=== PATIENT | female | born 1930 | race Caucasian/White ===

== ENCOUNTER 2017-04-09 13:25 | Emergency (ER) | payer MEDICARE, OTHER ==
--- NOTE | 2017-04-09 13:56 | EDM.PDOC ---
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 No trauma. Pt had birthday 3 days ago and may have eaten some salty food. BP was 185/105 on arrival. Onset: Today Duration: Hour(s): Location: Reports: Generalized Severity: Mild headache Pain Score (Numeric/FACES): 5 - Related Data Allergies Allergy/AdvReac Type Severity Reaction Status Date / Time moxifloxacin HCl Allergy Cannot Verified 04/09/17 14:02 [From Avelox] Remember Penicillins Allergy Swelling Verified 04/09/17 14:02 sulfamethoxazole Allergy Swelling Verified 04/09/17 14:02 [From Bactrim] trimethoprim [From Bactrim] Allergy Swelling Verified 04/09/17 14:02 Home Meds: Home Meds Acetaminophen [Tylenol] 325 mg PO DAILY 02/11/14 [History] Ascorbic Acid [Vitamin C] 500 mg PO DAILY 02/11/14 [History] Aspirin 325 mg PO DAILY 02/11/14 [History] Calcium Carbonate/Vitamin D3 [Calcium 500 + Vit D 400] 1 each PO DAILY 02/11/14 [History] Cholestyramine/Aspartame [Cholestyramine Light] 4 gm PO BID 02/11/14 [History] Digoxin [Digox] 0.125 mg PO DAILY 02/11/14 [History] Lisinopril [Prinivil] 20 mg PO BID 02/11/14 [History] Methimazole 2.5 mg PO DAILY 02/11/14 [History] Metoprolol Succinate [Toprol XL 100mg] 100 mg PO DAILY 02/11/14 [History] Rudyard-3 Fatty Acids [Rudyard-3] 1,000 mg PO DAILY 02/11/14 [History] Omeprazole 20 mg PO DAILY 02/11/14 [History] Potassium Chloride [Klor-Con M20] 40 meq PO WITHBREAKFAST 02/11/14 [History] amLODIPine Besylate [Amlodipine Besylate] 5 mg PO DAILY 02/11/14 [History] predniSONE [Prednisone] 5 mg PO ASDIRECTED 02/11/14 [History] Cranberry Extract [Cranberry] 500 mg PO DAILY 04/09/17 [History] Cyanocobalamin (Vitamin B-12) [B-12] 1,000 mcg PO MOWEFR 04/09/17 [History] Furosemide [Furosemide] 20 mg PO DAILY 04/09/17 [History] Glimepiride [Amaryl] 2 mg PO DAILY 04/09/17 [History] Metoprolol Succinate [Toprol XL 100mg] 50 mg PO BEDTIME 04/09/17 [History] Potassium Chloride [K-Tab ER] 20 meq PO ACDINNER 04/09/17 [History] Ranitidine [Zantac] 150 mg PO BID 04/09/17 [History] cloNIDine [Catapres] 0.1 mg PO Q12HR #2 tablet 04/09/17 [Rx] metFORMIN [Glucophage] 500 mg PO BIDMEALS 04/09/17 [History] ED ROS GENERAL - Review of Systems Review Of Systems: See Below Constitutional: Reports: Other (dizzy) HEENT: Reports: No Symptoms Respiratory: Reports: No Symptoms Cardiovascular: Reports: No Symptoms Endocrine: Reports: No Symptoms GI/Abdominal: Reports: Abdominal Pain : Reports: No Symptoms Musculoskeletal: Reports: No Symptoms Skin: Reports: No Symptoms Neurological: Reports: No Symptoms Psychiatric: Reports: No Symptoms Hematologic/Lymphatic: Reports: No Symptoms Immunologic: Reports: No Symptoms ED EXAM, GENERAL - Physical Exam Exam: See Below Exam Limited By: No Limitations General Appearance: Alert, WD/WN, Mild Distress Eye Exam: Bilateral Eye: Normal Inspection Ears: Normal External Exam Ear Exam: Bilateral Ear: Auricle Normal EKG INTERPRETATION EKG Date: 04/09/17 Time: 14:40 Rhythm: A-Fib Rate (Beats/Min): 67 [place]: Normal P-Wave: Present QRS: Normal ST-T: Normal QT: Normal Comparison: NA - No Prior EKG EKG Interpretation Comments: pr interval 284, NSR Course - Vital Signs Text/Narrative:: 87 years old w f with a 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 HTN, come to the ed because of severe headache and dizziness. No trauma. Pt had birthday 3 days ago and december have eaten some salty food. BP was 185/105 on arrival. No C/P N/V/D or any other acute medical issues. PE: WNWD w f NAD, was ambulating well. labs: WBC was 3.6 Nl HGB and HK. PT was 1.13 BMP was nl BNP 135 Imaging: CT head: NAD Impression: Hypertensive urgency Tx: Clonidine Reexam: BP was 150./87 on D/C, was ambulating well, Dizziness subsided. Plan: D/C with instructions. 04/10/2017 1130 am: Pt came back to the ed by PC for BP check. she took a clonidine 0.1 mg in am did check her BP as requested her BP was 160/87. Her BP was 88/407 on arrival to the ed. She received water. Her BP was rechecked before D/C. It was 108/57. She was adviced to stop taking clonidine and f/u in am with her PMD Last Recorded V/S: Last Vital Signs Temp 36.6 C 04/09/17 16:15 Pulse 58 L 04/09/17 16:15 Resp 16 04/09/17 16:15 BP 150/70 H 04/09/17 16:15 Pulse Ox 97 04/09/17 16:15 - Orders/Labs/Meds Orders: Active Orders 24 hr Category Date Time Status Abdomen 2V AP Flat Upright [CR] Stat Exams 04/09/17 13:51 Taken Head wo Cont [CT] Stat Exams 04/09/17 13:53 Taken EKG 12 Lead [EK] Routine Ther 04/09/17 13:51 Ordered Labs: Laboratory Tests 04/09/17 04/09/17 04/09/17 Range/Units 13:50 14:00 14:00 WBC 3.5 L (4.5-12.0) X10-3/uL RBC 4.55 (3.23-5.20) x10(6)uL Hgb 13.2 (11.5-15.5) g/dL Hct 38.8 (30.0-51.3) % MCV 85.4 (80-96) fL MCH 29.1 (27.7-33.6) pg MCHC 34.1 (32.2-35.4) g/dL RDW 13.2 (11.5-15.5) % Plt Count 126 (125-369) X10(3)uL MPV 7.8 (7.4-10.4) fL Neut % (Auto) 50.5 (46-82) % Lymph % (Auto) 31.4 (13-37) % [place] % (Auto) 13.5 H (4-12) % Eos % (Auto) 4 (1.0-5.0) % Baso % (Auto) 1 (0-2) % Neut # (Auto) 1.8 (1.6-8.3) # Lymph # (Auto) 1.1 (0.6-5.0) # [place] # (Auto) 0.5 (0.0-1.3) # Eos # (Auto) 0.1 (0.0-0.8) # Baso # (Auto) 0.0 (0.0-0.2) # PT 11.5 H (8.7-11.1) INR 1.14 H (0.89-1.13) Sodium (135-145) mmol/L Potassium (3.5-5.3) mmol/L Chloride (100-110) mmol/L Carbon Dioxide (23-29) mmol/L BUN (8-23) mg/dL Creatinine (0.6-1.3) mg/dL Est Cr Clr Drug Dosing mL/min Estimated GFR (MDRD) (>60) BUN/Creatinine Ratio (9-20) Glucose (80-116) mg/dL Calcium (8.6-10.2) mg/dL Total Bilirubin (0.1-1.3) mg/dL Direct Bilirubin (0.1-0.2) mg/dL AST (5-27) IU/L ALT (14-26) IU/L Alkaline Phosphatase (56-112) IU/L B-Natriuretic Peptide (0-100) pg/mL Total Protein (6.0-8.0) g/dL Albumin (3.2-4.6) g/dL Urine Color Yellow (YELLOW) Urine Appearance Clear (CLEAR) Urine pH 5.0 (5.0-6.5) Ur Specific [place] 1.010 (1.010-1.025) Urine Protein Negative (NEGATIVE) mg/dL Urine Glucose (UA) Normal (NEGATIVE) mg/dL Urine Ketones Negative (NEGATIVE) mg/dL Urine Occult Blood Negative (NEGATIVE) Urine Nitrite Negative (NEGATIVE) Urine Bilirubin Negative (NEGATIVE) Urine Urobilinogen Normal (NEGATIVE) mg/dL Ur Leukocyte Esterase Negative (NEGATIVE) Urine RBC Not seen (0) Urine WBC 0-5 (0) Ur Squamous Epith Cells Rare (NS,R,O) Urine Bacteria Rare H (NS) Digoxin (0.8-2.0) ng/mL 04/09/17 04/09/17 04/09/17 Range/Units 14:00 14:00 14:00 WBC (4.5-12.0) X10-3/uL RBC (3.23-5.20) x10(6)uL Hgb (11.5-15.5) g/dL Hct (30.0-51.3) % MCV (80-96) fL MCH (27.7-33.6) pg MCHC (32.2-35.4) g/dL RDW (11.5-15.5) % Plt Count (125-369) X10(3)uL MPV (7.4-10.4) fL Neut % (Auto) (46-82) % Lymph % (Auto) (13-37) % [place] % (Auto) (4-12) % Eos % (Auto) (1.0-5.0) % Baso % (Auto) (0-2) % Neut # (Auto) (1.6-8.3) # Lymph # (Auto) (0.6-5.0) # [place] # (Auto) (0.0-1.3) # Eos # (Auto) (0.0-0.8) # Baso # (Auto) (0.0-0.2) # PT (8.7-11.1) INR (0.89-1.13) Sodium 138 (135-145) mmol/L Potassium 4.1 (3.5-5.3) mmol/L Chloride 102 (100-110) mmol/L Carbon Dioxide 26 (23-29) mmol/L BUN 15 (8-23) mg/dL Creatinine 0.9 (0.6-1.3) mg/dL Est Cr Clr Drug Dosing 37.80 mL/min Estimated GFR (MDRD) 60 (>60) BUN/Creatinine Ratio 16.7 (9-20) Glucose 78 L (80-116) mg/dL Calcium 9.5 (8.6-10.2) mg/dL Total Bilirubin (0.1-1.3) mg/dL Direct Bilirubin (0.1-0.2) mg/dL AST (5-27) IU/L ALT (14-26) IU/L Alkaline Phosphatase (56-112) IU/L B-Natriuretic Peptide 151 H (0-100) pg/mL Total Protein (6.0-8.0) g/dL Albumin (3.2-4.6) g/dL Urine Color (YELLOW) Urine Appearance (CLEAR) Urine pH (5.0-6.5) Ur Specific [place] (1.010-1.025) Urine Protein (NEGATIVE) mg/dL Urine Glucose (UA) (NEGATIVE) mg/dL Urine Ketones (NEGATIVE) mg/dL Urine Occult Blood (NEGATIVE) Urine Nitrite (NEGATIVE) Urine Bilirubin (NEGATIVE) Urine Urobilinogen (NEGATIVE) mg/dL Ur Leukocyte Esterase (NEGATIVE) Urine RBC (0) Urine WBC (0) Ur Squamous Epith Cells (NS,R,O) Urine Bacteria (NS) Digoxin 0.8 (0.8-2.0) ng/mL 04/09/17 Range/Units 14:00 WBC (4.5-12.0) X10-3/uL RBC (3.23-5.20) x10(6)uL Hgb (11.5-15.5) g/dL Hct (30.0-51.3) % MCV (80-96) fL MCH (27.7-33.6) pg MCHC (32.2-35.4) g/dL RDW (11.5-15.5) % Plt Count (125-369) X10(3)uL MPV (7.4-10.4) fL Neut % (Auto) (46-82) % Lymph % (Auto) (13-37) % [place] % (Auto) (4-12) % Eos % (Auto) (1.0-5.0) % Baso % (Auto) (0-2) % Neut # (Auto) (1.6-8.3) # Lymph # (Auto) (0.6-5.0) # [place] # (Auto) (0.0-1.3) # Eos # (Auto) (0.0-0.8) # Baso # (Auto) (0.0-0.2) # PT (8.7-11.1) INR (0.89-1.13) Sodium (135-145) mmol/L Potassium (3.5-5.3) mmol/L Chloride (100-110) mmol/L Carbon Dioxide (23-29) mmol/L BUN (8-23) mg/dL Creatinine (0.6-1.3) mg/dL Est Cr Clr Drug Dosing mL/min Estimated GFR (MDRD) (>60) BUN/Creatinine Ratio (9-20) Glucose (80-116) mg/dL Calcium (8.6-10.2) mg/dL Total Bilirubin 1.1 (0.1-1.3) mg/dL Direct Bilirubin 0.2 (0.1-0.2) mg/dL AST 17 (5-27) IU/L ALT 14 (14-26) IU/L Alkaline Phosphatase 39 L (56-112) IU/L B-Natriuretic Peptide (0-100) pg/mL Total Protein 7.5 (6.0-8.0) g/dL Albumin 4.5 (3.2-4.6) g/dL Urine Color (YELLOW) Urine Appearance (CLEAR) Urine pH (5.0-6.5) Ur Specific [place] (1.010-1.025) Urine Protein (NEGATIVE) mg/dL Urine Glucose (UA) (NEGATIVE) mg/dL Urine Ketones (NEGATIVE) mg/dL Urine Occult Blood (NEGATIVE) Urine Nitrite (NEGATIVE) Urine Bilirubin (NEGATIVE) Urine Urobilinogen (NEGATIVE) mg/dL Ur Leukocyte Esterase (NEGATIVE) Urine RBC (0) Urine WBC (0) Ur Squamous Epith Cells (NS,R,O) Urine Bacteria (NS) Digoxin (0.8-2.0) ng/mL Meds: Medications Discontinued Medications Generic Name Dose Route Start Last Admin Trade Name Freq PRN Reason Stop Dose Admin Clonidine HCl 0.1 mg 04/09/17 15:28 04/09/17 15:40 Catapres PO 04/09/17 15:29 0.1 mg ONETIME ONE Administration Departure - Departure Time of Disposition: 16:13 Disposition: Home, Self-Care 01 Condition: Good Clinical Impression: Hypertension Qualifiers: Hypertension type: unspecified Qualified Code(s): I10 - Essential (primary) hypertension - Discharge Information Prescriptions: cloNIDine [Catapres] 0.1 mg PO Q12HR #2 tablet Instructions: Hypertension Referrals: Fantasma Maxwell MD [Primary Care Provider] - Forms: ED Department Discharge Additional Instructions: Please avoid salty food, please take your BP in am. if your systolic BP is >140 , please take 1 tablet of Clonidine 0.1 mg by mouth. Please come back to the ed for BP check in am. Please come back to the ed immediately if any symptoms change to the worse acutely. - My Orders Last 24 Hours: My Active Orders 04/09/17 13:51 Abdomen 2V AP Flat Upright [CR] Stat EKG 12 Lead [EK] Routine 04/09/17 13:53 Head wo Cont [CT] Stat - Assessment/Plan Last 24 Hours: My Active Orders 04/09/17 13:51 Abdomen 2V AP Flat Upright [CR] Stat EKG 12 Lead [EK] Routine 04/09/17 13:53 Head wo Cont [CT] Stat
[2017-04-09] MEDS ORDERED: cloNIDine 0.1 MG Tab PO ONE (15:28)
[2017-04-09 16:53] VITALS: BP 150/70
--- NOTE | 2017-04-11 12:42 | CR ---
INDICATION: Abdominal pain. Feels like bladder is really full when people push on me. ABDOMEN: Three images of the abdomen in supine and upright projections revealed no evidence of free air or obstruction, with a nonspecific pattern of gas and feces. Increased density in the pelvis suggests a distended urinary bladder of mild degree, but should be correlated clinically. Phleboliths are noted in the pelvis. A mild dextroconvex scoliosis of the lower middle lumbar spine is noted. Degenerative disk disease may be present at L3-4, L4-5. Overlying leads are noted. No definite organomegaly or mass lesions were identified. IMPRESSION: 1. Increased density in the pelvis likely represents slightly distended urinary bladder, but should be correlated clinically. 2. Mild scoliosis. 3. Nonacute abdomen. 4. Probable degenerative disk disease L4 through L5 and possibly through S1. MTDD
== END 2017-04-09 16:30 | disposition home or self-care (01) ==
LOC: FB.ED 13:25
DX: I10 Essential (primary) hypertension (principal); Z88.1 Allergy status to other antibiotic agents; Z88.0 Allergy status to penicillin; Z88.2 Allergy status to sulfonamides; Z88.8 Allergy status to other drugs, medicaments and biological substances; Z79.82 Long term (current) use of aspirin; Z79.84 Long term (current) use of oral hypoglycemic drugs; Z79.899 Other long term (current) drug therapy
CPT/HCPCS: 36415; 70450; 74020; 80048; 80076; 80162; 81001; 83880; 85025; 85610; 93005; 99284; 99285; A9270

== ENCOUNTER 2017-09-15 06:30 | Emergency (ER) | payer MEDICARE, OTHER ==
[2017-09-15] MEDS ORDERED: Haloperidol Lactate 5 MG/ML SDV IM ONE (06:40)
--- NOTE | 2017-09-15 08:08 | EDM.PDOCBH ---
ED HPI GENERAL MEDICAL PROBLEM - General Stated Complaint: ALTERED MENTAL STATUS Time Seen by Provider: 09/15/17 07:00 Source of Information: Reports: Patient, Family (arrived later, requesting to call her PMD first. Pt receiced Ovidio by Dr. Skaggs at 6.30 am) History Limitations: Reports: Altered Mental Status (dementia) - History of Present Illness INITIAL COMMENTS - FREE TEXT/NARRATIVE: 87 y.o.w.f with a h/o dementia, came to the ed by EMS because she was very agitated this moring. Pt was taken off her seraquil yesterday. Pt was not able to give a HPI, requesting no to tough her till her son arrives. As her son arrived shw was examined, but refused any tests; her son agreed and requested to call her PMD. BP 143/92 Pulse 78 RR 18 temp 36.2 Onset Date: 09/15/17 Onset Time: 04:00 Duration: Intermittent Location: Reports: Other (anxiety) Quality: Reports: Other (anxiety) Severity: Moderate Improves with: Reports: Medication Context: Reports: Other (pt was taken off her seroqil yesterday.) Associated Symptoms: Reports: No Other Symptoms - Related Data Allergies Allergy/AdvReac Type Severity Reaction Status Date / Time moxifloxacin HCl Allergy Cannot Verified 09/15/17 07:28 [From Avelox] Remember Penicillins Allergy Swelling Verified 09/15/17 07:28 sulfamethoxazole Allergy Swelling Verified 09/15/17 07:28 [From Bactrim] trimethoprim [From Bactrim] Allergy Swelling Verified 09/15/17 07:28 Home Meds: Home Meds Acetaminophen [Tylenol] 325 mg PO DAILY PRN 02/11/14 [History] Ascorbic Acid [Vitamin C] 500 mg PO DAILY 02/11/14 [History] Aspirin 325 mg PO DAILY 02/11/14 [History] Calcium Carbonate/Vitamin D3 [Calcium 500 + Vit D 400] 1 each PO DAILY 02/11/14 [History] Cholestyramine/Aspartame [Cholestyramine Light] 4 gm PO DAILY 02/11/14 [History] Digoxin [Digox] 125 mcg PO Q48H 02/11/14 [History] Lisinopril [Prinivil] 20 mg PO BID 02/11/14 [History] Methimazole 5 mg PO DAILY 02/11/14 [History] predniSONE [Prednisone] 5 mg PO ASDIRECTED 02/11/14 [History] Cyanocobalamin (Vitamin B-12) [B-12] 1,000 mcg PO MOWEFR 04/09/17 [History] Furosemide [Furosemide] 20 mg PO DAILY 04/09/17 [History] Potassium Chloride [K-Tab ER] 20 meq PO DAILY 04/09/17 [History] metFORMIN [Glucophage] 500 mg PO BIDMEALS 04/09/17 [History] Carboxymethylcellulose Sodium [Refresh Plus 0.5%] 1 drop EYEBOTH DAILY 09/15/17 [History] Carvedilol 25 mg PO BID 09/15/17 [History] Escitalopram [Lexapro] 5 mg PO DAILY 09/15/17 [History] Magnesium Oxide [Magnesium] 400 mg PO BID 09/15/17 [History] Warfarin [Coumadin] 1 mg PO ASDIRECTED 09/15/17 [History] busPIRone [Buspar] 10 mg PO BID 09/15/17 [History] Social & Family History - Tobacco Use Smoking Status *Q: Never Smoker ED ROS GENERAL - Review of Systems Review Of Systems: Unable To Obtain ED EXAM, BEHAVIORAL HEALTH - Physical Exam Exam: See Below Exam Limited By: Altered Mental Status General Appearance: Alert, WD/WN, Thin Eye Exam: Bilateral Eye: Normal Inspection Ears: Normal External Exam, Normal Canal Nose: Normal Inspection, Normal Mucosa, No Blood Throat/Mouth: Normal Inspection, Normal Lips, No Airway Compromise Head: Atraumatic, Normocephalic Neck: Normal Inspection, Supple, Non-Tender, Full Range of Motion Respiratory/Chest: No Respiratory Distress, Lungs Clear, Normal Breath Sounds, Chest Non-Tender Cardiovascular: Normal Peripheral Pulses, Regular Rate, Rhythm GI/Abdominal: Normal Bowel Sounds, Soft, Non-Tender, No Organomegaly, No Abnormal Bruit (Female) Exam: Deferred Rectal (Female) Exam: Deferred Back Exam: Normal Inspection, Full Range of Motion Extremities: Normal Inspection, Normal Range of Motion, Non-Tender, No Pedal Edema Neurological: Alert, CN II-XII Intact, Oriented x 3 Psychiatric: Alert, Agitated, Disoriented Skin Exam: Warm, Dry, Intact, Normal color, No rash COURSE, BEHAVIORAL HEALTH COMP - Course Vital Signs: Last Vital Signs Temp 36.8 C 09/15/17 09:00 Pulse 70 09/15/17 09:00 Resp 15 09/15/17 09:00 BP 148/90 H 09/15/17 09:00 Pulse Ox 98 09/15/17 09:00 87 y.o.w.f with a h/o dementia, came to the ed by EMS because she was very agitated this moring. Pt was taken off her seraquil yesterday. Pt was not able to give a HPI, requesting no to tough her till her son arrives. As her son arrived shw was examined, but refused any tests; her son agreed and requested to call her PMD. BP 143/92 Pulse 78 RR 18 temp 36.2 PE: anxious 87 y.o.w.f NAD Labs: Refused Impression: Dementia, anxiety Consultation Cathy Osorio : Shiela pt back on Seraquil 12.[address] was informed to restart seraquil again. Reexam: Pt improved Plan: D/C with family Orders, Labs, Meds: Active Orders 24 hr Category Date Time Status EKG 12 Lead [EK] Routine Ther 09/15/17 06:45 Ordered Medications Discontinued Medications Generic Name Dose Route Start Last Admin Trade Name Freq PRN Reason Stop Dose Admin Haloperidol Lactate 2.5 mg 09/15/17 06:40 09/15/17 06:47 Haldol IM 09/15/17 06:41 2.5 mg ONETIME ONE Administration Departure - Departure Time of Disposition: 08:11 Disposition: Home, Self-Care 01 Condition: Good Clinical Impression: Dementia Qualifiers: Alzheimer's disease onset: unspecified onset - Discharge Information Instructions: Confusion Referrals: Fantasma Maxwell MD [Primary Care Provider] - Forms: ED Department Discharge Additional Instructions: Please continue the Seraquil 12.5 mg daily, please f/y.Come back if the symptoms get worse acutely.
[2017-09-15 09:08] VITALS: BP 148/90
--- NOTE | 2017-09-15 09:27 | ER ---
DATE SEEN: 09/15/2017 CHIEF COMPLAINT: Alteration of mental status. HISTORY OF PRESENT ILLNESS: This is an 87-year-old female from [facility], who was brought in by ambulance. Apparently, she was erratic in behavior, walking the halls, combative verbally and also physically. This has happened before, but she is able to go to the room and calm herself, but today she was unable to do that. They brought her to the ER. History taking is difficult because of her mental status. MEDICATIONS: Listed from the [facility]. They include, 1. Prednisone. 2. Clonidine. 3. Amlodipine. 4. Amaryl. 5. Lisinopril. 6. Digoxin. 7. Aspirin. ALLERGIES: Also listed. They indicate moxifloxacin, penicillin, Bactrim, and trimethoprim. PAST MEDICAL HISTORY: Listed as hypertension. No other collateral history is available at this time. PHYSICAL EXAMINATION: GENERAL: She is not in any cardiopulmonary distress. VITAL SIGNS: Unremarkable with the exception of tachycardia. She is afebrile. HEENT: Head is normocephalic. There is some dried blood from the left nostril. Eyes, pupils are equal and reactive. CHEST: Clear. CARDIOVASCULAR: Tachycardia. EXTREMITIES: No edema. MENTAL STATUS: She is alert and awake; however, she is disoriented to time, place, and person, and her speech is garbled, incoherent, and unintelligible at times. She screams occasionally. Attention span is minimal, and she is not cooperative with any examination. IMPRESSION: Psychosis, acute, of unknown reason. PLAN: Obtain a CT of the head, CBC, CMP, EKG, and a UA. I gave her 2.5 mg of IM Haldol, and Dr. Nunez will take over care. TIME SEEN: 0635 hours. /[id number] RUFINO/SAM
== END 2017-09-15 09:00 | disposition home or self-care (01) ==
LOC: FB.ED 06:30
DX: F29 Unspecified psychosis not due to a substance or known physiological condition (principal); I10 Essential (primary) hypertension; Z88.0 Allergy status to penicillin; Z88.1 Allergy status to other antibiotic agents
CPT/HCPCS: 96372; 99284; J1630; 99283

== ENCOUNTER 2017-11-05 10:04 | Emergency (ER) | payer MEDICARE, OTHER ==
--- NOTE | 2017-11-05 10:58 | EDM.PDOC ---
ED HPI GENERAL MEDICAL PROBLEM - General Stated Complaint: LOW MAGNESIUM Time Seen by Provider: 11/05/17 10:04 Source of Information: Reports: Patient, Family History Limitations: Reports: Other (Dementia) - History of Present Illness INITIAL COMMENTS - FREE TEXT/NARRATIVE: 87 y.o.w f with a h/o Dementia was called in the the ed after a clinic called to this ED her Mg level is 1.0 and she needs Mg given here in the ed. Pt's son brought her to the ed. Pt denied any clinical issues, no N/V/D dizziness, or c/ p or any other acute medical issues. BP 149/50 HR 65 RR 18 Pulse ox 95 on RA Temp 36.5 Onset: Today Onset Date: 11/04/17 Onset Time: 22:00 Duration: Hour(s): Location: Reports: Generalized Quality: Reports: Other (ED was called Mg would be 1.00) Improves with: Reports: None Worsens with: Reports: None Associated Symptoms: Reports: No Other Symptoms - Related Data Allergies Allergy/AdvReac Type Severity Reaction Status Date / Time moxifloxacin HCl Allergy Cannot Verified 09/15/17 07:28 [From Avelox] Remember Penicillins Allergy Swelling Verified 09/15/17 07:28 sulfamethoxazole Allergy Swelling Verified 09/15/17 07:28 [From Bactrim] trimethoprim [From Bactrim] Allergy Swelling Verified 09/15/17 07:28 Home Meds: Home Meds Acetaminophen [Tylenol] 325 mg PO DAILY PRN 02/11/14 [History] Ascorbic Acid [Vitamin C] 500 mg PO DAILY 02/11/14 [History] Aspirin 325 mg PO DAILY 02/11/14 [History] Calcium Carbonate/Vitamin D3 [Calcium 500 + Vit D 400] 1 each PO DAILY 02/11/14 [History] Cholestyramine/Aspartame [Cholestyramine Light] 4 gm PO DAILY 02/11/14 [History] Lisinopril [Prinivil] 20 mg PO BID 02/11/14 [History] Methimazole 5 mg PO DAILY 02/11/14 [History] predniSONE [Prednisone] 5 mg PO ASDIRECTED 02/11/14 [History] Furosemide [Furosemide] 20 mg PO DAILY 04/09/17 [History] Potassium Chloride [K-Tab ER] 20 meq PO DAILY 08/26/17 [History] Carboxymethylcellulose Sodium [Refresh Plus 0.5%] 1 drop EYEBOTH DAILY 09/15/17 [History] Carvedilol 25 mg PO BID 09/15/17 [History] Escitalopram [Lexapro] 5 mg PO DAILY 09/15/17 [History] Magnesium Oxide [Magnesium] 400 mg PO BID 09/15/17 [History] busPIRone [Buspar] 10 mg PO BID 09/15/17 [History] Donepezil [Aricept] 5 mg PO ASDIRECTED 11/05/17 [History] Nitrofurantoin Monohyd/M-Cryst [Macrobid 100 mg Capsule] 100 mg PO BID #20 capsule 11/05/17 [Rx] amLODIPine Besylate [Norvasc] 5 mg PO DAILY 11/05/17 [History] Social & Family History - Tobacco Use Smoking Status *Q: Never Smoker ED ROS GENERAL - Review of Systems Review Of Systems: Unable To Obtain (dementia) ED EXAM, GENERAL - Physical Exam Exam: See Below Exam Limited By: Altered Mental Status General Appearance: Alert, WD/WN, No Apparent Distress Eye Exam: Bilateral Eye: Normal Inspection Ears: Normal External Exam Ear Exam: Bilateral Ear: Auricle Normal Nose: Normal Inspection, Normal Mucosa, No Blood Throat/Mouth: Normal Inspection, Normal Lips, No Airway Compromise Head: Atraumatic, Normocephalic Neck: Normal Inspection, Supple, Non-Tender, Full Range of Motion Respiratory/Chest: No Respiratory Distress, Lungs Clear, Normal Breath Sounds ( poor insp effort) Cardiovascular: Normal Peripheral Pulses, Irregularly Irregular Peripheral Pulses: 1+: Brachial (R) GI/Abdominal: Normal Bowel Sounds, Soft, Non-Tender (Female) Exam: Deferred Rectal (Female) Exam: Deferred Back Exam: Normal Inspection, Full Range of Motion Extremities: Normal Inspection, Normal Range of Motion Neurological: Alert, CN II-XII Intact, Normal Gait Psychiatric: Normal Affect, Normal Mood (H/O dementia) Skin Exam: Warm, Dry Lymphatic: No Adenopathy EKG INTERPRETATION EKG Date: 11/05/17 Time: 11:25 Rhythm: A-Fib Rate (Beats/Min): 60 [place]: Normal P-Wave: Absent QRS: Normal ST-T: Normal QT: Normal Comparison: NA - No Prior EKG Course - Vital Signs Text/Narrative:: 87 y.o.w f with a h/o Dementia was called in the the ed after a clinic called to this ED her Mg level is 1.0 and she needs Mg given here in the ed. Pt's son brought her to the ed. Pt denied any clinical issues, no N/V/D dizziness, or c/ p or any other acute medical issues. BP 149/50 HR 65 RR 18 Pulse ox 95 on RA Temp 36.5 PE: 87 y.o.w.f wit Dementia, living in a [facility] living place Labs: Mg 1.0 K 3.4 Glc 126 GFR 56 UA pos for UTI Impression: Hypomagnesia, Hypokalemia, UTI Tx: Mg. KCL and Nitrofurantoin 10.59 am Consultation , Spanish Linguist, [facility], [place]: 4 MG over 2 hours og MG, then F/U in one week with [facility] Reexam: Pt did fine here in the ed. Daughter in Law took her back to her home Plan: D/C with instructions Last Recorded V/S: Last Vital Signs Temp 36.6 C 11/05/17 15:22 Pulse 86 11/05/17 15:22 Resp 18 11/05/17 15:22 BP 157/62 H 11/05/17 15:22 Pulse Ox 95 11/05/17 15:22 - Orders/Labs/Meds Orders: Active Orders 24 hr Category Date Time Status CULTURE URINE [RM] Stat Lab 11/05/17 10:55 Results Saline Lock Insert [OM.PC] Routine Oth 11/05/17 11:31 Ordered Labs: Laboratory Tests 11/05/17 11/05/17 11/05/17 Range/Units 10:25 10:25 10:55 WBC 3.2 L (4.5-12.0) X10-3/uL RBC 3.71 (3.23-5.20) x10(6)uL Hgb 10.0 L D (11.5-15.5) g/dL Hct 31.0 (30.0-51.3) % MCV 83.6 (80-96) fL MCH 26.9 L (27.7-33.6) pg MCHC 32.1 L (32.2-35.4) g/dL RDW 14.1 (11.5-15.5) % Plt Count 135 (125-369) X10(3)uL MPV 7.3 L (7.4-10.4) fL Neut % (Auto) 62.7 (46-82) % Lymph % (Auto) 21.8 (13-37) % [place] % (Auto) 13.0 H (4-12) % Eos % (Auto) 2 (1.0-5.0) % Baso % (Auto) 1 (0-2) % Neut # (Auto) 2.0 (1.6-8.3) # Lymph # (Auto) 0.7 (0.6-5.0) # [place] # (Auto) 0.4 (0.0-1.3) # Eos # (Auto) 0.1 (0.0-0.8) # Baso # (Auto) 0.0 (0.0-0.2) # Sodium 140 (135-145) mmol/L Potassium 3.4 L (3.5-5.3) mmol/L Chloride 101 (100-110) mmol/L Carbon Dioxide 32 (21-32) mmol/L BUN 15 (7-18) mg/dL Creatinine 1.0 (0.55-1.02) mg/dL Est Cr Clr Drug Dosing TNP Estimated GFR (MDRD) 53 L (>60) BUN/Creatinine Ratio 15.0 (9-20) Glucose 126 H (80-116) mg/dL Calcium 8.6 (8.6-10.2) mg/dL Magnesium 1.0 L* (1.8-2.5) mg/dL Urine Color Yellow (YELLOW) Urine Appearance Cloudy (CLEAR) Urine pH 6.0 (5.0-6.5) Ur Specific [place] 1.015 (1.010-1.025) Urine Protein 30 H (NEGATIVE) mg/dL Urine Glucose (UA) Normal (NEGATIVE) mg/dL Urine Ketones Negative (NEGATIVE) mg/dL Urine Occult Blood Large H (NEGATIVE) Urine Nitrite Negative (NEGATIVE) Urine Bilirubin Negative (NEGATIVE) Urine Urobilinogen Normal (NEGATIVE) mg/dL Ur Leukocyte Esterase Large H (NEGATIVE) Urine RBC (0) Urine WBC Packed H (0) Urine Bacteria Many H (NS) 11/05/17 11/05/17 Range/Units 13:45 13:45 WBC (4.5-12.0) X10-3/uL RBC (3.23-5.20) x10(6)uL Hgb (11.5-15.5) g/dL Hct (30.0-51.3) % MCV (80-96) fL MCH (27.7-33.6) pg MCHC (32.2-35.4) g/dL RDW (11.5-15.5) % Plt Count (125-369) X10(3)uL MPV (7.4-10.4) fL Neut % (Auto) (46-82) % Lymph % (Auto) (13-37) % [place] % (Auto) (4-12) % Eos % (Auto) (1.0-5.0) % Baso % (Auto) (0-2) % Neut # (Auto) (1.6-8.3) # Lymph # (Auto) (0.6-5.0) # [place] # (Auto) (0.0-1.3) # Eos # (Auto) (0.0-0.8) # Baso # (Auto) (0.0-0.2) # Sodium (135-145) mmol/L Potassium 3.7 (3.5-5.3) mmol/L Chloride (100-110) mmol/L Carbon Dioxide (21-32) mmol/L BUN (7-18) mg/dL Creatinine (0.55-1.02) mg/dL Est Cr Clr Drug Dosing Estimated GFR (MDRD) (>60) BUN/Creatinine Ratio (9-20) Glucose (80-116) mg/dL Calcium (8.6-10.2) mg/dL Magnesium 2.4 (1.8-2.5) mg/dL Urine Color (YELLOW) Urine Appearance (CLEAR) Urine pH (5.0-6.5) Ur Specific [place] (1.010-1.025) Urine Protein (NEGATIVE) mg/dL Urine Glucose (UA) (NEGATIVE) mg/dL Urine Ketones (NEGATIVE) mg/dL Urine Occult Blood (NEGATIVE) Urine Nitrite (NEGATIVE) Urine Bilirubin (NEGATIVE) Urine Urobilinogen (NEGATIVE) mg/dL Ur Leukocyte Esterase (NEGATIVE) Urine RBC (0) Urine WBC (0) Urine Bacteria (NS) Meds: Medications Discontinued Medications Generic Name Dose Route Start Last Admin Trade Name Freq PRN Reason Stop Dose Admin Magnesium Sulfate 4 gm/ Premix 50 mls @ 150 mls/hr 11/05/17 11:02 11/05/17 11 :56 IV 11/05/17 11:03 150 mls/hr ONETIME ONE Administration Sodium Chloride 250 mls @ 55 mls/hr 11/05/17 12:15 11/05/17 11:57 Normal Saline IV 55 mls/hr ASDIRECTED KALPANA Administration Nitrofurantoin Macrocrystals 50 mg 11/05/17 14:48 11/05/17 15:16 Macrodantin PO 11/05/17 14:49 50 mg ONETIME ONE Administration Potassium Chloride 40 meq 11/05/17 11:08 11/05/17 11:51 Klor-Con M20 PO 11/05/17 11:09 40 meq ONETIME ONE Administration Sodium Chloride 10 ml 11/05/17 11:31 11/05/17 11:47 Saline Flush FLUSH 10 ml ASDIRECTED PRN Administration Keep Vein Open Departure - Departure Time of Disposition: 15:10 Disposition: Home, Self-Care 01 Condition: Good Clinical Impression: Hypomagnesemia, Hypokalemia, UTI (urinary tract infection) - Discharge Information Prescriptions: Nitrofurantoin Monohyd/M-Cryst [Macrobid 100 mg Capsule] 100 mg PO BID #20 capsule Referrals: Fantasma Maxwell MD [Primary Care Provider] - Forms: ED Department Discharge Additional Instructions: Please get the Magnesium level checked in 3-4 days, please f/u with your PMD, please come back to the ED if your symptoms get worse acutely - My Orders Last 24 Hours: My Active Orders 11/05/17 10:55 CULTURE URINE [RM] Stat 11/05/17 11:31 Saline Lock Insert [OM.PC] Routine - Assessment/Plan Last 24 Hours: My Active Orders 11/05/17 10:55 CULTURE URINE [RM] Stat 11/05/17 11:31 Saline Lock Insert [OM.PC] Routine
[2017-11-05] MEDS ORDERED: Magnesium Sulfate/Water 4 GM in Premix Bag 1 BAG IV ONE (11:02)
[2017-11-05] MEDS ORDERED: Potassium Chloride 20 MEQ Tab.ER PO ONE (11:08)
[2017-11-05] MEDS ORDERED: Sodium Chloride 0.9% 10 ML Syringe FLUSH PRN (11:31)
[2017-11-05] MEDS ORDERED: Sodium Chloride 0.9% 250 ML IV SCH (12:15)
[2017-11-05] MEDS ORDERED: Nitrofurantoin Macrocrystal 50 MG Cap PO ONE (14:48)
[2017-11-05 15:23] VITALS: BP 157/62
== END 2017-11-05 15:23 | disposition home or self-care (01) ==
LOC: FB.ED 10:04
DX: E83.42 Hypomagnesemia (principal); N39.0 Urinary tract infection, site not specified; E87.6 Hypokalemia; Z88.0 Allergy status to penicillin; Z88.8 Allergy status to other drugs, medicaments and biological substances; Z79.899 Other long term (current) drug therapy; Z79.82 Long term (current) use of aspirin
CPT/HCPCS: 36415; 80048; 81001; 83735; 84132; 85025; 87086; 87088; 87186; 93005; 96365; 99282; 99284; A9270-GY; J3475; J7050

== ENCOUNTER 2018-04-19 21:49 | Inpatient (IN) | payer MEDICARE, OTHER ==
[2018-04-19] MEDS ORDERED: Ondansetron 4 MG/2 ML SDV IVPUSH ONE (21:57)
[2018-04-19] MEDS ORDERED: Pantoprazole 40 MG Vial IVPUSH ONE (21:57)
--- NOTE | 2018-04-19 22:00 | EDM.PDOC ---
ED HPI GENERAL MEDICAL PROBLEM - General Stated Complaint: VOMITTING Time Seen by Provider: 04/19/18 21:49 Source of Information: Reports: Patient, Family History Limitations: Reports: Physical Impairment - History of Present Illness INITIAL COMMENTS - FREE TEXT/NARRATIVE: 88 y.o.w.f came with family due to severe weakness, vomiting and not being herself. Pt was doing fine this am, was walking on the beach, eating and drinking when she suddenly started being nauseated and was vomiting for severe hours before she got pale and weak. On arrival to the ed, she was too weak to talk, followed verbal commands, however. Her HR was irr/irr 31 BPM her BP was 77/palp. As per family, pt is a DNR/DNI Onset Date: 04/19/18 Onset Time: 17:43 Duration: Hour(s):, Getting Worse Location: Reports: Generalized Severity: Severe Improves with: Reports: Rest Worsens with: Reports: Movement Associated Symptoms: Reports: Confusion, Nausea/Vomiting Bilateral Lower Leg Pain Score (Numeric/FACES): 6 - Related Data Allergies Allergy/AdvReac Type Severity Reaction Status Date / Time moxifloxacin HCl Allergy Cannot Verified 04/19/18 22:30 [From Avelox] Remember Penicillins Allergy Swelling Verified 04/19/18 22:30 sulfamethoxazole Allergy Swelling Verified 04/19/18 22:30 [From Bactrim] trimethoprim [From Bactrim] Allergy Swelling Verified 04/19/18 22:30 Home Meds: Home Meds Acetaminophen [Tylenol] 650 mg PO Q6H PRN 02/11/14 [History] Ascorbic Acid [Vitamin C] 500 mg PO DAILY 02/11/14 [History] Cholestyramine/Aspartame [Cholestyramine Light] 4 gm PO BIDMEALS 02/11/14 [ History] Lisinopril [Prinivil] 20 mg PO BID 02/11/14 [History] methIMAzole [Methimazole] 2.5 mg PO DAILY 02/11/14 [History] predniSONE [Prednisone] 5 mg PO Q48H 02/11/14 [History] Furosemide 80 mg PO DAILY 04/09/17 [History] Potassium Chloride [K-Tab ER] 20 meq PO Q48H 04/09/17 [History] Carboxymethylcellulose Sodium [Refresh Plus 0.5%] 1 drop EYEBOTH BID 09/15/17 [ History] Carvedilol 37.5 mg PO BIDMEALS 09/15/17 [History] Escitalopram [Lexapro] 5 mg PO DAILY 09/15/17 [History] busPIRone [Buspar] 5 mg PO BID 09/15/17 [History] Donepezil [Aricept] 5 mg PO BEDTIME 11/05/17 [History] Calcium Carbonate/Vitamin D3 [Calcium 600 + Vit D 400 Softgl] 1 cap PO DAILY 01/30 [History] Carboxymethylcellulose Sodium [Refresh Tears 0.5%] 1 drop EYEBOTH BID 04/20/18 [ History] Carvedilol [Coreg] 3.125 tab PO BID PRN 04/20/18 [History] Cyanocobalamin (Vitamin B-12) [Vitamin B-12] 1,000 mcg PO MOWEFR@0800 04/20/18 [ History] Fluticasone Propionate [Flonase] 1 spray CALE BID 04/20/18 [History] L.acidoph,Paracasei, B.lactis [Probiotic] 1 cap PO WITHDINNER 04/20/18 [History] Loperamide [Imodium] 2 mg PO Q48H 04/20/18 [History] Magnesium Chloride [Mag-64] 128 mg PO DAILY 04/20/18 [History] QUEtiapine [SEROquel] 12.5 mg PO BEDTIME 04/20/18 [History] Spironolactone [Aldactone] 25 mg PO DAILY 04/20/18 [History] metOLazone [Metolazone] 5 mg PO MOWEFR 04/20/18 [History] Past Medical History HEENT History: Reports: Impaired Vision Other HEENT History: wears glasses Cardiovascular History: Reports: Hypertension Genitourinary History: Reports: Urinary Incontinence [employer]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: Neurological History: Reports: Alzheimers Disease 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: Alzheimers Disease Endocrine/Metabolic History: Reports: Diabetes, Type II Hematologic History: Reports: Other (See Below) Other Hematologic History: hx of low magneium Social & Family History - Family History Family Medical History: Unobtainable - Caffeine Use Caffeine Use: Reports: Coffee ED ROS GENERAL - Review of Systems Review Of Systems: Unable To Obtain ED EXAM, NEURO - Physical Exam Exam: See Below Exam Limited By: Physical Impairment General Appearance: Alert, Severe Distress, Cachetic Eye Exam: Bilateral Eye: Normal Inspection Ears: Normal External Exam Nose: Normal Inspection, Normal Mucosa Throat/Mouth: Normal Inspection, Normal Lips, Normal Gums, Normal Oropharynx, Normal Voice, No Airway Compromise Head Exam: Atraumatic, Normocephalic Neck: Normal Inspection, Supple, Non-Tender, Full Range of Motion Respiratory/Chest: No Respiratory Distress, Lungs Clear, Normal Breath Sounds, No Accessory Muscle Use, Chest Non-Tender Cardiovascular: Normal Peripheral Pulses, No Edema, Bradycardia, Diastolic Murmur, Irregularly Irregular GI/Abdominal: Normal Bowel Sounds, Soft, Non-Tender, No Organomegaly, No Abnormal Bruit, No Mass, Pelvis Stable (Female) Exam: Deferred Rectal (Female) Exam: Deferred Neurological: Alert Back Exam: Normal Inspection, Full Range of Motion Extremities: Normal Inspection, Normal Range of Motion, Non-Tender Psychiatric: Flat Affect Skin Exam: Warm, Dry, Intact, Pallor EKG INTERPRETATION EKG Date: 04/19/18 Time: 22:05 Rhythm: A-Fib Rate (Beats/Min): 35 [place]: RAD-Right [place] Deviation QRS: RBBB ST-T: Normal QT: Normal Comparison: NA - No Prior EKG Course - Vital Signs Text/Narrative:: 88 y.o.w.f came with family due to severe weakness, vomiting and not being herself. Pt was doing fine this am, was walking on the beach, eating and drinking when she suddenly started being nauseated and was vomiting for severe hours before she got pale and weak. On arrival to the ed, she was too weak to talk, followed verbal commands, however. Her HR was irr/irr 31 BPM her BP was 77/palp. As per family, pt is a DNR/DNI PE: Weak, pail 88 y,o.w.f Labs: K 7.2 na 130 C. 2.0 BUN 39 WBC 3.8 HGB 10.2 HCT 14.7 Pts count 97K ECG: Bradycardia with RBBB Rate 31. After Tx: A fib with a rate of 70 BPM, QTc [id number], no acute ST/T wave changes Impression: Hyperkalemia, renal insufficiency, Anemia, Gastritis, Thrombocytopenia, Anemia, DNR/DNI Tx: Ca cloride, Atropin, GLc/Insulin. Albuterol Neb, Atropin, NS, Zofran, Protronix, gasca cath Reexam: Improved. K was 5.2 Na was 134, pt was more alert and was talking. Family was present. Kayexalate was not give as of now Plan; Admit to ICU Last Recorded V/S: Last Vital Signs Temp 36.6 C 04/21/18 00:20 Pulse 61 04/21/18 02:05 Resp 16 04/21/18 02:05 BP 123/52 L 04/21/18 02:05 Pulse Ox 95 04/21/18 02:05 - Orders/Labs/Meds Orders: Medication Orders Albuterol (Proventil Neb Soln) 2.5 mg NEB Q2H PRN PRN Reason: Hyperkalemia Last Admin: 04/19/18 23:12 Dose: 2.5 mg Buspirone HCl (Buspar) 5 mg PO BID [facility] Last Admin: 04/20/18 20:36 Dose: 5 mg Admin: 04/20/18 11:33 Dose: 5 mg Carvedilol 12.5 mg/ Carvedilol (25 mg) 37.5 mg PO BID [facility] Last Admin: 04/20/18 20:36 Dose: 37.5 mg Admin: 04/20/18 11:33 Dose: 37.5 mg Cholestyramine Resin (Cholestyramine Packet) 4 gm PO BID [facility] Last Admin: 04/20/18 20:36 Dose: 4 gm Admin: 04/20/18 11:32 Dose: 4 gm Donepezil HCl (Aricept) 5 mg PO BEDTIME [facility] Last Admin: 04/20/18 20:36 Dose: 5 mg Escitalopram Oxalate (Lexapro) 5 mg PO DAILY [facility] Last Admin: 04/20/18 11:32 Dose: 5 mg Furosemide (Lasix) 40 mg PO DAILY [facility] Sodium Chloride (Normal Saline) 1,000 mls @ 125 mls/hr IV ASDIRECTED [facility] Last Admin: 04/21/18 01:25 Dose: 125 mls/hr Infusion: 04/21/18 01:25 Dose: 125 mls/hr Admin: 04/20/18 17:48 Dose: 125 mls/hr Infusion: 04/20/18 17:17 Dose: 125 mls/hr Admin: 04/20/18 09:17 Dose: 125 mls/hr Infusion: 04/20/18 08:15 Dose: 125 mls/hr Admin: 04/20/18 00:15 Dose: 125 mls/hr Loperamide HCl (Imodium) 2 mg PO Q48H [facility] Last Admin: 04/20/18 11:32 Dose: 2 mg Methimazole (Methimazole) 2.5 mg PO DAILY [facility] Last Admin: 04/20/18 11:39 Dose: 2.5 mg Quetiapine Fumarate (Seroquel) 12.5 mg PO BEDTIME [facility] Last Admin: 04/20/18 20:36 Dose: 12.5 mg Sodium Chloride (Saline Flush) 10 ml FLUSH ASDIRECTED PRN PRN Reason: Keep Vein Open Last Admin: 04/20/18 00:22 Dose: 10 ml Admin: 04/19/18 23:13 Dose: 10 ml Admin: 04/19/18 22:23 Dose: 10 ml Labs: Laboratory Tests 04/19/18 04/19/18 04/19/18 Range/Units 22:05 22:05 22:05 WBC 3.8 L (4.5-12.0) X10-3/uL RBC 4.00 (3.23-5.20) x10(6)uL Hgb 10.2 L (11.5-15.5) g/dL Hct 31.7 (30.0-51.3) % MCV 79.3 L (80-96) fL MCH 25.5 L (27.7-33.6) pg MCHC 32.2 (32.2-35.4) g/dL RDW 17.2 H (11.5-15.5) % Plt Count 97 L (125-369) X10(3)uL MPV 8.4 (7.4-10.4) fL Neut % (Auto) 62.7 (46-82) % Lymph % (Auto) 25.0 (13-37) % [place] % (Auto) 10.5 (4-12) % Eos % (Auto) 1 (1.0-5.0) % Baso % (Auto) 1 (0-2) % Neut # (Auto) 2.5 (1.6-8.3) # Lymph # (Auto) 0.9 (0.6-5.0) # [place] # (Auto) 0.4 (0.0-1.3) # Eos # (Auto) 0.0 (0.0-0.8) # Baso # (Auto) 0.0 (0.0-0.2) # PT 12.3 H (8.7-11.1) INR 1.27 H (0.89-1.13) Sodium 130 L D (135-145) mmol/L Potassium 7.3 H* D (3.5-5.3) mmol/L Chloride 100 (100-110) mmol/L Carbon Dioxide 23 (21-32) mmol/L BUN 39 H D (7-18) mg/dL Creatinine 2.0 H* (0.55-1.02) mg/dL Est Cr Clr Drug Dosing TNP Estimated GFR (MDRD) 24 L (>60) BUN/Creatinine Ratio 19.5 (9-20) Glucose 216 H D (80-116) mg/dL Lactic Acid (0.4-2.2) mmol/L Calcium 8.3 L (8.6-10.2) mg/dL Creatine Kinase 56 L (60-160) IU/L Troponin I (<0.017-0.056) ng/mL NT-Pro-B Natriuret Pep (<=450) pg/mL Blood Type Gel Antibody Screen 04/19/18 04/19/18 04/19/18 Range/Units 22:05 22:05 22:05 WBC (4.5-12.0) X10-3/uL RBC (3.23-5.20) x10(6)uL Hgb (11.5-15.5) g/dL Hct (30.0-51.3) % MCV (80-96) fL MCH (27.7-33.6) pg MCHC (32.2-35.4) g/dL RDW (11.5-15.5) % Plt Count (125-369) X10(3)uL MPV (7.4-10.4) fL Neut % (Auto) (46-82) % Lymph % (Auto) (13-37) % [place] % (Auto) (4-12) % Eos % (Auto) (1.0-5.0) % Baso % (Auto) (0-2) % Neut # (Auto) (1.6-8.3) # Lymph # (Auto) (0.6-5.0) # [place] # (Auto) (0.0-1.3) # Eos # (Auto) (0.0-0.8) # Baso # (Auto) (0.0-0.2) # PT (8.7-11.1) INR (0.89-1.13) Sodium (135-145) mmol/L Potassium (3.5-5.3) mmol/L Chloride (100-110) mmol/L Carbon Dioxide (21-32) mmol/L BUN (7-18) mg/dL Creatinine (0.55-1.02) mg/dL Est Cr Clr Drug Dosing Estimated GFR (MDRD) (>60) BUN/Creatinine Ratio (9-20) Glucose (80-116) mg/dL Lactic Acid 3.2 H (0.4-2.2) mmol/L Calcium (8.6-10.2) mg/dL Creatine Kinase (60-160) IU/L Troponin I < 0.017 L (<0.017-0.056) ng/mL NT-Pro-B Natriuret Pep 7352 H* (<=450) pg/mL Blood Type A POSITIVE Gel Antibody Screen Negative Meds: Medications Generic Name Dose Route Start Last Admin Trade Name Freq PRN Reason Stop Dose Admin Albuterol 2.5 mg 04/19/18 22:38 04/19/18 23:12 Proventil Neb Soln NEB 2.5 mg Q2H PRN Administration Hyperkalemia Buspirone HCl 5 mg 04/20/18 10:00 04/20/18 20:36 Buspar PO 5 mg BID KALPANA Administration Carvedilol 12.5 mg/ Carvedilol 37.5 mg 04/20/18 10:00 04/20/18 20:36 25 mg PO 37.5 mg BID [facility]AL[facility]NA Administration Cholestyramine Resin 4 gm 04/20/18 09:00 04/20/18 20:36 Cholestyramine Packet PO 4 gm BID KAL[facility]NA Administration Donepezil HCl 5 mg 04/20/18 21:00 04/20/18 20:36 Aricept PO 5 mg BEDTIME KAL[facility]NA Administration Escitalopram Oxalate 5 mg 04/20/18 09:00 04/20/18 11:32 Lexapro PO 5 mg DAILY [facility]NA Administration Furosemide 40 mg 04/21/18 09:00 Lasix PO DAILY [facility]NA Sodium Chloride 1,000 mls @ 125 mls/hr 04/20/18 00:30 04/21/18 01:25 Normal Saline IV 125 mls/hr ASDIRECTED KAL[facility]NA Administration Loperamide HCl 2 mg 04/20/18 09:30 04/20/18 11:32 Imodium PO 2 mg Q48H [facility]NA Administration Methimazole 2.5 mg 04/20/18 09:00 04/20/18 11:39 Methimazole PO 2.5 mg DAILY [facility] Administration Quetiapine Fumarate 12.5 mg 04/20/18 21:00 04/20/18 20:36 Seroquel PO 12.5 mg BEDTIME [facility]AL[facility]NA Administration Sodium Chloride 10 ml 04/19/18 21:55 04/20/18 00:22 Saline Flush FLUSH 10 ml ASDIRECTED PRN Administration Keep Vein Open Discontinued Medications Generic Name Dose Route Start Last Admin Trade Name Freq PRN Reason Stop Dose Admin Atropine Sulfate 0.5 mg 04/19/18 22:05 04/19/18 22:07 Atropine 0.1 Mg/Ml IVPUSH 04/19/18 22:06 0.5 mg ONETIME ONE Administration Atropine Sulfate 0.5 mg 04/19/18 22:07 04/19/18 22:28 Atropine IVPUSH 04/19/18 22:08 Not Given ONETIME ONE Calcium Chloride 1 gm 04/19/18 22:44 04/19/18 22:45 Calcium Chloride 10% IVPUSH 04/19/18 22:45 1 gm ONETIME ONE Administration Calcium Gluconate 2 gm 04/19/18 22:38 04/19/18 23:56 Calcium Gluconate IV 04/19/18 22:39 Not Given ONETIME ONE Carvedilol mg 04/20/18 08:52 Coreg PO BID PRN Hypertension Dextrose/Water 50 ml 04/19/18 22:38 04/19/18 22:47 Dextrose 50% In Water IVPUSH 04/19/18 22:39 50 ml ONETIME ONE Administration Furosemide 80 mg 04/20/18 09:00 04/20/18 10:17 Lasix PO Not Given DAILY [facility] Sodium Chloride 500 mls @ 500 mls/hr 04/19/18 22:28 04/19/18 22:30 Normal Saline IV 04/19/18 23:27 500 mls/hr .BOLUS ONE Administration Azithromycin 500 mg/ Sodium 250 mls @ 250 mls/hr 04/19/18 22:36 04/19/18 23: 00 Chloride IV 04/19/18 23:35 250 mls/hr ONETIME ONE Administration Insulin Human Regular 10 unit 04/19/18 22:38 04/19/18 22:57 Humulin R IVPUSH 04/19/18 22:39 10 units ONETIME ONE Administration Ondansetron HCl 8 mg 04/19/18 21:57 04/19/18 22:17 Zofran IVPUSH 04/19/18 21:58 8 mg ONETIME ONE Administration Pantoprazole Sodium 40 mg 04/19/18 21:57 04/19/18 22:14 Protonix Iv IVPUSH 04/19/18 21:58 40 mg ONETIME ONE Administration Sodium Polystyrene Sulfonate 15 gm 04/19/18 22:38 04/19/18 23:57 Kayexalate PO 04/19/18 22:39 Not Given ONETIME ONE Sodium Polystyrene Sulfonate 15 gm 04/20/18 08:51 04/20/18 09:14 Kayexalate PO 04/20/18 08:52 15 gm ONETIME ONE Administration Departure - Departure Time of Disposition: 18:00 Disposition: Admitted As Inpatient 68 Condition: Fair Clinical Impression: Hyperkalemia - Discharge Information
[2018-04-19] MEDS: Atropine 0.1 MG/ML 10 ML Syringe IVPUSH ONE ×2 (22:05→22:07)
[2018-04-19] MEDS ORDERED: Atropine 0.4 MG/ML SDV IVPUSH ONE (22:07)
[2018-04-19] MEDS: Sodium Chloride 0.9% 10 ML Syringe FLUSH PRN ×2 (22:23→23:13)
[2018-04-19] MEDS ORDERED: Sodium Chloride 0.9% 500 ML IV ONE (22:28)
[2018-04-19] MEDS ORDERED: Azithromycin 500 MG in Sodium Chloride 0.9% 250 ML IV ONE (22:36)
[2018-04-19] MEDS ORDERED: Calcium Gluconate 10% 1 GM/10 ML SDV IV ONE (22:38)
[2018-04-19] MEDS ORDERED: 50% Dextrose in Water 50 ML Syringe IVPUSH ONE (22:38)
[2018-04-19] MEDS ORDERED: Insulin Regular, Human 100 Units/ML 3 ML Vial IVPUSH ONE (22:38)
[2018-04-19] MEDS ORDERED: Albuterol 0.083% 2.5 MG/3 ML Neb Soln NEB PRN (22:38)
[2018-04-19] MEDS ORDERED: Sodium Polystyrene Sulfonate 15 GM/60 ML Susp 60 ML Bot PO ONE (22:38)
[2018-04-19] MEDS ORDERED: Calcium Chloride 10% 1 GM/10 ML Syringe IVPUSH ONE (22:44)
[2018-04-20] MEDS: Sodium Chloride 0.9% 1,000 ML IV SCH ×3 (00:15→17:48)
[2018-04-20] MEDS: Sodium Chloride 0.9% 10 ML Syringe FLUSH PRN (00:22)
[2018-04-20] MEDS ORDERED: Sodium Polystyrene Sulfonate 15 GM/60 ML Susp 60 ML Bot PO ONE (08:51)
[2018-04-20] MEDS ORDERED: Carvedilol 3.125 MG Tab PO PRN (08:52)
[2018-04-20] MEDS ORDERED: Furosemide 80 MG Tab PO SCH (09:00)
[2018-04-20] MEDS ORDERED: busPIRone 10 MG Tab PO SCH (10:00)
[2018-04-20] MEDS: Escitalopram 10 MG Tab PO SCH (11:32)
[2018-04-20] MEDS: Cholestyramine/Sucrose Powder 4 GM Packet PO SCH ×2 (11:32→20:36)
[2018-04-20] MEDS: Loperamide 2 MG Cap PO SCH (11:32)
[2018-04-20] MEDS: busPIRone 5 MG Tab PO SCH ×2 (11:33→20:36)
[2018-04-20] MEDS: Methimazole 5 MG Tab PO SCH (11:39)
--- NOTE | 2018-04-20 17:20 | HP ---
ADMISSION DATE: 04/19/2018 CHIEF COMPLAINT: Weakness and confusion. HISTORY OF PRESENT ILLNESS: Mrs. Sanon is an 88-year-old woman with a history of moderate Alzheimer's type dementia, chronic essential hypertension, congestive heart failure and chronic renal failure. According to the patient's family and the [facility] staff, who stated the patient was out on a pass the day of admission and was doing satisfactorily after she got back to the [facility]. She was found to be weak and more confused, not herself, and had episode of vomiting. She was brought to [place] [facility] where she was evaluated by Dr. Nunez and is now admitted to [place]. She was found to be hypotensive and generally dehydrated. Laboratory data showed hemoglobin 10.2, and severe hyperkalemia with potassium of 7.3 and a creatinine of 2.0, BUN 39. The patient was started on IV fluids and now states that she is feeling better already. According to her son, she had been doing quite well as an outpatient at her last visit, but was having more swelling in her ankles and so was given more furosemide to get this off. The patient is a poor historian and cannot provide many further details. PAST MEDICAL HISTORY: Dementia as mentioned, congestive heart failure, chronic renal insufficiency. She has also had depression, hypomagnesemia, and chronic urinary tract infections. Other past history includes ER visits for agitation related to dementia. She states that she has had an appendectomy and her ovaries are out. Graves disease. MEDICATIONS: 1. Furosemide 80 mg daily. 2. Aricept 5 mg at bedtime. 3. Cholestyramine 4 g b.i.d. 4. Carvedilol 37.5 mg b.i.d. plus 3.125 mg b.i.d. p.r.n. hypertension. 5. Aldactone 25 mg daily. 6. Prednisone 5 mg every 48 hours. 7. Potassium 20 mEq every 48 hours. 8. Methimazole 2.5 mg daily. 9. Loperamide 2 mg every 48 hours. 10.Lisinopril 20 mg b.i.d. 11.Lexapro 5 mg daily. 12.Probiotic one capsule daily. 13.Vitamin B12 1000 mcg tablets on Tuesday, Tuesday, Tuesday. 14.Refresh Artificial Tears p.r.n. 15.Calcium with D one capsule daily. 16.Buspar 5 mg b.i.d. 17.Vitamin C 500 mg daily. 18.Tylenol 650 mg every 4 hours. 19.Quetiapine 12.5 mg at bedtime. 20.Metolazone 5 mg Tuesday, Tuesday, Tuesday. 21.Magnesium 128 mg daily. 22.Flonase 1 spray b.i.d. ALLERGIES: Moxifloxacin, penicillin, sulfa, trimethoprim listed. HABITS: Nonsmoker and nondrinker. FAMILY SOCIAL HISTORY: The patient is accompanied by a son today and she lives at [facility]. REVIEW OF SYSTEMS: Not reliably obtained from the patient, but no apparent recent fever, chills, or infection. No complaints of headache pain, recent change in hearing or vision, cough, dyspnea, palpitations, or nausea. She has had an episode of vomiting. She also reports she gets frequent diarrhea. According to the son, she has had swelling in her ankles. No recent rash. PHYSICAL EXAMINATION: GENERAL: She is alert, pleasant, but confused and forgetful. VITAL SIGNS: Blood pressure 104/50, pulse 68, respirations 16, temperature 98.1, and weight 147 pounds. SKIN: Anicteric. Warm and dry without rash. HEENT: Shows clear TMs. Pupils are equal and reactive. Oropharynx clear. Mouth dry. LUNGS: Clear to the bases with good air movement. HEART: Regular without murmur or gallop. ABDOMEN: Normal bowel sounds. Soft, nontender. No masses. She has a healed midline hypogastric surgical scar. EXTREMITIES: Have good pedal pulses at the dorsalis pedis. No edema. Motor exam is symmetric. LABORATORY DATA: Hemoglobin 10.2, MCV 79. Sodium 130, potassium 7.3, BUN 39, creatinine 2.0. BNP 7352. 5-10 urine red cells, 0-5 white cells. ASSESSMENT: 1. An 88-year-old woman with nausea, vomiting, and acute on chronic renal failure with hyperkalemia. 2. Dementia. 3. Chronic congestive heart failure. 4. History of agitation, dementia related. 5. History of recurrent urinary tract infections. 6. History of Graves disease on methimazole. PLAN: She is admitted to the hospital. She is given IV fluid and we will give her one dose of Kayexalate and hold on her potassium supplementation, her Aldactone and LILLY inhibitor. Anticipate short hospitalization with return to [facility]. Her dementia and agitation will continue to be managed and we will continue palliative care measures for these conditions as well. We will also continue her previously requested DNR status. /[id number] LOKESH/SAM
[2018-04-20] MEDS ORDERED: Carvedilol 25 MG Tab PO SCH (18:00)
[2018-04-20] MEDS: QUEtiapine 25 MG Tab PO SCH (20:36)
[2018-04-20] MEDS: Donepezil 5 MG Tab PO SCH (20:36)
[2018-04-20] MEDS ORDERED: Sodium Chloride 0.9% 1,000 ML IV SCH (23:30)
[2018-04-21] MEDS: Sodium Chloride 0.9% 1,000 ML IV SCH (01:25)
[2018-04-21] MEDS: Sodium Chloride 0.9% 10 ML Syringe FLUSH PRN (08:00)
--- NOTE | 2018-04-21 08:47 | PCM.PN ---
- General Info Date of Service: 04/21/18 Subjective Update: Angelique was admitted yesterday for acute on chronic renal failure. She had hyperkalemia with potassium 7.3. She felt weak and had had some vomiting. Her fluids have been replaced overnight, and potassium has been reduced but she still feels weak and has a cough this morning. No fever. Complains of of some chest pain, chronic especially on coughing. She' has type 2 diabetes,that is stable and atrial fibrillation that is well controlled. Chest chronic bilateral leg edema from cardiomyopathy and CHF. Functional Status: Reports: Pain Controlled - Review of Systems General: Reports: Weakness Pulmonary: Reports: Pleuritic Chest Pain, Cough Gastrointestinal: Reports: No Symptoms, Abdominal Pain. Denies: Nausea Genitourinary: Reports: No Symptoms Musculoskeletal: Reports: No Symptoms - Patient Data Vitals - Most Recent: Last Vital Signs Temp 98.5 F 04/21/18 08:00 Pulse 60 04/21/18 04:00 Resp 16 04/21/18 08:00 BP 114/45 L 04/21/18 08:00 Pulse Ox 96 04/21/18 08:00 Weight - Most Recent: 74.162 kg I&O - Last 24 Hours: Intake & Output 04/20/18 04/21/18 04/21/18 22:59 06:59 14:59 Intake Total 1484 1019 Output Total 350 350 Balance 1134 669 Lab Results Last 24 Hours: Laboratory Results - last 24 hr 04/21/18 04/21/18 04/21/18 Range/Units 06:10 06:10 06:10 WBC 2.9 L (4.5-12.0) X10-3/uL RBC 3.61 (3.23-5.20) x10(6)uL Hgb 9.1 L (11.5-15.5) g/dL Hct 28.5 L (30.0-51.3) % MCV 78.9 L (80-96) fL MCH 25.1 L (27.7-33.6) pg MCHC 31.8 L (32.2-35.4) g/dL RDW 17.6 H (11.5-15.5) % Plt Count 83 L (125-369) X10(3)uL MPV 8.2 (7.4-10.4) fL Neut % (Auto) 54.9 (46-82) % Lymph % (Auto) 29.5 (13-37) % [place] % (Auto) 13.5 H (4-12) % Eos % (Auto) 2 (1.0-5.0) % Baso % (Auto) 1 (0-2) % Neut # (Auto) 1.6 (1.6-8.3) # Lymph # (Auto) 0.8 (0.6-5.0) # [place] # (Auto) 0.4 (0.0-1.3) # Eos # (Auto) 0.0 (0.0-0.8) # Baso # (Auto) 0.0 (0.0-0.2) # Sodium 135 (135-145) mmol/L Potassium 5.4 H D (3.5-5.3) mmol/L Chloride 106 (100-110) mmol/L Carbon Dioxide 21 (21-32) mmol/L BUN 43 H (7-18) mg/dL Creatinine 2.2 H* (0.55-1.02) mg/dL Est Cr Clr Drug Dosing 15.85 mL/min Estimated GFR (MDRD) 21 L (>60) BUN/Creatinine Ratio 19.5 (9-20) Glucose 126 H (80-116) mg/dL Calcium 7.7 L (8.6-10.2) mg/dL Phosphorus 5.1 H (2.6-4.6) mg/dL Albumin 3.0 L (3.2-4.6) g/dL TSH, Ultra Sensitive 3.84 H (0.36-3.74) IU/mL Med Orders - Current: Current Medications Albuterol (Proventil Neb Soln) 2.5 mg NEB Q2H PRN PRN Reason: Hyperkalemia Last Admin: 04/19/18 23:12 Dose: 2.5 mg Buspirone HCl (Buspar) 5 mg PO BID [facility] Last Admin: 04/20/18 20:36 Dose: 5 mg Carvedilol 12.5 mg/ Carvedilol (25 mg) 37.5 mg PO BID [facility] Last Admin: 04/20/18 20:36 Dose: 37.5 mg Cholestyramine Resin (Cholestyramine Packet) 4 gm PO BID [facility] Last Admin: 04/20/18 20:36 Dose: 4 gm Donepezil HCl (Aricept) 5 mg PO BEDTIME [facility] Last Admin: 04/20/18 20:36 Dose: 5 mg Escitalopram Oxalate (Lexapro) 5 mg PO DAILY [facility] Last Admin: 04/20/18 11:32 Dose: 5 mg Furosemide (Lasix) 40 mg PO DAILY [facility] Sodium Chloride (Normal Saline) 1,000 mls @ 125 mls/hr IV ASDIRECTED [facility] Last Admin: 04/21/18 01:25 Dose: 125 mls/hr Loperamide HCl (Imodium) 2 mg PO Q48H [facility] Last Admin: 04/20/18 11:32 Dose: 2 mg Methimazole (Methimazole) 2.5 mg PO DAILY [facility] Last Admin: 04/20/18 11:39 Dose: 2.5 mg Quetiapine Fumarate (Seroquel) 12.5 mg PO BEDTIME [facility] Last Admin: 04/20/18 20:36 Dose: 12.5 mg Sodium Chloride (Saline Flush) 10 ml FLUSH ASDIRECTED PRN PRN Reason: Keep Vein Open Last Admin: 04/20/18 00:22 Dose: 10 ml Discontinued Medications Atropine Sulfate (Atropine 0.1 Mg/Ml) 0.5 mg IVPUSH ONETIME ONE Stop: 04/19/18 22:06 Last Admin: 04/19/18 22:07 Dose: 0.5 mg Atropine Sulfate (Atropine) 0.5 mg IVPUSH ONETIME ONE Stop: 04/19/18 22:08 Last Admin: 04/19/18 22:28 Dose: Not Given Calcium Chloride (Calcium Chloride 10%) 1 gm IVPUSH ONETIME ONE Stop: 04/19/18 22:45 Last Admin: 04/19/18 22:45 Dose: 1 gm Calcium Gluconate (Calcium Gluconate) 2 gm IV ONETIME ONE Stop: 04/19/18 22:39 Last Admin: 04/19/18 23:56 Dose: Not Given Carvedilol (Coreg) mg PO BID PRN PRN Reason: Hypertension Dextrose/Water (Dextrose 50% In Water) 50 ml IVPUSH ONETIME ONE Stop: 04/19/18 22:39 Last Admin: 04/19/18 22:47 Dose: 50 ml Furosemide (Lasix) 80 mg PO DAILY [facility] Last Admin: 04/20/18 10:17 Dose: Not Given Sodium Chloride (Normal Saline) 500 mls @ 500 mls/hr IV .BOLUS ONE Stop: 04/19/18 23:27 Last Admin: 04/19/18 22:30 Dose: 500 mls/hr Azithromycin 500 mg/ Sodium (Chloride) 250 mls @ 250 mls/hr IV ONETIME ONE Stop: 04/19/18 23:35 Last Admin: 04/19/18 23:00 Dose: 250 mls/hr Insulin Human Regular (Humulin R) 10 unit IVPUSH ONETIME ONE Stop: 04/19/18 22:39 Last Admin: 04/19/18 22:57 Dose: 10 units Ondansetron HCl (Zofran) 8 mg IVPUSH ONETIME ONE Stop: 04/19/18 21:58 Last Admin: 04/19/18 22:17 Dose: 8 mg Pantoprazole Sodium (Protonix Iv) 40 mg IVPUSH ONETIME ONE Stop: 04/19/18 21:58 Last Admin: 04/19/18 22:14 Dose: 40 mg Sodium Polystyrene Sulfonate (Kayexalate) 15 gm PO ONETIME ONE Stop: 04/19/18 22:39 Last Admin: 04/19/18 23:57 Dose: Not Given Sodium Polystyrene Sulfonate (Kayexalate) 15 gm PO ONETIME ONE Stop: 04/20/18 08:52 Last Admin: 04/20/18 09:14 Dose: 15 gm - Exam Quality Assessment: No: Supplemental Oxygen General: Alert, Oriented, Cooperative HEENT: Pupils Equal Neck: Supple Lungs: Crackles, Rales Cardiovascular: Irregular Rhythm - Problem List & Annotations (1) CKD (chronic kidney disease) SNOMED Code(s): 801435579 Code(s): N18.9 - CHRONIC KIDNEY DISEASE, UNSPECIFIED Status: Acute Current Visit: Yes Qualifiers: Chronic kidney disease stage: stage 3 (moderate) Qualified Code(s): N18.3 - Chronic kidney disease, stage 3 (moderate) (2) Afib SNOMED Code(s): 55393044 Code(s): I48.91 - UNSPECIFIED ATRIAL FIBRILLATION Status: Chronic Current Visit: Yes Qualifiers: Atrial fibrillation type: paroxysmal Qualified Code(s): I48.0 - Paroxysmal atrial fibrillation (3) Hyperkalemia SNOMED Code(s): 98734060 Code(s): E87.5 - HYPERKALEMIA Status: Acute Current Visit: Yes (4) Dementia SNOMED Code(s): 84153773 Code(s): F03.90 - UNSPECIFIED DEMENTIA WITHOUT BEHAVIORAL DISTURBANCE Status: Chronic Current Visit: No Qualifiers: Alzheimer's disease onset: unspecified onset (5) Hypertension SNOMED Code(s): 85647782 Code(s): I10 - ESSENTIAL (PRIMARY) HYPERTENSION Status: Acute Current Visit: No Qualifiers: Hypertension type: essential hypertension Qualified Code(s): I10 - Essential (primary) hypertension (6) Hypomagnesemia SNOMED Code(s): 789891170 Code(s): E83.42 - HYPOMAGNESEMIA Status: Acute Current Visit: No - Problem List Review Problem List Initiated/Reviewed/Updated: Yes - My Orders Last 24 Hours: My Active Orders 04/21/18 08:21 CXR [Chest 2V] [CR] Routine 04/21/18 08:24 OT Evaluation and Treatment [CONS] Routine PT Evaluation and Treatment [CONS] Routine 04/21/18 08:26 Cardiac Monitoring Discontinue [RC] Click to Edit 04/22/18 05:11 BASIC METABOLIC PANEL,BMP [CHEM] AM CBC WITH AUTO DIFF [HEME] AM PRO B-TYPE NATRIUR PEPT,BNPPRO [CHEM] DAILY - Plan Plan:: I will consult physical therapy for strengthening. We'll resume Lasix once a day , and can transfer from ICU and we'll repeat some blood work in the morning. I ordered a chest x-ray today.
[2018-04-21] MEDS ORDERED: Furosemide 40 MG Tab PO SCH (09:00)
[2018-04-21] MEDS: Escitalopram 10 MG Tab PO SCH (10:00)
[2018-04-21] MEDS: Cholestyramine/Sucrose Powder 4 GM Packet PO SCH ×2 (10:00→21:06)
[2018-04-21] MEDS: busPIRone 5 MG Tab PO SCH ×2 (10:00→21:07)
[2018-04-21] MEDS: Methimazole 5 MG Tab PO SCH (10:00)
--- NOTE | 2018-04-21 14:53 | CR ---
INDICATION: CHF. CHEST: PA and lateral views of the chest were obtained and revealed fairly marked cardiomegaly with LVE. The aorta is tortuous and calcified fairly extensively. Bilateral small pleural effusions are noted. Upper lung field pulmonary vasculature is mildly prominent, suggesting CHF. Only minimal interstitial marking prominence is seen, which may be on the basis of minimal interstitial lung edema. A definite consolidating pneumonia was not identified. Diminished bone density is noted, compatible with osteoporosis. Flattened diaphragm leaves, prominent AP diameter and hyperaeration suggests COPD. IMPRESSION: 1. ASHD, cardiomegaly, and CHF. 2. Probable COPD. 3. Osteoporosis. 4. Bilateral pleural effusions, most likely related to #1. MTDD
[2018-04-21] MEDS: Donepezil 5 MG Tab PO SCH (21:06)
[2018-04-21] MEDS: QUEtiapine 25 MG Tab PO SCH (21:10)
[2018-04-22 08:16] LABS: IRON BIND.CAP.(TIBC) 299 ug/dL (250-450); IRON SATURATION 6 % (15-55); IRON, SERUM 17 ug/dL (27-139); UIBC 282 ug/dL (118-369)
--- NOTE | 2018-04-22 08:57 | PCM.PN ---
- General Info Date of Service: 04/22/18 Subjective Update: She complains of abdominal pain on the right upper and lower quadrants. Moderate intensity, but denies any vomiting or constipation. A chest x-ray that was done yesterday showed bilateral pleural effusions, suggestive of congestive heart failure. - Review of Systems General: Reports: Weakness HEENT: Reports: No Symptoms Pulmonary: Reports: No Symptoms Cardiovascular: Reports: Orthopnea Gastrointestinal: Reports: Abdominal Pain. Denies: Diarrhea, Nausea Genitourinary: Reports: No Symptoms Musculoskeletal: Reports: No Symptoms - Patient Data Vitals - Most Recent: Last Vital Signs Temp 97.9 F 04/22/18 08:00 Pulse 64 04/22/18 08:00 Resp 20 04/22/18 08:00 BP 154/66 H 04/22/18 08:00 Pulse Ox 98 04/22/18 08:00 Weight - Most Recent: 70.488 kg I&O - Last 24 Hours: Intake & Output 04/21/18 04/22/18 04/22/18 22:59 06:59 14:59 Intake Total 100 100 Balance 100 100 Lab Results Last 24 Hours: Laboratory Results - last 24 hr 04/21/18 04/22/18 04/22/18 Range/Units 06:10 06:05 06:05 WBC 3.3 L (4.5-12.0) X10-3/uL RBC 3.81 (3.23-5.20) x10(6)uL Hgb 9.6 L (11.5-15.5) g/dL Hct 30.0 (30.0-51.3) % MCV 78.7 L (80-96) fL MCH 25.2 L (27.7-33.6) pg MCHC 32.0 L (32.2-35.4) g/dL RDW 17.2 H (11.5-15.5) % Plt Count 79 L (125-369) X10(3)uL MPV 8.3 (7.4-10.4) fL Neut % (Auto) 65.4 (46-82) % Lymph % (Auto) 20.2 (13-37) % [place] % (Auto) 13.4 H (4-12) % Eos % (Auto) 1 (1.0-5.0) % Baso % (Auto) 0 (0-2) % Neut # (Auto) 2.2 (1.6-8.3) # Lymph # (Auto) 0.7 (0.6-5.0) # [place] # (Auto) 0.4 (0.0-1.3) # Eos # (Auto) 0.0 (0.0-0.8) # Baso # (Auto) 0.0 (0.0-0.2) # Sodium 134 L (135-145) mmol/L Potassium 5.4 H (3.5-5.3) mmol/L Chloride 106 (100-110) mmol/L Carbon Dioxide 21 (21-32) mmol/L BUN 50 H (7-18) mg/dL Creatinine 2.5 H* (0.55-1.02) mg/dL Est Cr Clr Drug Dosing 13.95 mL/min Estimated GFR (MDRD) 18 L (>60) BUN/Creatinine Ratio 20.0 (9-20) Glucose 112 (80-116) mg/dL Calcium 8.3 L (8.6-10.2) mg/dL Iron 17 L (27-139) ug/dL TIBC 299 (250-450) ug/dL Iron Saturation 6 L (15-55) % Unsaturated IBC 282 (118-369) ug/dL NT-Pro-B Natriuret Pep (<=450) pg/mL 04/22/18 Range/Units 06:05 WBC (4.5-12.0) X10-3/uL RBC (3.23-5.20) x10(6)uL Hgb (11.5-15.5) g/dL Hct (30.0-51.3) % MCV (80-96) fL MCH (27.7-33.6) pg MCHC (32.2-35.4) g/dL RDW (11.5-15.5) % Plt Count (125-369) X10(3)uL MPV (7.4-10.4) fL Neut % (Auto) (46-82) % Lymph % (Auto) (13-37) % [place] % (Auto) (4-12) % Eos % (Auto) (1.0-5.0) % Baso % (Auto) (0-2) % Neut # (Auto) (1.6-8.3) # Lymph # (Auto) (0.6-5.0) # [place] # (Auto) (0.0-1.3) # Eos # (Auto) (0.0-0.8) # Baso # (Auto) (0.0-0.2) # Sodium (135-145) mmol/L Potassium (3.5-5.3) mmol/L Chloride (100-110) mmol/L Carbon Dioxide (21-32) mmol/L BUN (7-18) mg/dL Creatinine (0.55-1.02) mg/dL Est Cr Clr Drug Dosing mL/min Estimated GFR (MDRD) (>60) BUN/Creatinine Ratio (9-20) Glucose (80-116) mg/dL Calcium (8.6-10.2) mg/dL Iron (27-139) ug/dL TIBC (250-450) ug/dL Iron Saturation (15-55) % Unsaturated IBC (118-369) ug/dL NT-Pro-B Natriuret Pep 17988 H* (<=450) pg/mL Med Orders - Current: Current Medications Albuterol (Proventil Neb Soln) 2.5 mg NEB Q2H PRN PRN Reason: Hyperkalemia Last Admin: 04/19/18 23:12 Dose: 2.5 mg Buspirone HCl (Buspar) 5 mg PO BID [facility] Last Admin: 04/21/18 21:07 Dose: 5 mg Carvedilol 12.5 mg/ Carvedilol (25 mg) 37.5 mg PO BID [facility] Last Admin: 04/21/18 21:07 Dose: 37.5 mg Cholestyramine Resin (Cholestyramine Packet) 4 gm PO BID [facility] Last Admin: 04/21/18 21:06 Dose: 4 gm Donepezil HCl (Aricept) 5 mg PO BEDTIME [facility] Last Admin: 04/21/18 21:06 Dose: 5 mg Escitalopram Oxalate (Lexapro) 5 mg PO DAILY [facility] Last Admin: 04/21/18 10:00 Dose: 5 mg Furosemide (Lasix) 40 mg IVPUSH BIDDIURETIC [facility] Loperamide HCl (Imodium) 2 mg PO Q48H [facility] Last Admin: 04/20/18 11:32 Dose: 2 mg Methimazole (Methimazole) 2.5 mg PO DAILY [facility] Last Admin: 04/21/18 10:00 Dose: 2.5 mg Quetiapine Fumarate (Seroquel) 12.5 mg PO BEDTIME [facility] Last Admin: 04/21/18 21:10 Dose: 12.5 mg Sodium Chloride (Saline Flush) 10 ml FLUSH ASDIRECTED PRN PRN Reason: Keep Vein Open Last Admin: 04/21/18 08:00 Dose: 10 ml Discontinued Medications Atropine Sulfate (Atropine 0.1 Mg/Ml) 0.5 mg IVPUSH ONETIME ONE Stop: 04/19/18 22:06 Last Admin: 04/19/18 22:07 Dose: 0.5 mg Atropine Sulfate (Atropine) 0.5 mg IVPUSH ONETIME ONE Stop: 04/19/18 22:08 Last Admin: 04/19/18 22:28 Dose: Not Given Calcium Chloride (Calcium Chloride 10%) 1 gm IVPUSH ONETIME ONE Stop: 04/19/18 22:45 Last Admin: 04/19/18 22:45 Dose: 1 gm Calcium Gluconate (Calcium Gluconate) 2 gm IV ONETIME ONE Stop: 04/19/18 22:39 Last Admin: 04/19/18 23:56 Dose: Not Given Carvedilol (Coreg) mg PO BID PRN PRN Reason: Hypertension Dextrose/Water (Dextrose 50% In Water) 50 ml IVPUSH ONETIME ONE Stop: 04/19/18 22:39 Last Admin: 04/19/18 22:47 Dose: 50 ml Furosemide (Lasix) 80 mg PO DAILY [facility] Last Admin: 04/20/18 10:17 Dose: Not Given Furosemide (Lasix) 40 mg PO DAILY [facility] Last Admin: 04/21/18 10:00 Dose: 40 mg Sodium Chloride (Normal Saline) 500 mls @ 500 mls/hr IV .BOLUS ONE Stop: 04/19/18 23:27 Last Admin: 04/19/18 22:30 Dose: 500 mls/hr Azithromycin 500 mg/ Sodium (Chloride) 250 mls @ 250 mls/hr IV ONETIME ONE Stop: 04/19/18 23:35 Last Admin: 04/19/18 23:00 Dose: 250 mls/hr Sodium Chloride (Normal Saline) 1,000 mls @ 125 mls/hr IV ASDIRECTED [facility] Last Admin: 04/21/18 01:25 Dose: 125 mls/hr Insulin Human Regular (Humulin R) 10 unit IVPUSH ONETIME ONE Stop: 04/19/18 22:39 Last Admin: 04/19/18 22:57 Dose: 10 units Ondansetron HCl (Zofran) 8 mg IVPUSH ONETIME ONE Stop: 04/19/18 21:58 Last Admin: 04/19/18 22:17 Dose: 8 mg Pantoprazole Sodium (Protonix Iv) 40 mg IVPUSH ONETIME ONE Stop: 04/19/18 21:58 Last Admin: 04/19/18 22:14 Dose: 40 mg Sodium Polystyrene Sulfonate (Kayexalate) 15 gm PO ONETIME ONE Stop: 04/19/18 22:39 Last Admin: 04/19/18 23:57 Dose: Not Given Sodium Polystyrene Sulfonate (Kayexalate) 15 gm PO ONETIME ONE Stop: 04/20/18 08:52 Last Admin: 04/20/18 09:14 Dose: 15 gm - Exam Quality Assessment: No: Supplemental Oxygen General: Alert, Oriented Lungs: Crackles, Rales Cardiovascular: Irregular Rhythm GI/Abdominal Exam: Normal Bowel Sounds, Tender (frt upper quardrant) Back Exam: Normal Inspection - Problem List & Annotations (1) CKD (chronic kidney disease) SNOMED Code(s): 648250049 Code(s): N18.9 - CHRONIC KIDNEY DISEASE, UNSPECIFIED Status: Acute Current Visit: Yes Qualifiers: Chronic kidney disease stage: stage 3 (moderate) Qualified Code(s): N18.3 - Chronic kidney disease, stage 3 (moderate) (2) Afib SNOMED Code(s): 68784775 Code(s): I48.91 - UNSPECIFIED ATRIAL FIBRILLATION Status: Chronic Current Visit: Yes Qualifiers: Atrial fibrillation type: paroxysmal Qualified Code(s): I48.0 - Paroxysmal atrial fibrillation (3) Hyperkalemia SNOMED Code(s): 46779469 Code(s): E87.5 - HYPERKALEMIA Status: Acute Current Visit: Yes (4) Dementia SNOMED Code(s): 45587006 Code(s): F03.90 - UNSPECIFIED DEMENTIA WITHOUT BEHAVIORAL DISTURBANCE Status: Chronic Current Visit: No Qualifiers: Alzheimer's disease onset: unspecified onset (5) Hypertension SNOMED Code(s): 44343310 Code(s): I10 - ESSENTIAL (PRIMARY) HYPERTENSION Status: Acute Current Visit: No Qualifiers: Hypertension type: essential hypertension Qualified Code(s): I10 - Essential (primary) hypertension (6) Hypomagnesemia SNOMED Code(s): 271922113 Code(s): E83.42 - HYPOMAGNESEMIA Status: Acute Current Visit: No (7) Abdominal pain SNOMED Code(s): 95937111 Code(s): R10.9 - UNSPECIFIED ABDOMINAL PAIN Status: Acute Current Visit: Yes Qualifiers: Abdominal location: right lower quadrant Qualified Code(s): R10.31 - Right lower quadrant pain - Problem List Review Problem List Initiated/Reviewed/Updated: Yes - My Orders Last 24 Hours: My Active Orders 04/21/18 08:24 OT Evaluation and Treatment [CONS] Routine PT Evaluation and Treatment [CONS] Routine 04/22/18 08:36 AMYLASE [CHEM] Routine LACTIC ACID [CHEM] Routine 04/22/18 08:53 Abdomen Pelvis wo Cont [CT] Routine UA W/MICROSCOPIC [URIN] Routine 04/22/18 09:00 Furosemide [Lasix] 40 mg IVPUSH [facility]ID[facility]URETIC 04/23/18 05:11 CBC WITH AUTO DIFF [HEME] AM COMPREHENSIVE METABOLIC PN,CMP [CHEM] AM PRO B-TYPE NATRIUR PEPT,BNPPRO [CHEM] DAILY 04/24/18 05:11 PRO B-TYPE NATRIUR PEPT,BNPPRO [CHEM] DAILY - Plan Plan:: I will obtain previous records see her previous surgeries, she does have a cholecystectomy scar. I ordered an amylase, UA repeat, lactic acid, and will obtain a CT of the abdomen and pelvis without contrast. I'm also going to increase the dose of Lasix from 40 mg orally to 40 twice a day, intravenously. Monitor basic profile, BNP tomorrow morning.
[2018-04-22] MEDS: busPIRone 5 MG Tab PO SCH ×2 (10:04→20:55)
[2018-04-22] MEDS: Furosemide 40 MG/4 ML VIAL IVPUSH SCH ×2 (10:05→15:35)
[2018-04-22] MEDS: Methimazole 5 MG Tab PO SCH (10:05)
[2018-04-22] MEDS: Escitalopram 10 MG Tab PO SCH (10:05)
[2018-04-22] MEDS: Sodium Chloride 0.9% 10 ML Syringe FLUSH PRN ×2 (10:06→15:35)
[2018-04-22] MEDS: Acetaminophen 325 MG Tab PO PRN ×2 (12:49→22:45)
[2018-04-22] MEDS: Pantoprazole 40 MG Tab.CR PO SCH (12:49)
[2018-04-22] MEDS: Cholestyramine/Sucrose Powder 4 GM Packet PO SCH ×3 (12:49→21:00)
[2018-04-22] MEDS: Loperamide 2 MG Cap PO SCH (12:50)
[2018-04-22] MEDS: Donepezil 5 MG Tab PO SCH (20:54)
[2018-04-22] MEDS: QUEtiapine 25 MG Tab PO SCH (20:58)
[2018-04-23] MEDS: Pantoprazole 40 MG Tab.CR PO SCH (06:17)
[2018-04-23] MEDS: Cholestyramine/Sucrose Powder 4 GM Packet PO SCH ×2 (08:05→20:28)
[2018-04-23] MEDS: busPIRone 5 MG Tab PO SCH ×2 (08:06→20:28)
[2018-04-23] MEDS: Methimazole 5 MG Tab PO SCH (08:06)
[2018-04-23] MEDS: Escitalopram 10 MG Tab PO SCH (08:07)
--- NOTE | 2018-04-23 08:57 | PCM.PN ---
- General Info Date of Service: 04/23/18 Subjective Update: Labs slept well. She to complaints of right flank and upper quadrant abdominal pain. She has loose stools that is chronic for her. She's lost about 7 pounds since yesterday with output, and decreased oral intake. She denies any chest pain cough fever or chills. She also denies being depressed although should be noted to be withdrawn and lethargic and unmotivated - Review of Systems General: Reports: Weakness HEENT: Reports: No Symptoms Pulmonary: Reports: No Symptoms Genitourinary: Reports: No Symptoms Musculoskeletal: Reports: No Symptoms - Patient Data Vitals - Most Recent: Last Vital Signs Temp 98.0 F 04/23/18 04:00 Pulse 76 04/23/18 08:06 Resp 24 H 04/23/18 04:00 BP 152/91 H 04/23/18 08:06 Pulse Ox 96 04/23/18 04:00 Weight - Most Recent: 67.177 kg I&O - Last 24 Hours: Intake & Output 04/22/18 04/23/18 04/23/18 22:59 06:59 14:59 Intake Total 100 Output Total 1550 650 300 Balance -1450 -650 -300 Lab Results Last 24 Hours: Laboratory Results - last 24 hr 04/21/18 04/22/18 04/22/18 Range/Units 06:10 09:40 09:40 WBC (4.5-12.0) X10-3/uL RBC (3.23-5.20) x10(6)uL Hgb (11.5-15.5) g/dL Hct (30.0-51.3) % MCV (80-96) fL MCH (27.7-33.6) pg MCHC (32.2-35.4) g/dL RDW (11.5-15.5) % Plt Count (125-369) X10(3)uL MPV (7.4-10.4) fL Neut % (Auto) (46-82) % Lymph % (Auto) (13-37) % Ware % (Auto) (4-12) % Eos % (Auto) (1.0-5.0) % Baso % (Auto) (0-2) % Neut # (Auto) (1.6-8.3) # Lymph # (Auto) (0.6-5.0) # Ware # (Auto) (0.0-1.3) # Eos # (Auto) (0.0-0.8) # Baso # (Auto) (0.0-0.2) # Sodium (135-145) mmol/L Potassium (3.5-5.3) mmol/L Chloride (100-110) mmol/L Carbon Dioxide (21-32) mmol/L BUN (7-18) mg/dL Creatinine (0.55-1.02) mg/dL Est Cr Clr Drug Dosing mL/min Estimated GFR (MDRD) (>60) BUN/Creatinine Ratio (9-20) Glucose (80-116) mg/dL Lactic Acid 0.9 (0.4-2.2) mmol/L Calcium (8.6-10.2) mg/dL Ferritin 46 (15-150) ng/mL Total Bilirubin (0.1-1.3) mg/dL AST (5-25) IU/L ALT (12-36) U/L Alkaline Phosphatase (56-112) IU/L NT-Pro-B Natriuret Pep (<=450) pg/mL Total Protein (6.0-8.0) g/dL Albumin (3.2-4.6) g/dL Globulin g/dL Albumin/Globulin Ratio Amylase 27 (25-115) U/L Urine Color (YELLOW) Urine Appearance (CLEAR) Urine pH (5.0-6.5) Ur Specific [place] (1.010-1.025) Urine Protein (NEGATIVE) mg/dL Urine Glucose (UA) (NEGATIVE) mg/dL Urine Ketones (NEGATIVE) mg/dL Urine Occult Blood (NEGATIVE) Urine Nitrite (NEGATIVE) Urine Bilirubin (NEGATIVE) Urine Urobilinogen (NEGATIVE) mg/dL Ur Leukocyte Esterase (NEGATIVE) Urine WBC (0) Ur Squamous Epith Cells (NS,R,O) Urine Bacteria (NS) 04/22/18 04/23/18 04/23/18 Range/Units 10:45 06:25 06:25 WBC 6.1 (4.5-12.0) X10-3/uL RBC 3.97 (3.23-5.20) x10(6)uL Hgb 10.0 L (11.5-15.5) g/dL Hct 31.0 (30.0-51.3) % MCV 78.1 L (80-96) fL MCH 25.3 L (27.7-33.6) pg MCHC 32.4 (32.2-35.4) g/dL RDW 17.1 H (11.5-15.5) % Plt Count 82 L (125-369) X10(3)uL MPV 8.5 (7.4-10.4) fL Neut % (Auto) 80.2 (46-82) % Lymph % (Auto) 7.5 L (13-37) % Ware % (Auto) 12.1 H (4-12) % Eos % (Auto) 0 L (1.0-5.0) % Baso % (Auto) 0 (0-2) % Neut # (Auto) 4.9 (1.6-8.3) # Lymph # (Auto) 0.5 L (0.6-5.0) # Ware # (Auto) 0.7 (0.0-1.3) # Eos # (Auto) 0.0 (0.0-0.8) # Baso # (Auto) 0.0 (0.0-0.2) # Sodium 133 L (135-145) mmol/L Potassium 4.8 (3.5-5.3) mmol/L Chloride 102 (100-110) mmol/L Carbon Dioxide 18 L (21-32) mmol/L BUN 55 H (7-18) mg/dL Creatinine 3.0 H* (0.55-1.02) mg/dL Est Cr Clr Drug Dosing 11.62 mL/min Estimated GFR (MDRD) 15 L (>60) BUN/Creatinine Ratio 18.3 (9-20) Glucose 143 H (80-116) mg/dL Lactic Acid (0.4-2.2) mmol/L Calcium 8.7 (8.6-10.2) mg/dL Ferritin (15-150) ng/mL Total Bilirubin 1.2 (0.1-1.3) mg/dL AST 64 H (5-25) IU/L ALT 39 H (12-36) U/L Alkaline Phosphatase 54 L (56-112) IU/L NT-Pro-B Natriuret Pep (<=450) pg/mL Total Protein 7.2 (6.0-8.0) g/dL Albumin 3.2 (3.2-4.6) g/dL Globulin 4.0 g/dL Albumin/Globulin Ratio 0.8 Amylase (25-115) U/L Urine Color Yellow (YELLOW) Urine Appearance Clear (CLEAR) Urine pH 5.0 (5.0-6.5) Ur Specific [place] 1.015 (1.010-1.025) Urine Protein Negative (NEGATIVE) mg/dL Urine Glucose (UA) Normal (NEGATIVE) mg/dL Urine Ketones Negative (NEGATIVE) mg/dL Urine Occult Blood Negative (NEGATIVE) Urine Nitrite Negative (NEGATIVE) Urine Bilirubin Negative (NEGATIVE) Urine Urobilinogen Normal (NEGATIVE) mg/dL Ur Leukocyte Esterase Negative (NEGATIVE) Urine WBC 5-10 (0) Ur Squamous Epith Cells Few H (NS,R,O) Urine Bacteria Few H (NS) 04/23/18 Range/Units 06:25 WBC (4.5-12.0) X10-3/uL RBC (3.23-5.20) x10(6)uL Hgb (11.5-15.5) g/dL Hct (30.0-51.3) % MCV (80-96) fL MCH (27.7-33.6) pg MCHC (32.2-35.4) g/dL RDW (11.5-15.5) % Plt Count (125-369) X10(3)uL MPV (7.4-10.4) fL Neut % (Auto) (46-82) % Lymph % (Auto) (13-37) % Ware % (Auto) (4-12) % Eos % (Auto) (1.0-5.0) % Baso % (Auto) (0-2) % Neut # (Auto) (1.6-8.3) # Lymph # (Auto) (0.6-5.0) # Ware # (Auto) (0.0-1.3) # Eos # (Auto) (0.0-0.8) # Baso # (Auto) (0.0-0.2) # Sodium (135-145) mmol/L Potassium (3.5-5.3) mmol/L Chloride (100-110) mmol/L Carbon Dioxide (21-32) mmol/L BUN (7-18) mg/dL Creatinine (0.55-1.02) mg/dL Est Cr Clr Drug Dosing mL/min Estimated GFR (MDRD) (>60) BUN/Creatinine Ratio (9-20) Glucose (80-116) mg/dL Lactic Acid (0.4-2.2) mmol/L Calcium (8.6-10.2) mg/dL Ferritin (15-150) ng/mL Total Bilirubin (0.1-1.3) mg/dL AST (5-25) IU/L ALT (12-36) U/L Alkaline Phosphatase (56-112) IU/L NT-Pro-B Natriuret Pep > 27443 H* (<=450) pg/mL Total Protein (6.0-8.0) g/dL Albumin (3.2-4.6) g/dL Globulin g/dL Albumin/Globulin Ratio Amylase (25-115) U/L Urine Color (YELLOW) Urine Appearance (CLEAR) Urine pH (5.0-6.5) Ur Specific [place] (1.010-1.025) Urine Protein (NEGATIVE) mg/dL Urine Glucose (UA) (NEGATIVE) mg/dL Urine Ketones (NEGATIVE) mg/dL Urine Occult Blood (NEGATIVE) Urine Nitrite (NEGATIVE) Urine Bilirubin (NEGATIVE) Urine Urobilinogen (NEGATIVE) mg/dL Ur Leukocyte Esterase (NEGATIVE) Urine WBC (0) Ur Squamous Epith Cells (NS,R,O) Urine Bacteria (NS) Med Orders - Current: Current Medications Acetaminophen (Tylenol) 650 mg PO Q6H PRN PRN Reason: Pain Last Admin: 04/22/18 22:45 Dose: 650 mg Albuterol (Proventil Neb Soln) 2.5 mg NEB Q2H PRN PRN Reason: Hyperkalemia Last Admin: 04/19/18 23:12 Dose: 2.5 mg Buspirone HCl (Buspar) 5 mg PO BID [facility] Last Admin: 04/23/18 08:06 Dose: 5 mg Carvedilol 12.5 mg/ Carvedilol (25 mg) 37.5 mg PO BID [facility] Last Admin: 04/23/18 08:06 Dose: 37.5 mg Cholestyramine Resin (Cholestyramine Packet) 4 gm PO BID [facility] Last Admin: 04/23/18 08:05 Dose: 4 gm Donepezil HCl (Aricept) 5 mg PO BEDTIME [facility] Last Admin: 04/22/18 20:54 Dose: 5 mg Escitalopram Oxalate (Lexapro) 5 mg PO DAILY [facility] Last Admin: 04/23/18 08:07 Dose: 5 mg Furosemide (Lasix) 40 mg IVPUSH BIDDIURETIC [facility] Last Admin: 04/22/18 15:35 Dose: 40 mg Loperamide HCl (Imodium) 2 mg PO Q48H [facility] Last Admin: 04/22/18 12:50 Dose: 2 mg Methimazole (Methimazole) 2.5 mg PO DAILY [facility] Last Admin: 04/23/18 08:06 Dose: 2.5 mg Pantoprazole Sodium (Protonix) 40 mg PO 0600 [facility] Last Admin: 04/23/18 06:17 Dose: 40 mg Quetiapine Fumarate (Seroquel) 12.5 mg PO BEDTIME [facility] Last Admin: 04/22/18 20:58 Dose: 12.5 mg Sodium Chloride (Saline Flush) 10 ml FLUSH ASDIRECTED PRN PRN Reason: Keep Vein Open Last Admin: 04/22/18 15:35 Dose: 10 ml Discontinued Medications Atropine Sulfate (Atropine 0.1 Mg/Ml) 0.5 mg IVPUSH ONETIME ONE Stop: 04/19/18 22:06 Last Admin: 04/19/18 22:07 Dose: 0.5 mg Atropine Sulfate (Atropine) 0.5 mg IVPUSH ONETIME ONE Stop: 04/19/18 22:08 Last Admin: 04/19/18 22:28 Dose: Not Given Calcium Chloride (Calcium Chloride 10%) 1 gm IVPUSH ONETIME ONE Stop: 04/19/18 22:45 Last Admin: 04/19/18 22:45 Dose: 1 gm Calcium Gluconate (Calcium Gluconate) 2 gm IV ONETIME ONE Stop: 04/19/18 22:39 Last Admin: 04/19/18 23:56 Dose: Not Given Carvedilol (Coreg) mg PO BID PRN PRN Reason: Hypertension Dextrose/Water (Dextrose 50% In Water) 50 ml IVPUSH ONETIME ONE Stop: 04/19/18 22:39 Last Admin: 04/19/18 22:47 Dose: 50 ml Furosemide (Lasix) 80 mg PO DAILY [facility] Last Admin: 04/20/18 10:17 Dose: Not Given Furosemide (Lasix) 40 mg PO DAILY [facility] Last Admin: 04/21/18 10:00 Dose: 40 mg Sodium Chloride (Normal Saline) 500 mls @ 500 mls/hr IV .BOLUS ONE Stop: 04/19/18 23:27 Last Admin: 04/19/18 22:30 Dose: 500 mls/hr Azithromycin 500 mg/ Sodium (Chloride) 250 mls @ 250 mls/hr IV ONETIME ONE Stop: 04/19/18 23:35 Last Admin: 04/19/18 23:00 Dose: 250 mls/hr Sodium Chloride (Normal Saline) 1,000 mls @ 125 mls/hr IV ASDIRECTED [facility] Last Admin: 04/21/18 01:25 Dose: 125 mls/hr Insulin Human Regular (Humulin R) 10 unit IVPUSH ONETIME ONE Stop: 04/19/18 22:39 Last Admin: 04/19/18 22:57 Dose: 10 units Ondansetron HCl (Zofran) 8 mg IVPUSH ONETIME ONE Stop: 04/19/18 21:58 Last Admin: 04/19/18 22:17 Dose: 8 mg Pantoprazole Sodium (Protonix Iv) 40 mg IVPUSH ONETIME ONE Stop: 04/19/18 21:58 Last Admin: 04/19/18 22:14 Dose: 40 mg Sodium Polystyrene Sulfonate (Kayexalate) 15 gm PO ONETIME ONE Stop: 04/19/18 22:39 Last Admin: 04/19/18 23:57 Dose: Not Given Sodium Polystyrene Sulfonate (Kayexalate) 15 gm PO ONETIME ONE Stop: 04/20/18 08:52 Last Admin: 04/20/18 09:14 Dose: 15 gm - Exam Quality Assessment: No: Supplemental Oxygen General: Alert, Oriented, Cooperative HEENT: Pupils Equal Neck: Supple Lungs: Clear to Auscultation GI/Abdominal Exam: Normal Bowel Sounds, Distended, Tender (Rt upper quadrant) Psy/Mental Status: Alert, Depressed - Problem List & Annotations (1) CKD (chronic kidney disease) SNOMED Code(s): 661683586 Code(s): N18.9 - CHRONIC KIDNEY DISEASE, UNSPECIFIED Status: Acute Current Visit: Yes Qualifiers: Chronic kidney disease stage: stage 3 (moderate) Qualified Code(s): N18.3 - Chronic kidney disease, stage 3 (moderate) (2) Afib SNOMED Code(s): 79603319 Code(s): I48.91 - UNSPECIFIED ATRIAL FIBRILLATION Status: Chronic Current Visit: Yes Qualifiers: Atrial fibrillation type: paroxysmal Qualified Code(s): I48.0 - Paroxysmal atrial fibrillation (3) Hyperkalemia SNOMED Code(s): 55076559 Code(s): E87.5 - HYPERKALEMIA Status: Acute Current Visit: Yes (4) Dementia SNOMED Code(s): 86836259 Code(s): F03.90 - UNSPECIFIED DEMENTIA WITHOUT BEHAVIORAL DISTURBANCE Status: Chronic Current Visit: No Qualifiers: Alzheimer's disease onset: unspecified onset (5) Hypertension SNOMED Code(s): 95207933 Code(s): I10 - ESSENTIAL (PRIMARY) HYPERTENSION Status: Acute Current Visit: No Qualifiers: Hypertension type: essential hypertension Qualified Code(s): I10 - Essential (primary) hypertension (6) Hypomagnesemia SNOMED Code(s): 551470127 Code(s): E83.42 - HYPOMAGNESEMIA Status: Acute Current Visit: No (7) Abdominal pain SNOMED Code(s): 49753990 Code(s): R10.9 - UNSPECIFIED ABDOMINAL PAIN Status: Acute Current Visit: Yes Qualifiers: Abdominal location: right lower quadrant Qualified Code(s): R10.31 - Right lower quadrant pain (8) MDD (major depressive disorder) SNOMED Code(s): 466828407 Code(s): F32.9 - MAJOR DEPRESSIVE DISORDER, SINGLE EPISODE, UNSPECIFIED Status: Acute Current Visit: Yes Qualifiers: Psychotic features: without psychotic features - Problem List Review Problem List Initiated/Reviewed/Updated: Yes - My Orders Last 24 Hours: My Active Orders 04/22/18 08:53 Abdomen Pelvis wo Cont [CT] Routine 04/22/18 09:00 Furosemide [Lasix] 40 mg IVPUSH BIDDIURETIC 04/22/18 10:45 UA W/MICROSCOPIC [URIN] Routine 04/22/18 12:32 Acetaminophen [Tylenol] 650 mg PO Q6H PRN 04/22/18 12:34 Pantoprazole [ProTONIX] 40 mg PO 0600 04/24/18 05:11 PRO B-TYPE NATRIUR PEPT,BNPPRO [CHEM] DAILY - Plan Plan:: Abdominal CT reveals lots of fluid, causing pleural effusion. She status post appendectomy and cholecystectomy. No acute findings to explain the pain. A creatinine is up to 3.0, but her potassium is normalized. I will continue the Lasix at this time, a Protonix, and discontinue BuSpar. I've instead increased the dose for Lexapro,and started Mirtazapin in place of Seroquel,to help with appetite.. Encourage ambulation.
[2018-04-23] MEDS ORDERED: Escitalopram 10 MG Tab PO SCH (09:00)
[2018-04-23] MEDS: Sodium Chloride 0.9% 10 ML Syringe FLUSH PRN ×3 (09:00→15:12)
[2018-04-23] MEDS: Furosemide 40 MG/4 ML VIAL IVPUSH SCH ×2 (09:16→15:12)
[2018-04-23] MEDS ORDERED: Escitalopram 10 MG Tab PO ONE (09:50)
[2018-04-23] MEDS: Acetaminophen 325 MG Tab PO PRN (10:53)
[2018-04-23] MEDS: Donepezil 5 MG Tab PO SCH (20:28)
[2018-04-23] MEDS: Mirtazapine 15 MG Tab PO SCH (20:29)
[2018-04-24] MEDS: Pantoprazole 40 MG Tab.CR PO SCH (06:44)
--- NOTE | 2018-04-24 08:16 | PCM.PN ---
- General Info Date of Service: 04/24/18 Subjective Update: Angelique discussed complains of mild sore throat, cough that is productive of sputum and shortness of breath on ambulation. However she feels ready to go back to the [facility]. She is down 4 pounds since yesterday on IV Lasix. Denies chest pain and no fever has been. - Review of Systems General: Reports: Weakness HEENT: Reports: Post Nasal Drip, Sore Throat Pulmonary: Reports: Cough, Sputum, Hemoptysis Cardiovascular: Reports: No Symptoms Gastrointestinal: Reports: No Symptoms Genitourinary: Reports: No Symptoms Musculoskeletal: Reports: No Symptoms - Patient Data Vitals - Most Recent: Last Vital Signs Temp 98.7 F 04/24/18 04:00 Pulse 120 H 04/24/18 04:00 Resp 22 H 04/24/18 04:00 BP 128/65 04/24/18 04:00 Pulse Ox 99 04/24/18 04:00 Weight - Most Recent: 65.589 kg I&O - Last 24 Hours: Intake & Output 04/23/18 04/24/18 04/24/18 22:59 06:59 14:59 Intake Total 450 Output Total 1350 1050 Balance -900 -1050 Lab Results Last 24 Hours: Laboratory Results - last 24 hr 04/24/18 04/24/18 Range/Units 06:15 06:15 Sodium 130 L (135-145) mmol/L Potassium 3.9 (3.5-5.3) mmol/L Chloride 98 L (100-110) mmol/L Carbon Dioxide 22 (21-32) mmol/L BUN 54 H (7-18) mg/dL Creatinine 3.1 H* (0.55-1.02) mg/dL Est Cr Clr Drug Dosing 11.25 mL/min Estimated GFR (MDRD) 14 L (>60) BUN/Creatinine Ratio 17.4 (9-20) Glucose 133 H (80-116) mg/dL Calcium 8.6 (8.6-10.2) mg/dL NT-Pro-B Natriuret Pep > 92581 H* (<=450) pg/mL Med Orders - Current: Current Medications Acetaminophen (Tylenol) 650 mg PO Q6H PRN PRN Reason: Pain Last Admin: 04/23/18 10:53 Dose: 650 mg Albuterol (Proventil Neb Soln) 2.5 mg NEB Q2H PRN PRN Reason: Hyperkalemia Last Admin: 04/19/18 23:12 Dose: 2.5 mg Buspirone HCl (Buspar) 5 mg PO BID [facility] Last Admin: 04/23/18 20:28 Dose: 5 mg Carvedilol 12.5 mg/ Carvedilol (25 mg) 37.5 mg PO BID [facility] Last Admin: 04/23/18 20:29 Dose: 37.5 mg Cholestyramine Resin (Cholestyramine Packet) 4 gm PO BID [facility] Last Admin: 04/23/18 20:28 Dose: 4 gm Diltiazem HCl (Cardizem Cd) 180 mg PO DAILY [facility] Donepezil HCl (Aricept) 5 mg PO BEDTIME [facility] Last Admin: 04/23/18 20:28 Dose: 5 mg Escitalopram Oxalate (Lexapro) 10 mg PO DAILY [facility] Furosemide (Lasix) 40 mg IVPUSH BIDDIURETIC [facility] Last Admin: 04/23/18 15:12 Dose: 40 mg Loperamide HCl (Imodium) 2 mg PO Q48H [facility] Last Admin: 04/22/18 12:50 Dose: 2 mg Methimazole (Methimazole) 2.5 mg PO DAILY [facility] Last Admin: 04/23/18 08:06 Dose: 2.5 mg Metolazone (Zaroxolyn) 2.5 mg PO DAILY [facility] Mirtazapine (Remeron) 15 mg PO BEDTIME [facility] Last Admin: 04/23/18 20:29 Dose: 15 mg Pantoprazole Sodium (Protonix) 40 mg PO 0600 [facility] Last Admin: 04/24/18 06:44 Dose: 40 mg Sodium Chloride (Saline Flush) 10 ml FLUSH ASDIRECTED PRN PRN Reason: Keep Vein Open Last Admin: 04/23/18 15:12 Dose: 10 ml Discontinued Medications Atropine Sulfate (Atropine 0.1 Mg/Ml) 0.5 mg IVPUSH ONETIME ONE Stop: 04/19/18 22:06 Last Admin: 04/19/18 22:07 Dose: 0.5 mg Atropine Sulfate (Atropine) 0.5 mg IVPUSH ONETIME ONE Stop: 04/19/18 22:08 Last Admin: 04/19/18 22:28 Dose: Not Given Calcium Chloride (Calcium Chloride 10%) 1 gm IVPUSH ONETIME ONE Stop: 04/19/18 22:45 Last Admin: 04/19/18 22:45 Dose: 1 gm Calcium Gluconate (Calcium Gluconate) 2 gm IV ONETIME ONE Stop: 04/19/18 22:39 Last Admin: 04/19/18 23:56 Dose: Not Given Carvedilol (Coreg) mg PO BID PRN PRN Reason: Hypertension Dextrose/Water (Dextrose 50% In Water) 50 ml IVPUSH ONETIME ONE Stop: 04/19/18 22:39 Last Admin: 04/19/18 22:47 Dose: 50 ml Escitalopram Oxalate (Lexapro) 5 mg PO DAILY [facility] Last Admin: 04/23/18 08:07 Dose: 5 mg Escitalopram Oxalate (Lexapro) 10 mg PO DAILY [facility] Last Admin: 04/23/18 10:10 Dose: Not Given Escitalopram Oxalate (Lexapro) 5 mg PO ONETIME ONE Stop: 04/23/18 09:51 Last Admin: 04/23/18 09:55 Dose: 5 mg Furosemide (Lasix) 80 mg PO DAILY [facility] Last Admin: 04/20/18 10:17 Dose: Not Given Furosemide (Lasix) 40 mg PO DAILY [facility] Last Admin: 04/21/18 10:00 Dose: 40 mg Sodium Chloride (Normal Saline) 500 mls @ 500 mls/hr IV .BOLUS ONE Stop: 04/19/18 23:27 Last Admin: 04/19/18 22:30 Dose: 500 mls/hr Azithromycin 500 mg/ Sodium (Chloride) 250 mls @ 250 mls/hr IV ONETIME ONE Stop: 04/19/18 23:35 Last Admin: 04/19/18 23:00 Dose: 250 mls/hr Sodium Chloride (Normal Saline) 1,000 mls @ 125 mls/hr IV ASDIRECTED [facility] Last Admin: 04/21/18 01:25 Dose: 125 mls/hr Insulin Human Regular (Humulin R) 10 unit IVPUSH ONETIME ONE Stop: 04/19/18 22:39 Last Admin: 04/19/18 22:57 Dose: 10 units Ondansetron HCl (Zofran) 8 mg IVPUSH ONETIME ONE Stop: 04/19/18 21:58 Last Admin: 04/19/18 22:17 Dose: 8 mg Pantoprazole Sodium (Protonix Iv) 40 mg IVPUSH ONETIME ONE Stop: 04/19/18 21:58 Last Admin: 04/19/18 22:14 Dose: 40 mg Quetiapine Fumarate (Seroquel) 12.5 mg PO BEDTIME [facility] Last Admin: 04/22/18 20:58 Dose: 12.5 mg Sodium Polystyrene Sulfonate (Kayexalate) 15 gm PO ONETIME ONE Stop: 04/19/18 22:39 Last Admin: 04/19/18 23:57 Dose: Not Given Sodium Polystyrene Sulfonate (Kayexalate) 15 gm PO ONETIME ONE Stop: 04/20/18 08:52 Last Admin: 04/20/18 09:14 Dose: 15 gm - Exam General: Alert, Oriented HEENT: Pupils Equal, Pupils Reactive, EOMI, Mucous Membr. Moist/[place]: Supple Lungs: Clear to Auscultation Cardiovascular: Regular Rate - Problem List & Annotations (1) CKD (chronic kidney disease) SNOMED Code(s): 752330871 Code(s): N18.9 - CHRONIC KIDNEY DISEASE, UNSPECIFIED Status: Acute Current Visit: Yes Qualifiers: Chronic kidney disease stage: stage 3 (moderate) Qualified Code(s): N18.3 - Chronic kidney disease, stage 3 (moderate) (2) Afib SNOMED Code(s): 35920298 Code(s): I48.91 - UNSPECIFIED ATRIAL FIBRILLATION Status: Chronic Current Visit: Yes Qualifiers: Atrial fibrillation type: paroxysmal Qualified Code(s): I48.0 - Paroxysmal atrial fibrillation (3) Hyperkalemia SNOMED Code(s): 67509403 Code(s): E87.5 - HYPERKALEMIA Status: Acute Current Visit: Yes (4) Dementia SNOMED Code(s): 82736175 Code(s): F03.90 - UNSPECIFIED DEMENTIA WITHOUT BEHAVIORAL DISTURBANCE Status: Chronic Current Visit: No Qualifiers: Alzheimer's disease onset: unspecified onset (5) Hypertension SNOMED Code(s): 75666028 Code(s): I10 - ESSENTIAL (PRIMARY) HYPERTENSION Status: Acute Current Visit: No Qualifiers: Hypertension type: essential hypertension Qualified Code(s): I10 - Essential (primary) hypertension (6) Hypomagnesemia SNOMED Code(s): 708536916 Code(s): E83.42 - HYPOMAGNESEMIA Status: Acute Current Visit: No (7) Abdominal pain SNOMED Code(s): 27127784 Code(s): R10.9 - UNSPECIFIED ABDOMINAL PAIN Status: Acute Current Visit: Yes Qualifiers: Abdominal location: right lower quadrant Qualified Code(s): R10.31 - Right lower quadrant pain (8) MDD (major depressive disorder) SNOMED Code(s): 946339284 Code(s): F32.9 - MAJOR DEPRESSIVE DISORDER, SINGLE EPISODE, UNSPECIFIED Status: Acute Current Visit: Yes Qualifiers: Psychotic features: without psychotic features (9) Palliative care patient SNOMED Code(s): 858209156 Code(s): Z51.5 - ENCOUNTER FOR PALLIATIVE CARE Status: Acute Current Visit: Yes - Problem List Review Problem List Initiated/Reviewed/Updated: Yes - My Orders Last 24 Hours: My Active Orders 04/23/18 21:00 Mirtazapine [Remeron] 15 mg PO BEDTIME 04/24/18 09:00 Diltiazem [Cardizem CD] 180 mg PO DAILY Escitalopram [Lexapro] 10 mg PO DAILY metOLazone [Zaroxolyn] 2.5 mg PO DAILY 04/25/18 05:11 BASIC METABOLIC PANEL,BMP [CHEM] AM CBC WITH AUTO DIFF [HEME] AM - Plan Plan:: I have started Cardizem for rate control. Will add Zaroxylyn 2.5 mg daily.Family does not want to have anti coagulation. Possible discharge tomorrow
[2018-04-24] MEDS: Cholestyramine/Sucrose Powder 4 GM Packet PO SCH ×2 (09:01→21:11)
[2018-04-24] MEDS: Loperamide 2 MG Cap PO SCH (09:02)
[2018-04-24] MEDS: busPIRone 5 MG Tab PO SCH ×2 (09:31→21:10)
[2018-04-24] MEDS: Diltiazem 180 MG Cap.CD PO SCH (09:31)
[2018-04-24] MEDS: Methimazole 5 MG Tab PO SCH (09:31)
[2018-04-24] MEDS: Escitalopram 10 MG Tab PO SCH (09:32)
[2018-04-24] MEDS: Metolazone 2.5 MG Tab PO SCH (09:33)
[2018-04-24] MEDS: Sodium Chloride 0.9% 10 ML Syringe FLUSH PRN ×2 (10:50→17:16)
[2018-04-24] MEDS: Furosemide 40 MG/4 ML VIAL IVPUSH SCH ×2 (10:50→17:16)
[2018-04-24] MEDS: Donepezil 5 MG Tab PO SCH (21:09)
[2018-04-24] MEDS: Mirtazapine 15 MG Tab PO SCH (21:11)
[2018-04-25] MEDS: Pantoprazole 40 MG Tab.CR PO SCH ×2 (05:40→06:50)
[2018-04-25] MEDS: Metolazone 2.5 MG Tab PO SCH ×2 (05:41→06:50)
[2018-04-25] MEDS: Cholestyramine/Sucrose Powder 4 GM Packet PO SCH (08:14)
[2018-04-25] MEDS: Escitalopram 10 MG Tab PO SCH (08:14)
[2018-04-25] MEDS: Diltiazem 180 MG Cap.CD PO SCH (08:14)
[2018-04-25] MEDS: busPIRone 5 MG Tab PO SCH (08:14)
[2018-04-25] MEDS: Methimazole 5 MG Tab PO SCH (08:14)
--- NOTE | 2018-04-25 08:47 | PCM.PN ---
- General Info Date of Service: 04/25/18 Subjective Update: Angelique was noted to be more confused than usual,overnight. The son states that this is NOT unusual. She has no complaints of chest pain or shortness of breath today. Overnight Coreg was held because of a low blood pressure. Functional Status: Reports: Pain Controlled, Tolerating Diet, Ambulating - Review of Systems General: Reports: No Symptoms HEENT: Reports: No Symptoms Pulmonary: Reports: No Symptoms Cardiovascular: Reports: No Symptoms Gastrointestinal: Reports: No Symptoms - Patient Data Vitals - Most Recent: Last Vital Signs Temp 97.8 F 04/25/18 04:00 Pulse 66 04/25/18 04:00 Resp 18 04/25/18 04:00 BP 100/54 L 04/25/18 04:00 Pulse Ox 95 04/25/18 04:00 Weight - Most Recent: 66.281 kg Med Orders - Current: Current Medications Acetaminophen (Tylenol) 650 mg PO Q6H PRN PRN Reason: Pain Last Admin: 04/23/18 10:53 Dose: 650 mg Albuterol (Proventil Neb Soln) 2.5 mg NEB Q2H PRN PRN Reason: Hyperkalemia Last Admin: 04/19/18 23:12 Dose: 2.5 mg Buspirone HCl (Buspar) 5 mg PO BID REPLACED BY [facility] Last Admin: 04/25/18 08:14 Dose: 5 mg Cholestyramine Resin (Cholestyramine Packet) 4 gm PO BID [place] Last Admin: 04/25/18 08:14 Dose: 4 gm Diltiazem HCl (Cardizem Cd) 180 mg PO DAILY REPLACED BY [facility] Last Admin: 04/25/18 08:14 Dose: 180 mg Donepezil HCl (Aricept) 5 mg PO BEDTIME [place] Last Admin: 04/24/18 21:09 Dose: 5 mg Escitalopram Oxalate (Lexapro) 10 mg PO DAILY REPLACED BY [facility] Last Admin: 04/25/18 08:14 Dose: 10 mg Furosemide (Lasix) 40 mg IVPUSH BIDDIURETIC REPLACED BY [facility] Last Admin: 04/24/18 17:16 Dose: 40 mg Loperamide HCl (Imodium) 2 mg PO Q48H [place] Last Admin: 04/24/18 09:02 Dose: 2 mg Methimazole (Methimazole) 2.5 mg PO DAILY REPLACED BY [facility] Last Admin: 04/25/18 08:14 Dose: 2.5 mg Metolazone (Zaroxolyn) 2.5 mg PO DAILY@0600 REPLACED BY [facility] Last Admin: 04/25/18 06:50 Dose: Not Given Mirtazapine (Remeron) 15 mg PO BEDTIME REPLACED BY [facility] Last Admin: 04/24/18 21:11 Dose: 15 mg Pantoprazole Sodium (Protonix) 40 mg PO 0600 REPLACED BY [facility] Last Admin: 04/25/18 06:50 Dose: Not Given Sodium Chloride (Saline Flush) 10 ml FLUSH ASDIRECTED PRN PRN Reason: Keep Vein Open Last Admin: 04/24/18 17:16 Dose: 10 ml Discontinued Medications Atropine Sulfate (Atropine 0.1 Mg/Ml) 0.5 mg IVPUSH ONETIME ONE Stop: 04/19/18 22:06 Last Admin: 04/19/18 22:07 Dose: 0.5 mg Atropine Sulfate (Atropine) 0.5 mg IVPUSH ONETIME ONE Stop: 04/19/18 22:08 Last Admin: 04/19/18 22:28 Dose: Not Given Calcium Chloride (Calcium Chloride 10%) 1 gm IVPUSH ONETIME ONE Stop: 04/19/18 22:45 Last Admin: 04/19/18 22:45 Dose: 1 gm Calcium Gluconate (Calcium Gluconate) 2 gm IV ONETIME ONE Stop: 04/19/18 22:39 Last Admin: 04/19/18 23:56 Dose: Not Given Carvedilol (Coreg) mg PO BID PRN PRN Reason: Hypertension Carvedilol 12.5 mg/ Carvedilol (25 mg) 37.5 mg PO BID REPLACED BY [facility] Last Admin: 04/24/18 21:29 Dose: Not Given Dextrose/Water (Dextrose 50% In Water) 50 ml IVPUSH ONETIME ONE Stop: 04/19/18 22:39 Last Admin: 04/19/18 22:47 Dose: 50 ml Escitalopram Oxalate (Lexapro) 5 mg PO DAILY REPLACED BY [facility] Last Admin: 04/23/18 08:07 Dose: 5 mg Escitalopram Oxalate (Lexapro) 10 mg PO DAILY REPLACED BY [facility] Last Admin: 04/23/18 10:10 Dose: Not Given Escitalopram Oxalate (Lexapro) 5 mg PO ONETIME ONE Stop: 04/23/18 09:51 Last Admin: 04/23/18 09:55 Dose: 5 mg Furosemide (Lasix) 80 mg PO DAILY REPLACED BY [facility] Last Admin: 04/20/18 10:17 Dose: Not Given Furosemide (Lasix) 40 mg PO DAILY REPLACED BY [facility] Last Admin: 04/21/18 10:00 Dose: 40 mg Sodium Chloride (Normal Saline) 500 mls @ 500 mls/hr IV .BOLUS ONE Stop: 04/19/18 23:27 Last Admin: 04/19/18 22:30 Dose: 500 mls/hr Azithromycin 500 mg/ Sodium (Chloride) 250 mls @ 250 mls/hr IV ONETIME ONE Stop: 04/19/18 23:35 Last Admin: 04/19/18 23:00 Dose: 250 mls/hr Sodium Chloride (Normal Saline) 1,000 mls @ 125 mls/hr IV ASDIRECTED REPLACED BY [facility] Last Admin: 04/21/18 01:25 Dose: 125 mls/hr Insulin Human Regular (Humulin R) 10 unit IVPUSH ONETIME ONE Stop: 04/19/18 22:39 Last Admin: 04/19/18 22:57 Dose: 10 units Ondansetron HCl (Zofran) 8 mg IVPUSH ONETIME ONE Stop: 04/19/18 21:58 Last Admin: 04/19/18 22:17 Dose: 8 mg Pantoprazole Sodium (Protonix Iv) 40 mg IVPUSH ONETIME ONE Stop: 04/19/18 21:58 Last Admin: 04/19/18 22:14 Dose: 40 mg Quetiapine Fumarate (Seroquel) 12.5 mg PO BEDTIME REPLACED BY [facility] Last Admin: 04/22/18 20:58 Dose: 12.5 mg Sodium Polystyrene Sulfonate (Kayexalate) 15 gm PO ONETIME ONE Stop: 04/19/18 22:39 Last Admin: 04/19/18 23:57 Dose: Not Given Sodium Polystyrene Sulfonate (Kayexalate) 15 gm PO ONETIME ONE Stop: 04/20/18 08:52 Last Admin: 04/20/18 09:14 Dose: 15 gm - Exam General: Alert HEENT: Pupils Equal Neck: Supple Lungs: Clear to Auscultation - Problem List & Annotations (1) CKD (chronic kidney disease) SNOMED Code(s): 415805389 Code(s): N18.9 - CHRONIC KIDNEY DISEASE, UNSPECIFIED Status: Acute Current Visit: Yes Qualifiers: Chronic kidney disease stage: stage 3 (moderate) Qualified Code(s): N18.3 - Chronic kidney disease, stage 3 (moderate) (2) Afib SNOMED Code(s): 92163109 Code(s): I48.91 - UNSPECIFIED ATRIAL FIBRILLATION Status: Chronic Current Visit: Yes Qualifiers: Atrial fibrillation type: paroxysmal Qualified Code(s): I48.0 - Paroxysmal atrial fibrillation (3) Hyperkalemia SNOMED Code(s): 70084776 Code(s): E87.5 - HYPERKALEMIA Status: Acute Current Visit: Yes (4) Dementia SNOMED Code(s): 08989237 Code(s): F03.90 - UNSPECIFIED DEMENTIA WITHOUT BEHAVIORAL DISTURBANCE Status: Chronic Current Visit: No Qualifiers: Alzheimer's disease onset: unspecified onset (5) Hypertension SNOMED Code(s): 47202817 Code(s): I10 - ESSENTIAL (PRIMARY) HYPERTENSION Status: Acute Current Visit: No Qualifiers: Hypertension type: essential hypertension Qualified Code(s): I10 - Essential (primary) hypertension (6) Hypomagnesemia SNOMED Code(s): 229491028 Code(s): E83.42 - HYPOMAGNESEMIA Status: Acute Current Visit: No (7) Abdominal pain SNOMED Code(s): 62618136 Code(s): R10.9 - UNSPECIFIED ABDOMINAL PAIN Status: Acute Current Visit: Yes Qualifiers: Abdominal location: right lower quadrant Qualified Code(s): R10.31 - Right lower quadrant pain (8) MDD (major depressive disorder) SNOMED Code(s): 372121637 Code(s): F32.9 - MAJOR DEPRESSIVE DISORDER, SINGLE EPISODE, UNSPECIFIED Status: Acute Current Visit: Yes Qualifiers: Psychotic features: without psychotic features (9) Palliative care patient SNOMED Code(s): 537749254 Code(s): Z51.5 - ENCOUNTER FOR PALLIATIVE CARE Status: Acute Current Visit: Yes - Problem List Review Problem List Initiated/Reviewed/Updated: Yes - My Orders Last 24 Hours: My Active Orders 04/24/18 09:00 Diltiazem [Cardizem CD] 180 mg PO DAILY Escitalopram [Lexapro] 10 mg PO DAILY metOLazone [Zaroxolyn] 2.5 mg PO DAILY@0600 04/25/18 05:11 BASIC METABOLIC PANEL,BMP [CHEM] AM CBC WITH AUTO DIFF [HEME] AM 04/25/18 08:00 Echo Comp wo Cont [US] Routine - Plan Plan:: I will reduce the dose of coreg to 12.5 mg bid. After the echocardiogram she can go home. The home health, she'll need medication blood work acute care.
[2018-04-25 09:10] VITALS: BP 118/55
[2018-04-25] MEDS: Furosemide 40 MG/4 ML VIAL IVPUSH SCH (11:03)
--- NOTE | 2018-04-25 11:03 | DISCH ---
DISCHARGE DATE: 04/25/2018 REASON FOR ADMISSION: 1. Hyperkalemia. 2. Acute renal failure. DISCHARGE DIAGNOSES: 1. Acute on chronic renal failure. 2. Severe congestive heart failure. 3. Depression. 4. Dementia. 5. Chronic diarrhea. 6. Atrial fibrillation. BRIEF HISTORY AND HOSPITAL COURSE: This is an 88-year-old female from [facility], who presented with lethargy, weakness, and was found to have a potassium of 7.3 and creatinine of more than 4. She was admitted for IV fluid replacement and was given bolus and more than 2 L overnight. She went into congestive heart failure, and 40 mg of Lasix was started IV twice a day, along with metolazone. Her creatinine was 3.2 by discharge. BNP remained more than 35,000. An echocardiogram, which was done on the day of discharge, the results are still pending. Her heart rate was noted to be in the 140s and in atrial fibrillation. Because of this, Cardizem was started at 180 mg a day, which controlled her heart rate. Her blood pressure was lower, and as such, the dose for Coreg was decreased to 3.125 mg daily. She was noted to be unmotivated and somewhat depressed. BuSpar was discontinued, and citalopram was increased from 5 to 10 mg a day. She will continue the Aricept as previously scheduled. She also had decreased appetite and nausea and abdominal pain. CT of the abdomen and pelvis was largely unremarkable with exception of pleural effusion. She did well on 15 mg of mirtazapine at bedtime, and this was in place of Seroquel. On discharge, spironolactone was discontinued. Potassium chloride was continued. Lisinopril was also discontinued, and the dose of Lasix was continued at 20 mg twice a day. Because of weakness, need for medication and frequent laboratory studies, and homebound status, it was elected that she will go home with services of Home Health. Please note that I spent more than 35 minutes in the discharge of the patient. /[id number] RUFINO/SAM
== END 2018-04-25 11:54 | disposition home health service (06) | DRG 683 ==
LOC: FB.ED 21:49 → FB.ICU 23:18 → FB.MS 04-21 08:25
PROVIDERS: ADMIT Family Medicine; ATTEND Family Medicine
DX: N17.9 Acute kidney failure, unspecified (principal); I13.0 Hypertensive heart and chronic kidney disease with heart failure and stage 1 through stage 4 chronic kidney disease, or unspecified chronic kidney disease; I42.9 Cardiomyopathy, unspecified; I50.22 Chronic systolic (congestive) heart failure; Z51.5 Encounter for palliative care; Z66 Do not resuscitate; E87.5 Hyperkalemia; E11.22 Type 2 diabetes mellitus with diabetic chronic kidney disease; N18.3 Chronic kidney disease, stage 3 (moderate); G30.9 Alzheimer's disease, unspecified; F02.80 Dementia in other diseases classified elsewhere, unspecified severity, without behavioral disturbance, psychotic disturbance, mood disturbance, and anxiety; R53.1 Weakness; R11.0 Nausea; R41.0 Disorientation, unspecified; E86.0 Dehydration; E05.00 Thyrotoxicosis with diffuse goiter without thyrotoxic crisis or storm; I48.0 Paroxysmal atrial fibrillation; F32.9 Major depressive disorder, single episode, unspecified; R10.31 Right lower quadrant pain; Z87.440 Personal history of urinary (tract) infections; H54.7 Unspecified visual loss; Z88.1 Allergy status to other antibiotic agents; Z88.0 Allergy status to penicillin; Z88.8 Allergy status to other drugs, medicaments and biological substances; Z79.52 Long term (current) use of systemic steroids
CPT/HCPCS: 36415; 51702; 80048; 82550; 83605; 83880; 84484; 85025; 85610; 86850; 86900; 86901; 93005 ×2; 94640; 96361; 96365; 96374; 96375; 99285; C9113; J0456; J0461 ×2; J1815; J2405; J7040; J7050 ×3; 71046; 74176; 80053; 80069; 81001; 82150; 82728; 83540; 83550; 84443; 87086; 93306; 97163-GP; 97165-GO; A9270-GY; J1940; J7030

== ENCOUNTER 2018-10-05 11:39 | Emergency (ER) | payer MEDICARE, OTHER ==
--- NOTE | 2018-10-05 13:00 | EDM.PDOC ---
ED HPI GENERAL MEDICAL PROBLEM - General Chief Complaint: Respiratory Problem Stated Complaint: SOB Time Seen by Provider: 10/05/18 11:45 Source of Information: Reports: Patient, Other (sons) History Limitations: Reports: Other (dementia) - History of Present Illness INITIAL COMMENTS - FREE TEXT/NARRATIVE: This is a 88-year-old [facility] patient with history of dementia chronic kidney disease stage III atrial flutter depression pulmonary hypertension, hypertension diabetes type 2 DNR/DNI with right intertrochanteric fracture #2018. History of intermittent low potassium and she takes high Cosamin for her frequent daily morning diarrhea as. Her father's controlled with diltiazem 120 mg daily and carvedilol 3.125 mg twice a day. Yesterday at afternoon , and approximately 5:30 this morning she had recurrence of chest pain.. The has 2 types of chest pain 1 (chest pain is 8/10 with deep inspiration last for a few seconds) 2) otherwise also ongoing chest pain 5/10 and started 5:30 AM today Middle Chest Pain Score (Numeric/FACES): 5 - Related Data Allergies Allergy/AdvReac Type Severity Reaction Status Date / Time moxifloxacin HCl Allergy Cannot Verified 10/05/18 12:48 [From Avelox] Remember Penicillins Allergy Swelling Verified 10/05/18 12:48 sulfamethoxazole Allergy Swelling Verified 10/05/18 12:48 [From Bactrim] trimethoprim [From Bactrim] Allergy Swelling Verified 10/05/18 12:48 Home Meds: Home Meds Acetaminophen [Tylenol] 650 mg PO Q6H PRN 02/11/14 [History] Cholestyramine/Aspartame [Cholestyramine Light] 4 gm PO BID 02/11/14 [History] predniSONE [Prednisone] 5 mg PO DAILY 02/11/14 [History] Carboxymethylcellulose Sodium [Refresh Tears 0.5%] 1 drop EYEBOTH BID 04/20/18 [ History] Fluticasone Propionate [Flonase] 1 spray NASBOTH BID 04/20/18 [History] L.acidoph,Paracasei, B.lactis [Probiotic] 1 cap PO WITHDINNER 04/20/18 [History] Diltiazem [Cardizem CD] 120 mg PO DAILY #30 cap.er 04/25/18 [Rx] Mirtazapine [Remeron] 15 mg PO BEDTIME #30 tablet 04/25/18 [Rx] Furosemide 20 mg PO DAILY 08/06/18 [History] Hyoscyamine [Levsin] 0.125 mg PO Q4HR PRN 08/06/18 [History] Morphine [Morphine 20 MG/ML Soln] 5 mg PO Q30M PRN 08/06/18 [History] Aspirin [Aspirin EC] 325 mg PO DAILY 08/09/18 [History] Iron Polysaccharides Complex [Ferrex 150] 150 mg PO BID cap 08/09/18 [Rx] Potassium Chloride [Klor-Con 10] 10 meq PO DAILY tab.er 08/09/18 [Rx] Acetaminophen [Tylenol] 650 mg PO TID tablet 08/18/18 [Rx] Acetaminophen/HYDROcodone [[place] 325-5 MG] 1 tab PO Q4H PRN #30 tablet 08/18/18 [Rx] Carvedilol [Coreg] 3.125 mg PO BID tablet 08/18/18 [Rx] Glimepiride [Amaryl] 2 mg PO WITHBREAKFAST tablet 08/18/18 [Rx] fentaNYL [Duragesic] 12 mcg TRDERM Q72H #10 patch 08/18/18 [Rx] metOLazone [Zaroxolyn] 2.5 mg PO MOFR tablet 08/18/18 [Rx] Past Medical History HEENT History: Reports: Impaired Vision Other HEENT History: wears glasses Cardiovascular History: Reports: Afib, Hypertension Other Cardiovascular History: CHF Respiratory History: Reports: Other (See Below) Other Respiratory History: wears oxygen for comfort, mostly at night, pulmonary hypertension Gastrointestinal History: Reports: Diverticulosis Genitourinary History: Reports: Urinary Incontinence 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 UPHOLSTERY PARTS History: Reports: Musculoskeletal History: Reports: Arthritis, RA, Other (See Below) Other Musculoskeletal History: Right hip pinning Neurological History: Reports: Alzheimers Disease 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: Alzheimers Disease Endocrine/Metabolic History: Reports: Diabetes, Type II Hematologic History: Reports: Other (See Below) Other Hematologic History: hx of low magneium - Infectious Disease History Infectious Disease History: Reports: Chicken Pox, Measles, Mumps Other Infectious Disease History: son unsure and pt doesn't remember - Past Surgical History GI Surgical History: Reports: Cholecystectomy Female Surgical History: Reports: Hysterectomy Musculoskeletal Surgical History: Reports: Knee Replacement Social & Family History - Family History Family Medical History: Noncontributory Oncologic: Reports: Other (See Below) - Tobacco Use Smoking Status *Q: Former Smoker Used Tobacco, but Quit: Yes Month/Year Tobacco Last Used: 1959 - Caffeine Use Caffeine Use: Reports: Coffee Other Caffeine Use: Unknown - Recreational Drug Use Recreational Drug Use: No ED ROS GENERAL - Review of Systems Review Of Systems: ROS reveals no pertinent complaints other than HPI. ED EXAM, GENERAL - Physical Exam Exam: See Below Free Text/Narrative:: Pleasant slightly hard of hearing overweight woman and with mild acute distress from end inspiration pain with taking a deep breath. Pain is mostly anterior sternal subchondral joints of the pain lasts for seconds with end inspiration. Exam Limited By: No Limitations General Appearance: Alert, WD/WN, No Apparent Distress Eye Exam: Bilateral Eye: Abnormal Pupil, Normal Inspection Ears: Normal External Exam, Normal Canal, Hearing Loss Ear Exam: Bilateral Ear: Auricle Normal, Canal Normal, TM normal Nose: Normal Inspection Throat/Mouth: Normal Inspection, Normal Lips, Normal Teeth, Normal Gums, Normal Oropharynx, Normal Voice, No Airway Compromise Head: Atraumatic, Normocephalic Neck: Normal Inspection, Supple, Non-Tender, Full Range of Motion, Other (No jugular venous distention decreased range of motion) Respiratory/Chest: No Respiratory Distress, Lungs Clear, Normal Breath Sounds, No Accessory Muscle Use, Chest Non-Tender Cardiovascular: Normal Peripheral Pulses, Regular Rate, Rhythm, No Edema, No Gallop, No JVD, No Murmur, No Rub, JVD, Other Peripheral Pulses: 1+: Brachial (L), Brachial (R), Dorsalis Pedis (L), Dorsalis Pedis (R) GI/Abdominal: Normal Bowel Sounds, Soft, Non-Tender, No Organomegaly, No Distention, No Abnormal Bruit (Female) Exam: Deferred Rectal (Female) Exam: Deferred Extremities: Normal Inspection, Other (Pedal edema) Neurological: Alert, Oriented, CN II-XII Intact, Normal Cognition, Normal Gait ( Decreased hearing and no deep tendon reflexes), Other (Except decreased hearing) Psychiatric: Flat Affect Skin Exam: Warm, Dry, Intact, Normal Color, No Rash Course - Vital Signs Last Recorded V/S: Last Vital Signs Temp 36.8 C 10/05/18 14:00 Pulse 100 02/21/19 14:00 Resp 18 10/05/18 14:00 BP 170/78 H 10/05/18 14:00 Pulse Ox 100 10/05/18 14:00 - Orders/Labs/Meds Orders: Active Orders 24 hr Category Date Time Status EKG Documentation Completion [RC] ASDIRECTED Care 10/05/18 11:57 Active EKG Documentation Completion [RC] ASDIRECTED Care 10/05/18 11:58 Active CXR [Chest 1V Frontal] [CR] Stat Exams 10/05/18 11:59 Taken Saline Lock Insert [OM.PC] Routine Oth 10/05/18 13:06 Ordered EKG 12 Lead [EK] Routine Ther 10/05/18 11:57 Ordered Labs: Laboratory Tests 10/05/18 10/05/18 10/05/18 Range/Units 12:05 12:05 12:05 WBC 5.2 (4.5-12.0) X10-3/uL RBC 3.68 (3.23-5.20) x10(6)uL Hgb 10.4 L (11.5-15.5) g/dL Hct 31.7 (30.0-51.3) % MCV 86.2 (80-96) fL MCH 28.2 (27.7-33.6) pg MCHC 32.7 (32.2-35.4) g/dL RDW 16.2 H (11.5-15.5) % Plt Count 149 (125-369) X10(3)uL MPV 7.4 (7.4-10.4) fL Neut % (Auto) 80.1 (46-82) % Lymph % (Auto) 10.0 L (13-37) % [place] % (Auto) 8.2 (4-12) % Eos % (Auto) 2 (1.0-5.0) % Baso % (Auto) 0 (0-2) % Neut # (Auto) 4.2 (1.6-8.3) # Lymph # (Auto) 0.5 L (0.6-5.0) # [place] # (Auto) 0.4 (0.0-1.3) # Eos # (Auto) 0.1 (0.0-0.8) # Baso # (Auto) 0.0 (0.0-0.2) # D-Dimer, Quantitative (0.0-0.59) mg/LFEU Sodium 139 (135-145) mmol/L Potassium 3.4 L (3.5-5.3) mmol/L Chloride 101 (100-110) mmol/L Carbon Dioxide 30 (21-32) mmol/L BUN 19 H (7-18) mg/dL Creatinine 1.4 H (0.55-1.02) mg/dL Est Cr Clr Drug Dosing TNP Estimated GFR (MDRD) 36 L (>60) BUN/Creatinine Ratio 13.6 (9-20) Glucose 155 H (80-116) mg/dL Calcium 9.2 (8.6-10.2) mg/dL Magnesium (1.8-2.5) mg/dL Total Bilirubin 0.7 (0.1-1.3) mg/dL AST 11 D (5-25) IU/L ALT 9 L D (12-36) U/L Alkaline Phosphatase 87 (56-112) IU/L Troponin I < 0.017 L (<0.017-0.056) ng/mL NT-Pro-B Natriuret Pep (<=450) pg/mL Total Protein 7.4 (6.0-8.0) g/dL Albumin 3.3 (3.2-4.6) g/dL Globulin 4.1 g/dL Albumin/Globulin Ratio 0.8 10/05/18 10/05/18 10/05/18 Range/Units 12:05 12:05 12:05 WBC (4.5-12.0) X10-3/uL RBC (3.23-5.20) x10(6)uL Hgb (11.5-15.5) g/dL Hct (30.0-51.3) % MCV (80-96) fL MCH (27.7-33.6) pg MCHC (32.2-35.4) g/dL RDW (11.5-15.5) % Plt Count (125-369) X10(3)uL MPV (7.4-10.4) fL Neut % (Auto) (46-82) % Lymph % (Auto) (13-37) % [place] % (Auto) (4-12) % Eos % (Auto) (1.0-5.0) % Baso % (Auto) (0-2) % Neut # (Auto) (1.6-8.3) # Lymph # (Auto) (0.6-5.0) # [place] # (Auto) (0.0-1.3) # Eos # (Auto) (0.0-0.8) # Baso # (Auto) (0.0-0.2) # D-Dimer, Quantitative 2.97 H (0.0-0.59) mg/LFEU Sodium (135-145) mmol/L Potassium (3.5-5.3) mmol/L Chloride (100-110) mmol/L Carbon Dioxide (21-32) mmol/L BUN (7-18) mg/dL Creatinine (0.55-1.02) mg/dL Est Cr Clr Drug Dosing Estimated GFR (MDRD) (>60) BUN/Creatinine Ratio (9-20) Glucose (80-116) mg/dL Calcium (8.6-10.2) mg/dL Magnesium 1.4 L (1.8-2.5) mg/dL Total Bilirubin (0.1-1.3) mg/dL AST (5-25) IU/L ALT (12-36) U/L Alkaline Phosphatase (56-112) IU/L Troponin I (<0.017-0.056) ng/mL NT-Pro-B Natriuret Pep 54496 H* (<=450) pg/mL Total Protein (6.0-8.0) g/dL Albumin (3.2-4.6) g/dL Globulin g/dL Albumin/Globulin Ratio Meds: Medications Discontinued Medications Generic Name Dose Route Start Last Admin Trade Name Freq PRN Reason Stop Dose Admin Furosemide 40 mg 10/05/18 13:05 10/05/18 13:26 Lasix IVPUSH 10/05/18 13:06 40 mg NOW ONE Administration Isosorbide Mononitrate 30 mg 10/05/18 13:22 10/05/18 13:30 Imdur PO 10/05/18 13:23 30 mg ONETIME ONE Administration Sodium Chloride 10 ml 10/05/18 13:06 10/05/18 13:30 Saline Flush FLUSH 10 ml ASDIRECTED PRN Administration Keep Vein Open Departure - Departure Time of Disposition: 13:30 (She has a reproducible bilateral sternochondral and costochondral chest discomfort. And she has stable angina which should be able to be treated with Imdur 30 mg daily. Trial of outpatient therapy. If not improved in week on follow up with her doctor may need further admission and treatment of her heart failure. She is DNR/DNI. Hopefully aggressive diuretic therapy with adequate potassium supplementation should be sufficient for her. She has a borderline low potassium. Plan to treat her congestive heart pressure increase Lasix to 40 mg a day increased potassium to 20 mEq twice a day repeat CMP in 1 week) Disposition: DC/Tfer to [facility] Condition: Good Clinical Impression: Cardiomegaly, Hypokalemia Systolic congestive heart failure Qualifiers: Heart failure chronicity: chronic Qualified Code(s): I50.22 - Chronic systolic (congestive) heart failure Coronary artery disease Qualifiers: Coronary Disease-Associated Artery/Lesion type: [place] artery [place] vs. transplanted heart: [place] heart Associated angina: with stable angina Qualified Code(s): I25.118 - Atherosclerotic heart disease of [place] coronary artery with other forms of angina pectoris Dementia Qualifiers: Dementia type: Alzheimer's disease Alzheimer's disease onset: late-onset - Discharge Information *PRESCRIPTION DRUG MONITORING PROGRAM REVIEWED*: Not Applicable *COPY OF PRESCRIPTION DRUG MONITORING REPORT IN PATIENT HANK: Not Applicable Referrals: Fantasma Maxwell MD [Primary Care Provider] - Forms: ED Department Discharge Additional Instructions: He has significant congestive heart failure with a 10,000. A borderline low potassium 3.4. Plan Increase potassium to 20 meq twice a day Increase Lasix to 40 mg daily She has a reproducible bilateral sternochondral and costochondral chest discomfort. And she has stable angina which should be able to be treated with Imdur 30 mg daily. Trial of outpatient therapy. If not improved in week on follow up with her doctor may need further admission and treatment of her heart failure. She is DNR/DNI. Hopefully aggressive diuretic therapy with adequate potassium supplementation should be sufficient for her. She has a borderline low potassium. Plan to treat her congestive heart pressure increase Lasix to 40 mg a day and increase potassium to 20 mEq twice a day repeat CMP in 1 week - My Orders Last 24 Hours: My Active Orders 10/05/18 11:57 EKG Documentation Completion [RC] ASDIRECTED EKG 12 Lead [EK] Routine 10/05/18 11:58 EKG Documentation Completion [RC] ASDIRECTED 10/05/18 11:59 CXR [Chest 1V Frontal] [CR] Stat 10/05/18 13:06 Saline Lock Insert [OM.PC] Routine - Assessment/Plan Last 24 Hours: My Active Orders 10/05/18 11:57 EKG Documentation Completion [RC] ASDIRECTED EKG 12 Lead [EK] Routine 10/05/18 11:58 EKG Documentation Completion [RC] ASDIRECTED 10/05/18 11:59 CXR [Chest 1V Frontal] [CR] Stat 10/05/18 13:06 Saline Lock Insert [OM.PC] Routine
[2018-10-05] MEDS ORDERED: Furosemide 40 MG/4 ML VIAL IVPUSH ONE (13:05)
[2018-10-05] MEDS ORDERED: Sodium Chloride 0.9% 10 ML Syringe FLUSH PRN (13:06)
[2018-10-05] MEDS ORDERED: Isosorbide Mononitrate 30 MG Tab.ER PO ONE (13:22)
[2018-10-05 14:50] VITALS: BP 170/78
--- NOTE | 2018-10-06 09:16 | CR ---
INDICATION: Chest pain. CHEST: Portable AP upright view of the chest was obtained, 10/05/18, and compared with 08/06/18 and 04/21/18. The heart is enlarged. The aorta is tortuous and calcified in the arch and descending portion. There are now noted pleural parenchymal changes at the left lung base, suggesting minimal pneumonia and pleuritis - correlate clinically. The right lung and possibly the pleural space appeared relatively normal, although some very minimal pleural fluid may be present, as suggested by minimal blunting of the right costophrenic angle. Additionally, the upper lung field pulmonary vasculature is prominent, suggesting CHF, and interstitial markings are slightly prominent, suggesting mild degree of interstitial lung edema. IMPRESSION: 1. ASHD with cardiomegaly, probable CHF, and minimal interstitial lung edema. 2. Pleural parenchymal change is now seen at the left lung base, raising question of minimal pneumonia and pleuritis - minimal pleural effusion may also be present at the right lung base. MTDD
== END 2018-10-05 14:45 ==
LOC: FB.ED 11:39
DX: I13.0 Hypertensive heart and chronic kidney disease with heart failure and stage 1 through stage 4 chronic kidney disease, or unspecified chronic kidney disease (principal); E87.6 Hypokalemia; I50.22 Chronic systolic (congestive) heart failure; E11.22 Type 2 diabetes mellitus with diabetic chronic kidney disease; N18.3 Chronic kidney disease, stage 3 (moderate); G30.1 Alzheimer's disease with late onset; I25.118 Atherosclerotic heart disease of native coronary artery with other forms of angina pectoris; F02.80 Dementia in other diseases classified elsewhere, unspecified severity, without behavioral disturbance, psychotic disturbance, mood disturbance, and anxiety; I48.91 Unspecified atrial fibrillation; Z87.891 Personal history of nicotine dependence; Z88.8 Allergy status to other drugs, medicaments and biological substances; Z88.0 Allergy status to penicillin; Z88.1 Allergy status to other antibiotic agents; Z79.82 Long term (current) use of aspirin; Z79.899 Other long term (current) drug therapy; Z79.84 Long term (current) use of oral hypoglycemic drugs
CPT/HCPCS: 36415; 71045; 80053; 83735; 83880; 84484; 85025; 85379; 93005; 93010; 96374; 99285; A9270; J1940

== ENCOUNTER 2020-03-17 09:54 | Inpatient (IN) | payer MEDICARE, OTHER ==
--- NOTE | 2020-03-17 10:44 | EDM.PDOC ---
ED HPI GENERAL MEDICAL PROBLEM - General Stated Complaint: HEART RATE ISSUIES Time Seen by Provider: 03/17/20 10:10 Source of Information: Reports: Patient, Family History Limitations: Reports: No Limitations - History of Present Illness INITIAL COMMENTS - FREE TEXT/NARRATIVE: c/o sob lives in [place], took morning meds, has dementia when RN saw pt this AM pt was sob and had HR 130s, son brings her to hosp also has pain at R lower chest anteriorly and RUQ, inc'd with DB on O2 2 l/min via NC at bedtime which she has been on for awhile had been on anticoagulation for her afib/aflutter, however 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, did have inc'd d-dimer 2y ago uses walker when on her feet, fell 1.5y ago and had a hip fx repaired with a screw 3 children, all live close by\ PSH includes appy, choly, hysterectomy DNR/DNI PREVIOUS MEDS IN [facility] PUL: pred 5 mg/d (for RA) CV: metolazone 2.5, carvedilol 3.125 bid, K 10 meq/d, fur 20/d, dilt 120/d, cholestyramine 4 gm bid, asa 325/d ENT: FLonase b/l bid BEH: mirtazapine 15/qhs NUTR: Ferrex 150 bid, Probiotic 1 cap with dinner ENDOCR: glimepriride 2 mg with bfast PAIN: fentanyl 12 mcg patch q72h, apap 650 tid, apap/hc 325/5 1 q4h prn MEDS PER [facility] NOW; PUL: pred 5 mg/d, O2 2 l/min qhs CV: metolazone 2.5 mg qMon & Fri, carvedilol 6.25 bid, K 20 bid, fur 40 qam and 20 qnoon, dilt 120/d, cholestyramine 4 gm bid, asa 325/d, spironolactone 12.5/d, Imdur 30/d ENT: FLonase b/l bid BEH: mirtazapine 15/qhs NUTR: Ferrex 150 bid ENDOCR: glimepride 2 mg with bfast PAIN: fentanyl 12 mcg patch q72h, apap 650 tid, apap/hc 325/5 1 q4h prn RECENT LABS IN [facility] 18m ago CBC with wbc 5.2, hgb 10.4 (baseline), plt 149, segs 80.1%, indices wnl 18m ago d-dimer 2.97 (normal 0.0-0.59) 18m ago CMP with K 3.4, BUN/creat 19/1.4, GFR 36, glu 155, alb 3.3, TP 7.4 18m ago Mg 1.4 18m ago BNP 13,010 (nl <450) 2y ago Fe 17, 2y ago INR 1.08 2y ago on 05/02 u/a with >100 wbc/hpf, moderate bacteria 2y ago UC with Kleb penrumonia >100,000 sensitive all except moxifloxacin, no other positive UC PMH IN [facility] CV: sys HF, cardiomegaly, CAD, htn, low Mg, low K, afib, aflutter PUL: pul htn ENDOCR: DM BEH: MDD ORTHO: hip fx, osteoporosis : UTI RENAL: CKD NEURO: dementia - Related Data Allergies Allergy/AdvReac Type Severity Reaction Status Date / Time moxifloxacin HCl Allergy Cannot Verified 02/22/19 11:37 [From Avelox] Remember Penicillins Allergy Swelling Verified 02/22/19 11:37 sulfamethoxazole Allergy Swelling Verified 02/22/19 11:37 [From Bactrim] trimethoprim [From Bactrim] Allergy Swelling Verified 02/22/19 11:37 Home Meds: Home Meds Acetaminophen [Tylenol] 650 mg PO Q6H PRN 02/11/14 [History] Cholestyramine/Aspartame [Cholestyramine Light] 4 gm PO BID 02/11/14 [History] predniSONE [Prednisone] 5 mg PO DAILY 02/11/14 [History] Carboxymethylcellulose Sodium [Refresh Tears 0.5%] 1 drop EYEBOTH BID 04/20/18 [History] Fluticasone Propionate [Flonase] 1 spray NASBOTH BID 04/20/18 [History] L.acidoph,Paracasei, B.lactis [Probiotic] 1 cap PO WITHDINNER 04/20/18 [History] Diltiazem [Cardizem CD] 120 mg PO DAILY #30 cap.er 04/25/18 [Rx] Mirtazapine [Remeron] 15 mg PO BEDTIME #30 tablet 04/25/18 [Rx] Furosemide 20 mg PO DAILY 08/06/18 [History] Hyoscyamine [Levsin] 0.125 mg PO Q4HR PRN 08/06/18 [History] Morphine [Morphine 20 MG/ML Soln] 5 mg PO Q30M PRN 08/06/18 [History] Aspirin [Aspirin EC] 325 mg PO DAILY 08/09/18 [History] Iron Polysaccharides Complex [Ferrex 150] 150 mg PO BID cap 08/09/18 [Rx] Potassium Chloride [Klor-Con 10] 10 meq PO DAILY tab.er 08/09/18 [Rx] Acetaminophen [Tylenol] 650 mg PO TID tablet 08/18/18 [Rx] Acetaminophen/HYDROcodone [Larslan 325-5 MG] 1 tab PO Q4H PRN #30 tablet 08/18/18 [Rx] Glimepiride [Amaryl] 2 mg PO WITHBREAKFAST tablet 08/18/18 [Rx] carvediloL [Coreg] 3.125 mg PO BID tablet 08/18/18 [Rx] fentaNYL [Duragesic] 12 mcg TRDERM Q72H #10 patch 08/18/18 [Rx] metOLazone [Zaroxolyn] 2.5 mg PO MOFR tablet 08/18/18 [Rx] Past Medical History HEENT History: Reports: Impaired Vision Other HEENT History: wears glasses Cardiovascular History: Reports: Afib, Hypertension Other Cardiovascular History: CHF Respiratory History: Reports: Other (See Below) Other Respiratory History: wears oxygen for comfort, mostly at night, pulmonary hypertension Gastrointestinal History: Reports: Diverticulosis Genitourinary History: Reports: Urinary Incontinence 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: Reports: Musculoskeletal History: Reports: Arthritis, RA, Other (See Below) Other Musculoskeletal History: Right hip pinning Neurological History: Reports: Alzheimers Disease 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: Alzheimers Disease Endocrine/Metabolic History: Reports: Diabetes, Type II Hematologic History: Reports: Other (See Below) Other Hematologic History: hx of low magneium - Infectious Disease History Infectious Disease History: Reports: Chicken Pox, Measles, Mumps Other Infectious Disease History: son unsure and pt doesn't remember - Past Surgical History GI Surgical History: Reports: Cholecystectomy Female Surgical History: Reports: Hysterectomy Musculoskeletal Surgical History: Reports: Knee Replacement Social & Family History - Family History Family Medical History: Noncontributory Oncologic: Reports: Other (See Below) - Caffeine Use Caffeine Use: Reports: Coffee Other Caffeine Use: Unknown ED ROS GENERAL - Review of Systems Review Of Systems: See Below Constitutional: Reports: No Symptoms HEENT: Reports: No Symptoms Respiratory: Reports: Shortness of Breath. Denies: Wheezing, Sputum Cardiovascular: Reports: Chest Pain Endocrine: Reports: No Symptoms GI/Abdominal: Reports: No Symptoms : Reports: No Symptoms Musculoskeletal: Reports: No Symptoms Skin: Reports: No Symptoms Neurological: Reports: No Symptoms Psychiatric: Reports: No Symptoms Hematologic/Lymphatic: Reports: No Symptoms Immunologic: Reports: No Symptoms ED EXAM, GENERAL - Physical Exam Exam: See Below Exam Limited By: No Limitations General Appearance: Alert, WD/WN, No Apparent Distress, Other (mild dyspnea, alert, pleasant, poor short and intermediate memory, son at bedside and provided hx, only helpful hx from pt is ongoing pain below R breast and in RUQ) Eye Exam: Bilateral Eye: Normal Inspection, PERRL Ears: Normal External Exam Nose: Normal Inspection, Normal Mucosa Throat/Mouth: Normal Voice, No Airway Compromise Head: Atraumatic, Normocephalic Neck: Normal Inspection, Supple, Non-Tender, Full Range of Motion. No: Lymphadenopathy (R), Lymphadenopathy (L) Respiratory/Chest: Other (mild dyspnea, using accessory muscles, no purse lips, talks 8-word setences, no wheeze, fair AE, no inc'd exp phase, no rales at base) Cardiovascular: Other (PMI not palp, quiet precordium, irreg irreg, 2/6 DARIUS at LSB) GI/Abdominal: Normal Bowel Sounds, Soft, Non-Tender, No Distention, Other (no definite tender at RUQ or over R hemithorax) Extremities: Normal Inspection, Other (Jere wraps around lower 2/3rd of pretib area, 1+ edema to knees b/l and symmetric, turgor UE wnl) Neurological: Alert, CN II-XII Intact, No Motor/Sensory Deficits, Other (good eye contact, normal speech, face symmetric, very poor memory, talks complete sentences) Psychiatric: Normal Affect, Normal Mood Skin Exam: Warm, Dry, Intact, Normal Color, No Rash Lymphatic: No Adenopathy Course - Vital Signs Last Recorded V/S: Last Vital Signs Temp 36.7 C 03/17/20 10:23 Pulse 140 H 03/17/20 10:23 Resp 22 H 03/17/20 10:23 BP 133/84 03/17/20 10:23 Pulse Ox 94 L 03/17/20 10:23 - Orders/Labs/Meds Orders: Active Orders 24 hr Category Date Time Status Admission Status [Patient Status] [ADT] Routine ADT 03/17/20 12:54 Ordered FERRITIN, SERUM Stat Lab 03/17/20 10:55 Received Labs: Laboratory Tests 03/17/20 03/17/20 03/17/20 Range/Units 10:55 10:55 10:55 WBC 7.9 (4.5-12.0) X10-3/uL RBC 4.04 (3.23-5.20) x10(6)uL Hgb 12.4 (11.5-15.5) g/dL Hct 37.8 (30.0-51.3) % MCV 93.5 (80-96) fL MCH 30.8 (27.7-33.6) pg MCHC 32.9 (32.2-35.4) g/dL RDW 12.7 (11.5-15.5) % Plt Count 132 (125-369) X10(3)uL MPV 7.0 L (7.4-10.4) fL Neut % (Auto) 74.2 (46-82) % Lymph % (Auto) 12.6 L (13-37) % [place] % (Auto) 11.4 (4-12) % Eos % (Auto) 1 (1.0-5.0) % Baso % (Auto) 0 (0-2) % Neut # (Auto) 5.9 (1.6-8.3) # Lymph # (Auto) 1.0 (0.6-5.0) # [place] # (Auto) 0.9 (0.0-1.3) # Eos # (Auto) 0.1 (0.0-0.8) # Baso # (Auto) 0.0 (0.0-0.2) # PT 10.8 (9.0-11.1) sec INR 1.00 (1.00-1.24) D-Dimer, Quantitative 1.90 H (0.0-0.59) mg/LFEU Sodium 139 (135-145) mmol/L Potassium 3.6 (3.5-5.3) mmol/L Chloride 100 (100-110) mmol/L Carbon Dioxide 32 (21-32) mmol/L BUN 43 H D (7-18) mg/dL Creatinine 2.0 H* (0.55-1.02) mg/dL Est Cr Clr Drug Dosing TNP Estimated GFR (MDRD) 24 L (>60) BUN/Creatinine Ratio 21.5 H (9-20) Glucose 174 H (80-116) mg/dL Lactic Acid (0.4-2.0) mmol/L Calcium 9.3 (8.6-10.2) mg/dL Magnesium 1.4 L (1.8-2.5) mg/dL Total Bilirubin 1.1 (0.1-1.3) mg/dL AST 12 (5-25) IU/L ALT 12 D (12-36) U/L Alkaline Phosphatase 67 (56-112) IU/L Troponin I (4.0-60.3) pg/mL C-Reactive Protein (0.5-0.9) mg/dL NT-Pro-B Natriuret Pep (<=450) pg/mL Total Protein 7.7 (6.0-8.0) g/dL Albumin 4.0 (3.2-4.6) g/dL Globulin 3.7 g/dL Albumin/Globulin Ratio 1.1 TSH, Ultra Sensitive (0.36-3.74) IU/mL Urine Color (YELLOW) Urine Appearance (CLEAR) Urine pH (5.0-6.5) Ur Specific [place] (1.010-1.025) Urine Protein (NEGATIVE) mg/dL Urine Glucose (UA) (NORMAL) mg/dL Urine Ketones (NEGATIVE) mg/dL Urine Occult Blood (NEGATIVE) Urine Nitrite (NEGATIVE) Urine Bilirubin (NEGATIVE) Urine Urobilinogen (NEGATIVE) mg/dL Ur Leukocyte Esterase (NEGATIVE) Urine RBC (0-5) Urine WBC (0-5) Ur Squamous Epith Cells (NS,R,O) Urine Bacteria (NS) 03/17/20 03/17/20 03/17/20 Range/Units 10:55 10:55 11:50 WBC (4.5-12.0) X10-3/uL RBC (3.23-5.20) x10(6)uL Hgb (11.5-15.5) g/dL Hct (30.0-51.3) % MCV (80-96) fL MCH (27.7-33.6) pg MCHC (32.2-35.4) g/dL RDW (11.5-15.5) % Plt Count (125-369) X10(3)uL MPV (7.4-10.4) fL Neut % (Auto) (46-82) % Lymph % (Auto) (13-37) % [place] % (Auto) (4-12) % Eos % (Auto) (1.0-5.0) % Baso % (Auto) (0-2) % Neut # (Auto) (1.6-8.3) # Lymph # (Auto) (0.6-5.0) # [place] # (Auto) (0.0-1.3) # Eos # (Auto) (0.0-0.8) # Baso # (Auto) (0.0-0.2) # PT (9.0-11.1) sec INR (1.00-1.24) D-Dimer, Quantitative (0.0-0.59) mg/LFEU Sodium (135-145) mmol/L Potassium (3.5-5.3) mmol/L Chloride (100-110) mmol/L Carbon Dioxide (21-32) mmol/L BUN (7-18) mg/dL Creatinine (0.55-1.02) mg/dL Est Cr Clr Drug Dosing Estimated GFR (MDRD) (>60) BUN/Creatinine Ratio (9-20) Glucose (80-116) mg/dL Lactic Acid 1.3 (0.4-2.0) mmol/L Calcium (8.6-10.2) mg/dL Magnesium (1.8-2.5) mg/dL Total Bilirubin (0.1-1.3) mg/dL AST (5-25) IU/L ALT (12-36) U/L Alkaline Phosphatase (56-112) IU/L Troponin I 13.9 (4.0-60.3) pg/mL C-Reactive Protein 9.0 H* (0.5-0.9) mg/dL NT-Pro-B Natriuret Pep 3042 H* (<=450) pg/mL Total Protein (6.0-8.0) g/dL Albumin (3.2-4.6) g/dL Globulin g/dL Albumin/Globulin Ratio TSH, Ultra Sensitive 1.08 (0.36-3.74) IU/mL Urine Color Yellow (YELLOW) Urine Appearance Clear (CLEAR) Urine pH 5.0 (5.0-6.5) Ur Specific [place] 1.010 (1.010-1.025) Urine Protein Negative (NEGATIVE) mg/dL Urine Glucose (UA) Normal (NORMAL) mg/dL Urine Ketones Negative (NEGATIVE) mg/dL Urine Occult Blood Negative (NEGATIVE) Urine Nitrite Negative (NEGATIVE) Urine Bilirubin Negative (NEGATIVE) Urine Urobilinogen Normal (NEGATIVE) mg/dL Ur Leukocyte Esterase Negative (NEGATIVE) Urine RBC 0-5 (0-5) Urine WBC 0-5 (0-5) Ur Squamous Epith Cells Few H (NS,R,O) Urine Bacteria Rare H (NS) - Re-Assessments/Exams Free Text/Narrative Re-Assessment/Exam: 03/17/20 12:58 hr now 87, right sided CP now gone, PO 98% on 2 l/min via NC does have inc'd CRP 9.0 suggesting infection altho 1v CxR read as neg for pneumonia by Dr Bahena, CBC neg, no temp could have had a transient PE, cannot do chest CTA d/t low GFR has had resolution of cardiac and pul sxs, PO was 91% on RA and not inc'd to 98% has been resting comfortably does have RA and is on prednisone altho increase of CRP 9.0 seems high even for RA in the absence of a flare, however no comparison labs from 2w ago in Dr Maxwell's office not immediately available d/w Dr Duff who accepted pt in admission, pt and son in agreement Departure - Departure Time of Disposition: 12:56 Disposition: Admitted As Inpatient 68 Condition: Good Clinical Impression: Atrial fibrillation with rapid ventricular response, Tachypnea, Dyspnea, Pleuritic chest pain, Acute on chronic renal insufficiency, Elevated C-reactive protein (CRP), Elevated d-dimer - Discharge Information *PRESCRIPTION DRUG MONITORING PROGRAM REVIEWED*: No *COPY OF PRESCRIPTION DRUG MONITORING REPORT IN PATIENT HANK: No Referrals: PCP,None [Ordering Only Provider] - Sepsis Event Note (ED) - Focused Exam Vital Signs: Vital Signs Temp Pulse Resp BP Pulse Ox 03/17/20 10:23 36.7 C 140 H 22 H 133/84 94 L - My Orders Last 24 Hours: My Active Orders 03/17/20 10:55 FERRITIN, SERUM Stat 03/17/20 12:54 Admission Status [Patient Status] [ADT] Routine - Assessment/Plan Last 24 Hours: My Active Orders 03/17/20 10:55 FERRITIN, SERUM Stat 03/17/20 12:54 Admission Status [Patient Status] [ADT] Routine
[2020-03-17] MEDS ORDERED: Carboxymethylcellulose Sodium 0.5% Ophth Soln 0.4 ML UD Box of 30 EYEBOTH ONE (11:19)
--- NOTE | 2020-03-17 11:32 | CR ---
INDICATION: Short of breath. CHEST, ONE VIEW: An AP upright view of the chest 03/17/20 was compared with 10/05/18 and 08/06/18. There is again noted evidence of exogenous obesity. The heart is enlarged. The aorta is tortuous with calcification in the arch and descending portion. Overlying EKG leads are noted. Upper lung field pulmonary vasculature is prominent compatible with CHF. Interstitial markings are slightly prominent suggesting interstitial lung edema or possibly fibrosis. This should be correlated clinically. No consolidating pneumonia or definite effusion was seen. IMPRESSION: ASHD, cardiomegaly, CHF, probable mild interstitial lung edema. MTDD
[2020-03-17] MEDS ORDERED: Benzonatate 100 MG Cap PO PRN (15:14)
[2020-03-17] MEDS ORDERED: Magnesium Hydroxide 400 MG/5 ML Susp 30 ML Cup PO PRN (15:14)
[2020-03-17] MEDS ORDERED: Furosemide 40 MG/4 ML VIAL IVPUSH ONE (15:17)
[2020-03-17] MEDS: Diltiazem IR 30 MG Tab PO SCH ×2 (15:47→21:24)
[2020-03-17] MEDS ORDERED: Sodium Chloride 0.9% 10 ML Syringe FLUSH PRN (15:48)
--- NOTE | 2020-03-17 16:29 | PCM.HP.2 ---
H&P History of Present Illness - General Date of Service: 03/17/20 Admit Problem/Dx: Admission Diagnosis/Problem Admission Diagnosis/Problem Atrial fibrillation Source of Information: Patient, EMS Notes Reviewed, Family History Limitations: Reports: Other (Memory impairment) - History of Present Illness Initial Comments - Free Text/Narative: Angelique noticed rapid heart rate last night, didn't call for anyone at that time, RN noted heart rate in 120-130s this morning, called family and was brought to ER. Has right side lower chest pain, shortness of breath, dry cough but no fevers, chills, runny nose, or sore throat. No diarrhea or constipation. No rashes. No peripheral edema. Normally wears LILLY wraps at [facility]). proBNP 3092 in ER, Cr up to 2.0, normal WBC, Atrial fibrillation with RVR 120- 130s in ER, CXR showed CHF. Spoke with Bill Hilliard PA-C as Dr Maxwell, her PCP is out today, stated she was taken off Digoxin in 09/2017 due to her age, kidney function. Takes Coreg and Diltiazem for rate control. She had intracranial bleeding a few years ago so is only on Aspirin for anticoagulation. Her last weight in the clinic was 172 pounds. CRP was 9.0. D-Dimer slightly elevated but with kidney function cannot do CTA of chest. Right Lower Right Rib Pain Score (Numeric/FACES): 8 - Related Data Allergies/Adverse Reactions: Allergies Allergy/AdvReac Type Severity Reaction Status Date / Time moxifloxacin HCl Allergy Cannot Verified 02/22/19 11:37 [From Avelox] Remember Penicillins Allergy Swelling Verified 02/22/19 11:37 sulfamethoxazole Allergy Swelling Verified 02/22/19 11:37 [From Bactrim] trimethoprim [From Bactrim] Allergy Swelling Verified 02/22/19 11:37 Home Medications: Home Meds Cholestyramine/Aspartame [Cholestyramine Light] 4 gm PO 1700 02/11/14 [History] predniSONE [Prednisone] 5 mg PO Q48H 02/11/14 [History] Fluticasone Propionate [Flonase] 1 spray NASBOTH BID 04/20/18 [History] L.acidoph,Paracasei, B.lactis [Probiotic] 1 cap PO DAILY 04/20/18 [History] Diltiazem [Cardizem CD] 120 mg PO DAILY #30 cap.er 04/25/18 [Rx] Mirtazapine [Remeron] 15 mg PO BEDTIME #30 tablet 04/25/18 [Rx] Furosemide 20 mg PO 1200 08/06/18 [History] Iron Polysaccharides Complex [Ferrex 150] 150 mg PO BID cap 08/09/18 [Rx] Glimepiride [Amaryl] 2 mg PO WITHBREAKFAST tablet 08/18/18 [Rx] metOLazone [Zaroxolyn] 2.5 mg PO MOFR tablet 08/18/18 [Rx] Acetaminophen [Acetaminophen Extra Strength] 1,000 mg PO TID 03/17/20 [History] Aspirin [Halfprin] 81 mg PO DAILY 03/17/20 [History] Benzonatate [Tessalon Perle] 100 mg PO TID PRN 03/17/20 [History] Carboxymethylcellulose Sodium [Refresh Plus 0.5%] 1 drop EYEBOTH BID 03/17/20 [History] Furosemide [Lasix] 40 mg PO DAILY 03/17/20 [History] Gabapentin [Neurontin] 100 mg PO BEDTIME 03/17/20 [History] Isosorbide Mononitrate [Isosorbide Mononitrate ER] 30 mg PO DAILY 03/17/20 [ History] Magnesium Hydroxide [Milk of Magnesia] 30 ml PO DAILY PRN 03/17/20 [History] Potassium Chloride 20 meq PO BID 03/17/20 [History] Sodium Chloride [Saline Nasal [place]] 1 spray NASBOTH ASDIRECTED 03/17/20 [History] Sodium Chloride [Saline Nasal [place]] 1 spray NASBOTH BID 03/17/20 [History] Spironolactone [Aldactone] 12.5 mg PO DAILY 03/17/20 [History] carvediloL [Coreg] 6.25 mg PO BID 03/17/20 [History] lidocaine HCL [Aspercreme Lidocaine] 1 applic TOP BID 03/17/20 [History] Past Medical History HEENT History: Reports: Impaired Vision Other HEENT History: wears glasses Cardiovascular History: Reports: Afib, Hypertension Other Cardiovascular History: CHF Respiratory History: Reports: Other (See Below) Other Respiratory History: wears oxygen for comfort, mostly at night, pulmonary hypertension Gastrointestinal History: Reports: Diverticulosis Genitourinary History: Reports: Urinary Incontinence SACK LIFTER History: Reports: Musculoskeletal History: Reports: Arthritis, RA, Other (See Below) Other Musculoskeletal History: Right hip pinning Neurological History: Reports: Alzheimers Disease 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: Alzheimers Disease Endocrine/Metabolic History: Reports: Diabetes, Type II Hematologic History: Reports: Other (See Below) Other Hematologic History: hx of low magneium - Infectious Disease History Infectious Disease History: Reports: Chicken Pox, Measles, Mumps Other Infectious Disease History: son unsure and pt doesn't remember - Past Surgical History GI Surgical History: Reports: Cholecystectomy Female Surgical History: Reports: Hysterectomy Musculoskeletal Surgical History: Reports: Knee Replacement Social & Family History - Family History Family Medical History: Noncontributory Oncologic: Reports: Other (See Below) - Tobacco Use Smoking Status *Q: Never Smoker Second Hand Smoke Exposure: No - Caffeine Use Caffeine Use: Reports: None Other Caffeine Use: Unknown - Recreational Drug Use Recreational Drug Use: No H&P Review of Systems - Review of Systems: Review Of Systems: See Below Free Text/Narrative: Limited due to cognition, remainder obtained from son who was present. Exam - Exam Exam: See Below - Vital Signs Vital Signs: Last Vital Signs Temp 98.0 F 03/17/20 10:23 Pulse 105 H 03/17/20 11:15 Resp 20 03/17/20 11:15 BP 134/87 03/17/20 11:15 Pulse Ox 97 03/17/20 11:15 Weight: 168 lb 6.4 oz - Exam General: Alert, Oriented (person, place), Cooperative. No: Mild Distress HEENT: PERRLA, Conjunctiva Clear, EOMI Neck: Trachea Midline Lungs: Decreased Breath Sounds (bibasilar), Crackles (bibasilar) Cardiovascular: Irregular Rhythm, Tachycardia GI/Abdominal Exam: Normal Bowel Sounds, Soft, Non-Tender, No Distention (Female) Exam: Deferred Rectal (Female) Exam: Deferred Extremities: No Pedal Edema Peripheral Pulses: 2+: Radial (L), Radial (R) Skin: Warm, Dry, Intact. No: Rash, Ecchymosis - Patient Data Lab Results Last 24 hrs: Laboratory Results - last 24 hr 03/17/20 03/17/20 03/17/20 Range/Units 10:55 10:55 10:55 WBC 7.9 (4.5-12.0) X10-3/uL RBC 4.04 (3.23-5.20) x10(6)uL Hgb 12.4 (11.5-15.5) g/dL Hct 37.8 (30.0-51.3) % MCV 93.5 (80-96) fL MCH 30.8 (27.7-33.6) pg MCHC 32.9 (32.2-35.4) g/dL RDW 12.7 (11.5-15.5) % Plt Count 132 (125-369) X10(3)uL MPV 7.0 L (7.4-10.4) fL Neut % (Auto) 74.2 (46-82) % Lymph % (Auto) 12.6 L (13-37) % Sunflower % (Auto) 11.4 (4-12) % Eos % (Auto) 1 (1.0-5.0) % Baso % (Auto) 0 (0-2) % Neut # (Auto) 5.9 (1.6-8.3) # Lymph # (Auto) 1.0 (0.6-5.0) # Sunflower # (Auto) 0.9 (0.0-1.3) # Eos # (Auto) 0.1 (0.0-0.8) # Baso # (Auto) 0.0 (0.0-0.2) # PT 10.8 (9.0-11.1) sec INR 1.00 (1.00-1.24) D-Dimer, Quantitative 1.90 H (0.0-0.59) mg/LFEU Sodium 139 (135-145) mmol/L Potassium 3.6 (3.5-5.3) mmol/L Chloride 100 (100-110) mmol/L Carbon Dioxide 32 (21-32) mmol/L BUN 43 H D (7-18) mg/dL Creatinine 2.0 H* (0.55-1.02) mg/dL Est Cr Clr Drug Dosing TNP Estimated GFR (MDRD) 24 L (>60) BUN/Creatinine Ratio 21.5 H (9-20) Glucose 174 H (80-116) mg/dL Lactic Acid (0.4-2.0) mmol/L Calcium 9.3 (8.6-10.2) mg/dL Magnesium 1.4 L (1.8-2.5) mg/dL Total Bilirubin 1.1 (0.1-1.3) mg/dL AST 12 (5-25) IU/L ALT 12 D (12-36) U/L Alkaline Phosphatase 67 (56-112) IU/L Troponin I (4.0-60.3) pg/mL C-Reactive Protein (0.5-0.9) mg/dL NT-Pro-B Natriuret Pep (<=450) pg/mL Total Protein 7.7 (6.0-8.0) g/dL Albumin 4.0 (3.2-4.6) g/dL Globulin 3.7 g/dL Albumin/Globulin Ratio 1.1 TSH, Ultra Sensitive (0.36-3.74) IU/mL Urine Color (YELLOW) Urine Appearance (CLEAR) Urine pH (5.0-6.5) Ur Specific [place] (1.010-1.025) Urine Protein (NEGATIVE) mg/dL Urine Glucose (UA) (NORMAL) mg/dL Urine Ketones (NEGATIVE) mg/dL Urine Occult Blood (NEGATIVE) Urine Nitrite (NEGATIVE) Urine Bilirubin (NEGATIVE) Urine Urobilinogen (NEGATIVE) mg/dL Ur Leukocyte Esterase (NEGATIVE) Urine RBC (0-5) Urine WBC (0-5) Ur Squamous Epith Cells (NS,R,O) Urine Bacteria (NS) 03/17/20 03/17/20 03/17/20 Range/Units 10:55 10:55 11:50 WBC (4.5-12.0) X10-3/uL RBC (3.23-5.20) x10(6)uL Hgb (11.5-15.5) g/dL Hct (30.0-51.3) % MCV (80-96) fL MCH (27.7-33.6) pg MCHC (32.2-35.4) g/dL RDW (11.5-15.5) % Plt Count (125-369) X10(3)uL MPV (7.4-10.4) fL Neut % (Auto) (46-82) % Lymph % (Auto) (13-37) % Sunflower % (Auto) (4-12) % Eos % (Auto) (1.0-5.0) % Baso % (Auto) (0-2) % Neut # (Auto) (1.6-8.3) # Lymph # (Auto) (0.6-5.0) # Sunflower # (Auto) (0.0-1.3) # Eos # (Auto) (0.0-0.8) # Baso # (Auto) (0.0-0.2) # PT (9.0-11.1) sec INR (1.00-1.24) D-Dimer, Quantitative (0.0-0.59) mg/LFEU Sodium (135-145) mmol/L Potassium (3.5-5.3) mmol/L Chloride (100-110) mmol/L Carbon Dioxide (21-32) mmol/L BUN (7-18) mg/dL Creatinine (0.55-1.02) mg/dL Est Cr Clr Drug Dosing Estimated GFR (MDRD) (>60) BUN/Creatinine Ratio (9-20) Glucose (80-116) mg/dL Lactic Acid 1.3 (0.4-2.0) mmol/L Calcium (8.6-10.2) mg/dL Magnesium (1.8-2.5) mg/dL Total Bilirubin (0.1-1.3) mg/dL AST (5-25) IU/L ALT (12-36) U/L Alkaline Phosphatase (56-112) IU/L Troponin I 13.9 (4.0-60.3) pg/mL C-Reactive Protein 9.0 H* (0.5-0.9) mg/dL NT-Pro-B Natriuret Pep 3042 H* (<=450) pg/mL Total Protein (6.0-8.0) g/dL Albumin (3.2-4.6) g/dL Globulin g/dL Albumin/Globulin Ratio TSH, Ultra Sensitive 1.08 (0.36-3.74) IU/mL Urine Color Yellow (YELLOW) Urine Appearance Clear (CLEAR) Urine pH 5.0 (5.0-6.5) Ur Specific [place] 1.010 (1.010-1.025) Urine Protein Negative (NEGATIVE) mg/dL Urine Glucose (UA) Normal (NORMAL) mg/dL Urine Ketones Negative (NEGATIVE) mg/dL Urine Occult Blood Negative (NEGATIVE) Urine Nitrite Negative (NEGATIVE) Urine Bilirubin Negative (NEGATIVE) Urine Urobilinogen Normal (NEGATIVE) mg/dL Ur Leukocyte Esterase Negative (NEGATIVE) Urine RBC 0-5 (0-5) Urine WBC 0-5 (0-5) Ur Squamous Epith Cells Few H (NS,R,O) Urine Bacteria Rare H (NS) Result Diagrams: 03/17/20 10:55 03/17/20 10:55 Sepsis Event Note - Evaluation Sepsis Screening Result: No Definite Risk - Focused Exam Vital Signs: Vital Signs Temp Pulse Resp BP Pulse Ox Pulse Ox 03/17/20 11:15 105 H 20 134/87 97 03/17/20 10:40 92 L 03/17/20 10:23 98.0 F 140 H 22 H 133/84 94 L Date Exam was Performed: 03/17/20 Time Exam was Performed: 16:22 *Q Meaningful Use (ADM) - VTE *Q VTE Pharmacological Contraindications *Q: Risk of Bleeding VTE Anticoagulation Contraindications: Treatment Not Tolerated - VTE Risk Assess *Q Each Risk Factor Represents 1 Point: Congestive heart failure (CHF) Total Score 1 Point Risk Factors: 1 Each Risk Factor Represents 2 Points: None Total Score 2 Point Risk Factors: 0 Each Risk Factor Represents 3 Points: Age 75 Years or Greater Total Score 3 Point Risk Factors: 3 Each Risk Factor Represents 5 Points: None Total Score 5 Point Risk Factors: 0 Venous Thromboembolism Risk Factor Score *Q: 4 - Problem List (1) Acute on chronic renal insufficiency SNOMED Code(s): 001004496 ICD Code: N28.9 - DISORDER OF KIDNEY AND URETER, UNSPECIFIED; N18.9 - CHRONIC KIDNEY DISEASE, UNSPECIFIED Status: Acute Current Visit: Yes (2) Atrial fibrillation with rapid ventricular response SNOMED Code(s): 470972308282606 ICD Code: I48.91 - UNSPECIFIED ATRIAL FIBRILLATION Status: Acute Current Visit: Yes (3) Dyspnea SNOMED Code(s): 134454922 ICD Code: R06.00 - DYSPNEA, UNSPECIFIED Status: Acute Current Visit: Yes (4) Elevated C-reactive protein (CRP) SNOMED Code(s): 652726898182749 ICD Code: R79.82 - ELEVATED C-REACTIVE PROTEIN (CRP) Status: Acute Current Visit: Yes (5) Elevated d-dimer SNOMED Code(s): 442187523 ICD Code: R79.89 - OTHER SPECIFIED ABNORMAL FINDINGS OF BLOOD CHEMISTRY Status: Acute Current Visit: Yes (6) CKD (chronic kidney disease) SNOMED Code(s): 929165917 ICD Code: N18.9 - CHRONIC KIDNEY DISEASE, UNSPECIFIED Status: Chronic Current Visit: No Qualifiers: (7) Coronary artery disease SNOMED Code(s): 27274266 ICD Code: I25.10 - ATHSCL HEART DISEASE OF [place] CORONARY ARTERY W/O ANG PCTRS Status: Chronic Current Visit: No Qualifiers: Coronary Disease-Associated Artery/Lesion type: [place] artery [place] vs. transplanted heart: [place] heart Associated angina: with stable angina Qualified Code(s): I25.118 - Atherosclerotic heart disease of [place] coronary artery with other forms of angina pectoris (8) Diabetes type 2, uncontrolled SNOMED Code(s): 014371690, 918093818 ICD Code: E11.65 - TYPE 2 DIABETES MELLITUS WITH HYPERGLYCEMIA Status: Chronic Current Visit: No (9) Hypertension SNOMED Code(s): 70133344 ICD Code: I10 - ESSENTIAL (PRIMARY) HYPERTENSION Status: Chronic Current Visit: No Qualifiers: (10) Palliative care patient SNOMED Code(s): 318283405, 888111276 ICD Code: Z51.5 - ENCOUNTER FOR PALLIATIVE CARE Status: Chronic Current Visit: No (11) Pulmonary hypertension SNOMED Code(s): 59003152 ICD Code: I27.20 - PULMONARY HYPERTENSION, UNSPECIFIED Status: Chronic Current Visit: No (12) Dementia SNOMED Code(s): 09652194 ICD Code: F03.90 - UNSPECIFIED DEMENTIA WITHOUT BEHAVIORAL DISTURBANCE Status: Chronic Current Visit: No Qualifiers: Dementia type: Alzheimer's disease Alzheimer's disease onset: late-onset Problem List Initiated/Reviewed/Updated: Yes Orders Last 24hrs: Active Orders 24 hr Category Date Time Status Admission Status [Patient Status] [ADT] Routine ADT 03/17/20 12:54 Active Antiembolic Devices [RC] .Routine Care 03/17/20 15:10 Active Blood Glucose Check, Bedside [RC] TIDMEALS Care 03/17/20 15:10 Active Height and Weight [RC] DAILY Care 03/17/20 15:10 Active Intake and Output [RC] QSHIFT Care 03/17/20 15:10 Active Oxygen Therapy [RC] PRN Care 03/17/20 15:10 Active Up With Assistance [RC] ASDIRECTED Care 03/17/20 15:10 Active Up to Chair [RC] ASDIRECTED Care 03/17/20 15:10 Active VTE/DVT Education [RC] Per Unit Routine Care 03/17/20 15:10 Active Vital Signs [RC] Q4H Care 03/17/20 15:10 Active OT Evaluation and Treatment [CONS] Routine Cons 03/17/20 15:10 Active PT Evaluation and Treatment [CONS] Routine Cons 03/17/20 15:10 Active Consistent Carbohydrate Diet [DIET] Diet 03/17/20 Dinner Active Chest 2V [CR] Routine Exams 03/18/20 07:00 Ordered BASIC METABOLIC PANEL,BMP [CHEM] Routine Lab 03/18/20 06:00 Ordered CBC WITH AUTO DIFF [HEME] Routine Lab 03/18/20 06:00 Ordered FERRITIN, SERUM Stat Lab 03/17/20 10:55 Received TROPONIN I [CHEM] Routine Lab 03/18/20 06:00 Ordered Acetaminophen [Tylenol Extra Strength] Med 03/17/20 21:00 Active 1,000 mg PO TID Aspirin [Halfprin] Med 03/18/20 09:00 Active 81 mg PO DAILY Benzonatate [Tessalon Perles] Med 03/17/20 15:14 Active 100 mg PO TID PRN Carboxymethylcellulose Sodium [Refresh Plus 0.5%] Med 03/17/20 21:00 Active 0 each EYEBOTH BID Cholestyramine/Sucrose [Cholestyramine Packet] Med 03/17/20 17:00 Active 4 gm PO 1700 Diltiazem IR [Cardizem] Med 03/17/20 16:00 Active 30 mg PO Q6H Diltiazem [Cardizem CD] Med 03/18/20 09:00 Active 180 mg PO DAILY Fluticasone Propionate [Flonase] Med 03/17/20 21:00 Active 0 gm NASBOTH BID Gabapentin [Neurontin] Med 03/17/20 21:00 Active 100 mg PO BEDTIME Iron Polysaccharides Complex [Ferrex 150] Med 03/17/20 21:00 Active 150 mg PO BID Isosorbide Mononitrate [Imdur] Med 03/18/20 09:00 Active 30 mg PO DAILY Lactobacillus Rhamnosus GG [Culturelle] Med 03/18/20 09:00 Active 1 cap PO DAILY Magnesium Hydroxide [Milk of Magnesia] Med 03/17/20 15:14 Active 30 ml PO DAILY PRN Mirtazapine [Remeron] Med 03/17/20 21:00 Active 15 mg PO BEDTIME Potassium Chloride [Klor-Con M20] Med 03/17/20 21:00 Active 20 meq PO BID Sodium Chloride 0.65% [[place] Nasal [place]] Med 03/17/20 21:00 Active 0 ml NASBOTH BID Sodium Chloride 0.9% [Saline Flush] Med 03/17/20 15:48 Active 10 ml FLUSH ASDIRECTED PRN Spironolactone [Aldactone] Med 03/18/20 09:00 Active 12.5 mg PO DAILY carvediloL [Coreg] Med 03/17/20 21:00 Active 6.25 mg PO BID predniSONE Med 03/18/20 09:00 Active 5 mg PO Q48H Anticoagulation Contraindications VTE [AST] Per Unit Oth 03/17/20 15:10 Ordered Routine Antiembolic Hose [OM.PC] Per Unit Routine Oth 03/17/20 15:10 Ordered Resuscitation Status Routine Resus Stat 03/17/20 15:10 Ordered Medication Orders Acetaminophen (Tylenol Extra Strength) 1,000 mg PO TID [facility] Artificial Tears (Refresh Plus 0.5%) 0 each EYEBOTH BID [facility] Aspirin (Halfprin) 81 mg PO DAILY [facility] Benzonatate (Tessalon Perles) 100 mg PO TID PRN PRN Reason: Cough Carvedilol (Coreg) 6.25 mg PO BID [facility] Cholestyramine Resin (Cholestyramine Packet) 4 gm PO 1700 [facility] Diltiazem HCl (Cardizem Cd) 180 mg PO DAILY [facility] Diltiazem HCl (Cardizem) 30 mg PO Q6H [facility] Stop: 03/17/20 22:01 Last Admin: 03/17/20 15:47 Dose: 30 mg Documented by: DIFFCAL Fluticasone Propionate (Flonase) 0 gm NASBOTH BID [facility] Gabapentin (Neurontin) 100 mg PO BEDTIME [facility] Isosorbide Mononitrate (Imdur) 30 mg PO DAILY [facility] Lactobacillus Rhamnosus (Culturelle) 1 cap PO DAILY [facility] Magnesium Hydroxide (Milk Of Magnesia) 30 ml PO DAILY PRN PRN Reason: Constipation Mirtazapine (Remeron) 15 mg PO BEDTIME [facility] Polysaccharide Iron Complex (Ferrex 150) 150 mg PO BID [facility] Potassium Chloride (Klor-Con M20) 20 meq PO BID [facility] Prednisone (Prednisone) 5 mg PO Q48H [facility] Sodium Chloride ([place] Nasal [place]) 0 ml NASBOTH BID [facility] Sodium Chloride (Saline Flush) 10 ml FLUSH ASDIRECTED PRN PRN Reason: IV Use Spironolactone (Aldactone) 12.5 mg PO DAILY [facility] Assessment/Plan Comment:: 1. Admit for Atrial fibrillation with RVR, Congestive heart failure. 2. Afib: took morning Diltiazem will give 30 mg this afternoon and 30 mg in 6 hours. Then start 180 mg daily in the morning. Continue Coreg. 3. CHF: hold oral Lasix, given 40 mg IV today, daily weights, I&Os. Adjust treatment as necessary. 4. Consistent Carb diet. 5. AccuChecks bid meals. She is not sure how often they check at [facility]. 6. DVT prophylaxis: TEDs BLE. Aspirin, history of intracranial bleed. 7. DNR/DNI per sonOlayinka. - Mortality Measure Prognosis:: Poor
[2020-03-17] MEDS: Cholestyramine/Sucrose Powder 4 GM Packet PO SCH (18:08)
[2020-03-17] MEDS: Fluticasone Propionate Nasal Spray 16 GM Bottle NASBOTH SCH (20:03)
[2020-03-17] MEDS: Iron Polysaccharides Complex 150 MG Cap PO SCH (20:03)
[2020-03-17] MEDS: Acetaminophen 500 MG Tab PO SCH (20:04)
[2020-03-17] MEDS: Mirtazapine 15 MG Tab PO SCH (20:06)
[2020-03-17] MEDS: Carvedilol 6.25 MG Tab PO SCH (20:07)
[2020-03-17] MEDS: Gabapentin 100 MG Cap PO SCH (20:08)
[2020-03-17] MEDS: Potassium Chloride 20 MEQ Tab.ER PO SCH (20:08)
[2020-03-17] MEDS: Sodium Chloride 0.65% Nasal Spray 45 ML Bottle NASBOTH SCH (20:08)
[2020-03-17] MEDS: Carboxymethylcellulose Sodium 0.5% Ophth Soln 0.4 ML UD Box of 30 EYEBOTH SCH (20:10)
[2020-03-18] MEDS ORDERED: Furosemide 40 MG/4 ML VIAL IVPUSH ONE (07:31)
[2020-03-18] MEDS: predniSONE 5 MG Tab PO SCH (08:07)
[2020-03-18] MEDS: Aspirin 81 MG Tab.EC PO SCH (08:10)
[2020-03-18] MEDS: Carvedilol 6.25 MG Tab PO SCH ×2 (08:10→21:00)
[2020-03-18] MEDS: Lactobacillus Rhamnosus GG (Probiotic) Cap PO SCH (08:10)
[2020-03-18] MEDS: Iron Polysaccharides Complex 150 MG Cap PO SCH ×2 (08:10→21:00)
[2020-03-18] MEDS: Potassium Chloride 20 MEQ Tab.ER PO SCH ×2 (08:11→21:01)
[2020-03-18] MEDS: Acetaminophen 500 MG Tab PO SCH ×3 (08:11→21:02)
[2020-03-18] MEDS: Diltiazem 180 MG Cap.CD PO SCH (08:11)
[2020-03-18] MEDS: Isosorbide Mononitrate 30 MG Tab.ER PO SCH (08:12)
[2020-03-18] MEDS: Spironolactone 25 MG Tab PO SCH (08:12)
[2020-03-18] MEDS: Fluticasone Propionate Nasal Spray 16 GM Bottle NASBOTH SCH ×2 (08:13→21:01)
[2020-03-18] MEDS: Sodium Chloride 0.65% Nasal Spray 45 ML Bottle NASBOTH SCH ×2 (08:14→21:01)
[2020-03-18] MEDS: Carboxymethylcellulose Sodium 0.5% Ophth Soln 0.4 ML UD Box of 30 EYEBOTH SCH ×2 (08:19→21:02)
[2020-03-18] MEDS ORDERED: Bisacodyl 10 MG Supp RECTAL PRN (09:07)
[2020-03-18] MEDS ORDERED: Docusate Sodium 100 MG Cap PO PRN (09:07)
[2020-03-18] MEDS: Polyethylene Glycol 3350 Powder 17 GM Packet PO SCH (09:45)
--- NOTE | 2020-03-18 10:19 | CR ---
INDICATION: Followup dyspnea. CHEST, 2 VIEWS: AP and lateral views of the chest were obtained 03/18/20 and compared with 03/17/20 and 10/05/18. Generalized cardiomegaly. The aorta is tortuous with calcification in the arch and descending portion. Slightly diminished bone density may be present raising question of osteoporosis. Small pleural effusion is noted on the right with marking increased at the costophrenic angle suggesting minimal pneumonia and pleuritis in that area. Overlying pulmonary vasculature is slightly prominent than on the last examination suggesting early resolving CHF but with continued pulmonary vascular congestion present at this time. Overlying EKG leads are noted. No gross consolidating pneumonia was identified. IMPRESSION: 1. Early resolving CHF and interstitial lung edema. 2. Minimal infiltrate and small effusion on the right raising question of pneumonia and pleuritis. 3. Demineralization suggested compatible with osteoporosis. 4. ASHD with generalized cardiomegaly. MTDD
[2020-03-18] MEDS ORDERED: Potassium Chloride 20 MEQ Tab.ER PO ONE (14:31)
--- NOTE | 2020-03-18 14:48 | PCM.PN ---
- General Info Date of Service: 03/18/20 Subjective Update: Her right side is still sore with deep breaths and with palpation but not bothering at rest. Noted when nursing got her up to bathroom she has a healing bruise on right hip and a hematoma on bilateral buttocks. Denies any pain in these areas, as well as any fall. Discussed with her son, Olayinka, he hasn't had any falls reported to him, but did say that she has had problems even getting out of the lift chair they had gotten her a few years ago. He states that since no visitors have been in since October, he picks her up at the door to take to doctors appointments so has not been in her apartment. Her weight is down to 166 today, last weight in clinic was 172. Does not feel her heart racing today, slowed down on Telemetry with addition of 60 mg additional doses of Diltiazem yesterday, controlled on the 180 mg daily dose today. Will get echo today/tomorrow based on availability, elevated D dimer but cannot do CT Angio due to kidney function, also history of pulmonary hypertension in addition to CHF. Functional Status: Reports: Pain Controlled, Tolerating Diet, Urinating - Patient Data Vitals - Most Recent: Last Vital Signs Temp 98.1 F 03/18/20 07:25 Pulse 98 03/18/20 08:10 Resp 20 03/18/20 07:25 BP 163/77 H 03/18/20 08:12 Pulse Ox 98 03/18/20 07:25 Weight - Most Recent: 166 lb 6 oz I&O - Last 24 Hours: Intake & Output 03/17/20 03/18/20 03/18/20 22:59 06:59 14:59 Intake Total 200 Output Total 900 575 Balance -900 -375 Lab Results Last 24 Hours: Laboratory Results - last 24 hr 03/17/20 03/17/20 03/18/20 Range/Units 10:55 17:40 06:15 WBC (4.5-12.0) X10-3/uL RBC (3.23-5.20) x10(6)uL Hgb (11.5-15.5) g/dL Hct (30.0-51.3) % MCV (80-96) fL MCH (27.7-33.6) pg MCHC (32.2-35.4) g/dL RDW (11.5-15.5) % Plt Count (125-369) X10(3)uL MPV (7.4-10.4) fL Neut % (Auto) (46-82) % Lymph % (Auto) (13-37) % [place] % (Auto) (4-12) % Eos % (Auto) (1.0-5.0) % Baso % (Auto) (0-2) % Neut # (Auto) (1.6-8.3) # Lymph # (Auto) (0.6-5.0) # [place] # (Auto) (0.0-1.3) # Eos # (Auto) (0.0-0.8) # Baso # (Auto) (0.0-0.2) # Sodium (135-145) mmol/L Potassium (3.5-5.3) mmol/L Chloride (100-110) mmol/L Carbon Dioxide (21-32) mmol/L BUN (7-18) mg/dL Creatinine (0.55-1.02) mg/dL Est Cr Clr Drug Dosing mL/min Estimated GFR (MDRD) (>60) BUN/Creatinine Ratio (9-20) Glucose (80-116) mg/dL POC Glucose 211 H D 176 H (80-116) mg/dL Calcium (8.6-10.2) mg/dL Ferritin 182 H (15-150) ng/mL Troponin I (4.0-60.3) pg/mL 03/18/20 03/18/20 03/18/20 Range/Units 06:25 06:25 06:25 WBC 7.5 (4.5-12.0) X10-3/uL RBC 4.26 (3.23-5.20) x10(6)uL Hgb 12.9 (11.5-15.5) g/dL Hct 40.1 (30.0-51.3) % MCV 94.1 (80-96) fL MCH 30.3 (27.7-33.6) pg MCHC 32.1 L (32.2-35.4) g/dL RDW 12.5 (11.5-15.5) % Plt Count 127 (125-369) X10(3)uL MPV 7.3 L (7.4-10.4) fL Neut % (Auto) 74.2 (46-82) % Lymph % (Auto) 12.0 L (13-37) % [place] % (Auto) 11.4 (4-12) % Eos % (Auto) 2 (1.0-5.0) % Baso % (Auto) 0 (0-2) % Neut # (Auto) 5.6 (1.6-8.3) # Lymph # (Auto) 0.9 (0.6-5.0) # [place] # (Auto) 0.8 (0.0-1.3) # Eos # (Auto) 0.1 (0.0-0.8) # Baso # (Auto) 0.0 (0.0-0.2) # Sodium 141 (135-145) mmol/L Potassium 3.4 L (3.5-5.3) mmol/L Chloride 99 L (100-110) mmol/L Carbon Dioxide 34 H (21-32) mmol/L BUN 43 H (7-18) mg/dL Creatinine 1.9 H (0.55-1.02) mg/dL Est Cr Clr Drug Dosing 15.74 mL/min Estimated GFR (MDRD) 25 L (>60) BUN/Creatinine Ratio 22.6 H (9-20) Glucose 164 H (80-116) mg/dL POC Glucose (80-116) mg/dL Calcium 9.3 (8.6-10.2) mg/dL Ferritin (15-150) ng/mL Troponin I 13.4 (4.0-60.3) pg/mL 03/18/20 Range/Units 11:46 WBC (4.5-12.0) X10-3/uL RBC (3.23-5.20) x10(6)uL Hgb (11.5-15.5) g/dL Hct (30.0-51.3) % MCV (80-96) fL MCH (27.7-33.6) pg MCHC (32.2-35.4) g/dL RDW (11.5-15.5) % Plt Count (125-369) X10(3)uL MPV (7.4-10.4) fL Neut % (Auto) (46-82) % Lymph % (Auto) (13-37) % [place] % (Auto) (4-12) % Eos % (Auto) (1.0-5.0) % Baso % (Auto) (0-2) % Neut # (Auto) (1.6-8.3) # Lymph # (Auto) (0.6-5.0) # [place] # (Auto) (0.0-1.3) # Eos # (Auto) (0.0-0.8) # Baso # (Auto) (0.0-0.2) # Sodium (135-145) mmol/L Potassium (3.5-5.3) mmol/L Chloride (100-110) mmol/L Carbon Dioxide (21-32) mmol/L BUN (7-18) mg/dL Creatinine (0.55-1.02) mg/dL Est Cr Clr Drug Dosing mL/min Estimated GFR (MDRD) (>60) BUN/Creatinine Ratio (9-20) Glucose (80-116) mg/dL POC Glucose 324 H D (80-116) mg/dL Calcium (8.6-10.2) mg/dL Ferritin (15-150) ng/mL Troponin I (4.0-60.3) pg/mL Med Orders - Current: Current Medications Acetaminophen (Tylenol Extra Strength) 1,000 mg PO TID [facility] Last Admin: 03/18/20 14:27 Dose: 1,000 mg Documented by: Artificial Tears (Refresh Plus 0.5%) 0 each EYEBOTH BID [facility] Last Admin: 03/18/20 08:19 Dose: 1 drop Documented by: Aspirin (Halfprin) 81 mg PO DAILY [facility] Last Admin: 03/18/20 08:10 Dose: 81 mg Documented by: Benzonatate (Tessalon Perles) 100 mg PO TID PRN PRN Reason: Cough Bisacodyl (Dulcolax) 10 mg RECTAL DAILY PRN PRN Reason: Constipation Carvedilol (Coreg) 6.25 mg PO BID [facility] Last Admin: 03/18/20 08:10 Dose: 6.25 mg Documented by: Cholestyramine Resin (Cholestyramine Packet) 4 gm PO 1700 [facility] Last Admin: 03/17/20 18:08 Dose: 4 gm Documented by: Diltiazem HCl (Cardizem Cd) 180 mg PO DAILY [facility] Last Admin: 03/18/20 08:11 Dose: 180 mg Documented by: Docusate Sodium (Colace) 100 mg PO BID PRN PRN Reason: Constipation Fluticasone Propionate (Flonase) 0 gm NASBOTH BID [facility] Last Admin: 03/18/20 08:13 Dose: 1 spray Documented by: Gabapentin (Neurontin) 100 mg PO BEDTIME [facility] Last Admin: 03/17/20 20:08 Dose: 100 mg Documented by: Insulin Human Lispro (Humalog) 0 unit SUBCUT TIDMEALS [facility]; Protocol Isosorbide Mononitrate (Imdur) 30 mg PO DAILY [facility] Last Admin: 03/18/20 08:12 Dose: 30 mg Documented by: Lactobacillus Rhamnosus (Culturelle) 1 cap PO DAILY [facility] Last Admin: 03/18/20 08:10 Dose: 1 cap Documented by: Magnesium Hydroxide (Milk Of Magnesia) 30 ml PO DAILY PRN PRN Reason: Constipation Mirtazapine (Remeron) 15 mg PO BEDTIME [facility] Last Admin: 03/17/20 20:06 Dose: 15 mg Documented by: Polyethylene Glycol (Miralax) 17 gm PO DAILY [facility] Last Admin: 03/18/20 09:45 Dose: 17 gm Documented by: Polysaccharide Iron Complex (Ferrex 150) 150 mg PO BID [facility] Last Admin: 03/18/20 08:10 Dose: 150 mg Documented by: Potassium Chloride (Klor-Con M20) 20 meq PO BID [facility] Last Admin: 03/18/20 08:11 Dose: 20 meq Documented by: Potassium Chloride (Klor-Con M20) 20 meq PO ONETIME ONE Stop: 03/18/20 14:32 Prednisone (Prednisone) 5 mg PO Q48H [facility] Last Admin: 03/18/20 08:07 Dose: 5 mg Documented by: Sodium Chloride ([place] Nasal [place]) 0 ml NASBOTH BID [facility] Last Admin: 03/18/20 08:14 Dose: 1 spray Documented by: Sodium Chloride (Saline Flush) 10 ml FLUSH ASDIRECTED PRN PRN Reason: IV Use Last Admin: 03/18/20 08:03 Dose: 10 ml Documented by: Spironolactone (Aldactone) 12.5 mg PO DAILY [facility] Last Admin: 03/18/20 08:12 Dose: 12.5 mg Documented by: Discontinued Medications Diltiazem HCl (Cardizem) 30 mg PO Q6H [place] Stop: 03/17/20 22:01 Last Admin: 03/17/20 21:24 Dose: 30 mg Documented by: Furosemide (Lasix) 40 mg IVPUSH NOW ONE Stop: 03/17/20 15:18 Last Admin: 03/17/20 15:47 Dose: 40 mg Documented by: Furosemide (Lasix) 40 mg IVPUSH NOW ONE Stop: 03/18/20 07:32 Last Admin: 03/18/20 08:03 Dose: 40 mg Documented by: - Exam General: Alert, Oriented (person, place), Cooperative, No Acute Distress Lungs: Clear to Auscultation, Normal Respiratory Effort, Decreased Breath Sounds (crackles bibasilar) Cardiovascular: Regular Rate, Irregular Rhythm GI/Abdominal Exam: Normal Bowel Sounds, Soft, Non-Tender, No Distention Extremities: Pedal Edema (2+ BLE) Skin: Ecchymosis (healing ecchymosis on right hip, 5 cm x 5 cm hematoma bilateral buttocks including gluteal fold, NT, no fluctuance.) Neurological: No New Focal Deficit Sepsis Event Note - Evaluation Sepsis Screening Result: No Definite Risk - Focused Exam Vital Signs: Vital Signs Temp Pulse Pulse Resp BP BP Pulse Ox 03/18/20 08:12 163/77 H 03/18/20 08:10 98 163/77 H 03/18/20 07:25 98.1 F 98 20 163/77 H 98 03/18/20 03:29 98.6 F 92 20 144/84 H 95 Date Exam was Performed: 03/18/20 Time Exam was Performed: 14:32 - Problem List & Annotations (1) Acute on chronic renal insufficiency SNOMED Code(s): 131457027 Code(s): N28.9 - DISORDER OF KIDNEY AND URETER, UNSPECIFIED; N18.9 - CHRONIC KIDNEY DISEASE, UNSPECIFIED Status: Acute Current Visit: Yes (2) Atrial fibrillation with rapid ventricular response SNOMED Code(s): 661313577055900 Code(s): I48.91 - UNSPECIFIED ATRIAL FIBRILLATION Status: Acute Current Visit: Yes (3) Dyspnea SNOMED Code(s): 247687250 Code(s): R06.00 - DYSPNEA, UNSPECIFIED Status: Acute Current Visit: Yes (4) Elevated C-reactive protein (CRP) SNOMED Code(s): 637439486794829 Code(s): R79.82 - ELEVATED C-REACTIVE PROTEIN (CRP) Status: Acute Current Visit: Yes (5) Elevated d-dimer SNOMED Code(s): 149227949 Code(s): R79.89 - OTHER SPECIFIED ABNORMAL FINDINGS OF BLOOD CHEMISTRY Status: Acute Current Visit: Yes (6) CKD (chronic kidney disease) SNOMED Code(s): 847280817 Code(s): N18.9 - CHRONIC KIDNEY DISEASE, UNSPECIFIED Status: Chronic Current Visit: No Qualifiers: (7) Coronary artery disease SNOMED Code(s): 18849405 Code(s): I25.10 - ATHSCL HEART DISEASE OF [place] CORONARY ARTERY W/O ANG PCTRS Status: Chronic Current Visit: No Qualifiers: Coronary Disease-Associated Artery/Lesion type: [place] artery [place] vs. transplanted heart: [place] heart Associated angina: with stable angina Qualified Code(s): I25.118 - Atherosclerotic heart disease of [place] coronary artery with other forms of angina pectoris (8) Diabetes type 2, uncontrolled SNOMED Code(s): 071681971, 561220703 Code(s): E11.65 - TYPE 2 DIABETES MELLITUS WITH HYPERGLYCEMIA Status: Chronic Current Visit: No (9) Hypertension SNOMED Code(s): 69224335 Code(s): I10 - ESSENTIAL (PRIMARY) HYPERTENSION Status: Chronic Current Visit: No Qualifiers: (10) Palliative care patient SNOMED Code(s): 609740817, 544626850 Code(s): Z51.5 - ENCOUNTER FOR PALLIATIVE CARE Status: Chronic Current Visit: No (11) Pulmonary hypertension SNOMED Code(s): 99980758 Code(s): I27.20 - PULMONARY HYPERTENSION, UNSPECIFIED Status: Chronic Current Visit: No (12) Dementia SNOMED Code(s): 67414447 Code(s): F03.90 - UNSPECIFIED DEMENTIA WITHOUT BEHAVIORAL DISTURBANCE Status: Chronic Current Visit: No Qualifiers: Dementia type: Alzheimer's disease Alzheimer's disease onset: late-onset (13) Hematoma SNOMED Code(s): 214947661 Code(s): T14.8XXA - OTHER INJURY OF UNSPECIFIED BODY REGION, INITIAL ENCO UNTER Status: Acute Current Visit: Yes Annotation/Comment:: buttocks, most likely from fall/trauma; Patient denies any fall but does have dementia. - Problem List Review Problem List Initiated/Reviewed/Updated: Yes - My Orders Last 24 Hours: My Active Orders 03/17/20 15:10 Blood Glucose Check, Bedside [RC] TIDMEALS Height and Weight [RC] 06 Oxygen Therapy [RC] PRN Up With Assistance [RC] ASDIRECTED Up to Chair [RC] ASDIRECTED VTE/DVT Education [RC] Per Unit Routine Vital Signs [RC] 00,04,,, OT Evaluation and Treatment [CONS] Routine PT Evaluation and Treatment [CONS] Routine Anticoagulation Contraindications VTE [AST] Per Unit Routine Resuscitation Status Routine 03/17/20 15:14 Benzonatate [Tessalon Perles] 100 mg PO TID PRN Magnesium Hydroxide [Milk of Magnesia] 30 ml PO DAILY PRN 03/17/20 15:38 Cardiac Monitoring [RC] 08,16,00 03/17/20 15:48 Sodium Chloride 0.9% [Saline Flush] 10 ml FLUSH ASDIRECTED PRN 03/17/20 Dinner Consistent Carbohydrate Diet [DIET] 03/17/20 17:00 Cholestyramine/Sucrose [Cholestyramine Packet] 4 gm PO 1700 03/17/20 21:00 Acetaminophen [Tylenol Extra Strength] 1,000 mg PO TID Carboxymethylcellulose Sodium [Refresh Plus 0.5%] 0 each EYEBOTH BID Fluticasone Propionate [Flonase] 0 gm NASBOTH BID Gabapentin [Neurontin] 100 mg PO BEDTIME Iron Polysaccharides Complex [Ferrex 150] 150 mg PO BID Mirtazapine [Remeron] 15 mg PO BEDTIME Potassium Chloride [Klor-Con M20] 20 meq PO BID Sodium Chloride 0.65% [Racine Nasal [place]] 0 ml NASBOTH BID carvediloL [Coreg] 6.25 mg PO BID 03/18/20 09:00 Aspirin [Halfprin] 81 mg PO DAILY Diltiazem [Cardizem CD] 180 mg PO DAILY Isosorbide Mononitrate [Imdur] 30 mg PO DAILY Lactobacillus Rhamnosus GG [Culturelle] 1 cap PO DAILY Spironolactone [Aldactone] 12.5 mg PO DAILY predniSONE 5 mg PO Q48H 03/18/20 09:07 Docusate Sodium [Colace] 100 mg PO BID PRN bisacodyL [Dulcolax] 10 mg RECTAL DAILY PRN LILLY Bandage [Elastic Wrap] [OM.PC] Routine 03/18/20 09:15 polyethylene glycoL 3350 [MiraLAX] 17 gm PO DAILY 03/18/20 09:22 Echo Comp wo Cont [US] Routine 03/18/20 14:31 Potassium Chloride [Klor-Con M20] 20 meq PO ONETIME ONE 03/18/20 18:00 Insulin Lispro [HumaLOG] See Protocol SUBCUT TIDMEALS 03/19/20 06:00 BASIC METABOLIC PANEL,BMP [CHEM] Routine CRP [C-REACTIVE PROTEIN] [CHEM] Routine - Plan Plan:: 1. Afib: Diltiazem 180 mg daily. Continue Coreg. 2. CHF: hold oral Lasix, given 40 mg IV again today, daily weights, incontinent so will discontinue I&Os. Adjust treatment as necessary. 3. Consistent Carb diet. 4. AccuChecks bid meals. 200-300s, will start Humalog low dose sliding scale. 5. DVT prophylaxis: TEDs BLE. Aspirin, history of intracranial bleed.
[2020-03-18] MEDS: Cholestyramine/Sucrose Powder 4 GM Packet PO SCH (16:16)
[2020-03-18] MEDS: Insulin Lispro 100 Unit/ML 3 ML KwikPen SUBCUT SCH (18:05)
[2020-03-18] MEDS ORDERED: Insulin Lispro 100 Unit/ML 3 ML KwikPen SUBCUT ONE (18:05)
[2020-03-18] MEDS: Gabapentin 100 MG Cap PO SCH (21:01)
[2020-03-18] MEDS: Mirtazapine 15 MG Tab PO SCH (21:02)
[2020-03-19] MEDS ORDERED: Aluminum Hydroxide/Magnesium Hydroxide Susp 30 ML Cup PO PRN (03:16)
[2020-03-19] MEDS ORDERED: Calcium Carbonate 500 MG Tab.Chew PO PRN (08:32)
[2020-03-19] MEDS ORDERED: Sodium Chloride 0.9% 1,000 ML IV SCH (08:45)
[2020-03-19] MEDS: Polyethylene Glycol 3350 Powder 17 GM Packet PO SCH (09:36)
[2020-03-19] MEDS: Carboxymethylcellulose Sodium 0.5% Ophth Soln 0.4 ML UD Box of 30 EYEBOTH SCH ×2 (09:36→21:34)
[2020-03-19] MEDS: Carvedilol 6.25 MG Tab PO SCH ×2 (09:37→21:31)
[2020-03-19] MEDS: Lactobacillus Rhamnosus GG (Probiotic) Cap PO SCH (09:37)
[2020-03-19] MEDS: Diltiazem 180 MG Cap.CD PO SCH (09:37)
[2020-03-19] MEDS: Isosorbide Mononitrate 30 MG Tab.ER PO SCH (09:37)
[2020-03-19] MEDS: Iron Polysaccharides Complex 150 MG Cap PO SCH (09:38)
[2020-03-19] MEDS: Acetaminophen 500 MG Tab PO SCH ×3 (09:38→21:34)
[2020-03-19] MEDS: Spironolactone 25 MG Tab PO SCH (09:38)
[2020-03-19] MEDS: Sodium Chloride 0.65% Nasal Spray 45 ML Bottle NASBOTH SCH ×2 (09:38→21:33)
[2020-03-19] MEDS: Aspirin 81 MG Tab.EC PO SCH (09:39)
[2020-03-19] MEDS: Potassium Chloride 20 MEQ Tab.ER PO SCH ×2 (09:39→21:33)
[2020-03-19] MEDS: Fluticasone Propionate Nasal Spray 16 GM Bottle NASBOTH SCH ×2 (09:39→21:32)
[2020-03-19] MEDS: Insulin Lispro 100 Unit/ML 3 ML KwikPen SUBCUT SCH ×3 (09:43→17:45)
[2020-03-19] MEDS: Doxycycline 100 MG Tab PO SCH ×2 (12:33→21:35)
--- NOTE | 2020-03-19 16:18 | PCM.PN ---
- General Info Date of Service: 03/19/20 Subjective Update: No shortness of breath, chest pain or cough. Still some RUQ pain on palpation but not complain at rest. 5 cm hematoma on buttocks, healing right hip bruise present on admission; patient does not recall falling and is independent in her room at [facility] in [facility]. CXR showed resolving CHF and small infiltrate, CRP up to 13.1. She is on prednisone q48h so does have some immunosuppression to account for normal white count. Multiple antibiotic allerg ies, son is not sure what reaction she had. She is drinking and eating well, had 700 ml water in this morning already. Weight at baseline 170. - Patient Data Vitals - Most Recent: Last Vital Signs Temp 97.5 F 03/19/20 07:30 Pulse 70 03/19/20 09:37 Resp 20 03/19/20 07:30 BP 148/78 H 03/19/20 09:37 Pulse Ox 98 03/19/20 07:30 Weight - Most Recent: 170 lb 2 oz Lab Results Last 24 Hours: Laboratory Results - last 24 hr 03/18/20 03/19/20 03/19/20 Range/Units 17:28 06:40 06:40 WBC (4.5-12.0) X10-3/uL RBC (3.23-5.20) x10(6)uL Hgb (11.5-15.5) g/dL Hct (30.0-51.3) % MCV (80-96) fL MCH (27.7-33.6) pg MCHC (32.2-35.4) g/dL RDW (11.5-15.5) % Plt Count (125-369) X10(3)uL MPV (7.4-10.4) fL Neut % (Auto) (46-82) % Lymph % (Auto) (13-37) % [place] % (Auto) (4-12) % Eos % (Auto) (1.0-5.0) % Baso % (Auto) (0-2) % Neut # (Auto) (1.6-8.3) # Lymph # (Auto) (0.6-5.0) # [place] # (Auto) (0.0-1.3) # Eos # (Auto) (0.0-0.8) # Baso # (Auto) (0.0-0.2) # Sodium 139 (135-145) mmol/L Potassium 4.0 (3.5-5.3) mmol/L Chloride 100 (100-110) mmol/L Carbon Dioxide 32 (21-32) mmol/L BUN 61 H D (7-18) mg/dL Creatinine 2.3 H* (0.55-1.02) mg/dL Est Cr Clr Drug Dosing 13.00 mL/min Estimated GFR (MDRD) 20 L (>60) BUN/Creatinine Ratio 26.5 H (9-20) Glucose 152 H (80-116) mg/dL POC Glucose 175 H (74-100) mg/dL Calcium 8.7 (8.6-10.2) mg/dL C-Reactive Protein 13.1 H* (0.5-0.9) mg/dL Urine Color (YELLOW) Urine Appearance (CLEAR) Urine pH (5.0-6.5) Ur Specific [place] (1.010-1.025) Urine Protein (NEGATIVE) mg/dL Urine Glucose (UA) (NORMAL) mg/dL Urine Ketones (NEGATIVE) mg/dL Urine Occult Blood (NEGATIVE) Urine Nitrite (NEGATIVE) Urine Bilirubin (NEGATIVE) Urine Urobilinogen (NEGATIVE) mg/dL Ur Leukocyte Esterase (NEGATIVE) Urine RBC (0-5) Urine WBC (0-5) Ur Squamous Epith Cells (NS,R,O) Urine Bacteria (NS) 03/19/20 03/19/20 03/19/20 Range/Units 06:40 11:20 11:30 WBC 6.1 (4.5-12.0) X10-3/uL RBC 3.88 (3.23-5.20) x10(6)uL Hgb 12.0 (11.5-15.5) g/dL Hct 36.2 (30.0-51.3) % MCV 93.2 (80-96) fL MCH 30.8 (27.7-33.6) pg MCHC 33.1 (32.2-35.4) g/dL RDW 12.4 (11.5-15.5) % Plt Count 126 (125-369) X10(3)uL MPV 7.8 (7.4-10.4) fL Neut % (Auto) 65.3 (46-82) % Lymph % (Auto) 19.2 (13-37) % [place] % (Auto) 10.8 (4-12) % Eos % (Auto) 4 (1.0-5.0) % Baso % (Auto) 0 (0-2) % Neut # (Auto) 3.9 (1.6-8.3) # Lymph # (Auto) 1.2 (0.6-5.0) # [place] # (Auto) 0.7 (0.0-1.3) # Eos # (Auto) 0.3 (0.0-0.8) # Baso # (Auto) 0.0 (0.0-0.2) # Sodium (135-145) mmol/L Potassium (3.5-5.3) mmol/L Chloride (100-110) mmol/L Carbon Dioxide (21-32) mmol/L BUN (7-18) mg/dL Creatinine (0.55-1.02) mg/dL Est Cr Clr Drug Dosing mL/min Estimated GFR (MDRD) (>60) BUN/Creatinine Ratio (9-20) Glucose (80-116) mg/dL POC Glucose 227 H (74-100) mg/dL Calcium (8.6-10.2) mg/dL C-Reactive Protein (0.5-0.9) mg/dL Urine Color Yellow (YELLOW) Urine Appearance Slightly cloudy (CLEAR) Urine pH 5.0 (5.0-6.5) Ur Specific [place] 1.010 (1.010-1.025) Urine Protein Negative (NEGATIVE) mg/dL Urine Glucose (UA) Normal (NORMAL) mg/dL Urine Ketones Negative (NEGATIVE) mg/dL Urine Occult Blood Moderate H (NEGATIVE) Urine Nitrite Negative (NEGATIVE) Urine Bilirubin Negative (NEGATIVE) Urine Urobilinogen Normal (NEGATIVE) mg/dL Ur Leukocyte Esterase Moderate H (NEGATIVE) Urine RBC 0-5 (0-5) Urine WBC 40-50 H (0-5) Ur Squamous Epith Cells Few H (NS,R,O) Urine Bacteria Few H (NS) Med Orders - Current: Current Medications Acetaminophen (Tylenol Extra Strength) 1,000 mg PO TID [facility] Last Admin: 03/19/20 14:20 Dose: 1,000 mg Documented by: Al Hydroxide/Mg Hydroxide (Mag-Al Susp) 30 ml PO Q2H PRN PRN Reason: Heartburn/ Antacids Last Admin: 03/19/20 03:32 Dose: 30 ml Documented by: Artificial Tears (Refresh Plus 0.5%) 0 each EYEBOTH BID [facility] Last Admin: 03/19/20 09:36 Dose: 1 drop Documented by: Aspirin (Halfprin) 81 mg PO DAILY [facility] Last Admin: 03/19/20 09:39 Dose: 81 mg Documented by: Benzonatate (Tessalon Perles) 100 mg PO TID PRN PRN Reason: Cough Bisacodyl (Dulcolax) 10 mg RECTAL DAILY PRN PRN Reason: Constipation Calcium Carbonate/Glycine (Tums) 500 mg PO Q2H PRN PRN Reason: Indigestion Carvedilol (Coreg) 6.25 mg PO BID [facility] Last Admin: 03/19/20 09:37 Dose: 6.25 mg Documented by: Cholestyramine Resin (Cholestyramine Packet) 4 gm PO 1700 [facility] Last Admin: 03/18/20 16:16 Dose: 4 gm Documented by: Diltiazem HCl (Cardizem Cd) 180 mg PO DAILY [facility] Last Admin: 03/19/20 09:37 Dose: 180 mg Documented by: Docusate Sodium (Colace) 100 mg PO BID PRN PRN Reason: Constipation Doxycycline Hyclate (Vibra-Tabs) 100 mg PO BID@1100,2200 [facility] Last Admin: 03/19/20 12:33 Dose: 100 mg Documented by: Fluticasone Propionate (Flonase) 0 gm NASBOTH BID [facility] Last Admin: 03/19/20 09:39 Dose: 1 spray Documented by: Gabapentin (Neurontin) 100 mg PO BEDTIME [facility] Last Admin: 03/18/20 21:01 Dose: 100 mg Documented by: Sodium Chloride (Normal Saline) 1,000 mls @ 75 mls/hr IV ASDIRECTED [facility] Insulin Human Lispro (Humalog) 0 unit SUBCUT TIDMEALS [facility]; Protocol Last Admin: 03/19/20 12:29 Dose: 2 unit Documented by: Isosorbide Mononitrate (Imdur) 30 mg PO DAILY [facility] Last Admin: 03/19/20 09:37 Dose: 30 mg Documented by: Lactobacillus Rhamnosus (Culturelle) 1 cap PO DAILY [facility] Last Admin: 03/19/20 09:37 Dose: 1 cap Documented by: Magnesium Hydroxide (Milk Of Magnesia) 30 ml PO DAILY PRN PRN Reason: Constipation Mirtazapine (Remeron) 15 mg PO BEDTIME [facility] Last Admin: 03/18/20 21:02 Dose: 15 mg Documented by: Polyethylene Glycol (Miralax) 17 gm PO DAILY [facility] Last Admin: 03/19/20 09:36 Dose: 17 gm Documented by: Polysaccharide Iron Complex (Ferrex 150) 150 mg PO BID [facility] Last Admin: 03/19/20 09:38 Dose: 150 mg Documented by: Potassium Chloride (Klor-Con M20) 20 meq PO BID [facility] Last Admin: 03/19/20 09:39 Dose: 20 meq Documented by: Prednisone (Prednisone) 5 mg PO Q48H [facility] Last Admin: 03/18/20 08:07 Dose: 5 mg Documented by: Sodium Chloride ([place] Nasal [place]) 0 ml NASBOTH BID [facility] Last Admin: 03/19/20 09:38 Dose: 1 spray Documented by: Sodium Chloride (Saline Flush) 10 ml FLUSH ASDIRECTED PRN PRN Reason: IV Use Last Admin: 03/18/20 08:03 Dose: 10 ml Documented by: Spironolactone (Aldactone) 12.5 mg PO DAILY [facility] Last Admin: 03/19/20 09:38 Dose: 12.5 mg Documented by: Discontinued Medications Diltiazem HCl (Cardizem) 30 mg PO Q6H [facility] Stop: 03/17/20 22:01 Last Admin: 03/17/20 21:24 Dose: 30 mg Documented by: Furosemide (Lasix) 40 mg IVPUSH NOW ONE Stop: 03/17/20 15:18 Last Admin: 03/17/20 15:47 Dose: 40 mg Documented by: Furosemide (Lasix) 40 mg IVPUSH NOW ONE Stop: 03/18/20 07:32 Last Admin: 03/18/20 08:03 Dose: 40 mg Documented by: Potassium Chloride (Klor-Con M20) 20 meq PO ONETIME ONE Stop: 03/18/20 14:32 Last Admin: 03/18/20 16:16 Dose: 20 meq Documented by: - Exam General: Alert, Oriented (person, pleasantly confused.), Cooperative, No Acute Distress Lungs: Clear to Auscultation, Decreased Breath Sounds, Crackles (bibasilar). No: Wheezing Cardiovascular: Regular Rate, Irregular Rhythm GI/Abdominal Exam: Normal Bowel Sounds, Soft, Non-Tender, No Distention Extremities: Pedal Edema (1+ BLE, LILLY wraps in place.) Sepsis Event Note - Evaluation Sepsis Screening Result: No Definite Risk - Focused Exam Vital Signs: Vital Signs Temp Pulse Pulse Resp BP BP Pulse Ox 03/19/20 09:37 70 148/78 H 03/19/20 07:30 97.5 F 70 20 148/78 H 98 Date Exam was Performed: 03/19/20 Time Exam was Performed: 16:13 - Problem List & Annotations (1) Acute on chronic renal insufficiency SNOMED Code(s): 252389067 Code(s): N28.9 - DISORDER OF KIDNEY AND URETER, UNSPECIFIED; N18.9 - CHRONIC KIDNEY DISEASE, UNSPECIFIED Status: Acute Current Visit: Yes (2) Atrial fibrillation with rapid ventricular response SNOMED Code(s): 516576931899022 Code(s): I48.91 - UNSPECIFIED ATRIAL FIBRILLATION Status: Resolved Current Visit: Yes (3) Dyspnea SNOMED Code(s): 128398817 Code(s): R06.00 - DYSPNEA, UNSPECIFIED Status: Resolved Current Visit: Yes (4) Elevated C-reactive protein (CRP) SNOMED Code(s): 241499665213997 Code(s): R79.82 - ELEVATED C-REACTIVE PROTEIN (CRP) Status: Acute Current Visit: Yes (5) Elevated d-dimer SNOMED Code(s): 549862576 Code(s): R79.89 - OTHER SPECIFIED ABNORMAL FINDINGS OF BLOOD CHEMISTRY Status: Acute Current Visit: Yes Annotation/Comment:: Echo showed severe pulmonary hypertension, will compare with previous echo as she does have history of pulmonary hypertension. (6) CKD (chronic kidney disease) SNOMED Code(s): 844290851 Code(s): N18.9 - CHRONIC KIDNEY DISEASE, UNSPECIFIED Status: Chronic Current Visit: No Qualifiers: (7) Coronary artery disease SNOMED Code(s): 79460600 Code(s): I25.10 - ATHSCL HEART DISEASE OF [place] CORONARY ARTERY W/O ANG PCTRS Status: Chronic Current Visit: No Qualifiers: Coronary Disease-Associated Artery/Lesion type: [place] artery [place] vs. transplanted heart: [place] heart Associated angina: with stable angina Qualified Code(s): I25.118 - Atherosclerotic heart disease of [place] coronary artery with other forms of angina pectoris (8) Diabetes type 2, uncontrolled SNOMED Code(s): 619994705, 917811578 Code(s): E11.65 - TYPE 2 DIABETES MELLITUS WITH HYPERGLYCEMIA Status: Chronic Current Visit: No (9) Hypertension SNOMED Code(s): 69764499 Code(s): I10 - ESSENTIAL (PRIMARY) HYPERTENSION Status: Chronic Current Visit: No Qualifiers: (10) Palliative care patient SNOMED Code(s): 491148515, 790104447 Code(s): Z51.5 - ENCOUNTER FOR PALLIATIVE CARE Status: Chronic Current Visit: No (11) Pulmonary hypertension SNOMED Code(s): 88470375 Code(s): I27.20 - PULMONARY HYPERTENSION, UNSPECIFIED Status: Chronic Current Visit: No (12) Dementia SNOMED Code(s): 93533642 Code(s): F03.90 - UNSPECIFIED DEMENTIA WITHOUT BEHAVIORAL DISTURBANCE Status: Chronic Current Visit: No Qualifiers: Dementia type: Alzheimer's disease Alzheimer's disease onset: late-onset (13) Hematoma SNOMED Code(s): 068836878 Code(s): T14.8XXA - OTHER INJURY OF UNSPECIFIED BODY REGION, INITIAL ENCOUNTER Status: Acute Current Visit: Yes Annotation/Comment:: buttocks, most likely from fall/trauma; Patient denies any fall but does have dementia. - Problem List Review Problem List Initiated/Reviewed/Updated: Yes - My Orders Last 24 Hours: My Active Orders 03/18/20 18:00 Insulin Lispro [HumaLOG] See Protocol SUBCUT TIDMEALS 03/19/20 03:16 Alum Hydroxide/Mag Hydroxide [Mag-Al Susp] 30 ml PO Q2H PRN 03/19/20 08:31 Cooling Warming Measures [RC] ASDIRECTED Heat Therapy [OM.PC] Routine 03/19/20 08:32 Calcium Carbonate [Tums] 500 mg PO Q2H PRN 03/19/20 08:45 Sodium Chloride 0.9% [Normal Saline] 1,000 ml IV ASDIRECTED 03/19/20 11:15 Doxycycline [Vibra-Tabs] 100 mg PO BID@1100,2200 03/19/20 11:30 CULTURE URINE [RM] Routine 03/19/20 12:42 Echo Comp wo Cont [US] Routine 03/20/20 06:00 BASIC METABOLIC PANEL,BMP [CHEM] Routine - Plan Plan:: 1. Afib: Diltiazem 180 mg daily. Continue Coreg. Controlled. 2. CHF: Resolving, at 170 pounds today, Cr went up to 2.3 so continue home dose of Lasix and drink fluids up to 2000 ml/day. ECHO today, shows EF 60%, dilated left atrium, high left ventricular filling pressure, decreased right ventricular systolic function, severe pulmonary hypertension. Does have history of pulmonary hypertension, pressures were 73 today will check with previous echo to see if they are elevated. She has history of intracranial bleed so if they would be higher than previous and questionable blood clot, will discuss with family on treatment if any. 3. PNA on CXR, elevated CRP. Due to multiple drug allergies will start Doxycycline 100 mg po bid, see if she tolerates this, recheck labs tomorrow. COVID screen prior to discharge back to [facility]. 4. Consistent Carb diet. 5. AccuChecks bid meals. 200-300s, will start Humalog low dose sliding scale. 6. DVT prophylaxis: TEDs BLE. Aspirin, history of intracranial bleed.
[2020-03-19] MEDS: Cholestyramine/Sucrose Powder 4 GM Packet PO SCH (17:44)
[2020-03-19] MEDS: Mirtazapine 15 MG Tab PO SCH (21:34)
[2020-03-19] MEDS: Gabapentin 100 MG Cap PO SCH (21:37)
[2020-03-20] MEDS: Insulin Lispro 100 Unit/ML 3 ML KwikPen SUBCUT SCH (08:48)
[2020-03-20] MEDS: Isosorbide Mononitrate 30 MG Tab.ER PO SCH (09:42)
[2020-03-20] MEDS: Carvedilol 6.25 MG Tab PO SCH (09:43)
[2020-03-20] MEDS: Diltiazem 180 MG Cap.CD PO SCH (09:43)
[2020-03-20] MEDS: Fluticasone Propionate Nasal Spray 16 GM Bottle NASBOTH SCH (09:43)
[2020-03-20] MEDS: Lactobacillus Rhamnosus GG (Probiotic) Cap PO SCH (09:43)
[2020-03-20] MEDS: Sodium Chloride 0.65% Nasal Spray 45 ML Bottle NASBOTH SCH ×2 (09:44→09:56)
[2020-03-20] MEDS: Aspirin 81 MG Tab.EC PO SCH (09:44)
[2020-03-20] MEDS: predniSONE 5 MG Tab PO SCH (09:44)
[2020-03-20] MEDS: Spironolactone 25 MG Tab PO SCH (09:44)
[2020-03-20 09:45] VITALS: BP 142/98; PULSE 99
[2020-03-20] MEDS: Polyethylene Glycol 3350 Powder 17 GM Packet PO SCH (09:45)
[2020-03-20] MEDS: Potassium Chloride 20 MEQ Tab.ER PO SCH (09:45)
[2020-03-20] MEDS: Carboxymethylcellulose Sodium 0.5% Ophth Soln 0.4 ML UD Box of 30 EYEBOTH SCH (09:46)
[2020-03-20] MEDS: Acetaminophen 500 MG Tab PO SCH (09:46)
[2020-03-20] MEDS: Doxycycline 100 MG Tab PO SCH (10:03)
--- NOTE | 2020-03-20 11:02 | PCM.DCSUM1 ---
Discharge Summary - Hospital Course HPI Initial Comments: Angelique noticed rapid heart rate last night, didn't call for anyone at that time, RN noted heart rate in 120-130s this morning, called family and was brought to ER. Has right side lower chest pain, shortness of breath, dry cough but no fevers, chills, runny nose, or sore throat. No diarrhea or constipation. No rashes. No peripheral edema. Normally wears LILLY wraps at [facility]). proBNP 3092 in ER, Cr up to 2.0, normal WBC, Atrial fibrillation with RVR 120- 130s in ER, CXR showed CHF. Spoke with Bill Hilliard PA-C as Dr Maxwell, her PCP is out today, stated she was taken off Digoxin in 09/2017 due to her age, kidney function. Takes Coreg and Diltiazem for rate control. She had intracranial bleeding a few years ago so is only on Aspirin for anticoagulation. Her last weight in the clinic was 172 pounds. CRP was 9.0. D-Dimer slightly elevated but with kidney function cannot do CTA of chest. Diagnosis: Stroke: No - Discharge Data Discharge Date: 03/20/20 ([facility]) Discharge Disposition: Home, Self-Care 01 Condition: Stable - Referral to Home Health Primary Care Physician: Fantasma Maxwell MD - Discharge Diagnosis/Problem(s) (1) Acute on chronic renal insufficiency SNOMED Code(s): 248302277 ICD Code: N28.9 - DISORDER OF KIDNEY AND URETER, UNSPECIFIED; N18.9 - CHRONIC KIDNEY DISEASE, UNSPECIFIED Status: Resolved (2) Atrial fibrillation with rapid ventricular response SNOMED Code(s): 189300437355514 ICD Code: I48.91 - UNSPECIFIED ATRIAL FIBRILLATION Status: Resolved (3) Dyspnea SNOMED Code(s): 901849688 ICD Code: R06.00 - DYSPNEA, UNSPECIFIED Status: Resolved (4) Elevated C-reactive protein (CRP) SNOMED Code(s): 672557478539320 ICD Code: R79.82 - ELEVATED C-REACTIVE PROTEIN (CRP) Status: Acute (5) Elevated d-dimer SNOMED Code(s): 594295975 ICD Code: R79.89 - OTHER SPECIFIED ABNORMAL FINDINGS OF BLOOD CHEMISTRY Status: Acute Problem Details: Echo showed severe pulmonary hypertension, compared with last ECHO at [facility], showed mild pulmonary hypertension in 05/07/2016. (6) CKD (chronic kidney disease) SNOMED Code(s): 824133186 ICD Code: N18.9 - CHRONIC KIDNEY DISEASE, UNSPECIFIED Status: Chronic Problem Details: Cr 2.0, weight 172. Qualifiers: (7) Coronary artery disease SNOMED Code(s): 82051121 ICD Code: I25.10 - ATHSCL HEART DISEASE OF [place] CORONARY ARTERY W/O ANG PCTRS Status: Chronic Qualifiers: Coronary Disease-Associated Artery/Lesion type: [place] artery [place] vs. transplanted heart: [place] heart Associated angina: with stable angina Qualified Code(s): I25.118 - Atherosclerotic heart disease of [place] coronary artery with other forms of angina pectoris (8) Diabetes type 2, uncontrolled SNOMED Code(s): 512846029, 805536135 ICD Code: E11.65 - TYPE 2 DIABETES MELLITUS WITH HYPERGLYCEMIA Status: Chronic (9) Hypertension SNOMED Code(s): 53334627 ICD Code: I10 - ESSENTIAL (PRIMARY) HYPERTENSION Status: Chronic Qualifiers: (10) Palliative care patient SNOMED Code(s): 101995010, 490183062 ICD Code: Z51.5 - ENCOUNTER FOR PALLIATIVE CARE Status: Chronic (11) Pulmonary hypertension SNOMED Code(s): 09379098 ICD Code: I27.20 - PULMONARY HYPERTENSION, UNSPECIFIED Status: Chronic Problem Details: Last ECHO 05/07/2016, showed mild pulmonary hypertension. ECHO done yesterday shows severe pulmonary hypertension, EF 60%, right ventricular systolic dysfunction which was normal in 2016. (12) Dementia SNOMED Code(s): 92722969 ICD Code: F03.90 - UNSPECIFIED DEMENTIA WITHOUT BEHAVIORAL DISTURBANCE Status: Chronic Qualifiers: Dementia type: Alzheimer's disease Alzheimer's disease onset: late-onset (13) Hematoma SNOMED Code(s): 694290099 ICD Code: T14.8XXA - OTHER INJURY OF UNSPECIFIED BODY REGION, INITIAL ENCOUNTER Status: Acute Problem Details: buttocks, most likely from fall/trauma; Patient denies any fall but does have dementia. (14) Right ventricular systolic dysfunction SNOMED Code(s): 533863749 ICD Code: I51.9 - HEART DISEASE, UNSPECIFIED Status: Acute Problem Details: EF 60%, right ventricular systolic dysfunction, severe pulmonary h ypertension. - Patient Summary/Data Consults: Consultations 03/17/20 15:10 OT Evaluation and Treatment [CONS] Routine Please Evaluate and Treat. OT Reason for Consult: ADL's This query below is only for informational purposes and is not editable. Admission Diagnosis/Problem: Atrial fibrillation PT Evaluation and Treatment [CONS] Routine Please Evaluate and Treat. PT Reason for Consult: Strengthening This query below is only for informational purposes and is not editable. Admission Diagnosis/Problem: Atrial fibrillation Hospital Course: Angelique was admitted with atrial fibrillation with RVR in 130s, given 30 mg at 1600 and again at 2200 day of admission, which brought her rate down into the 90s, her blood pressures have been controlled. Also had CHF on chest x-ray, diuresed, unable to do I&Os due to incontinence, weight went down to 166 but then back up to 172, which is her baseline per family, her [facility] and [facility] Her Creatinine bumped up to 2.3 but back to 2.0 with resuming her home medications. Repeat CXR showed resolving CHF but infiltrate on right, started on Doxycycline 100 mg po bid, tolerated this. Her WBC remained within normal range during her stay but she is on prednisone regularly, but her CRP went from 9.0 to 13.1, prior to starting of Doxycycline. She had an elevated D-Dimer in ER, unable to do CT angio chest to rule of DVT. ECHO was done on 03/19, showed EF of 60%, normal left ventricular function but right ventricular systolic dysfunction with severe pulmonary hypertension; compared to last ECHO 05/07/2016, she had mild pulmonary hypertension with preserved RV function. Discussed with family, due to her intracranial bleed 2 years ago, they do not want to treat for questionable PE, want to keep her comfortable. They are willing to discuss with Dr Maxwell at her follow up if any treatment for pulmonary hypertension would be of benefit. She was also found to have 5 cm hematoma of bilateral buttocks on admission with a healing ecchymosis on right hip, both sites were non-tender. Angelique did not remember falling but does have dementia. [facility] staff stated she is independent in her room and were not aware of any falls. Family was also unaware of any falls. COVID screen was negative on 03/20. - Patient Instructions Diet: Usual Diet as Tolerated Activity: As Tolerated Showering/Bathing: May Shower Notify Provider of: Fever, Increased Pain, Nausea and/or Vomiting Other/Special Instructions: Follow up with Dr Maxwell in 1 week to follow up your pneumonia, atrial fibrillation and pulmonary hypertension. HOLD Iron until finished with Doxycycline. - Discharge Plan *PRESCRIPTION DRUG MONITORING PROGRAM REVIEWED*: No *COPY OF PRESCRIPTION DRUG MONITORING REPORT IN PATIENT HANK: No Prescriptions/Med Rec: Doxycycline [Vibra-Tabs] 100 mg PO BID@1100,2200 6 Days #12 tablet Home Medications: Home Meds Cholestyramine/Aspartame [Cholestyramine Light] 4 gm PO 1700 02/11/14 [History] predniSONE [Prednisone] 5 mg PO Q48H 02/11/14 [History] Fluticasone Propionate [Flonase] 1 spray NASBOTH BID 04/20/18 [History] L.acidoph,Paracasei, B.lactis [Probiotic] 1 cap PO DAILY 04/20/18 [History] Mirtazapine [Remeron] 15 mg PO BEDTIME #30 tablet 04/25/18 [Rx] Furosemide 20 mg PO 1200 08/06/18 [History] Glimepiride [Amaryl] 2 mg PO WITHBREAKFAST tablet 08/18/18 [Rx] metOLazone [Zaroxolyn] 2.5 mg PO MOFR tablet 08/18/18 [Rx] Acetaminophen [Acetaminophen Extra Strength] 1,000 mg PO TID 03/17/20 [History] Aspirin [Halfprin] 81 mg PO DAILY 03/17/20 [History] Benzonatate [Tessalon Perle] 100 mg PO TID PRN 03/17/20 [History] Carboxymethylcellulose Sodium [Refresh Plus 0.5%] 1 drop EYEBOTH BID 03/17/20 [History] Furosemide [Lasix] 40 mg PO DAILY 03/17/20 [History] Gabapentin [Neurontin] 100 mg PO BEDTIME 03/17/20 [History] Isosorbide Mononitrate [Isosorbide Mononitrate ER] 30 mg PO DAILY 03/17/20 [H istory] Magnesium Hydroxide [Milk of Magnesia] 30 ml PO DAILY PRN 03/17/20 [History] Potassium Chloride 20 meq PO BID 03/17/20 [History] Sodium Chloride [Saline Nasal [place]] 1 spray NASBOTH ASDIRECTED 03/17/20 [History] Sodium Chloride [Saline Nasal [place]] 1 spray NASBOTH BID 03/17/20 [History] Spironolactone [Aldactone] 12.5 mg PO DAILY 03/17/20 [History] carvediloL [Coreg] 6.25 mg PO BID 03/17/20 [History] lidocaine HCL [Aspercreme Lidocaine] 1 applic TOP BID 03/17/20 [History] Doxycycline [Vibra-Tabs] 100 mg PO BID@1100,2200 6 Days #12 tablet 03/20/20 [Rx] Iron Polysaccharides Complex [Ferrex 150] 150 mg PO BID #0 cap 03/20/20 [Rx] Oxygen Therapy Mode: Room Air Patient Handouts: Atrial Fibrillation, [id number], Community-Acquired Pn eumonia, Adult, [id number] Forms: ED Department Discharge Referrals: PCP,None [Ordering Only Provider] - - Discharge Summary/Plan Comment DC Time >30 min.: Yes - General Info Date of Service: 03/20/20 Subjective Update: Didn't eat much last night, stated a little nauseous but her doxycycline doses were given at 1221 and at 2100, well before and after dinner so most likely not associated with medication. ECHO yesterday showed worsening of her pulmonary hypertension, new right ventricular systolic dysfunction. With her kidney function, unable to do CT angio of chest to rule out a pulmonary embolism. History of intracranial bleed and falls, family does not want further investigation or change of her anticoagulation done, want to keep her comfortable. Amari, her son stated that can discuss if she would benefit from treatment of pulmonary hypertension with Dr Maxwell. - Patient Data Vitals - Most Recent: Last Vital Signs Temp 97.7 F 03/20/20 08:00 Pulse 99 03/20/20 09:43 Resp 16 03/20/20 08:00 BP 142/98 H 03/20/20 09:43 Pulse Ox 96 03/20/20 08:00 Weight - Most Recent: 172 lb 1 oz Lab Results - Last 24 hrs: Laboratory Results - last 24 hr 03/19/20 03/19/20 03/20/20 Range/Units 11:20 11:30 06:20 Sodium 137 (135-145) mmol/L Potassium 4.4 (3.5-5.3) mmol/L Chloride 99 L (100-110) mmol/L Carbon Dioxide 31 (21-32) mmol/L BUN 53 H (7-18) mg/dL Creatinine 2.0 H* (0.55-1.02) mg/dL Est Cr Clr Drug Dosing 14.95 mL/min Estimated GFR (MDRD) 24 L (>60) BUN/Creatinine Ratio 26.5 H (9-20) Glucose 143 H (80-116) mg/dL POC Glucose 227 H (74-100) mg/dL Calcium 8.9 (8.6-10.2) mg/dL Urine Color Yellow (YELLOW) Urine Appearance Slightly cloudy (CLEAR) Urine pH 5.0 (5.0-6.5) Ur Specific [place] 1.010 (1.010-1.025) Urine Protein Negative (NEGATIVE) mg/dL Urine Glucose (UA) Normal (NORMAL) mg/dL Urine Ketones Negative (NEGATIVE) mg/dL Urine Occult Blood Moderate H (NEGATIVE) Urine Nitrite Negative (NEGATIVE) Urine Bilirubin Negative (NEGATIVE) Urine Urobilinogen Normal (NEGATIVE) mg/dL Ur Leukocyte Esterase Moderate H (NEGATIVE) Urine RBC 0-5 (0-5) Urine WBC 40-50 H (0-5) Ur Squamous Epith Cells Few H (NS,R,O) Urine Bacteria Few H (NS) SARS Virus RNA (PCR) (NEGATIVE) 03/20/20 Range/Units 06:30 Sodium (135-145) mmol/L Potassium (3.5-5.3) mmol/L Chloride (100-110) mmol/L Carbon Dioxide (21-32) mmol/L BUN (7-18) mg/dL Creatinine (0.55-1.02) mg/dL Est Cr Clr Drug Dosing mL/min Estimated GFR (MDRD) (>60) BUN/Creatinine Ratio (9-20) Glucose (80-116) mg/dL POC Glucose (74-100) mg/dL Calcium (8.6-10.2) mg/dL Urine Color (YELLOW) Urine Appearance (CLEAR) Urine pH (5.0-6.5) Ur Specific [place] (1.010-1.025) Urine Protein (NEGATIVE) mg/dL Urine Glucose (UA) (NORMAL) mg/dL Urine Ketones (NEGATIVE) mg/dL Urine Occult Blood (NEGATIVE) Urine Nitrite (NEGATIVE) Urine Bilirubin (NEGATIVE) Urine Urobilinogen (NEGATIVE) mg/dL Ur Leukocyte Esterase (NEGATIVE) Urine RBC (0-5) Urine WBC (0-5) Ur Squamous Epith Cells (NS,R,O) Urine Bacteria (NS) SARS Virus RNA (PCR) Negative (NEGATIVE) Med Orders - Current: Current Medications Acetaminophen (Tylenol Extra Strength) 1,000 mg PO TID [facility] Last Admin: 03/20/20 09:46 Dose: 1,000 mg Documented by: Al Hydroxide/Mg Hydroxide (Mag-Al Susp) 30 ml PO Q2H PRN PRN Reason: Heartburn/ Antacids Last Admin: 03/19/20 03:32 Dose: 30 ml Documented by: Artificial Tears (Refresh Plus 0.5%) 0 each EYEBOTH BID [facility] Last Admin: 03/20/20 09:46 Dose: 1 drop Documented by: Aspirin (Halfprin) 81 mg PO DAILY [facility] Last Admin: 03/20/20 09:44 Dose: 81 mg Documented by: Benzonatate (Tessalon Perles) 100 mg PO TID PRN PRN Reason: Cough Bisacodyl (Dulcolax) 10 mg RECTAL DAILY PRN PRN Reason: Constipation Calcium Carbonate/Glycine (Tums) 500 mg PO Q2H PRN PRN Reason: Indigestion Carvedilol (Coreg) 6.25 mg PO BID [facility] Last Admin: 03/20/20 09:43 Dose: 6.25 mg Documented by: Cholestyramine Resin (Cholestyramine Packet) 4 gm PO 1700 [facility] Last Admin: 03/19/20 17:44 Dose: 4 gm Documented by: Diltiazem HCl (Cardizem Cd) 180 mg PO DAILY [facility] Last Admin: 03/20/20 09:43 Dose: 180 mg Documented by: Docusate Sodium (Colace) 100 mg PO BID PRN PRN Reason: Constipation Doxycycline Hyclate (Vibra-Tabs) 100 mg PO BID@1100,2200 [facility] Last Admin: 03/20/20 10:03 Dose: 100 mg Documented by: Fluticasone Propionate (Flonase) 0 gm NASBOTH BID [facility] Last Admin: 03/20/20 09:43 Dose: 1 spray Documented by: Gabapentin (Neurontin) 100 mg PO BEDTIME [facility] Last Admin: 03/19/20 21:37 Dose: 100 mg Documented by: Sodium Chloride (Normal Saline) 1,000 mls @ 75 mls/hr IV ASDIRECTED [facility] Insulin Human Lispro (Humalog) 0 unit SUBCUT TIDMEALS [facility]; Protocol Last Admin: 03/20/20 08:48 Dose: Not Given Documented by: Isosorbide Mononitrate (Imdur) 30 mg PO DAILY [facility] Last Admin: 03/20/20 09:42 Dose: 30 mg Documented by: Lactobacillus Rhamnosus (Culturelle) 1 cap PO DAILY [facility] Last Admin: 03/20/20 09:43 Dose: 1 cap Documented by: Magnesium Hydroxide (Milk Of Magnesia) 30 ml PO DAILY PRN PRN Reason: Constipation Mirtazapine (Remeron) 15 mg PO BEDTIME [facility] Last Admin: 03/19/20 21:34 Dose: 15 mg Documented by: Polyethylene Glycol (Miralax) 17 gm PO DAILY [facility] Last Admin: 03/20/20 09:45 Dose: Not Given Documented by: Polysaccharide Iron Complex (Ferrex 150) 150 mg PO BID [facility] Last Admin: 03/19/20 09:38 Dose: 150 mg Documented by: Potassium Chloride (Klor-Con M20) 20 meq PO BID [facility] Last Admin: 03/20/20 09:45 Dose: 20 meq Documented by: Prednisone (Prednisone) 5 mg PO Q48H [facility] Last Admin: 03/20/20 09:44 Dose: 5 mg Documented by: Sodium Chloride ([place] Nasal [place]) 0 ml NASBOTH BID [facility] Last Admin: 03/20/20 09:56 Dose: Not Given Documented by: Sodium Chloride (Saline Flush) 10 ml FLUSH ASDIRECTED PRN PRN Reason: IV Use Last Admin: 03/18/20 08:03 Dose: 10 ml Documented by: Spironolactone (Aldactone) 12.5 mg PO DAILY [facility] Last Admin: 03/20/20 09:44 Dose: 12.5 mg Documented by: Discontinued Medications Diltiazem HCl (Cardizem) 30 mg PO Q6H [facility] Stop: 03/17/20 22:01 Last Admin: 03/17/20 21:24 Dose: 30 mg Documented by: Furosemide (Lasix) 40 mg IVPUSH NOW ONE Stop: 03/17/20 15:18 Last Admin: 03/17/20 15:47 Dose: 40 mg Documented by: Furosemide (Lasix) 40 mg IVPUSH NOW ONE Stop: 03/18/20 07:32 Last Admin: 03/18/20 08:03 Dose: 40 mg Documented by: Potassium Chloride (Klor-Con M20) 20 meq PO ONETIME ONE Stop: 03/18/20 14:32 Last Admin: 03/18/20 16:16 Dose: 20 meq Documented by: - Exam General: Reports: Alert, Cooperative, No Acute Distress Lungs: Reports: Clear to Auscultation, Normal Respiratory Effort, Decreased Breath Sounds (bibasilar), Crackles (RLL) Cardiovascular: Reports: Regular Rate, Irregular Rhythm, Murmurs GI/Abdominal Exam: Normal Bowel Sounds, Soft, Non-Tender, No Distention Extremities: Pedal Edema (1+ BLE) Skin: Reports: Ecchymosis (right hip & hematoma bilateral buttocks) Neurological: Reports: No New Focal Deficit *Q Meaningful Use (DIS) - VTE *Q VTE Pharmacological Contraindications *Q: Risk of Bleeding VTE Anticoagulation Contraindications: Treatment Not Tolerated
== END 2020-03-20 11:20 | disposition home or self-care (01) | DRG 291 ==
LOC: FB.ED 09:54 → FB.MS 12:54
PROVIDERS: ADMIT Family Medicine; ATTEND Family Medicine
DX: I13.0 Hypertensive heart and chronic kidney disease with heart failure and stage 1 through stage 4 chronic kidney disease, or unspecified chronic kidney disease (principal); R07.89 Other chest pain; R79.82 Elevated C-reactive protein (CRP); R79.89 Other specified abnormal findings of blood chemistry; J18.9 Pneumonia, unspecified organism; I50.22 Chronic systolic (congestive) heart failure; I48.91 Unspecified atrial fibrillation; N18.9 Chronic kidney disease, unspecified; Z51.5 Encounter for palliative care; Z11.59 Encounter for screening for other viral diseases; I25.10 Atherosclerotic heart disease of native coronary artery without angina pectoris; G30.9 Alzheimer's disease, unspecified; Z66 Do not resuscitate; Z99.81 Dependence on supplemental oxygen; Z79.52 Long term (current) use of systemic steroids; I25.118 Atherosclerotic heart disease of native coronary artery with other forms of angina pectoris; I27.20 Pulmonary hypertension, unspecified; G30.1 Alzheimer's disease with late onset; F02.80 Dementia in other diseases classified elsewhere, unspecified severity, without behavioral disturbance, psychotic disturbance, mood disturbance, and anxiety; M19.90 Unspecified osteoarthritis, unspecified site; M06.9 Rheumatoid arthritis, unspecified; M79.81 Nontraumatic hematoma of soft tissue; E11.22 Type 2 diabetes mellitus with diabetic chronic kidney disease; Z55.1 Schooling unavailable and unattainable; Z88.0 Allergy status to penicillin; Z88.2 Allergy status to sulfonamides; Z79.82 Long term (current) use of aspirin; Z79.899 Other long term (current) drug therapy; Z90.49 Acquired absence of other specified parts of digestive tract; Z79.84 Long term (current) use of oral hypoglycemic drugs
CPT/HCPCS: 36415; 71045; 80053; 81001; 82728; 83605; 83735; 83880; 84443; 84484; 85025; 85379; 85610; 86140; 93005; 99285; A9270; 71046; 80048; 82962; 87077; 87086; 87186; 93306; 97110-GP; 97116-GP; 97161-GP; 97165-GO; J1815; J1940; J7512; U0002

== ENCOUNTER 2021-02-03 10:31 | Inpatient (IN) | payer MEDICARE, OTHER ==
[2021-02-03] MEDS ORDERED: Ondansetron 4 MG/2 ML SDV IVPUSH STA (11:02)
[2021-02-03] MEDS ORDERED: Sodium Chloride 0.9% 1,000 ML IV SCH (11:15)
[2021-02-03] MEDS ORDERED: Sodium Chloride 0.9% 10 ML Syringe FLUSH PRN (11:17)
[2021-02-03] MEDS ORDERED: Labetalol 20 MG/4 ML Syringe IVPUSH STA (12:49)
[2021-02-03] MEDS ORDERED: Labetalol 20 MG/4 ML Syringe ONE (12:50)
[2021-02-03] MEDS: Ciprofloxacin 500 MG Tab PO STA ×2 (12:52→12:55)
[2021-02-03] MEDS ORDERED: Ciprofloxacin in D5W 400 MG in Premix Bag 1 BAG IV STA ×2 (12:54)
--- NOTE | 2021-02-03 12:58 | CR ---
INDICATION: CHF. CHEST ONE VIEW: An AP upright view of the chest was obtained in a wheelchair 02/03/21 and compared with 03/18/20 and 03/17/20. The upper lung field pulmonary vasculature is prominent. The heart is enlarged. The aorta is tortuous with calcification in the arch and descending portion. An active infiltrate or effusion was not identified. Overlying snaps are noted. IMPRESSION: ASHD, cardiomegaly, CHF with minimal interstitial lung edema. MTDD
--- NOTE | 2021-02-03 13:11 | EDM.PDOC ---
ED HPI GENERAL MEDICAL PROBLEM - General Chief Complaint: Cardiovascular Problem Stated Complaint: DIZZYNESS, SOB Time Seen by Provider: 02/03/21 10:35 Source of Information: Reports: Patient History Limitations: Reports: No Limitations - History of Present Illness INITIAL COMMENTS - FREE TEXT/NARRATIVE: Patient presented to the ED because of dizziness and dyspnea for 2-3 day which got worse today. There is no associated chest pain, palpitations. There is no N/V/D. No cough/cold symptoms, fever or chills. She is normally ambulatory with her walker but is unable to do it in the ED because she is feeling weak. - Related Data Allergies Allergy/AdvReac Type Severity Reaction Status Date / Time moxifloxacin HCl Allergy Cannot Verified 02/03/21 11:08 [From Avelox] Remember Penicillins Allergy Swelling Verified 02/03/21 11:08 Wbmimhg-Rve-Hmo Reductase Allergy Cannot Verified 02/03/21 11:08 Inhibitor Remember sulfamethoxazole Allergy Swelling Verified 02/03/21 11:08 [From Bactrim] trimethoprim [From Bactrim] Allergy Swelling Verified 02/03/21 11:08 Home Meds: Home Meds Cholestyramine/Aspartame [Cholestyramine Light] 4 gm PO 1700 02/11/14 [History] predniSONE [Prednisone] 5 mg PO Q48H 02/11/14 [History] Fluticasone Propionate [Flonase] 1 spray NASBOTH BID 04/20/18 [History] L.acidoph,Paracasei, B.lactis [Probiotic] 1 cap PO DAILY 04/20/18 [History] Mirtazapine [Remeron] 15 mg PO BEDTIME #30 tablet 04/25/18 [Rx] Furosemide 20 mg PO 1200 08/06/18 [History] Acetaminophen [Acetaminophen Extra Strength] 1,000 mg PO TID 03/17/20 [History] Aspirin [Halfprin] 81 mg PO DAILY 03/17/20 [History] Benzonatate [Tessalon Perle] 100 mg PO TID PRN 03/17/20 [History] Carboxymethylcellulose Sodium [Refresh Plus 0.5%] 1 drop EYEBOTH BID 03/17/20 [History] Furosemide [Lasix] 40 mg PO DAILY 03/17/20 [History] Gabapentin [Neurontin] 100 mg PO BEDTIME 08/03/20 [History] Isosorbide Mononitrate [Isosorbide Mononitrate ER] 30 mg PO DAILY 03/17/20 [History] Magnesium Hydroxide [Milk of Magnesia] 30 ml PO DAILY PRN 03/17/20 [History] Potassium Chloride 20 meq PO BID 03/17/20 [History] Sodium Chloride [Saline Nasal [place]] 1 spray NASBOTH ASDIRECTED PRN 03/17/20 [History] Spironolactone [Aldactone] 12.5 mg PO DAILY 03/17/20 [History] carvediloL [Coreg] 6.25 mg PO BID 03/17/20 [History] lidocaine HCL [Aspercreme Lidocaine] 1 applic TOP BID 03/17/20 [History] Iron Polysaccharides Complex [Ferrex 150] 150 mg PO BID #0 cap 03/20/20 [Rx] Glimepiride [Amaryl] 2 mg PO DAILY 02/03/21 [History] metOLazone [Zaroxolyn] 2.5 mg PO MOFR@0800 02/03/21 [History] Past Medical History HEENT History: Reports: Hard of Hearing, Impaired Vision Other HEENT History: wears glasses Cardiovascular History: Reports: Afib, Heart Failure, Hypertension Other Cardiovascular History: CHF Respiratory History: Reports: Other (See Below) Other Respiratory History: wears oxygen for comfort, mostly at night, pulmonary hypertension Gastrointestinal History: Reports: Diverticulosis Genitourinary History: Reports: Urinary Incontinence [employer] History: Reports: Musculoskeletal History: Reports: Arthritis, RA, Other (See Below) Other Musculoskeletal History: Right hip pinning Neurological History: Reports: Alzheimers Disease 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: Alzheimers Disease Endocrine/Metabolic History: Reports: Diabetes, Type II, Hyperthyroidism Hematologic History: Reports: Other (See Below) Other Hematologic History: hx of low magneium. Pernicious anemia. Thrombo cytopenia. - Infectious Disease History Infectious Disease History: Reports: Chicken Pox, Measles, Mumps Other Infectious Disease History: son unsure and pt doesn't remember - Past Surgical History GI Surgical History: Reports: Cholecystectomy Female Surgical History: Reports: Hysterectomy Musculoskeletal Surgical History: Reports: Knee Replacement Social & Family History - Family History Family Medical History: No Pertinent Family History Oncologic: Reports: Other (See Below) - Caffeine Use Caffeine Use: Reports: Coffee Other Caffeine Use: Unknown - Recreational Drug Use Recreational Drug Use: No ED ROS GENERAL - Review of Systems Review Of Systems: See Below Constitutional: Reports: Weakness HEENT: Reports: No Symptoms Respiratory: Reports: Shortness of Breath, Cough Cardiovascular: Reports: No Symptoms Endocrine: Reports: No Symptoms GI/Abdominal: Reports: No Symptoms : Reports: No Symptoms Musculoskeletal: Reports: No Symptoms Skin: Reports: No Symptoms Neurological: Reports: No Symptoms Psychiatric: Reports: No Symptoms ED EXAM, GENERAL - Physical Exam Exam: See Below Exam Limited By: No Limitations General Appearance: Alert, No Apparent Distress Eye Exam: Bilateral Eye: PERRL Ears: Normal External Exam, Normal Canal Nose: Normal Inspection, Normal Mucosa, No Blood Throat/Mouth: Normal Inspection, Normal Lips, Normal Teeth, Normal Gums Head: Atraumatic, Normocephalic Neck: Normal Inspection, Supple, Non-Tender, Full Range of Motion Respiratory/Chest: No Respiratory Distress, Lungs Clear, Normal Breath Sounds, No Accessory Muscle Use, Chest Non-Tender Cardiovascular: Normal Peripheral Pulses, Regular Rate, Rhythm, No Edema, No Gallop, No JVD, No Murmur, No Rub GI/Abdominal: Normal Bowel Sounds, Soft, Non-Tender, No Organomegaly Back Exam: Normal Inspection, Full Range of Motion Extremities: Normal Inspection, Normal Range of Motion, Non-Tender Neurological: Alert, Oriented, CN II-XII Intact, Slow to Respond Psychiatric: Normal Affect Course - Vital Signs Text/Narrative:: Lab?EKG/CXR result was reviewed with patient and her daughter NS 500 ml in 2 hours Cipro 400 mg IV x1 Covid test-negative Code Status: DNR/DNI Last Recorded V/S: Last Vital Signs Temp 37.6 C 02/04/21 07:40 Pulse 93 02/04/21 08:44 Resp 16 02/04/21 07:40 BP 149/67 H 02/04/21 08:45 Pulse Ox 87 L 02/04/21 07:40 - Orders/Labs/Meds Orders: Active Orders 24 hr Category Date Time Status CULTURE URINE [RM] Stat Lab 02/03/21 11:00 Results Sodium Chloride 0.9% [Saline Flush] Med 02/03/21 11:17 Active 10 ml FLUSH ASDIRECTED PRN Saline Lock Insert [OM.PC] Routine Oth 02/03/21 11:17 Ordered EKG 12 Lead [EK] Routine Ther 02/03/21 11:15 Stop Req Medication Orders Acetaminophen (Acetaminophen 500 Mg Tab) 1,000 mg PO TID [facility] Last Admin: 02/04/21 08:45 Dose: 1,000 mg Documented by: Admin: 02/03/21 20:26 Dose: 1,000 mg Documented by: ALBA Artificial Tears (Carboxymethylcellulose Sodium 0.5% Ophth Soln 0.4 Ml Ud Box Of 30) 0 each EYEBOTH BID [facility] Last Admin: 02/04/21 08:45 Dose: 1 drop Documented by: Admin: 02/03/21 21:21 Dose: 1 drop Documented by: ALBA Benzonatate (Benzonatate 100 Mg Cap) 100 mg PO TID PRN PRN Reason: Cough Carvedilol (Carvedilol 6.25 Mg Tab) 6.25 mg PO BID [facility] Last Admin: 02/04/21 08:44 Dose: 6.25 mg Documented by: Admin: 02/03/21 20:23 Dose: 6.25 mg Documented by: ALBA Fluticasone Propionate (Fluticasone Propionate Nasal [place] 16 Gm Bottle) 0 gm NASBOTH BID [facility] Last Admin: 02/04/21 09:20 Dose: 2 spray Documented by: Admin: 02/03/21 20:24 Dose: 1 spray Documented by: ALBA Furosemide (Furosemide 20 Mg Tab) 20 mg PO 1200 [facility] Furosemide (Furosemide 40 Mg Tab) 40 mg PO DAILY [facility] Last Admin: 02/04/21 10:37 Dose: 40 mg Documented by: ALTAF Gabapentin (Gabapentin 100 Mg Cap) 100 mg PO BEDTIME [facility] Last Admin: 02/03/21 20:26 Dose: 100 mg Documented by: ALBA Glimepiride (Glimepiride 2 Mg Tab) 2 mg PO DAILY [facility] Last Admin: 02/04/21 08:53 Dose: 2 mg Documented by: ALTAF Ciprofloxacin/Dextrose 400 mg/ (Premix) 200 mls @ 200 mls/hr IV Q24H [facility] Isosorbide Mononitrate (Isosorbide Mononitrate 30 Mg Tab.Er) 30 mg PO DAILY [facility] Last Admin: 02/04/21 08:45 Dose: 30 mg Documented by: ALTAF Magnesium Hydroxide (Magnesium Hydroxide 400 Mg/5 Ml Susp 30 Ml Cup) 30 ml PO DAILY PRN PRN Reason: Constipation Metolazone (Metolazone 2.5 Mg Tab) 2.5 mg PO MOFR@0800 [facility] Mirtazapine (Mirtazapine 15 Mg Tab) 15 mg PO BEDTIME [facility] Last Admin: 02/03/21 20:26 Dose: 15 mg Documented by: ALBA Aspercreme Lidocain (Cream) 0 applic TOP BID [facility] Last Admin: 02/04/21 10:40 Dose: 1 applic Documented by: Admin: 02/04/21 10:39 Dose: 1 applic Documented by: ALTAF Cholestyramine Oral (Susp, Light (Ptom)) 0 each PO 1700 [facility] Polysaccharide Iron Complex (Iron Polysaccharides Complex 150 Mg Cap) 150 mg PO BID [facility] Last Admin: 02/04/21 08:45 Dose: 150 mg Documented by: Admin: 02/03/21 20:24 Dose: 150 mg Documented by: ALBA Potassium Chloride (Potassium Chloride 20 Meq Tab.Er) 20 meq PO BID [facility] Last Admin: 02/04/21 08:44 Dose: 20 meq Documented by: Admin: 02/03/21 20:25 Dose: 20 meq Documented by: ALBA Prednisone (Prednisone 5 Mg Tab) 5 mg PO Q48H [facility] Saccharomyces Boulardii (Saccharomyces Boulardii (Probiotic) 250 Mg Cap) 500 mg PO BID [facility] Last Admin: 02/04/21 08:45 Dose: 500 mg Documented by: Admin: 02/03/21 20:25 Dose: 500 mg Documented by: ALBA Sodium Chloride (Sodium Chloride 0.9% 10 Ml Syringe) 10 ml FLUSH ASDIRECTED PRN PRN Reason: Keep Vein Open Sodium Chloride (Sodium Chloride 0.65% Nasal [place] 45 Ml Bottle) 0 ml NASBOTH ASDIRECTED PRN PRN Reason: Dryness Spironolactone (Spironolactone 25 Mg Tab) 12.5 mg PO DAILY [facility] Last Admin: 02/04/21 10:37 Dose: 12.5 mg Documented by: ALTAF Labs: Laboratory Tests 02/03/21 02/03/21 02/03/21 Range/Units 11:00 11:20 11:20 WBC 5.3 (3.0-10.3) x10-3/uL RBC 3.74 (3.60-5.20) x10(6)uL Hgb 11.7 (11.4-15.5) g/dL Hct 35.0 (34.2-48.2) % MCV 93.6 (76.7-100.5) fL MCH 31.2 (23.9-33.9) pg MCHC 33.4 (31.9-34.8) g/dL RDW 12.6 (12.3-16.5) % Plt Count 95 L (151-488) x10(3)uL MPV 7.8 (7.1-12.4) fL Neut % (Auto) 73.7 (30.8-76.2) % Lymph % (Auto) 14.4 L (18.4-52.1) % [place] % (Auto) 8.9 (4.4-15.7) % Eos % (Auto) 2.4 (0.6-8.1) % Baso % (Auto) 0.6 (0.2-1.5) % Neut # (Auto) 3.9 (1.5-6.3) x10-3/uL Lymph # (Auto) 0.8 L (1.0-4.4) x10-3/uL [place] # (Auto) 0.5 (0.3-1.0) x10-3/uL Eos # (Auto) 0.1 (0.0-0.8) x10-3/uL Baso # (Auto) 0.0 (0.0-0.1) x10-3/uL Sodium 138 (135-145) mmol/L Potassium 4.0 (3.5-5.3) mmol/L Chloride 96 L (100-110) mmol/L Carbon Dioxide 34 H (21-32) mmol/L BUN 39 H D (7-18) mg/dL Creatinine 1.9 H (0.55-1.02) mg/dL Est Cr Clr Drug Dosing 15.44 mL/min Estimated GFR (MDRD) 25 L (>60) BUN/Creatinine Ratio 20.5 H (9-20) Glucose 117 H (80-116) mg/dL Calcium 8.6 (8.6-10.2) mg/dL Total Bilirubin 0.5 (0.1-1.3) mg/dL AST 12 (5-25) IU/L ALT 15 D (12-36) U/L Alkaline Phosphatase 54 L (56-112) IU/L Troponin I (4.0-60.3) pg/mL NT-Pro-B Natriuret Pep (<=450) pg/mL Total Protein 7.1 (6.0-8.0) g/dL Albumin 3.7 (3.2-4.6) g/dL Globulin 3.4 g/dL Albumin/Globulin Ratio 1.1 Urine Color Yellow (YELLOW) Urine Appearance Cloudy (CLEAR) Urine pH 5.0 (5.0-6.5) Ur Specific [place] 1.010 (1.010-1.025) Urine Protein Negative (NEGATIVE) mg/dL Urine Glucose (UA) Normal (NORMAL) mg/dL Urine Ketones Negative (NEGATIVE) mg/dL Urine Occult Blood Moderate H (NEGATIVE) Urine Nitrite Negative (NEGATIVE) Urine Bilirubin Negative (NEGATIVE) Urine Urobilinogen Normal (NEGATIVE) mg/dL Ur Leukocyte Esterase Large H (NEGATIVE) Urine RBC 0-5 (0-5) Urine WBC >100 H (0-5) Ur Squamous Epith Cells Few H (NS,R,O) Urine Bacteria Many H (NS) SARS-CoV-2 RNA (STIVEN) (NEGATIVE) 02/03/21 02/03/21 Range/Units 11:20 13:25 WBC (3.0-10.3) x10-3/uL RBC (3.60-5.20) x10(6)uL Hgb (11.4-15.5) g/dL Hct (34.2-48.2) % MCV (76.7-100.5) fL MCH (23.9-33.9) pg MCHC (31.9-34.8) g/dL RDW (12.3-16.5) % Plt Count (151-488) x10(3)uL MPV (7.1-12.4) fL Neut % (Auto) (30.8-76.2) % Lymph % (Auto) (18.4-52.1) % [place] % (Auto) (4.4-15.7) % Eos % (Auto) (0.6-8.1) % Baso % (Auto) (0.2-1.5) % Neut # (Auto) (1.5-6.3) x10-3/uL Lymph # (Auto) (1.0-4.4) x10-3/uL [place] # (Auto) (0.3-1.0) x10-3/uL Eos # (Auto) (0.0-0.8) x10-3/uL Baso # (Auto) (0.0-0.1) x10-3/uL Sodium (135-145) mmol/L Potassium (3.5-5.3) mmol/L Chloride (100-110) mmol/L Carbon Dioxide (21-32) mmol/L BUN (7-18) mg/dL Creatinine (0.55-1.02) mg/dL Est Cr Clr Drug Dosing mL/min Estimated GFR (MDRD) (>60) BUN/Creatinine Ratio (9-20) Glucose (80-116) mg/dL Calcium (8.6-10.2) mg/dL Total Bilirubin (0.1-1.3) mg/dL AST (5-25) IU/L ALT (12-36) U/L Alkaline Phosphatase (56-112) IU/L Troponin I 11.0 (4.0-60.3) pg/mL NT-Pro-B Natriuret Pep 1417 H* (<=450) pg/mL Total Protein (6.0-8.0) g/dL Albumin (3.2-4.6) g/dL Globulin g/dL Albumin/Globulin Ratio Urine Color (YELLOW) Urine Appearance (CLEAR) Urine pH (5.0-6.5) Ur Specific [place] (1.010-1.025) Urine Protein (NEGATIVE) mg/dL Urine Glucose (UA) (NORMAL) mg/dL Urine Ketones (NEGATIVE) mg/dL Urine Occult Blood (NEGATIVE) Urine Nitrite (NEGATIVE) Urine Bilirubin (NEGATIVE) Urine Urobilinogen (NEGATIVE) mg/dL Ur Leukocyte Esterase (NEGATIVE) Urine RBC (0-5) Urine WBC (0-5) Ur Squamous Epith Cells (NS,R,O) Urine Bacteria (NS) SARS-CoV-2 RNA (STIVEN) Negative (NEGATIVE) Meds: Medications Generic Name Dose Route Start Last Admin Trade Name Sofiya PRN Reason Stop Dose Admin Acetaminophen 1,000 mg 02/03/21 21:00 02/04/21 08:45 Acetaminophen 500 Mg Tab PO 1,000 mg TID [facility]ALPANA Administration Artificial Tears 0 each 02/03/21 21:00 02/04/21 08:45 Carboxymethylcellulose Sodium 0.5% Ophth Soln 0.4 Ml Ud Box Of 30 EYEBOTH 1 drop BID [facility] Administration Benzonatate 100 mg 02/03/21 17:09 Benzonatate 100 Mg Cap PO TID PRN Cough Carvedilol 6.25 mg 02/03/21 21:00 02/04/21 08:44 Carvedilol 6.25 Mg Tab PO 6.25 mg BID [facility] Administration Fluticasone Propionate 0 gm 02/03/21 21:00 02/04/21 09:20 Fluticasone Propionate Nasal [place] 16 Gm Bottle NASBOTH 2 spray BID [facility] Administration Furosemide 20 mg 02/04/21 12:00 Furosemide 20 Mg Tab PO 1200 [facility] Furosemide 40 mg 02/04/21 10:00 02/04/21 10:37 Furosemide 40 Mg Tab PO 40 mg DAILY [facility] Administration Gabapentin 100 mg 02/03/21 21:00 02/03/21 20:26 Gabapentin 100 Mg Cap PO 100 mg BEDTIME [facility] Administration Glimepiride 2 mg 02/04/21 09:00 02/04/21 08:53 Glimepiride 2 Mg Tab PO 2 mg DAILY [facility] Administration Ciprofloxacin/Dextrose 400 mg/ 200 mls @ 200 mls/hr 02/04/21 13:00 Premix IV Q24H [facility] Isosorbide Mononitrate 30 mg 02/04/21 09:00 02/04/21 08:45 Isosorbide Mononitrate 30 Mg Tab.Er PO 30 mg DAILY [facility] Administration Magnesium Hydroxide 30 ml 02/03/21 17:09 Magnesium Hydroxide 400 Mg/5 Ml Susp 30 Ml Cup PO DAILY PRN Constipation Metolazone 2.5 mg 02/06/21 08:00 Metolazone 2.5 Mg Tab PO MOFR@0800 [facility] Mirtazapine 15 mg 02/03/21 21:00 02/03/21 20:26 Mirtazapine 15 Mg Tab PO 15 mg BEDTIME [facility] Administration Aspercreme Lidocain 0 applic 02/03/21 21:00 02/04/21 10:40 Cream TOP 1 applic BID [facility] Administration Cholestyramine Oral 0 each 02/04/21 17:00 Susp, Light (Ptom) PO 1700 [facility] Polysaccharide Iron Complex 150 mg 02/03/21 21:00 02/04/21 08:45 Iron Polysaccharides Complex 150 Mg Cap PO 150 mg BID [facility] Administration Potassium Chloride 20 meq 02/03/21 21:00 02/04/21 08:44 Potassium Chloride 20 Meq Tab.Er PO 20 meq BID [facility] Administration Prednisone 5 mg 02/05/21 09:00 Prednisone 5 Mg Tab PO Q48H [facility] Saccharomyces Boulardii 500 mg 02/03/21 21:00 02/04/21 08:45 Saccharomyces Boulardii (Probiotic) 250 Mg Cap PO 500 mg BID [facility] Administration Sodium Chloride 10 ml 02/03/21 11:17 Sodium Chloride 0.9% 10 Ml Syringe FLUSH ASDIRECTED PRN Keep Vein Open Sodium Chloride 0 ml 02/03/21 17:09 Sodium Chloride 0.65% Nasal [place] 45 Ml Bottle NASBOTH ASDIRECTED PRN Dryness Spironolactone 12.5 mg 02/04/21 09:30 02/04/21 10:37 Spironolactone 25 Mg Tab PO 12.5 mg DAILY [facility] Administration Discontinued Medications Generic Name Dose Route Start Last Admin Trade Name Freq PRN Reason Stop Dose Admin Ciprofloxacin 500 mg 02/03/21 12:39 02/03/21 12:55 Ciprofloxacin 500 Mg Tab PO 02/03/21 12:40 Not Given NOW STA Hydralazine HCl 20 mg 02/03/21 14:37 02/03/21 14:42 Hydralazine 20 Mg/Ml Sdv IVPUSH 02/03/21 14:38 20 mg NOW STA Administration Sodium Chloride 1,000 mls @ 250 mls/hr 02/03/21 11:15 02/03/21 12:03 Normal Saline IV 250 mls/hr ASDIRECTED [facility] Administration Ciprofloxacin/Dextrose 400 mg/ 200 mls @ 200 mls/hr 02/03/21 12:54 02/03/21 13:33 Premix IV 02/03/21 13:53 200 mls/hr NOW STA Administration Sodium Chloride 1,000 mls @ 100 mls/hr 02/03/21 16:30 02/04/21 04:23 Normal Saline IV 100 mls/hr ASDIRECTED [facility] Administration Labetalol HCl 20 mg 02/03/21 12:49 02/03/21 12:57 Labetalol 20 Mg/4 Ml Syringe IVPUSH 02/03/21 12:50 20 mg NOW STA Administration Protocol Labetalol HCl Confirm 02/03/21 12:50 02/03/21 19:17 Labetalol 20 Mg/4 Ml Syringe Administered 02/03/21 12:51 Not Given Dose 20 mg .ROUTE .STK-MED ONE Non-Formulary Medication 1 cap 02/04/21 09:00 L.Acidoph,Paracasei, B.Lactis [Probiotic] PO DAILY [facility] Ondansetron HCl 4 mg 02/03/21 11:02 02/03/21 12:04 Ondansetron 4 Mg/2 Ml Sdv IVPUSH 02/03/21 11:03 4 mg ONETIME STA Administration Prednisone 5 mg 02/03/21 18:00 Prednisone 5 Mg Tab PO Q48H [facility] Departure - Departure Time of Disposition: 15:00 Disposition: Admitted As Inpatient 68 Condition: Good Clinical Impression: Dehydration, Weakness UTI (urinary tract infection) Qualifiers: Urinary tract infection type: acute cystitis Hematuria presence: with hematuria Qualified Code(s): N30.01 - Acute cystitis with hematuria CKD (chronic kidney disease) Qualifiers: Chronic kidney disease stage: stage 3 (moderate) Sepsis Event Note (ED) - Evaluation Sepsis Screening Result: No Definite Risk - My Orders Last 24 Hours: My Active Orders 02/03/21 11:00 CULTURE URINE [RM] Stat 02/03/21 11:15 EKG 12 Lead [EK] Routine 02/03/21 11:17 Sodium Chloride 0.9% [Saline Flush] 10 ml FLUSH ASDIRECTED PRN Saline Lock Insert [OM.PC] Routine - Assessment/Plan Last 24 Hours: My Active Orders 02/03/21 11:00 CULTURE URINE [RM] Stat 02/03/21 11:15 EKG 12 Lead [EK] Routine 02/03/21 11:17 Sodium Chloride 0.9% [Saline Flush] 10 ml FLUSH ASDIRECTED PRN Saline Lock Insert [OM.PC] Routine
[2021-02-03] MEDS ORDERED: hydrALAZINE 20 MG/ML SDV IVPUSH STA (14:37)
[2021-02-03] MEDS ORDERED: Magnesium Hydroxide 400 MG/5 ML Susp 30 ML Cup PO PRN (17:09)
[2021-02-03] MEDS ORDERED: Benzonatate 100 MG Cap PO PRN (17:09)
[2021-02-03] MEDS ORDERED: Sodium Chloride 0.65% Nasal Spray 45 ML Bottle NASBOTH PRN (17:09)
[2021-02-03] MEDS: Sodium Chloride 0.9% 1,000 ML IV SCH (17:46)
[2021-02-03] MEDS ORDERED: predniSONE 5 MG Tab PO SCH (18:00)
--- NOTE | 2021-02-03 18:28 | PCM.HP.2 ---
H&P History of Present Illness - General Date of Service: 02/03/21 Admit Problem/Dx: Admission Diagnosis/Problem Admission Diagnosis/Problem UTI (urinary tract infection), uncomplicated Source of Information: Patient, EMS Notes Reviewed History Limitations: Reports: Physical Impairment (hard of hearing) - History of Present Illness Initial Comments - Free Text/Narative: Angelique presented to ER today for dizziness and shortness of breath. She states it had been going on for a few days but worsened today. She reports her urine has been darker but doesn't think there was any blood in in. She has had some lower abdominal pain and midline when asked but denies any nausea, vomiting or diarrhea. Had bowel movement x 2 in ER, reddish brown, formed. No fevers, chills, cough, sore throat, chest pain. Some flank pain but no back pain. No new rashes. Has stasis dermatitis of both lower legs, wears LILLY wraps at home. Has small abrasion to left buttock and bruising to both buttocks. She has dentures and hard of hearing but does not wear hearing aids. She lives at [facility] in an apartment, normally independent in her room. She reports feeling weaker and required 2 assists in ER. ER course: CBC 5.3, Platelets 95 on aspirin, Creatinine 1.9(baseline 1.4), glucose 117. UA large leukocyte esterase, few epithelial cells, many bacteria, positive blood. BNP 1417 improved 03/2020 which was 3042. Covid negative. O2 saturations 96-97% on RA, wears home oxygen at 2L at night. Her blood pressure were SBP 200 received Labetalol 20 mg x 1, Hydralazine 20 mg x 1 brought her pressures down to 150s/140s in ER. She was given 1 L NS at 250 ml/hr over 4 hours in ER, then rate decreased to 100 ml/hr. She was given 1 dose of Ciprofloxacin 400 mg x 1 in ER for UTI. Her last urine culture 03/2020 grew pseudomonas sensitive to ciprofloxacin. - Related Data Allergies/Adverse Reactions: Allergies Allergy/AdvReac Type Severity Reaction Status Date / Time moxifloxacin HCl Allergy Cannot Verified 02/03/21 11:08 [From Avelox] Remember Penicillins Allergy Swelling Verified 02/03/21 11:08 [id number]-Kdq-Vom Reductase Allergy Cannot Verified 02/03/21 11:08 Inhibitor Remember sulfamethoxazole Allergy Swelling Verified 02/03/21 11:08 [From Bactrim] trimethoprim [From Bactrim] Allergy Swelling Verified 02/03/21 11:08 Home Medications: Home Meds Cholestyramine/Aspartame [Cholestyramine Light] 4 gm PO 1700 02/11/14 [History] predniSONE [Prednisone] 5 mg PO Q48H 02/11/14 [History] Fluticasone Propionate [Flonase] 1 spray NASBOTH BID 04/20/18 [History] L.acidoph,Paracasei, B.lactis [Probiotic] 1 cap PO DAILY 04/20/18 [History] Mirtazapine [Remeron] 15 mg PO BEDTIME #30 tablet 04/25/18 [Rx] Furosemide 20 mg PO 1200 08/06/18 [History] Acetaminophen [Acetaminophen Extra Strength] 1,000 mg PO TID 03/17/20 [History] Aspirin [Halfprin] 81 mg PO DAILY 03/17/20 [History] Benzonatate [Tessalon Perle] 100 mg PO TID PRN 03/17/20 [History] Carboxymethylcellulose Sodium [Refresh Plus 0.5%] 1 drop EYEBOTH BID 03/17/20 [History] Furosemide [Lasix] 40 mg PO DAILY 03/17/20 [History] Gabapentin [Neurontin] 100 mg PO BEDTIME 03/17/20 [History] Isosorbide Mononitrate [Isosorbide Mononitrate ER] 30 mg PO DAILY 03/17/20 [History] Magnesium Hydroxide [Milk of Magnesia] 30 ml PO DAILY PRN 03/17/20 [History] Potassium Chloride 20 meq PO BID 03/17/20 [History] Sodium Chloride [Saline Nasal [place]] 1 spray NASBOTH ASDIRECTED PRN 03/17/20 [History] Spironolactone [Aldactone] 12.5 mg PO DAILY 03/17/20 [History] carvediloL [Coreg] 6.25 mg PO BID 03/17/20 [History] lidocaine HCL [Aspercreme Lidocaine] 1 applic TOP BID 03/17/20 [History] Iron Polysaccharides Complex [Ferrex 150] 150 mg PO BID #0 cap 03/20/20 [Rx] Glimepiride [Amaryl] 2 mg PO DAILY 02/03/21 [History] metOLazone [Zaroxolyn] 2.5 mg PO MOFR@0800 02/03/21 [History] Past Medical History HEENT History: Reports: Hard of Hearing, Impaired Vision Other HEENT History: wears glasses Cardiovascular History: Reports: Afib, Heart Failure, Hypertension Other Cardiovascular History: CHF Respiratory History: Reports: Other (See Below) Other Respiratory History: wears oxygen for comfort, mostly at night, pulmonary hypertension Gastrointestinal History: Reports: Diverticulosis Genitourinary History: Reports: Urinary Incontinence 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 Pernicious anemia. Thrombocytopenia. - Infectious Disease History Infectious Disease History: Reports: Chicken Pox, Measles, Mumps Other Infectious Disease History: son unsure and pt doesn't remember - Past Surgical History GI Surgical History: Reports: Cholecystectomy Female Surgical History: Reports: Hysterectomy Musculoskeletal Surgical History: Reports: Knee Replacement Social & Family History - Family History Family Medical History: No Pertinent Family History Oncologic: Reports: Other (See Below) - Caffeine Use Caffeine Use: Reports: Coffee Other Caffeine Use: Unknown - Recreational Drug Use Recreational Drug Use: No H&P Review of Systems - Review of Systems: Review Of Systems: Comprehensive ROS is negative, except as noted in HPI. Exam - Exam Exam: See Below - Vital Signs Vital Signs: Last Vital Signs Temp 99.5 F 02/03/21 17:50 Pulse 117 H 02/03/21 17:50 Resp 18 02/03/21 17:50 BP 159/85 H 02/03/21 17:50 Pulse Ox 91 L 02/03/21 17:50 Weight: 171 lb 1.6 oz - Exam General: Alert, Oriented (person, place, slightly confused, hard of hearing.) HEENT: PERRLA, Conjunctiva Clear, Glasses. No: Hearing Intact, Mucosa Moist & [place] Neck: Trachea Midline Lungs: Clear to Auscultation, Normal Respiratory Effort, Decreased Breath Sounds (bibasilar). No: Crackles, Wheezing Cardiovascular: Tachycardia GI/Abdominal Exam: Normal Bowel Sounds, Soft, No Distention, Guarding, Tender (Suprapubic). No: Rigid, Rebound (Female) Exam: Deferred Rectal (Female) Exam: Deferred Back Exam: Normal Inspection, CVA Tenderness (R), CVA Tenderness (L) Extremities: Normal Capillary Refill, Pedal Edema (2+ BLE), Pallor Peripheral Pulses: 2+: Radial (L), Radial (R) Skin: Warm, Dry, Ecchymosis (bilateral buttocks, right mcqueen), Wound (small 2 cm triangular abrasion to left buttock close to sacrum) Neurological: Cranial Nerves Intact, Normal Speech - Patient Data Lab Results Last 24 hrs: Laboratory Results - last 24 hr 02/03/21 02/03/21 02/03/21 Range/Units 11:00 11:20 11:20 WBC 5.3 (3.0-10.3) x10-3/uL RBC 3.74 (3.60-5.20) x10(6)uL Hgb 11.7 (11.4-15.5) g/dL Hct 35.0 (34.2-48.2) % MCV 93.6 (76.7-100.5) fL MCH 31.2 (23.9-33.9) pg MCHC 33.4 (31.9-34.8) g/dL RDW 12.6 (12.3-16.5) % Plt Count 95 L (151-488) x10(3)uL MPV 7.8 (7.1-12.4) fL Neut % (Auto) 73.7 (30.8-76.2) % Lymph % (Auto) 14.4 L (18.4-52.1) % [place] % (Auto) 8.9 (4.4-15.7) % Eos % (Auto) 2.4 (0.6-8.1) % Baso % (Auto) 0.6 (0.2-1.5) % Neut # (Auto) 3.9 (1.5-6.3) x10-3/uL Lymph # (Auto) 0.8 L (1.0-4.4) x10-3/uL [place] # (Auto) 0.5 (0.3-1.0) x10-3/uL Eos # (Auto) 0.1 (0.0-0.8) x10-3/uL Baso # (Auto) 0.0 (0.0-0.1) x10-3/uL Sodium 138 (135-145) mmol/L Potassium 4.0 (3.5-5.3) mmol/L Chloride 96 L (100-110) mmol/L Carbon Dioxide 34 H (21-32) mmol/L BUN 39 H D (7-18) mg/dL Creatinine 1.9 H (0.55-1.02) mg/dL Est Cr Clr Drug Dosing 15.44 mL/min Estimated GFR (MDRD) 25 L (>60) BUN/Creatinine Ratio 20.5 H (9-20) Glucose 117 H (80-116) mg/dL Calcium 8.6 (8.6-10.2) mg/dL Total Bilirubin 0.5 (0.1-1.3) mg/dL AST 12 (5-25) IU/L ALT 15 D (12-36) U/L Alkaline Phosphatase 54 L (56-112) IU/L Troponin I (4.0-60.3) pg/mL NT-Pro-B Natriuret Pep (<=450) pg/mL Total Protein 7.1 (6.0-8.0) g/dL Albumin 3.7 (3.2-4.6) g/dL Globulin 3.4 g/dL Albumin/Globulin Ratio 1.1 Urine Color Yellow (YELLOW) Urine Appearance Cloudy (CLEAR) Urine pH 5.0 (5.0-6.5) Ur Specific [place] 1.010 (1.010-1.025) Urine Protein Negative (NEGATIVE) mg/dL Urine Glucose (UA) Normal (NORMAL) mg/dL Urine Ketones Negative (NEGATIVE) mg/dL Urine Occult Blood Moderate H (NEGATIVE) Urine Nitrite Negative (NEGATIVE) Urine Bilirubin Negative (NEGATIVE) Urine Urobilinogen Normal (NEGATIVE) mg/dL Ur Leukocyte Esterase Large H (NEGATIVE) Urine RBC 0-5 (0-5) Urine WBC >100 H (0-5) Ur Squamous Epith Cells Few H (NS,R,O) Urine Bacteria Many H (NS) SARS-CoV-2 RNA (STIVEN) (NEGATIVE) 02/03/21 02/03/21 Range/Units 11:20 13:25 WBC (3.0-10.3) x10-3/uL RBC (3.60-5.20) x10(6)uL Hgb (11.4-15.5) g/dL Hct (34.2-48.2) % MCV (76.7-100.5) fL MCH (23.9-33.9) pg MCHC (31.9-34.8) g/dL RDW (12.3-16.5) % Plt Count (151-488) x10(3)uL MPV (7.1-12.4) fL Neut % (Auto) (30.8-76.2) % Lymph % (Auto) (18.4-52.1) % [place] % (Auto) (4.4-15.7) % Eos % (Auto) (0.6-8.1) % Baso % (Auto) (0.2-1.5) % Neut # (Auto) (1.5-6.3) x10-3/uL Lymph # (Auto) (1.0-4.4) x10-3/uL [place] # (Auto) (0.3-1.0) x10-3/uL Eos # (Auto) (0.0-0.8) x10-3/uL Baso # (Auto) (0.0-0.1) x10-3/uL Sodium (135-145) mmol/L Potassium (3.5-5.3) mmol/L Chloride (100-110) mmol/L Carbon Dioxide (21-32) mmol/L BUN (7-18) mg/dL Creatinine (0.55-1.02) mg/dL Est Cr Clr Drug Dosing mL/min Estimated GFR (MDRD) (>60) BUN/Creatinine Ratio (9-20) Glucose (80-116) mg/dL Calcium (8.6-10.2) mg/dL Total Bilirubin (0.1-1.3) mg/dL AST (5-25) IU/L ALT (12-36) U/L Alkaline Phosphatase (56-112) IU/L Troponin I 11.0 (4.0-60.3) pg/mL NT-Pro-B Natriuret Pep 1417 H* (<=450) pg/mL Total Protein (6.0-8.0) g/dL Albumin (3.2-4.6) g/dL Globulin g/dL Albumin/Globulin Ratio Urine Color (YELLOW) Urine Appearance (CLEAR) Urine pH (5.0-6.5) Ur Specific [place] (1.010-1.025) Urine Protein (NEGATIVE) mg/dL Urine Glucose (UA) (NORMAL) mg/dL Urine Ketones (NEGATIVE) mg/dL Urine Occult Blood (NEGATIVE) Urine Nitrite (NEGATIVE) Urine Bilirubin (NEGATIVE) Urine Urobilinogen (NEGATIVE) mg/dL Ur Leukocyte Esterase (NEGATIVE) Urine RBC (0-5) Urine WBC (0-5) Ur Squamous Epith Cells (NS,R,O) Urine Bacteria (NS) SARS-CoV-2 RNA (STIVEN) Negative (NEGATIVE) Result Diagrams: 02/03/21 11:20 02/03/21 11:20 Sepsis Event Note - Evaluation Sepsis Screening Result: No Definite Risk - Focused Exam Vital Signs: Vital Signs Temp Pulse Resp BP Pulse Ox 02/03/21 17:50 99.5 F 117 H 18 159/85 H 91 L 02/03/21 10:31 97.5 F 79 20 155/89 H 96 *Q Meaningful Use (ADM) - VTE *Q VTE Mechanical Contraindications *Q: At Risk for Falls VTE Pharmacological Contraindications *Q: Thrombocytopenia VTE Anticoagulation Contraindications: Medical/Procedure Contrai - VTE Risk Assess *Q Each Risk Factor Represents 1 Point: Swollen Legs, Current, Congestive heart failure (CHF) Total Score 1 Point Risk Factors: 2 Each Risk Factor Represents 2 Points: None Total Score 2 Point Risk Factors: 0 Each Risk Factor Represents 3 Points: Age 75 Years or Greater Total Score 3 Point Risk Factors: 3 Each Risk Factor Represents 5 Points: None Total Score 5 Point Risk Factors: 0 Venous Thromboembolism Risk Factor Score *Q: 5 - Problem List (1) UTI (urinary tract infection) SNOMED Code(s): 65398312 ICD Code: N39.0 - URINARY TRACT INFECTION, SITE NOT SPECIFIED Status: Acute Current Visit: No (2) Acute on chronic renal insufficiency SNOMED Code(s): 497937402 ICD Code: N28.9 - DISORDER OF KIDNEY AND URETER, UNSPECIFIED; N18.9 - CHRONIC KIDNEY DISEASE, UNSPECIFIED Status: Acute Current Visit: No (3) Weakness SNOMED Code(s): 07149336 ICD Code: R53.1 - WEAKNESS Status: Acute Current Visit: Yes (4) Thrombocytopenia SNOMED Code(s): 151978446 ICD Code: D69.6 - THROMBOCYTOPENIA, UNSPECIFIED Status: Acute Current Visit: Yes (5) CKD (chronic kidney disease) SNOMED Code(s): 504024677 ICD Code: N18.9 - CHRONIC KIDNEY DISEASE, UNSPECIFIED Status: Chronic Current Visit: No Problem Details: Cr 1.9, baseline 1.4 Qualifiers: Chronic kidney disease stage: stage 3 (moderate) (6) Coronary artery disease SNOMED Code(s): 84703577 ICD Code: I25.10 - ATHSCL HEART DISEASE OF [place] CORONARY ARTERY W/O ANG PCTRS Status: Chronic Current Visit: No Qualifiers: Coronary Disease-Associated Artery/Lesion type: [place] artery [place] vs. transplanted heart: [place] heart Associated angina: with stable angina Qualified Code(s): I25.118 - Atherosclerotic heart disease of [place] coronary artery with other forms of angina pectoris (7) Dementia SNOMED Code(s): 97375602 ICD Code: F03.90 - UNSPECIFIED DEMENTIA WITHOUT BEHAVIORAL DISTURBANCE Status: Chronic Current Visit: No Qualifiers: Dementia type: Alzheimer's disease Alzheimer's disease onset: late-onset (8) Diabetes type 2, uncontrolled SNOMED Code(s): 757763516, 733169348 ICD Code: E11.65 - TYPE 2 DIABETES MELLITUS WITH HYPERGLYCEMIA Status: Chronic Current Visit: No (9) Hypertension SNOMED Code(s): 01400923 ICD Code: I10 - ESSENTIAL (PRIMARY) HYPERTENSION Status: Chronic Current Visit: No Qualifiers: (10) Afib SNOMED Code(s): 83976475 ICD Code: I48.91 - UNSPECIFIED ATRIAL FIBRILLATION Status: Chronic Current Visit: No Qualifiers: (11) Palliative care patient SNOMED Code(s): 752688498, 524508969 ICD Code: Z51.5 - ENCOUNTER FOR PALLIATIVE CARE Status: Chronic Current Visit: No Problem List Initiated/Reviewed/Updated: Yes Orders Last 24hrs: Active Orders 24 hr Category Date Time Status Patient Status [ADT] Routine ADT 02/03/21 16:59 Active Communication Order [RC] BEDTIME Care 02/03/21 18:17 Ordered Oxygen Therapy [RC] .PRN Care 02/03/21 16:59 Active Up With Assistance [RC] ASDIRECTED Care 02/03/21 16:59 Active Up to Chair [RC] ASDIRECTED Care 02/03/21 16:59 Active VTE/DVT Education [RC] Per Unit Routine Care 02/03/21 16:59 Active Vital Signs [RC] Q4H Care 02/03/21 16:59 Active OT Evaluation and Treatment [CONS] Routine Cons 02/03/21 16:59 Active PT Evaluation and Treatment [CONS] Routine Cons 02/03/21 16:59 Active Regular Diet [DIET] Diet 02/03/21 Dinner Active BASIC METABOLIC PANEL,BMP [CHEM] Routine Lab 02/04/21 06:00 Ordered CBC WITH AUTO DIFF [HEME] Routine Lab 02/04/21 06:00 Ordered CULTURE URINE [RM] Stat Lab 02/03/21 11:00 Received Acetaminophen [Tylenol Extra Strength] Med 02/03/21 21:00 Active 1,000 mg PO TID Benzonatate [Tessalon Perles] Med 02/03/21 17:09 Active 100 mg PO TID PRN Carboxymethylcellulose Sodium [Refresh Plus 0.5%] Med 02/03/21 21:00 Active 0 each EYEBOTH BID Cholestyramine/Aspartame [Cholestyramine Light] Med 02/04/21 17:00 Pending 4 gm PO 1700 Ciprofloxacin in D5W [Cipro in D5W 400 MG/200 ML] 400 Med 02/04/21 13:00 Active mg Premix Bag 1 bag IV Q24H Fluticasone Propionate [Flonase] Med 02/03/21 21:00 Active 0 gm NASBOTH BID Gabapentin [Neurontin] Med 02/03/21 21:00 Active 100 mg PO BEDTIME Glimepiride [Amaryl] Med 02/04/21 09:00 Active 2 mg PO DAILY Iron Polysaccharides Complex [Ferrex 150] Med 02/03/21 21:00 Active 150 mg PO BID Isosorbide Mononitrate [Imdur] Med 02/04/21 09:00 Active 30 mg PO DAILY Magnesium Hydroxide [Milk of Magnesia] Med 02/03/21 17:09 Active 30 ml PO DAILY PRN Mirtazapine [Remeron] Med 02/03/21 21:00 Active 15 mg PO BEDTIME Potassium Chloride [Klor-Con M20] Med 02/03/21 21:00 Active 20 meq PO BID Saccharomyces Boulardii [Florastor] Med 02/03/21 21:00 Ordered 500 mg PO BID Sodium Chloride 0.65% [[place] Nasal [place]] Med 02/03/21 17:09 Active 0 ml NASBOTH ASDIRECTED PRN Sodium Chloride 0.9% [Normal Saline] 1,000 ml Med 02/03/21 16:30 Active IV ASDIRECTED Sodium Chloride 0.9% [Saline Flush] Med 02/03/21 11:17 Active 10 ml FLUSH ASDIRECTED PRN carvediloL [Coreg] Med 02/03/21 21:00 Active 6.25 mg PO BID lidocaine HCL [Aspercreme Lidocaine] Med 02/03/21 21:00 Pending 1 applic TOP BID predniSONE Med 02/05/21 09:00 Ordered 5 mg PO Q48H LILLY Bandage [Elastic Wrap] [OM.PC] Routine Oth 02/03/21 18:17 Ordered Anticoagulation Contraindications VTE [AST] Per Unit Oth 02/03/21 16:59 Ordered Routine Saline Lock Insert [OM.PC] Routine Oth 02/03/21 11:17 Ordered Resuscitation Status Routine Resus Stat 02/03/21 16:59 Ordered EKG 12 Lead [EK] Routine Ther 02/03/21 11:15 Stop Req Medication Orders Acetaminophen (Acetaminophen 500 Mg Tab) 1,000 mg PO TID [place] Artificial Tears (Carboxymethylcellulose Sodium 0.5% Ophth Soln 0.4 Ml Ud Box Of 30) 0 each EYEBOTH BID [place] Benzonatate (Benzonatate 100 Mg Cap) 100 mg PO TID PRN PRN Reason: Cough Carvedilol (Carvedilol 6.25 Mg Tab) 6.25 mg PO BID [place] Fluticasone Propionate (Fluticasone Propionate Nasal [place] 16 Gm Bottle) 0 gm NASBOTH BID [place] Gabapentin (Gabapentin 100 Mg Cap) 100 mg PO BEDTIME [place] Glimepiride (Glimepiride 2 Mg Tab) 2 mg PO DAILY [place] Sodium Chloride (Normal Saline) 1,000 mls @ 100 mls/hr IV ASDIRECTED [place] Last Admin: 02/03/21 17:46 Dose: 100 mls/hr Documented by: EARNESTINE Ciprofloxacin/Dextrose 400 mg/ (Premix) 200 mls @ 200 mls/hr IV Q24H [place] Isosorbide Mononitrate (Isosorbide Mononitrate 30 Mg Tab.Er) 30 mg PO DAILY [place] Magnesium Hydroxide (Magnesium Hydroxide 400 Mg/5 Ml Susp 30 Ml Cup) 30 ml PO DAILY PRN PRN Reason: Constipation Mirtazapine (Mirtazapine 15 Mg Tab) 15 mg PO BEDTIME [place] Non-Formulary Medication (Cholestyramine/Aspartame [Cholestyramine Light]) 4 gm PO 1700 [place] Non-Formulary Medication (Lidocaine Hcl [Aspercreme Lidocaine]) 1 applic TOP BID [place] Polysaccharide Iron Complex (Iron Polysaccharides Complex 150 Mg Cap) 150 mg PO BID [place] Potassium Chloride (Potassium Chloride 20 Meq Tab.Er) 20 meq PO BID [place] Prednisone (Prednisone 5 Mg Tab) 5 mg PO Q48H [place] Saccharomyces Boulardii (Saccharomyces Boulardii (Probiotic) 250 Mg Cap) 500 mg PO BID [place] Sodium Chloride (Sodium Chloride 0.9% 10 Ml Syringe) 10 ml FLUSH ASDIRECTED PRN PRN Reason: Keep Vein Open Sodium Chloride (Sodium Chloride 0.65% Nasal [place] 45 Ml Bottle) 0 ml NASBOTH ASDIRECTED PRN PRN Reason: Dryness Assessment/Plan Comment:: 1. Admit for inpatient treatment of UTI, weakness, Acute on Chronic Kidney Insufficiency. 2. UTI: Ciprofloxacin 400 mg IV q12hr, Urine culture pending. Adjust treatments as necessary. 3. Dehydration: NS at 100 ml/hr, monitor for fluid overload. Repeat BMP tomorrow. 4. Thrombocytopenia: will continue to monitor, had episode in 2018 but had corrected on subsequent testing. Hold aspirin and anticoagulation. Repeat CBC tomorrow. 5. Diet: Regular. 6. Weakness: PT/OT eval & treat. 7. Activity: up to chair and up with assistance. 8. DVT prophylaxis: LILLY wraps to BLE. Anticoagulation contraindicated. 9. CODE STATUS: DNR/DNI. 10. Discharge: anticipate discharge in 48-72 hours back to [facility]. - Mortality Measure Prognosis:: Poor
[2021-02-03] MEDS: Carvedilol 6.25 MG Tab PO SCH (20:23)
[2021-02-03] MEDS: Iron Polysaccharides Complex 150 MG Cap PO SCH (20:24)
[2021-02-03] MEDS: Fluticasone Propionate Nasal Spray 16 GM Bottle NASBOTH SCH (20:24)
[2021-02-03] MEDS: Saccharomyces Boulardii (Probiotic) 250 MG Cap PO SCH (20:25)
[2021-02-03] MEDS: Potassium Chloride 20 MEQ Tab.ER PO SCH (20:25)
[2021-02-03] MEDS: Mirtazapine 15 MG Tab PO SCH (20:26)
[2021-02-03] MEDS: Acetaminophen 500 MG Tab PO SCH (20:26)
[2021-02-03] MEDS: Gabapentin 100 MG Cap PO SCH (20:26)
[2021-02-03] MEDS: Carboxymethylcellulose Sodium 0.5% Ophth Soln 0.4 ML UD Box of 30 EYEBOTH SCH (21:21)
[2021-02-04] MEDS: Sodium Chloride 0.9% 1,000 ML IV SCH (04:23)
[2021-02-04] MEDS: Carvedilol 6.25 MG Tab PO SCH ×2 (08:44→20:23)
[2021-02-04] MEDS: Potassium Chloride 20 MEQ Tab.ER PO SCH ×2 (08:44→20:24)
[2021-02-04] MEDS: Acetaminophen 500 MG Tab PO SCH ×3 (08:45→20:24)
[2021-02-04] MEDS: Iron Polysaccharides Complex 150 MG Cap PO SCH ×2 (08:45→20:24)
[2021-02-04] MEDS: Carboxymethylcellulose Sodium 0.5% Ophth Soln 0.4 ML UD Box of 30 EYEBOTH SCH ×2 (08:45→20:25)
[2021-02-04] MEDS: Saccharomyces Boulardii (Probiotic) 250 MG Cap PO SCH ×2 (08:45→20:24)
[2021-02-04] MEDS: Isosorbide Mononitrate 30 MG Tab.ER PO SCH (08:45)
[2021-02-04] MEDS: Glimepiride 2 MG Tab PO SCH (08:53)
[2021-02-04] MEDS ORDERED: Non-Formulary Medication 1 Each (L.Acidoph,Paracasei, B.Lactis [Probiotic] 1 EACH Capsule) PO SCH (09:00)
--- NOTE | 2021-02-04 09:16 | PCM.PN ---
- General Info Date of Service: 02/04/21 Subjective Update: She still has shortness of breath this morning. Has been having oxygen saturations in upper 90s overnight, wears home oxygen at night, rechecked after she was more awake this morning also had her in the 90s. She has been eating and drinking okay since admission. Doesn't know if she's had a bowel bowel movement yet today. Abdominal pain improved. Family is going to bring in a couple of her medications that we do not have on formulary for her. PT/OT to see this morning. - Patient Data Vitals - Most Recent: Last Vital Signs Temp 99.7 F 02/04/21 07:40 Pulse 93 02/04/21 08:44 Resp 16 02/04/21 07:40 BP 149/67 H 02/04/21 08:45 Pulse Ox 87 L 02/04/21 07:40 Weight - Most Recent: 171 lb 1.6 oz I&O - Last 24 Hours: Intake & Output 02/03/21 02/04/21 02/04/21 22:59 06:59 14:59 Intake Total 1001 Balance 1001 Lab Results Last 24 Hours: Laboratory Results - last 24 hr 02/03/21 02/03/21 02/03/21 Range/Units 11:00 11:20 11:20 WBC 5.3 (3.0-10.3) x10-3/uL RBC 3.74 (3.60-5.20) x10(6)uL Hgb 11.7 (11.4-15.5) g/dL Hct 35.0 (34.2-48.2) % MCV 93.6 (76.7-100.5) fL MCH 31.2 (23.9-33.9) pg MCHC 33.4 (31.9-34.8) g/dL RDW 12.6 (12.3-16.5) % Plt Count 95 L (151-488) x10(3)uL MPV 7.8 (7.1-12.4) fL Neut % (Auto) 73.7 (30.8-76.2) % Lymph % (Auto) 14.4 L (18.4-52.1) % [place] % (Auto) 8.9 (4.4-15.7) % Eos % (Auto) 2.4 (0.6-8.1) % Baso % (Auto) 0.6 (0.2-1.5) % Neut # (Auto) 3.9 (1.5-6.3) x10-3/uL Lymph # (Auto) 0.8 L (1.0-4.4) x10-3/uL [place] # (Auto) 0.5 (0.3-1.0) x10-3/uL Eos # (Auto) 0.1 (0.0-0.8) x10-3/uL Baso # (Auto) 0.0 (0.0-0.1) x10-3/uL Sodium 138 (135-145) mmol/L Potassium 4.0 (3.5-5.3) mmol/L Chloride 96 L (100-110) mmol/L Carbon Dioxide 34 H (21-32) mmol/L BUN 39 H D (7-18) mg/dL Creatinine 1.9 H (0.55-1.02) mg/dL Est Cr Clr Drug Dosing 15.44 mL/min Estimated GFR (MDRD) 25 L (>60) BUN/Creatinine Ratio 20.5 H (9-20) Glucose 117 H (80-116) mg/dL Calcium 8.6 (8.6-10.2) mg/dL Total Bilirubin 0.5 (0.1-1.3) mg/dL AST 12 (5-25) IU/L ALT 15 D (12-36) U/L Alkaline Phosphatase 54 L (56-112) IU/L Troponin I (4.0-60.3) pg/mL NT-Pro-B Natriuret Pep (<=450) pg/mL Total Protein 7.1 (6.0-8.0) g/dL Albumin 3.7 (3.2-4.6) g/dL Globulin 3.4 g/dL Albumin/Globulin Ratio 1.1 Urine Color Yellow (YELLOW) Urine Appearance Cloudy (CLEAR) Urine pH 5.0 (5.0-6.5) Ur Specific [place] 1.010 (1.010-1.025) Urine Protein Negative (NEGATIVE) mg/dL Urine Glucose (UA) Normal (NORMAL) mg/dL Urine Ketones Negative (NEGATIVE) mg/dL Urine Occult Blood Moderate H (NEGATIVE) Urine Nitrite Negative (NEGATIVE) Urine Bilirubin Negative (NEGATIVE) Urine Urobilinogen Normal (NEGATIVE) mg/dL Ur Leukocyte Esterase Large H (NEGATIVE) Urine RBC 0-5 (0-5) Urine WBC >100 H (0-5) Ur Squamous Epith Cells Few H (NS,R,O) Urine Bacteria Many H (NS) SARS-CoV-2 RNA (STIVEN) (NEGATIVE) 02/03/21 02/03/21 02/04/21 Range/Units 11:20 13:25 06:15 WBC 4.2 (3.0-10.3) x10-3/uL RBC 3.87 (3.60-5.20) x10(6)uL Hgb 12.0 (11.4-15.5) g/dL Hct 36.4 (34.2-48.2) % MCV 94.0 (76.7-100.5) fL MCH 30.9 (23.9-33.9) pg MCHC 32.9 (31.9-34.8) g/dL RDW 13.0 (12.3-16.5) % Plt Count 97 L (151-488) x10(3)uL MPV 7.9 (7.1-12.4) fL Neut % (Auto) 59.6 (30.8-76.2) % Lymph % (Auto) 25.9 (18.4-52.1) % [place] % (Auto) 11.7 (4.4-15.7) % Eos % (Auto) 2.2 (0.6-8.1) % Baso % (Auto) 0.6 (0.2-1.5) % Neut # (Auto) 2.5 (1.5-6.3) x10-3/uL Lymph # (Auto) 1.1 (1.0-4.4) x10-3/uL [place] # (Auto) 0.5 (0.3-1.0) x10-3/uL Eos # (Auto) 0.1 (0.0-0.8) x10-3/uL Baso # (Auto) 0.0 (0.0-0.1) x10-3/uL Sodium (135-145) mmol/L Potassium (3.5-5.3) mmol/L Chloride (100-110) mmol/L Carbon Dioxide (21-32) mmol/L BUN (7-18) mg/dL Creatinine (0.55-1.02) mg/dL Est Cr Clr Drug Dosing mL/min Estimated GFR (MDRD) (>60) BUN/Creatinine Ratio (9-20) Glucose (80-116) mg/dL Calcium (8.6-10.2) mg/dL Total Bilirubin (0.1-1.3) mg/dL AST (5-25) IU/L ALT (12-36) U/L Alkaline Phosphatase (56-112) IU/L Troponin I 11.0 (4.0-60.3) pg/mL NT-Pro-B Natriuret Pep 1417 H* (<=450) pg/mL Total Protein (6.0-8.0) g/dL Albumin (3.2-4.6) g/dL Globulin g/dL Albumin/Globulin Ratio Urine Color (YELLOW) Urine Appearance (CLEAR) Urine pH (5.0-6.5) Ur Specific [place] (1.010-1.025) Urine Protein (NEGATIVE) mg/dL Urine Glucose (UA) (NORMAL) mg/dL Urine Ketones (NEGATIVE) mg/dL Urine Occult Blood (NEGATIVE) Urine Nitrite (NEGATIVE) Urine Bilirubin (NEGATIVE) Urine Urobilinogen (NEGATIVE) mg/dL Ur Leukocyte Esterase (NEGATIVE) Urine RBC (0-5) Urine WBC (0-5) Ur Squamous Epith Cells (NS,R,O) Urine Bacteria (NS) SARS-CoV-2 RNA (STIVEN) Negative (NEGATIVE) 02/04/21 Range/Units 06:15 WBC (3.0-10.3) x10-3/uL RBC (3.60-5.20) x10(6)uL Hgb (11.4-15.5) g/dL Hct (34.2-48.2) % MCV (76.7-100.5) fL MCH (23.9-33.9) pg MCHC (31.9-34.8) g/dL RDW (12.3-16.5) % Plt Count (151-488) x10(3)uL MPV (7.1-12.4) fL Neut % (Auto) (30.8-76.2) % Lymph % (Auto) (18.4-52.1) % [place] % (Auto) (4.4-15.7) % Eos % (Auto) (0.6-8.1) % Baso % (Auto) (0.2-1.5) % Neut # (Auto) (1.5-6.3) x10-3/uL Lymph # (Auto) (1.0-4.4) x10-3/uL [place] # (Auto) (0.3-1.0) x10-3/uL Eos # (Auto) (0.0-0.8) x10-3/uL Baso # (Auto) (0.0-0.1) x10-3/uL Sodium 143 (135-145) mmol/L Potassium 4.1 (3.5-5.3) mmol/L Chloride 103 D (100-110) mmol/L Carbon Dioxide 34 H (21-32) mmol/L BUN 32 H (7-18) mg/dL Creatinine 1.8 H (0.55-1.02) mg/dL Est Cr Clr Drug Dosing 16.30 mL/min Estimated GFR (MDRD) 27 L (>60) BUN/Creatinine Ratio 17.8 (9-20) Glucose 71 L (80-116) mg/dL Calcium 8.5 L (8.6-10.2) mg/dL Total Bilirubin (0.1-1.3) mg/dL AST (5-25) IU/L ALT (12-36) U/L Alkaline Phosphatase (56-112) IU/L Troponin I (4.0-60.3) pg/mL NT-Pro-B Natriuret Pep (<=450) pg/mL Total Protein (6.0-8.0) g/dL Albumin (3.2-4.6) g/dL Globulin g/dL Albumin/Globulin Ratio Urine Color (YELLOW) Urine Appearance (CLEAR) Urine pH (5.0-6.5) Ur Specific [place] (1.010-1.025) Urine Protein (NEGATIVE) mg/dL Urine Glucose (UA) (NORMAL) mg/dL Urine Ketones (NEGATIVE) mg/dL Urine Occult Blood (NEGATIVE) Urine Nitrite (NEGATIVE) Urine Bilirubin (NEGATIVE) Urine Urobilinogen (NEGATIVE) mg/dL Ur Leukocyte Esterase (NEGATIVE) Urine RBC (0-5) Urine WBC (0-5) Ur Squamous Epith Cells (NS,R,O) Urine Bacteria (NS) SARS-CoV-2 RNA (STIVEN) (NEGATIVE) Andrzej Results Last 24 Hours: Microbiology 02/03/21 11:00 Urine Culture - Preliminary Urine, Clean Catch Gram Negative Rods Med Orders - Current: Current Medications Acetaminophen (Acetaminophen 500 Mg Tab) 1,000 mg PO TID [facility] Last Admin: 02/04/21 08:45 Dose: 1,000 mg Documented by: Artificial Tears (Carboxymethylcellulose Sodium 0.5% Ophth Soln 0.4 Ml Ud Box Of 30) 0 each EYEBOTH BID [facility] Last Admin: 02/04/21 08:45 Dose: 1 drop Documented by: Benzonatate (Benzonatate 100 Mg Cap) 100 mg PO TID PRN PRN Reason: Cough Carvedilol (Carvedilol 6.25 Mg Tab) 6.25 mg PO BID [facility] Last Admin: 02/04/21 08:44 Dose: 6.25 mg Documented by: Cholestyramine Resin (Cholestyramine/Sucrose Powder 4 Gm Packet) 4 gm PO 1700 [facility] Fluticasone Propionate (Fluticasone Propionate Nasal [place] 16 Gm Bottle) 0 gm NASBOTH BID [facility] Last Admin: 02/03/21 20:24 Dose: 1 spray Documented by: Gabapentin (Gabapentin 100 Mg Cap) 100 mg PO BEDTIME [facility] Last Admin: 02/03/21 20:26 Dose: 100 mg Documented by: Glimepiride (Glimepiride 2 Mg Tab) 2 mg PO DAILY [facility] Last Admin: 02/04/21 08:53 Dose: 2 mg Documented by: Sodium Chloride (Normal Saline) 1,000 mls @ 100 mls/hr IV ASDIRECTED [facility] Last Admin: 02/04/21 04:23 Dose: 100 mls/hr Documented by: Ciprofloxacin/Dextrose 400 mg/ (Premix) 200 mls @ 200 mls/hr IV Q24H [facility] Isosorbide Mononitrate (Isosorbide Mononitrate 30 Mg Tab.Er) 30 mg PO DAILY [facility] Last Admin: 02/04/21 08:45 Dose: 30 mg Documented by: Magnesium Hydroxide (Magnesium Hydroxide 400 Mg/5 Ml Susp 30 Ml Cup) 30 ml PO DAILY PRN PRN Reason: Constipation Mirtazapine (Mirtazapine 15 Mg Tab) 15 mg PO BEDTIME [facility] Last Admin: 02/03/21 20:26 Dose: 15 mg Documented by: Non-Formulary Medication (Lidocaine Hcl [Aspercreme Lidocaine]) 1 applic TOP BID [facility] Polysaccharide Iron Complex (Iron Polysaccharides Complex 150 Mg Cap) 150 mg PO BID [facility] Last Admin: 02/04/21 08:45 Dose: 150 mg Documented by: Potassium Chloride (Potassium Chloride 20 Meq Tab.Er) 20 meq PO BID [facility] Last Admin: 02/04/21 08:44 Dose: 20 meq Documented by: Prednisone (Prednisone 5 Mg Tab) 5 mg PO Q48H [facility] Saccharomyces Boulardii (Saccharomyces Boulardii (Probiotic) 250 Mg Cap) 500 mg PO BID [facility] Last Admin: 02/04/21 08:45 Dose: 500 mg Documented by: Sodium Chloride (Sodium Chloride 0.9% 10 Ml Syringe) 10 ml FLUSH ASDIRECTED PRN PRN Reason: Keep Vein Open Sodium Chloride (Sodium Chloride 0.65% Nasal [place] 45 Ml Bottle) 0 ml NASBOTH ASDIRECTED PRN PRN Reason: Dryness Discontinued Medications Ciprofloxacin (Ciprofloxacin 500 Mg Tab) 500 mg PO NOW STA Stop: 02/03/21 12:40 Last Admin: 02/03/21 12:55 Dose: Not Given Documented by: Hydralazine HCl (Hydralazine 20 Mg/Ml Sdv) 20 mg IVPUSH NOW STA Stop: 02/03/21 14:38 Last Admin: 02/03/21 14:42 Dose: 20 mg Documented by: Sodium Chloride (Normal Saline) 1,000 mls @ 250 mls/hr IV ASDIRECTED [facility] Last Admin: 02/03/21 12:03 Dose: 250 mls/hr Documented by: Ciprofloxacin/Dextrose 400 mg/ (Premix) 200 mls @ 200 mls/hr IV NOW STA Stop: 02/03/21 13:53 Last Admin: 02/03/21 13:33 Dose: 200 mls/hr Documented by: Labetalol HCl (Labetalol 20 Mg/4 Ml Syringe) 20 mg IVPUSH NOW STA; Protocol Stop: 02/03/21 12:50 Last Admin: 02/03/21 12:57 Dose: 20 mg Documented by: Labetalol HCl (Labetalol 20 Mg/4 Ml Syringe) Confirm Administered Dose 20 mg .ROUTE .STK-MED ONE Stop: 02/03/21 12:51 Last Admin: 02/03/21 19:17 Dose: Not Given Documented by: Non-Formulary Medication (L.Acidoph,Paracasei, B.Lactis [Probiotic]) 1 cap PO DAILY [facility] Ondansetron HCl (Ondansetron 4 Mg/2 Ml Sdv) 4 mg IVPUSH ONETIME STA Stop: 02/03/21 11:03 Last Admin: 02/03/21 12:04 Dose: 4 mg Documented by: Prednisone (Prednisone 5 Mg Tab) 5 mg PO Q48H [facility] - Exam General: Alert, Oriented (person), Cooperative, No Acute Distress Lungs: Clear to Auscultation, Normal Respiratory Effort, Decreased Breath Sounds (bibasilar). No: Crackles, Wheezing Cardiovascular: Regular Rate, Regular Rhythm GI/Abdominal Exam: Normal Bowel Sounds, Soft, Non-Tender, No Distention Extremities: Pedal Edema (1+ BLE, TTP) Peripheral Pulses: 2+: Radial (L), Radial (R) Skin: Other (stasis dermatitis to bilateral shins) - Patient Data Lab Results Last 24 hrs: Laboratory Results - last 24 hr 02/03/21 02/03/21 02/03/21 Range/Units 11:00 11:20 11:20 WBC 5.3 (3.0-10.3) x10-3/uL RBC 3.74 (3.60-5.20) x10(6)uL Hgb 11.7 (11.4-15.5) g/dL Hct 35.0 (34.2-48.2) % MCV 93.6 (76.7-100.5) fL MCH 31.2 (23.9-33.9) pg MCHC 33.4 (31.9-34.8) g/dL RDW 12.6 (12.3-16.5) % Plt Count 95 L (151-488) x10(3)uL MPV 7.8 (7.1-12.4) fL Neut % (Auto) 73.7 (30.8-76.2) % Lymph % (Auto) 14.4 L (18.4-52.1) % [place] % (Auto) 8.9 (4.4-15.7) % Eos % (Auto) 2.4 (0.6-8.1) % Baso % (Auto) 0.6 (0.2-1.5) % Neut # (Auto) 3.9 (1.5-6.3) x10-3/uL Lymph # (Auto) 0.8 L (1.0-4.4) x10-3/uL [place] # (Auto) 0.5 (0.3-1.0) x10-3/uL Eos # (Auto) 0.1 (0.0-0.8) x10-3/uL Baso # (Auto) 0.0 (0.0-0.1) x10-3/uL Sodium 138 (135-145) mmol/L Potassium 4.0 (3.5-5.3) mmol/L Chloride 96 L (100-110) mmol/L Carbon Dioxide 34 H (21-32) mmol/L BUN 39 H D (7-18) mg/dL Creatinine 1.9 H (0.55-1.02) mg/dL Est Cr Clr Drug Dosing 15.44 mL/min Estimated GFR (MDRD) 25 L (>60) BUN/Creatinine Ratio 20.5 H (9-20) Glucose 117 H (80-116) mg/dL Calcium 8.6 (8.6-10.2) mg/dL Total Bilirubin 0.5 (0.1-1.3) mg/dL AST 12 (5-25) IU/L ALT 15 D (12-36) U/L Alkaline Phosphatase 54 L (56-112) IU/L Troponin I (4.0-60.3) pg/mL NT-Pro-B Natriuret Pep (<=450) pg/mL Total Protein 7.1 (6.0-8.0) g/dL Albumin 3.7 (3.2-4.6) g/dL Globulin 3.4 g/dL Albumin/Globulin Ratio 1.1 Urine Color Yellow (YELLOW) Urine Appearance Cloudy (CLEAR) Urine pH 5.0 (5.0-6.5) Ur Specific [place] 1.010 (1.010-1.025) Urine Protein Negative (NEGATIVE) mg/dL Urine Glucose (UA) Normal (NORMAL) mg/dL Urine Ketones Negative (NEGATIVE) mg/dL Urine Occult Blood Moderate H (NEGATIVE) Urine Nitrite Negative (NEGATIVE) Urine Bilirubin Negative (NEGATIVE) Urine Urobilinogen Normal (NEGATIVE) mg/dL Ur Leukocyte Esterase Large H (NEGATIVE) Urine RBC 0-5 (0-5) Urine WBC >100 H (0-5) Ur Squamous Epith Cells Few H (NS,R,O) Urine Bacteria Many H (NS) SARS-CoV-2 RNA (STIVEN) (NEGATIVE) 02/03/21 02/03/21 02/04/21 Range/Units 11:20 13:25 06:15 WBC 4.2 (3.0-10.3) x10-3/uL RBC 3.87 (3.60-5.20) x10(6)uL Hgb 12.0 (11.4-15.5) g/dL Hct 36.4 (34.2-48.2) % MCV 94.0 (76.7-100.5) fL MCH 30.9 (23.9-33.9) pg MCHC 32.9 (31.9-34.8) g/dL RDW 13.0 (12.3-16.5) % Plt Count 97 L (151-488) x10(3)uL MPV 7.9 (7.1-12.4) fL Neut % (Auto) 59.6 (30.8-76.2) % Lymph % (Auto) 25.9 (18.4-52.1) % [place] % (Auto) 11.7 (4.4-15.7) % Eos % (Auto) 2.2 (0.6-8.1) % Baso % (Auto) 0.6 (0.2-1.5) % Neut # (Auto) 2.5 (1.5-6.3) x10-3/uL Lymph # (Auto) 1.1 (1.0-4.4) x10-3/uL [place] # (Auto) 0.5 (0.3-1.0) x10-3/uL Eos # (Auto) 0.1 (0.0-0.8) x10-3/uL Baso # (Auto) 0.0 (0.0-0.1) x10-3/uL Sodium (135-145) mmol/L Potassium (3.5-5.3) mmol/L Chloride (100-110) mmol/L Carbon Dioxide (21-32) mmol/L BUN (7-18) mg/dL Creatinine (0.55-1.02) mg/dL Est Cr Clr Drug Dosing mL/min Estimated GFR (MDRD) (>60) BUN/Creatinine Ratio (9-20) Glucose (80-116) mg/dL Calcium (8.6-10.2) mg/dL Total Bilirubin (0.1-1.3) mg/dL AST (5-25) IU/L ALT (12-36) U/L Alkaline Phosphatase (56-112) IU/L Troponin I 11.0 (4.0-60.3) pg/mL NT-Pro-B Natriuret Pep 1417 H* (<=450) pg/mL Total Protein (6.0-8.0) g/dL Albumin (3.2-4.6) g/dL Globulin g/dL Albumin/Globulin Ratio Urine Color (YELLOW) Urine Appearance (CLEAR) Urine pH (5.0-6.5) Ur Specific [place] (1.010-1.025) Urine Protein (NEGATIVE) mg/dL Urine Glucose (UA) (NORMAL) mg/dL Urine Ketones (NEGATIVE) mg/dL Urine Occult Blood (NEGATIVE) Urine Nitrite (NEGATIVE) Urine Bilirubin (NEGATIVE) Urine Urobilinogen (NEGATIVE) mg/dL Ur Leukocyte Esterase (NEGATIVE) Urine RBC (0-5) Urine WBC (0-5) Ur Squamous Epith Cells (NS,R,O) Urine Bacteria (NS) SARS-CoV-2 RNA (STIVEN) Negative (NEGATIVE) 02/04/21 Range/Units 06:15 WBC (3.0-10.3) x10-3/uL RBC (3.60-5.20) x10(6)uL Hgb (11.4-15.5) g/dL Hct (34.2-48.2) % MCV (76.7-100.5) fL MCH (23.9-33.9) pg MCHC (31.9-34.8) g/dL RDW (12.3-16.5) % Plt Count (151-488) x10(3)uL MPV (7.1-12.4) fL Neut % (Auto) (30.8-76.2) % Lymph % (Auto) (18.4-52.1) % [place] % (Auto) (4.4-15.7) % Eos % (Auto) (0.6-8.1) % Baso % (Auto) (0.2-1.5) % Neut # (Auto) (1.5-6.3) x10-3/uL Lymph # (Auto) (1.0-4.4) x10-3/uL [place] # (Auto) (0.3-1.0) x10-3/uL Eos # (Auto) (0.0-0.8) x10-3/uL Baso # (Auto) (0.0-0.1) x10-3/uL Sodium 143 (135-145) mmol/L Potassium 4.1 (3.5-5.3) mmol/L Chloride 103 D (100-110) mmol/L Carbon Dioxide 34 H (21-32) mmol/L BUN 32 H (7-18) mg/dL Creatinine 1.8 H (0.55-1.02) mg/dL Est Cr Clr Drug Dosing 16.30 mL/min Estimated GFR (MDRD) 27 L (>60) BUN/Creatinine Ratio 17.8 (9-20) Glucose 71 L (80-116) mg/dL Calcium 8.5 L (8.6-10.2) mg/dL Total Bilirubin (0.1-1.3) mg/dL AST (5-25) IU/L ALT (12-36) U/L Alkaline Phosphatase (56-112) IU/L Troponin I (4.0-60.3) pg/mL NT-Pro-B Natriuret Pep (<=450) pg/mL Total Protein (6.0-8.0) g/dL Albumin (3.2-4.6) g/dL Globulin g/dL Albumin/Globulin Ratio Urine Color (YELLOW) Urine Appearance (CLEAR) Urine pH (5.0-6.5) Ur Specific [place] (1.010-1.025) Urine Protein (NEGATIVE) mg/dL Urine Glucose (UA) (NORMAL) mg/dL Urine Ketones (NEGATIVE) mg/dL Urine Occult Blood (NEGATIVE) Urine Nitrite (NEGATIVE) Urine Bilirubin (NEGATIVE) Urine Urobilinogen (NEGATIVE) mg/dL Ur Leukocyte Esterase (NEGATIVE) Urine RBC (0-5) Urine WBC (0-5) Ur Squamous Epith Cells (NS,R,O) Urine Bacteria (NS) SARS-CoV-2 RNA (STIVEN) (NEGATIVE) Result Diagrams: 02/04/21 06:15 02/04/21 06:15 Andrzej Results Last 24 hrs: Microbiology 02/03/21 11:00 Urine Culture - Preliminary Urine, Clean Catch Gram Negative Rods Sepsis Event Note - Evaluation Sepsis Screening Result: No Definite Risk - Focused Exam Vital Signs: Vital Signs Temp Pulse Pulse Resp BP BP Pulse Ox 02/04/21 08:45 149/67 H 02/04/21 08:44 93 149/67 H 02/04/21 07:40 99.7 F 93 16 149/67 H 87 L 02/04/21 04:00 97.8 F 97 16 137/74 99 02/04/21 00:00 99.8 F 87 16 119/71 95 - Problem List & Annotations (1) UTI (urinary tract infection) SNOMED Code(s): 48581292 Code(s): N39.0 - URINARY TRACT INFECTION, SITE NOT SPECIFIED Status: Acute Current Visit: No Qualifiers: Urinary tract infection type: acute cystitis Hematuria presence: with hematuria Qualified Code(s): N30.01 - Acute cystitis with hematuria (2) Acute on chronic renal insufficiency SNOMED Code(s): 309429591 Code(s): N28.9 - DISORDER OF KIDNEY AND URETER, UNSPECIFIED; N18.9 - CHRONIC KIDNEY DISEASE, UNSPECIFIED Status: Acute Current Visit: No Annotation/Comment:: improving (3) Weakness SNOMED Code(s): 28430147 Code(s): R53.1 - WEAKNESS Status: Acute Current Visit: Yes (4) Thrombocytopenia SNOMED Code(s): 262747663 Code(s): D69.6 - THROMBOCYTOPENIA, UNSPECIFIED Status: Acute Current Visi t: Yes Annotation/Comment:: 97, stable. (5) CKD (chronic kidney disease) SNOMED Code(s): 961138872 Code(s): N18.9 - CHRONIC KIDNEY DISEASE, UNSPECIFIED Status: Chronic Current Visit: No Qualifiers: Chronic kidney disease stage: stage 3 (moderate) Annotation/Comment:: Cr 1.8, baseline 1.4 (6) Coronary artery disease SNOMED Code(s): 65632380 Code(s): I25.10 - ATHSCL HEART DISEASE OF [place] CORONARY ARTERY W/O ANG PCTRS Status: Chronic Current Visit: No Qualifiers: Coronary Disease-Associated Artery/Lesion type: [place] artery [place] vs. transplanted heart: [place] heart Associated angina: with stable angina Qualified Code(s): I25.118 - Atherosclerotic heart disease of [place] coronary artery with other forms of angina pectoris (7) Dementia SNOMED Code(s): 29007450 Code(s): F03.90 - UNSPECIFIED DEMENTIA WITHOUT BEHAVIORAL DISTURBANCE Status: Chronic Current Visit: No Qualifiers: Dementia type: Alzheimer's disease Alzheimer's disease onset: late-onset (8) Diabetes type 2, uncontrolled SNOMED Code(s): 804309069, 924413464 Code(s): E11.65 - TYPE 2 DIABETES MELLITUS WITH HYPERGLYCEMIA Status: Chronic Current Visit: No (9) Hypertension SNOMED Code(s): 09175409 Code(s): I10 - ESSENTIAL (PRIMARY) HYPERTENSION Status: Chronic Current Visit: No Qualifiers: (10) Afib SNOMED Code(s): 41979304 Code(s): I48.91 - UNSPECIFIED ATRIAL FIBRILLATION Status: Chronic Current Visit: No Qualifiers: (11) Palliative care patient SNOMED Code(s): 856156457, 394684243 Code(s): Z51.5 - ENCOUNTER FOR PALLIATIVE CARE Status: Chronic Current Visit: No - Problem List Review Problem List Initiated/Reviewed/Updated: Yes - My Orders Last 24 Hours: My Active Orders 02/03/21 Dinner Regular Diet [DIET] 02/03/21 16:59 Patient Status [ADT] Routine Oxygen Therapy [RC] .PRN Up With Assistance [RC] ASDIRECTED Up to Chair [RC] ASDIRECTED Vital Signs [RC] 00,04,08,12,16,20 OT Evaluation and Treatment [CONS] Routine PT Evaluation and Treatment [CONS] Routine Anticoagulation Contraindications VTE [AST] Per Unit Routine Resuscitation Status Routine 02/03/21 17:09 Benzonatate [Tessalon Perles] 100 mg PO TID PRN Magnesium Hydroxide [Milk of Magnesia] 30 ml PO DAILY PRN Sodium Chloride 0.65% [[place] Nasal [place]] 0 ml NASBOTH ASDIRECTED PRN 02/03/21 18:17 Communication Order [RC] BEDTIME LILLY Bandage [Elastic Wrap] [OM.PC] Routine 02/03/21 21:00 Acetaminophen [Tylenol Extra Strength] 1,000 mg PO TID Carboxymethylcellulose Sodium [Refresh Plus 0.5%] 0 each EYEBOTH BID Fluticasone Propionate [Flonase] 0 gm NASBOTH BID Gabapentin [Neurontin] 100 mg PO BEDTIME Iron Polysaccharides Complex [Ferrex 150] 150 mg PO BID Mirtazapine [Remeron] 15 mg PO BEDTIME Potassium Chloride [Klor-Con M20] 20 meq PO BID Saccharomyces Boulardii [Florastor] 500 mg PO BID carvediloL [Coreg] 6.25 mg PO BID lidocaine HCL [Aspercreme Lidocaine] 1 applic TOP BID 02/04/21 09:00 Glimepiride [Amaryl] 2 mg PO DAILY Isosorbide Mononitrate [Imdur] 30 mg PO DAILY 02/04/21 09:09 Chest 2V [CR] Routine 02/04/21 13:00 Ciprofloxacin in D5W [Cipro in D5W 400 MG/200 ML] 400 mg Premix Bag 1 bag IV Q24H 02/04/21 17:00 Cholestyramine/Sucrose [Cholestyramine Packet] 4 gm PO 1700 02/05/21 09:00 predniSONE 5 mg PO Q48H - Plan Plan:: 1. UTI: Ciprofloxacin 400 mg IV q12hr, Urine culture pending. Adjust treatments as necessary. 2. SOB: Chest x-ray, 2 views. Saline lock. Restart her diuretics. 3. Dehydration: saline lock. Encourage oral intake. Repeat BMP tomorrow. 4. Thrombocytopenia: stable at 97. Hold aspirin and anticoagulation. Repeat CBC tomorrow. 5. Weakness: PT/OT eval & treat.
[2021-02-04] MEDS: Fluticasone Propionate Nasal Spray 16 GM Bottle NASBOTH SCH ×2 (09:20→20:24)
[2021-02-04] MEDS: Spironolactone 25 MG Tab PO SCH (10:37)
[2021-02-04] MEDS: Furosemide 40 MG Tab PO SCH (10:37)
[2021-02-04] MEDS: LIDOCAINE TOP SCH ×3 (10:39→21:00)
[2021-02-04] MEDS: [UNRECOGNIZED DRUG - OTHER] TOP SCH ×3 (10:39→21:00)
--- NOTE | 2021-02-04 11:28 | CR ---
INDICATION: Short of breath. History of CHF. CHEST TWO VIEWS: PA and lateral views of the chest 02/04/21 were compared with 02/03/21 and 01/17/20. The aorta is tortuous with calcification in the arch and descending portion. The heart is enlarged. Somewhat diminished bone density is suggested likely on the basis of osteoporosis. Somewhat flattened diaphragm leaves, slightly prominent AP diameter and hyperaeration suggests COPD. The pulmonary vasculature is prominent in the upper lung alme[place] appearing slightly less so than on the previous study compatible with continued but decreasing severity of CHF. There is some linear density at the left costophrenic angle which may represent atelectatic change. No consolidating pneumonia or effusion was seen on the current study. IMPRESSION: 1. ASHD with cardiomegaly and probable resolving CHF. 2. Probable COPD. 3. Probable osteoporosis. MTDD
--- NOTE | 2021-02-04 12:14 | PCM.EKG ---
#1 Interpretation EKG Date: 02/03/21 Time: 10:43 Rhythm: A-Fib Rate (Beats/Min): 88 [place]: LAD-Left [place] Deviation P-Wave: Absent QRS: Normal ST-T: Normal QT: Normal Comparison: No Change EKG Interpretation Comments: AFIB Prolonged QT
[2021-02-04] MEDS: Furosemide 20 MG Tab PO SCH (13:20)
[2021-02-04] MEDS: Ciprofloxacin in D5W 400 MG in Premix Bag 1 BAG IV SCH ×2 (13:58)
[2021-02-04] MEDS ORDERED: Furosemide 20 MG/2 ML VIAL IVPUSH ONE (14:21)
[2021-02-04] MEDS ORDERED: Cholestyramine/Sucrose Powder 4 GM Packet PO SCH (17:00)
[2021-02-04] MEDS: CHOLESTYRAMINE LIGHT PO SCH (17:30)
[2021-02-04] MEDS: Mirtazapine 15 MG Tab PO SCH (20:23)
[2021-02-04] MEDS: Gabapentin 100 MG Cap PO SCH (20:23)
[2021-02-05] MEDS ORDERED: predniSONE 5 MG Tab PO SCH (09:00)
[2021-02-05] MEDS: Acetaminophen 500 MG Tab PO SCH ×3 (09:39→20:17)
[2021-02-05] MEDS: Fluticasone Propionate Nasal Spray 16 GM Bottle NASBOTH SCH ×2 (09:41→20:16)
[2021-02-05] MEDS: Glimepiride 2 MG Tab PO SCH (09:42)
[2021-02-05] MEDS: Carvedilol 6.25 MG Tab PO SCH ×2 (09:46→20:15)
[2021-02-05] MEDS: Saccharomyces Boulardii (Probiotic) 250 MG Cap PO SCH ×2 (09:48→20:16)
[2021-02-05] MEDS: Furosemide 40 MG Tab PO SCH (09:49)
[2021-02-05] MEDS: Iron Polysaccharides Complex 150 MG Cap PO SCH ×2 (09:50→20:16)
[2021-02-05] MEDS: Isosorbide Mononitrate 30 MG Tab.ER PO SCH (09:51)
[2021-02-05] MEDS: Potassium Chloride 20 MEQ Tab.ER PO SCH ×2 (09:51→20:16)
[2021-02-05] MEDS: Spironolactone 25 MG Tab PO SCH (09:53)
[2021-02-05] MEDS: Carboxymethylcellulose Sodium 0.5% Ophth Soln 0.4 ML UD Box of 30 EYEBOTH SCH ×2 (09:57→20:17)
[2021-02-05] MEDS: LIDOCAINE TOP SCH ×2 (09:59→20:16)
[2021-02-05] MEDS: [UNRECOGNIZED DRUG - OTHER] TOP SCH ×2 (09:59→20:16)
--- NOTE | 2021-02-05 10:12 | PCM.PN ---
- General Info Date of Service: 02/05/21 Subjective Update: Angelique up in chair having breakfast today, feels still sleepy. Still having shortness of breath, her son states she has history of smoking but quit many years ago. They are not aware of any COPD diagnosis. Discussed CXR findings of possible COPD. She is having diarrhea, family report that she takes Cholestyramine for that, they did bring her home medication yesterday so this was restarted. Temp 99 oral today. No nausea or vomiting. Walked with PT with standby assist. - Patient Data Vitals - Most Recent: Last Vital Signs Temp 99.4 F 02/04/21 20:17 Pulse 104 H 02/05/21 09:46 Resp 16 02/04/21 20:17 BP 154/63 H 02/05/21 09:51 Pulse Ox 95 02/04/21 20:43 Weight - Most Recent: 177 lb 3.2 oz I&O - Last 24 Hours: Intake & Output 02/04/21 02/05/21 02/05/21 22:59 06:59 14:59 Intake Total 0 0 Balance 0 0 Lab Results Last 24 Hours: Laboratory Results - last 24 hr 02/05/21 02/05/21 Range/Units 09:30 09:45 Sodium 139 (135-145) mmol/L Potassium 4.0 (3.5-5.3) mmol/L Chloride 99 L (100-110) mmol/L Carbon Dioxide 32 (21-32) mmol/L BUN 33 H (7-18) mg/dL Creatinine 2.0 H* (0.55-1.02) mg/dL Est Cr Clr Drug Dosing 14.67 mL/min Estimated GFR (MDRD) 24 L (>60) BUN/Creatinine Ratio 16.5 (9-20) Glucose 211 H D (80-116) mg/dL POC Glucose 207 H (80-116) mg/dL Calcium 8.4 L (8.6-10.2) mg/dL Andrzej Results Last 24 Hours: Microbiology 02/03/21 11:00 Urine Culture - Preliminary Urine, Clean Catch Gram Negative Rods Med Orders - Current: Current Medications Acetaminophen (Acetaminophen 500 Mg Tab) 1,000 mg PO TID [facility] Last Admin: 02/05/21 09:39 Dose: 1,000 mg Documented by: Albuterol/Ipratropium (Albuterol/Ipratropium 3.0-0.5 Mg/3 Ml Neb Soln) 3 ml NEB Q4H PRN PRN Reason: Shortness of Breath Artificial Tears (Carboxymethylcellulose Sodium 0.5% Ophth Soln 0.4 Ml Ud Box Of 30) 0 each EYEBOTH BID [facility] Last Admin: 02/05/21 09:57 Dose: 1 drop Documented by: Benzonatate (Benzonatate 100 Mg Cap) 100 mg PO TID PRN PRN Reason: Cough Carvedilol (Carvedilol 6.25 Mg Tab) 6.25 mg PO BID [facility] Last Admin: 02/05/21 09:46 Dose: 6.25 mg Documented by: Fluticasone Propionate (Fluticasone Propionate Nasal [place] 16 Gm Bottle) 0 gm NASBOTH BID [facility] Last Admin: 02/05/21 09:41 Dose: 1 spray Documented by: Furosemide (Furosemide 20 Mg Tab) 20 mg PO 1200 [facility] Last Admin: 02/04/21 13:20 Dose: 20 mg Documented by: Furosemide (Furosemide 40 Mg Tab) 40 mg PO DAILY [facility] Last Admin: 02/05/21 09:49 Dose: 40 mg Documented by: Gabapentin (Gabapentin 100 Mg Cap) 100 mg PO BEDTIME [facility] Last Admin: 02/04/21 20:23 Dose: 100 mg Documented by: Glimepiride (Glimepiride 2 Mg Tab) 2 mg PO DAILY [facility] Last Admin: 02/05/21 09:42 Dose: 2 mg Documented by: Ciprofloxacin/Dextrose 400 mg/ (Premix) 200 mls @ 200 mls/hr IV Q24H [facility] Last Admin: 02/04/21 13:58 Dose: 200 mls/hr Documented by: Isosorbide Mononitrate (Isosorbide Mononitrate 30 Mg Tab.Er) 30 mg PO DAILY [facility] Last Admin: 02/05/21 09:51 Dose: 30 mg Documented by: Magnesium Hydroxide (Magnesium Hydroxide 400 Mg/5 Ml Susp 30 Ml Cup) 30 ml PO DAILY PRN PRN Reason: Constipation Metolazone (Metolazone 2.5 Mg Tab) 2.5 mg PO MOFR@0800 [facility] Mirtazapine (Mirtazapine 15 Mg Tab) 15 mg PO BEDTIME [facility] Last Admin: 02/04/21 20:23 Dose: 15 mg Documented by: Aspercreme Lidocain (Cream) 0 applic TOP BID [facility] Last Admin: 02/05/21 09:59 Dose: 1 applic Documented by: Cholestyramine Oral (Susp, Light (Ptom)) 0 each PO 1700 [facility] Last Admin: 02/04/21 17:30 Dose: 1 each Documented by: Polysaccharide Iron Complex (Iron Polysaccharides Complex 150 Mg Cap) 150 mg PO BID [facility] Last Admin: 02/05/21 09:50 Dose: 150 mg Documented by: Potassium Chloride (Potassium Chloride 20 Meq Tab.Er) 20 meq PO BID [facility] Last Admin: 02/05/21 09:51 Dose: 20 meq Documented by: Prednisone (Prednisone 5 Mg Tab) 5 mg PO Q48H [facility] Saccharomyces Boulardii (Saccharomyces Boulardii (Probiotic) 250 Mg Cap) 500 mg PO BID [facility] Last Admin: 02/05/21 09:48 Dose: 500 mg Documented by: Sodium Chloride (Sodium Chloride 0.9% 10 Ml Syringe) 10 ml FLUSH ASDIRECTED PRN PRN Reason: Keep Vein Open Last Admin: 02/04/21 14:56 Dose: 10 ml Documented by: Sodium Chloride (Sodium Chloride 0.65% Nasal [place] 45 Ml Bottle) 0 ml NASBOTH ASDIRECTED PRN PRN Reason: Dryness Spironolactone (Spironolactone 25 Mg Tab) 12.5 mg PO DAILY [facility] Last Admin: 02/05/21 09:53 Dose: 12.5 mg Documented by: Discontinued Medications Ciprofloxacin (Ciprofloxacin 500 Mg Tab) 500 mg PO NOW STA Stop: 02/03/21 12:40 Last Admin: 02/03/21 12:55 Dose: Not Given Documented by: Furosemide (Furosemide 20 Mg/2 Ml Vial) 20 mg IVPUSH ONETIME ONE Stop: 02/04/21 14:22 Last Admin: 02/04/21 14:54 Dose: 20 mg Documented by: Hydralazine HCl (Hydralazine 20 Mg/Ml Sdv) 20 mg IVPUSH NOW STA Stop: 02/03/21 14:38 Last Admin: 02/03/21 14:42 Dose: 20 mg Documented by: Sodium Chloride (Normal Saline) 1,000 mls @ 250 mls/hr IV ASDIRECTED [facility] Last Admin: 02/03/21 12:03 Dose: 250 mls/hr Documented by: Ciprofloxacin/Dextrose 400 mg/ (Premix) 200 mls @ 200 mls/hr IV NOW STA Stop: 02/03/21 13:53 Last Admin: 02/03/21 13:33 Dose: 200 mls/hr Documented by: Sodium Chloride (Normal Saline) 1,000 mls @ 100 mls/hr IV ASDIRECTED [facility] Last Admin: 02/04/21 04:23 Dose: 100 mls/hr Documented by: Labetalol HCl (Labetalol 20 Mg/4 Ml Syringe) 20 mg IVPUSH NOW STA; Protocol Stop: 02/03/21 12:50 Last Admin: 02/03/21 12:57 Dose: 20 mg Documented by: Labetalol HCl (Labetalol 20 Mg/4 Ml Syringe) Confirm Administered Dose 20 mg .ROUTE .STK-MED ONE Stop: 02/03/21 12:51 Last Admin: 02/03/21 19:17 Dose: Not Given Documented by: Non-Formulary Medication (L.Acidoph,Paracasei, B.Lactis [Probiotic]) 1 cap PO DAILY [facility] Ondansetron HCl (Ondansetron 4 Mg/2 Ml Sdv) 4 mg IVPUSH ONETIME STA Stop: 02/03/21 11:03 Last Admin: 02/03/21 12:04 Dose: 4 mg Documented by: Prednisone (Prednisone 5 Mg Tab) 5 mg PO Q48H [facility] - Exam General: Alert, Oriented (person, pleasantly confused), Cooperative, No Acute Distress Neck: Trachea Midline Lungs: Clear to Auscultation, Normal Respiratory Effort, Decreased Breath Sounds (bibasilar), Wheezing (occasional RUL, LLL). No: Crackles Cardiovascular: Regular Rate, Regular Rhythm, Murmurs GI/Abdominal Exam: Normal Bowel Sounds, Soft, Non-Tender, No Distention Extremities: Pedal Edema (2+ BLE), Pallor Skin: Warm, Dry, Intact - Patient Data Lab Results Last 24 hrs: Laboratory Results - last 24 hr 02/05/21 02/05/21 Range/Units 09:30 09:45 Sodium 139 (135-145) mmol/L Potassium 4.0 (3.5-5.3) mmol/L Chloride 99 L (100-110) mmol/L Carbon Dioxide 32 (21-32) mmol/L BUN 33 H (7-18) mg/dL Creatinine 2.0 H* (0.55-1.02) mg/dL Est Cr Clr Drug Dosing 14.67 mL/min Estimated GFR (MDRD) 24 L (>60) BUN/Creatinine Ratio 16.5 (9-20) Glucose 211 H D (80-116) mg/dL POC Glucose 207 H (80-116) mg/dL Calcium 8.4 L (8.6-10.2) mg/dL Result Diagrams: 02/04/21 06:15 02/05/21 09:30 Andrzej Results Last 24 hrs: Microbiology 02/03/21 11:00 Urine Culture - Preliminary Urine, Clean Catch Gram Negative Rods Sepsis Event Note - Evaluation Sepsis Screening Result: No Definite Risk - Focused Exam Vital Signs: Vital Signs Pulse BP 02/05/21 09:51 154/63 H 02/05/21 09:46 104 H 154/63 H - Problem List & Annotations (1) UTI (urinary tract infection) SNOMED Code(s): 50185225 Code(s): N39.0 - URINARY TRACT INFECTION, SITE NOT SPECIFIED Status: Acute Current Visit: Yes Qualifiers: Urinary tract infection type: acute cystitis Hematuria presence: with hematuria Qualified Code(s): N30.01 - Acute cystitis with hematuria (2) Acute on chronic renal insufficiency SNOMED Code(s): 363075852 Code(s): N28.9 - DISORDER OF KIDNEY AND URETER, UNSPECIFIED; N18.9 - CHRONIC KIDNEY DISEASE, UNSPECIFIED Status: Acute Current Visit: No Annotation/Comment:: 2.0 reported baseline was 1.4(2018 per our records) but last Mar her lowest was 1.9. Will check [facility] to see what baseline is. (3) Weakness SNOMED Code(s): 76431892 Code(s): R53.1 - WEAKNESS Status: Acute Current Visit: Yes (4) Thrombocytopenia SNOMED Code(s): 178340474 Code(s): D69.6 - THROMBOCYTOPENIA, UNSPECIFIED Status: Acute Current Visit: Yes Annotation/Comment:: 97, stable. (5) CKD (chronic kidney disease) SNOMED Code(s): 827149090 Code(s): N18.9 - CHRONIC KIDNEY DISEASE, UNSPECIFIED Status: Chronic Current Visit: Yes Qualifiers: Chronic kidney disease stage: stage 3 (moderate) Annotation/Comment:: Cr 2.0 today. (6) Coronary artery disease SNOMED Code(s): 58112382 Code(s): I25.10 - ATHSCL HEART DISEASE OF [place] CORONARY ARTERY W/O ANG PCTRS Status: Chronic Current Visit: No Qualifiers: Coronary Disease-Associated Artery/Lesion type: [place] artery [place] vs. transplanted heart: [place] heart Associated angina: with stable angina Qualified Code(s): I25.118 - Atherosclerotic heart disease of [place] coronary artery with other forms of angina pectoris (7) Dementia SNOMED Code(s): 45404327 Code(s): F03.90 - UNSPECIFIED DEMENTIA WITHOUT BEHAVIORAL DISTURBANCE Status: Chronic Current Visit: No Qualifiers: Dementia type: Alzheimer's disease Alzheimer's disease onset: late-onset (8) Diabetes type 2, uncontrolled SNOMED Code(s): 881799126, 728887303 Code(s): E11.65 - TYPE 2 DIABETES MELLITUS WITH HYPERGLYCEMIA Status: Chronic Current Visit: No (9) Hypertension SNOMED Code(s): 42786097 Code(s): I10 - ESSENTIAL (PRIMARY) HYPERTENSION Status: Chronic Current Visit: No Qualifiers: (10) Afib SNOMED Code(s): 06468495 Code(s): I48.91 - UNSPECIFIED ATRIAL FIBRILLATION Status: Chronic Current Visit: No Qualifiers: (11) Suspected chronic obstructive pulmonary disease based on initial evaluation SNOMED Code(s): 612225451 Code(s): J44.9 - CHRONIC OBSTRUCTIVE PULMONARY DISEASE, UNSPECIFIED Status: Chronic Current Visit: Yes Annotation/Comment:: COPD based on history and chest x-ray findings. Will do trial of DuoNebs as needed to see if shortness of breath improves. With her dementia, unsure if she would be able to do PFTs as outpatient. Advised family to follow up with Dr Maxwell in regards to any further workup. (12) Palliative care patient SNOMED Code(s): 747246575, 649191881 Code(s): Z51.5 - ENCOUNTER FOR PALLIATIVE CARE Status: Chronic Current Visit: No - Problem List Review Problem List Initiated/Reviewed/Updated: Yes - My Orders Last 24 Hours: My Active Orders 02/04/21 09:21 Convert IV to Peripheral Lock [Convert IV to Saline Lock] [OM.PC] Routine 02/04/21 09:30 Spironolactone [Aldactone] 12.5 mg PO DAILY 02/04/21 10:00 Furosemide [Lasix] 40 mg PO DAILY 02/04/21 12:00 Furosemide [Lasix] 20 mg PO 1200 02/04/21 13:00 Ciprofloxacin in D5W [Cipro in D5W 400 MG/200 ML] 400 mg Premix Bag 1 bag IV Q24H 02/04/21 14:37 Turn, Cough, Deep Breathe [RC] .PRN 02/04/21 17:00 Non-Formulary Medication [NF Drug] 0 each PO 1700 02/05/21 07:59 Albuterol/Ipratropium [DuoNeb 3.0-0.5 MG/3 ML] 3 ml NEB Q4H PRN 02/05/21 08:00 RT Aerosol Therapy [RC] ASDIRECTED 02/05/21 09:00 predniSONE 5 mg PO Q48H 02/06/21 06:00 BASIC METABOLIC PANEL,BMP [CHEM] Routine 02/06/21 08:00 metOLazone [Zaroxolyn] 2.5 mg PO MOFR@0800 - Plan Plan:: 1. UTI: Ciprofloxacin 400 mg IV q12hr, Urine culture gram negative rods, ID pending. Adjust treatments as necessary. 2. SOB/COPD: Chest x-ray showed CHF and some signs of COPD. Does have remote history of smoking. 3. Dehydration: saline lock. Encourage oral intake. Will check her [place] chart on most recent Cr as 1.4 reported baseline in our records is from 2018. Au g 2020 was 1.9. Repeat BMP tomorrow. 4. Thrombocytopenia: stable at 97. Hold aspirin and anticoagulation. 5. Weakness: PT/OT eval & treat, ambulating with standby assist. PT feels she could go back to [facility] when medically stable.
[2021-02-05] MEDS: Albuterol/Ipratropium 3.0-0.5 MG/3 ML Neb Soln NEB PRN ×2 (11:04→20:15)
[2021-02-05] MEDS: Furosemide 20 MG Tab PO SCH (11:52)
[2021-02-05] MEDS: Ciprofloxacin in D5W 400 MG in Premix Bag 1 BAG IV SCH ×2 (13:34)
[2021-02-05] MEDS: CHOLESTYRAMINE LIGHT PO SCH (16:42)
[2021-02-05] MEDS: Gabapentin 100 MG Cap PO SCH (20:15)
[2021-02-05] MEDS: Mirtazapine 15 MG Tab PO SCH (20:17)
[2021-02-06] MEDS ORDERED: Metolazone 2.5 MG Tab PO SCH (08:00)
[2021-02-06] MEDS ORDERED: Ciprofloxacin 250 MG Tab PO SCH (09:00)
[2021-02-06] MEDS: Spironolactone 25 MG Tab PO SCH (10:17)
[2021-02-06] MEDS: Glimepiride 2 MG Tab PO SCH (10:18)
[2021-02-06] MEDS: Fluticasone Propionate Nasal Spray 16 GM Bottle NASBOTH SCH (10:18)
[2021-02-06] MEDS: Carvedilol 6.25 MG Tab PO SCH (10:19)
[2021-02-06] MEDS: Saccharomyces Boulardii (Probiotic) 250 MG Cap PO SCH (10:20)
[2021-02-06] MEDS: Isosorbide Mononitrate 30 MG Tab.ER PO SCH (10:20)
[2021-02-06] MEDS: [UNRECOGNIZED DRUG - OTHER] TOP SCH (10:21)
[2021-02-06] MEDS: Furosemide 40 MG Tab PO SCH (10:21)
[2021-02-06] MEDS: Potassium Chloride 20 MEQ Tab.ER PO SCH (10:21)
[2021-02-06] MEDS: LIDOCAINE TOP SCH (10:21)
[2021-02-06] MEDS: Carboxymethylcellulose Sodium 0.5% Ophth Soln 0.4 ML UD Box of 30 EYEBOTH SCH (10:22)
[2021-02-06] MEDS: Acetaminophen 500 MG Tab PO SCH (10:22)
[2021-02-06 10:23] VITALS: BP 146/74; PULSE 88
[2021-02-06] MEDS ORDERED: Iron Polysaccharides Complex 150 MG Cap PO SCH (12:00)
--- NOTE | 2021-02-06 16:43 | PCM.DCSUM1 ---
Discharge Summary - Hospital Course HPI Initial Comments: Angelique presented to ER today for dizziness and shortness of breath. She states it had been going on for a few days but worsened today. She reports her urine has been darker but doesn't think there was any blood in in. She has had some lower abdominal pain and midline when asked but denies any nausea, vomiting or diarrhea. Had bowel movement x 2 in ER, reddish brown, formed. No fevers, chills, cough, sore throat, chest pain. Some flank pain but no back pain. No new rashes. Has stasis dermatitis of both lower legs, wears LILLY wraps at home. Has small abrasion to left buttock and bruising to both buttocks. She has dentures and hard of hearing but does not wear hearing aids. She lives at [facility] in an apartment, normally independent in her room. She reports feeling weaker and required 2 assists in ER. ER course: CBC 5.3, Platelets 95 on aspirin, Creatinine 1.9(baseline 2.0), glucose 117. UA large leukocyte esterase, few epithelial cells, many bacteria, positive blood. BNP 1417 improved 03/2020 which was 3042. Covid negative. O2 saturations 96-97% on RA, wears home oxygen at 2L at night. Her blood pressure were SBP 200 received Labetalol 20 mg x 1, Hydralazine 20 mg x 1 brought her pressures down to 150s/140s in ER. She was given 1 L NS at 250 ml/hr over 4 hours in ER, then rate decreased to 100 ml/hr. She was given 1 dose of Ciprofloxacin 400 mg x 1 in ER for UTI. Her last urine culture 03/2020 grew pseudomonas sensitive to ciprofloxacin. Diagnosis: Stroke: No - Discharge Data Discharge Date: 02/06/21 ([facility]) Discharge Disposition: Home, W Home Health Agency 06 Condition: Good - Referral to Home Health Date of Face to Face Encounter: 02/06/21 Reason for Homebound Status: [facility] care Primary Care Physician: Fantasma Maxwell MD Skilled Need: detention, PT/OT - Discharge Diagnosis/Problem(s) (1) UTI (urinary tract infection) SNOMED Code(s): 32989148 ICD Code: N39.0 - URINARY TRACT INFECTION, SITE NOT SPECIFIED Status: Acute Problem Details: pseudomonas sensitive to Cipro Qualifiers: Urinary tract infection type: acute cystitis Hematuria presence: with hematuria Qualified Code(s): N30.01 - Acute cystitis with hematuria (2) Acute on chronic renal insufficiency SNOMED Code(s): 143608877 ICD Code: N28.9 - DISORDER OF KIDNEY AND URETER, UNSPECIFIED; N18.9 - CHRONIC KIDNEY DISEASE, UNSPECIFIED Status: Acute Problem Details: 2.0 reported baseline was 1.4(2018 per our records) but last Mar her lowest was 1.9. [facility] baseline 2.0(range 1.8-2.1 in past year). (3) Weakness SNOMED Code(s): 90385788 ICD Code: R53.1 - WEAKNESS Status: Resolved (4) Thrombocytopenia SNOMED Code(s): 537910856 ICD Code: D69.6 - THROMBOCYTOPENIA, UNSPECIFIED Status: Chronic Problem Details: 97, stable. (5) CKD (chronic kidney disease) SNOMED Code(s): 849170781 ICD Code: N18.9 - CHRONIC KIDNEY DISEASE, UNSPECIFIED Status: Chronic Problem Details: Cr 2.0, baseline in past year 2.0 Qualifiers: Chronic kidney disease stage: stage 3 (moderate) (6) Coronary artery disease SNOMED Code(s): 71950881 ICD Code: I25.10 - ATHSCL HEART DISEASE OF [place] CORONARY ARTERY W/O ANG PCTRS Status: Chronic Qualifiers: Coronary Disease-Associated Artery/Lesion type: [place] artery [place] vs. transplanted heart: [place] heart Associated angina: with stable angina Qualified Code(s): I25.118 - Atherosclerotic heart disease of [place] coronary artery with other forms of angina pectoris (7) Dementia SNOMED Code(s): 55862954 ICD Code: F03.90 - UNSPECIFIED DEMENTIA WITHOUT BEHAVIORAL DISTURBANCE Status: Chronic Qualifiers: Dementia type: Alzheimer's disease Alzheimer's disease onset: late-onset (8) Diabetes type 2, uncontrolled SNOMED Code(s): 949750579, 363803097 ICD Code: E11.65 - TYPE 2 DIABETES MELLITUS WITH HYPERGLYCEMIA Status: Chronic (9) Hypertension SNOMED Code(s): 22136739 ICD Code: I10 - ESSENTIAL (PRIMARY) HYPERTENSION Status: Chronic Qualifiers: (10) Afib SNOMED Code(s): 42178750 ICD Code: I48.91 - UNSPECIFIED ATRIAL FIBRILLATION Status: Chronic Qualifiers: (11) Suspected chronic obstructive pulmonary disease based on initial evaluation SNOMED Code(s): 250388328 ICD Code: J44.9 - CHRONIC OBSTRUCTIVE PULMONARY DISEASE, UNSPECIFIED Status: Chronic Problem Details: COPD based on history and chest x-ray findings. Shortness of breath & breathing improved with DuoNebs, order sent to [facility] for bid & every 6hrs as needed. With her dementia, unsure if she would be able to do PFTs as outpatient. Advised family to follow up with Dr Maxwell in regards to any further workup. (12) Palliative care patient SNOMED Code(s): 267299129, 764723183 ICD Code: Z51.5 - ENCOUNTER FOR PALLIATIVE CARE Status: Chronic - Patient Summary/Data Consults: Consultations 02/03/21 16:59 OT Evaluation and Treatment [CONS] Routine Please Evaluate and Treat. OT Reason for Consult: ADL's This query below is only for informational purposes and is not editable. Admission Diagnosis/Problem: UTI (urinary tract infection), uncomplicated PT Evaluation and Treatment [CONS] Routine Please Evaluate and Treat. PT Reason for Consult: Strengthening This query below is only for informational purposes and is not editable. Admission Diagnosis/Problem: UTI (urinary tract infection), uncomplicated Hospital Course: Started on Ciprofloxacin for UTI, received NS in ER and saline locked next day. Restarted her home diuretics. Review of [facility] labs show in past year, Cr 1.8- 2.1, last lab was November 2020. So she is at her baseline on discharge. Chest x- ray was negative for acute process, continued to complain of shortness of breath. Repeat CXR was done, did so some evidence of COPD, remote tobacco use history, quit in 1970s, started DuoNebs, received 2 doses, nursing noted improvement of breathing and wheezing, Angelique reported improvement of shortness of breath feeling. She uses oxygen at home at 2L overnight. Evaluated by PT/OT for weakness(see therapy notes), was able to ambulate with standby assist in halls, will continue PT/OT as outpatient with home health, also usp to help with nebulizer and teaching for medication management. Urine culture grew Pseudomonas, sensitive to ciprofloxacin, received 2 doses IV, 1 dose oral 250 mg bid, will go home with script for 5 more doses to complete 5 day course. - Patient Instructions Diet: Usual Diet as Tolerated Activity: As Tolerated, Cough & Deep Breathe Driving: Do Not Drive Showering/Bathing: May Shower Notify Provider of: Fever, Increased Pain, Nausea and/or Vomiting Other/Special Instructions: Follow up with Dr Maxwell on Tuesday or Tuesday for repeat UA, chemistry and review COPD, CHF, CKD. Take Ciprofloxacin 250 gm twice a day for 2.5 more days until antibiotics are gone. Added DuoNebs nebulizer treatment to help with COPD/shortness of breath - Discharge Plan *PRESCRIPTION DRUG MONITORING PROGRAM REVIEWED*: Not Applicable *COPY OF PRESCRIPTION DRUG MONITORING REPORT IN PATIENT HANK: Not Applicable Prescriptions/Med Rec: L. Acidophilus/Pectin, [place] [Acidophilus Capsule] 1 each PO BID #5 capsule Ciprofloxacin [Ciprofloxacin HCl] 250 mg PO BID 3 Days #5 tablet Albuterol/Ipratropium [DuoNeb 3.0-0.5 MG/3 ML] 3 ml NEB Q6HR 5 Days #30 neb Home Medications: Home Meds Cholestyramine/Aspartame [Cholestyramine Light] 4 gm PO 1700 02/11/14 [History] predniSONE [Prednisone] 5 mg PO Q48H 02/11/14 [History] Fluticasone Propionate [Flonase] 1 spray NASBOTH BID 04/20/18 [History] L.acidoph,Paracasei, B.lactis [Probiotic] 1 cap PO DAILY 04/20/18 [History] Mirtazapine [Remeron] 15 mg PO BEDTIME #30 tablet 04/25/18 [Rx] Furosemide 20 mg PO 1200 08/06/18 [History] Acetaminophen [Acetaminophen Extra Strength] 1,000 mg PO TID 03/17/20 [History] Aspirin [Halfprin] 81 mg PO DAILY 03/17/20 [History] Benzonatate [Tessalon Perle] 100 mg PO TID PRN 03/17/20 [History] Carboxymethylcellulose Sodium [Refresh Plus 0.5%] 1 drop EYEBOTH BID 03/17/20 [History] Furosemide [Lasix] 40 mg PO DAILY 03/17/20 [History] Gabapentin [Neurontin] 100 mg PO BEDTIME 03/17/20 [History] Isosorbide Mononitrate [Isosorbide Mononitrate ER] 30 mg PO DAILY 03/17/20 [History] Magnesium Hydroxide [Milk of Magnesia] 30 ml PO DAILY PRN 03/17/20 [History] Potassium Chloride 20 meq PO BID 03/17/20 [History] Sodium Chloride [Saline Nasal [place]] 1 spray NASBOTH ASDIRECTED PRN 03/17/20 [History] Spironolactone [Aldactone] 12.5 mg PO DAILY 03/17/20 [History] carvediloL [Coreg] 6.25 mg PO BID 03/17/20 [History] lidocaine HCL [Aspercreme Lidocaine] 1 applic TOP BID 03/17/20 [History] Iron Polysaccharides Complex [Ferrex 150] 150 mg PO BID #0 cap 03/20/20 [Rx] Glimepiride [Amaryl] 2 mg PO DAILY 02/03/21 [History] metOLazone [Zaroxolyn] 2.5 mg PO MOFR@0800 02/03/21 [History] Albuterol/Ipratropium [DuoNeb 3.0-0.5 MG/3 ML] 3 ml NEB Q6HR 5 Days #30 neb 02/06/21 [Rx] Ciprofloxacin [Ciprofloxacin HCl] 250 mg PO BID 3 Days #5 tablet 02/06/21 [Rx] L. Acidophilus/Pectin, Oceana [Acidophilus Capsule] 1 each PO BID #5 capsule 02/06/21 [Rx] Oxygen Therapy Mode: Room Air Patient Handouts: Dehydration, Adult, [id number], Home Oxygen Use, Adult, Urinary Tract Infection, Adult, Fall Prevention in Hospitals, Adult, Venous Thromboembolism Prevention, Hypertension, Adult Forms: ED Department Discharge Referrals: Fantasma Maxwell MD [Primary Care Provider] - - Discharge Summary/Plan Comment DC Time >30 min.: No - General Info Date of Service: 02/06/21 Subjective Update: Improved breathing and shortness of breath after DuoNebs, received two doses yesterday. Urine culture grew Pseudomonas, sensitive to ciprofloxacin. Oral dose given this morning to make sure tolerated. Weakness improved. Doesn't recall if she had BM or not. No abdominal pain. - Patient Data Vitals - Most Recent: Last Vital Signs Temp 97.6 F 02/06/21 08:00 Pulse 88 02/06/21 10:19 Resp 20 02/06/21 08:00 BP 146/74 H 02/06/21 10:20 Pulse Ox 94 L 02/06/21 08:00 Weight - Most Recent: 173 lb Lab Results - Last 24 hrs: Laboratory Results - last 24 hr 02/06/21 Range/Units 06:40 Sodium 141 (135-145) mmol/L Potassium 3.8 (3.5-5.3) mmol/L Chloride 101 (100-110) mmol/L Carbon Dioxide 34 H (21-32) mmol/L BUN 35 H (7-18) mg/dL Creatinine 2.0 H* (0.55-1.02) mg/dL Est Cr Clr Drug Dosing 14.67 mL/min Estimated GFR (MDRD) 24 L (>60) BUN/Creatinine Ratio 17.5 (9-20) Glucose 90 D (80-116) mg/dL Calcium 8.4 L (8.6-10.2) mg/dL LISETTE Results - Last 24 hrs: Microbiology 02/03/21 11:00 Urine Culture - Final Urine, Clean Catch Pseudomonas Aeruginosa Med Orders - Current: Current Medications Discontinued Medications Acetaminophen (Acetaminophen 500 Mg Tab) 1,000 mg PO TID [facility] Last Admin: 02/06/21 10:22 Dose: 1,000 mg Documented by: Albuterol/Ipratropium (Albuterol/Ipratropium 3.0-0.5 Mg/3 Ml Neb Soln) 3 ml NEB Q4H PRN PRN Reason: Shortness of Breath Last Admin: 02/05/21 20:15 Dose: 3 ml Documented by: Artificial Tears (Carboxymethylcellulose Sodium 0.5% Ophth Soln 0.4 Ml Ud Box Of 30) 0 each EYEBOTH BID [facility] Last Admin: 02/06/21 10:22 Dose: 1 drop Documented by: Benzonatate (Benzonatate 100 Mg Cap) 100 mg PO TID PRN PRN Reason: Cough Carvedilol (Carvedilol 6.25 Mg Tab) 6.25 mg PO BID [facility] Last Admin: 02/06/21 10:19 Dose: 6.25 mg Documented by: Ciprofloxacin (Ciprofloxacin 500 Mg Tab) 500 mg PO NOW STA Stop: 02/03/21 12:40 Last Admin: 02/03/21 12:55 Dose: Not Given Documented by: Ciprofloxacin (Ciprofloxacin 250 Mg Tab) 250 mg PO BID [facility] Last Admin: 02/06/21 10:16 Dose: 250 mg Documented by: Fluticasone Propionate (Fluticasone Propionate Nasal [place] 16 Gm Bottle) 0 gm NASBOTH BID [facility] Last Admin: 02/06/21 10:18 Dose: 1 spray Documented by: Furosemide (Furosemide 20 Mg Tab) 20 mg PO 1200 [facility] Last Admin: 02/05/21 11:52 Dose: 20 mg Documented by: Furosemide (Furosemide 40 Mg Tab) 40 mg PO DAILY [facility] Last Admin: 02/06/21 10:21 Dose: 40 mg Documented by: Furosemide (Furosemide 20 Mg/2 Ml Vial) 20 mg IVPUSH ONETIME ONE Stop: 02/04/21 14:22 Last Admin: 02/04/21 14:54 Dose: 20 mg Documented by: Gabapentin (Gabapentin 100 Mg Cap) 100 mg PO BEDTIME [facility] Last Admin: 02/05/21 20:15 Dose: 100 mg Documented by: Glimepiride (Glimepiride 2 Mg Tab) 2 mg PO DAILY [facility] Last Admin: 02/06/21 10:18 Dose: 2 mg Documented by: Hydralazine HCl (Hydralazine 20 Mg/Ml Sdv) 20 mg IVPUSH NOW STA Stop: 02/03/21 14:38 Last Admin: 02/03/21 14:42 Dose: 20 mg Documented by: Sodium Chloride (Normal Saline) 1,000 mls @ 250 mls/hr IV ASDIRECTED [facility] Last Admin: 02/03/21 12:03 Dose: 250 mls/hr Documented by: Ciprofloxacin/Dextrose 400 mg/ (Premix) 200 mls @ 200 mls/hr IV NOW STA Stop: 02/03/21 13:53 Last Admin: 02/03/21 13:33 Dose: 200 mls/hr Documented by: Sodium Chloride (Normal Saline) 1,000 mls @ 100 mls/hr IV ASDIRECTED [facility] Last Admin: 02/04/21 04:23 Dose: 100 mls/hr Documented by: Ciprofloxacin/Dextrose 400 mg/ (Premix) 200 mls @ 200 mls/hr IV Q24H [facility] Last Admin: 02/05/21 13:34 Dose: 200 mls/hr Documented by: Isosorbide Mononitrate (Isosorbide Mononitrate 30 Mg Tab.Er) 30 mg PO DAILY [facility] Last Admin: 02/06/21 10:20 Dose: 30 mg Documented by: Labetalol HCl (Labetalol 20 Mg/4 Ml Syringe) 20 mg IVPUSH NOW STA; Protocol Stop: 02/03/21 12:50 Last Admin: 02/03/21 12:57 Dose: 20 mg Documented by: Labetalol HCl (Labetalol 20 Mg/4 Ml Syringe) Confirm Administered Dose 20 mg .ROUTE .STK-MED ONE Stop: 02/03/21 12:51 Last Admin: 02/03/21 19:17 Dose: Not Given Documented by: Magnesium Hydroxide (Magnesium Hydroxide 400 Mg/5 Ml Susp 30 Ml Cup) 30 ml PO DAILY PRN PRN Reason: Constipation Metolazone (Metolazone 2.5 Mg Tab) 2.5 mg PO MOFR@0800 [facility] Last Admin: 02/06/21 10:16 Dose: 2.5 mg Documented by: Mirtazapine (Mirtazapine 15 Mg Tab) 15 mg PO BEDTIME [facility] Last Admin: 02/05/21 20:17 Dose: 15 mg Documented by: Non-Formulary Medication (L.Acidoph,Paracasei, B.Lactis [Probiotic]) 1 cap PO DAILY [facility] Aspercreme Lidocain (Cream) 0 applic TOP BID [facility] Last Admin: 02/06/21 10:21 Dose: 1 applic Documented by: Cholestyramine Oral (Susp, Light (Ptom)) 0 each PO 1700 [facility] Last Admin: 02/05/21 16:42 Dose: 1 each Documented by: Ondansetron HCl (Ondansetron 4 Mg/2 Ml Sdv) 4 mg IVPUSH ONETIME STA Stop: 02/03/21 11:03 Last Admin: 02/03/21 12:04 Dose: 4 mg Documented by: Polysaccharide Iron Complex (Iron Polysaccharides Complex 150 Mg Cap) 150 mg PO BID [facility] Last Admin: 02/05/21 20:16 Dose: 150 mg Documented by: Polysaccharide Iron Complex (Iron Polysaccharides Complex 150 Mg Cap) 150 mg PO BID@1200,1800 [facility] Potassium Chloride (Potassium Chloride 20 Meq Tab.Er) 20 meq PO BID [facility] Last Admin: 02/06/21 10:21 Dose: 20 meq Documented by: Prednisone (Prednisone 5 Mg Tab) 5 mg PO Q48H [facility] Prednisone (Prednisone 5 Mg Tab) 5 mg PO Q48H [facility] Last Admin: 06/24/21 10:20 Dose: 5 mg Documented by: Saccharomyces Boulardii (Saccharomyces Boulardii (Probiotic) 250 Mg Cap) 500 mg PO BID [facility] Last Admin: 02/06/21 10:20 Dose: 500 mg Documented by: Sodium Chloride (Sodium Chloride 0.9% 10 Ml Syringe) 10 ml FLUSH ASDIRECTED PRN PRN Reason: Keep Vein Open Last Admin: 02/04/21 14:56 Dose: 10 ml Documented by: Sodium Chloride (Sodium Chloride 0.65% Nasal [place] 45 Ml Bottle) 0 ml NASBOTH ASDIRECTED PRN PRN Reason: Dryness Spironolactone (Spironolactone 25 Mg Tab) 12.5 mg PO DAILY [facility] Last Admin: 02/06/21 10:17 Dose: 12.5 mg Documented by: - Exam General: Reports: Alert, Oriented (person), Cooperative, No Acute Distress Lungs: Reports: Clear to Auscultation, Normal Respiratory Effort, Decreased Breath Sounds (bibasilar). Denies: Crackles Cardiovascular: Reports: Regular Rate, Regular Rhythm GI/Abdominal Exam: Normal Bowel Sounds, Soft, No Distention, Guarding, Tender (diffuse) (Female) Exam: Deferred Rectal (Female) Exam: Deferred *Q Meaningful Use (DIS) - VTE *Q VTE Mechanical Contraindications *Q: At Risk for Falls VTE Pharmacological Contraindications *Q: Thrombocytopenia VTE Anticoagulation Contraindications: Medical/Procedure Contrai
== END 2021-02-06 11:13 | disposition home health service (06) | DRG 690 ==
LOC: FB.ED 10:31 → FB.MS 16:36
PROVIDERS: ADMIT Family Medicine; ATTEND Family Medicine
DX: N30.01 Acute cystitis with hematuria (principal); E86.0 Dehydration; R53.1 Weakness; I13.0 Hypertensive heart and chronic kidney disease with heart failure and stage 1 through stage 4 chronic kidney disease, or unspecified chronic kidney disease; D69.6 Thrombocytopenia, unspecified; I25.118 Atherosclerotic heart disease of native coronary artery with other forms of angina pectoris; E11.22 Type 2 diabetes mellitus with diabetic chronic kidney disease; Z51.5 Encounter for palliative care; Z66 Do not resuscitate; E11.65 Type 2 diabetes mellitus with hyperglycemia; N18.30 Chronic kidney disease, stage 3 unspecified; G30.1 Alzheimer's disease with late onset; F02.80 Dementia in other diseases classified elsewhere, unspecified severity, without behavioral disturbance, psychotic disturbance, mood disturbance, and anxiety; I48.91 Unspecified atrial fibrillation; G30.9 Alzheimer's disease, unspecified; J44.9 Chronic obstructive pulmonary disease, unspecified; B96.5 Pseudomonas (aeruginosa) (mallei) (pseudomallei) as the cause of diseases classified elsewhere; H54.7 Unspecified visual loss; H91.90 Unspecified hearing loss, unspecified ear; Z20.822 Contact with and (suspected) exposure to COVID-19; Z96.659 Presence of unspecified artificial knee joint; I50.9 Heart failure, unspecified; I27.20 Pulmonary hypertension, unspecified; Z99.81 Dependence on supplemental oxygen; R32 Unspecified urinary incontinence; K57.90 Diverticulosis of intestine, part unspecified, without perforation or abscess without bleeding; M19.90 Unspecified osteoarthritis, unspecified site; M06.9 Rheumatoid arthritis, unspecified; E05.90 Thyrotoxicosis, unspecified without thyrotoxic crisis or storm; Z86.19 Personal history of other infectious and parasitic diseases; Z90.49 Acquired absence of other specified parts of digestive tract; Z79.52 Long term (current) use of systemic steroids; Z79.82 Long term (current) use of aspirin; Z79.899 Other long term (current) drug therapy; Z87.891 Personal history of nicotine dependence; Z79.84 Long term (current) use of oral hypoglycemic drugs; Z88.1 Allergy status to other antibiotic agents; Z88.0 Allergy status to penicillin; Z88.8 Allergy status to other drugs, medicaments and biological substances; Z88.2 Allergy status to sulfonamides; Z90.710 Acquired absence of both cervix and uterus
CPT/HCPCS: 36415; 71045; 71046; 80048; 80053; 81001; 82947; 83880; 84484; 85025; 87086; 87088; 87186; 93005; 93010; 94640; 96365; 96375; 97161-GP; 97165-GO; 97530-GO; 97530-GP; 97535-GO; 99285; 99285-25; A9270-GY; J0360; J0744; J1940; J2405; J3490; J7030; J7512; J7620-GY; U0002

== ENCOUNTER 2021-04-03 10:52 | Inpatient (IN) | payer MEDICARE, OTHER ==
--- NOTE | 2021-04-03 11:44 | EDM.PDOC ---
ED HPI GENERAL MEDICAL PROBLEM - General Stated Complaint: FALL Time Seen by Provider: 04/03/21 11:39 Source of Information: Reports: Patient, Family History Limitations: Reports: Other (dementia ) - History of Present Illness INITIAL COMMENTS - FREE TEXT/NARRATIVE: pt is a resident at [facility] with Hx of dementia , heart failure and mobility dysfunction comes by EMS after accidental fall after she was trying to return to her bed this morning, c/o left knee pain , has a skin tear at right side of her neck , denies any other injuries or pain complaints or LOC, and there are no other reported concerns by staff. - Related Data Allergies Allergy/AdvReac Type Severity Reaction Status Date / Time moxifloxacin HCl Allergy Cannot Verified 02/03/21 11:08 [From Avelox] Remember Penicillins Allergy Swelling Verified 02/03/21 11:08 [id number]-Mbt Reductase Allergy Cannot Verified 02/03/21 11:08 Inhibitor Remember sulfamethoxazole Allergy Swelling Verified 02/03/21 11:08 [From Bactrim] trimethoprim [From Bactrim] Allergy Swelling Verified 02/03/21 11:08 Home Meds: Home Meds Cholestyramine/Aspartame [Cholestyramine Light] 4 gm PO 1700 02/11/14 [History] predniSONE [Prednisone] 5 mg PO Q48H 02/11/14 [History] Fluticasone Propionate [Flonase] 1 spray NASBOTH BID 04/20/18 [History] L.acidoph,Paracasei, B.lactis [Probiotic] 1 cap PO DAILY 04/20/18 [History] Mirtazapine [Remeron] 15 mg PO BEDTIME #30 tablet 04/25/18 [Rx] Furosemide 20 mg PO 1200 08/06/18 [History] Acetaminophen [Acetaminophen Extra Strength] 500 mg PO TID 03/17/20 [History] Aspirin [Halfprin] 81 mg PO DAILY 03/17/20 [History] Benzonatate [Tessalon Perle] 100 mg PO TID PRN 03/17/20 [History] Carboxymethylcellulose Sodium [Refresh Plus 0.5%] 1 drop EYEBOTH BID 03/17/20 [History] Furosemide [Lasix] 40 mg PO DAILY 03/17/20 [History] Gabapentin [Neurontin] 100 mg PO BID 03/17/20 [History] Isosorbide Mononitrate [Isosorbide Mononitrate ER] 30 mg PO DAILY 03/17/20 [History] Magnesium Hydroxide [Milk of Magnesia] 30 ml PO DAILY PRN 03/17/20 [History] Potassium Chloride 20 meq PO BID 03/17/20 [History] Sodium Chloride [Saline Nasal Aguirre] 1 spray NASBOTH ASDIRECTED PRN 03/17/20 [History] Spironolactone [Aldactone] 25 mg PO DAILY 03/17/20 [History] carvediloL [Coreg] 6.25 mg PO BID 03/17/20 [History] lidocaine HCL [Aspercreme Lidocaine] 1 applic TOP BID 03/17/20 [History] Iron Polysaccharides Complex [Ferrex 150] 150 mg PO BID #0 cap 03/20/20 [Rx] Glimepiride [Amaryl] 2 mg PO DAILY 02/03/21 [History] metOLazone [Zaroxolyn] 2.5 mg PO MOFR@0800 02/03/21 [History] Albuterol/Ipratropium [DuoNeb 3.0-0.5 MG/3 ML] 3 ml NEB Q6HR 5 Days #30 neb 02/06/21 [Rx] Past Medical History HEENT History: Reports: Hard of Hearing, Impaired Vision Other HEENT History: wears glasses Cardiovascular History: Reports: Afib, Heart Failure, Hypertension Other Cardiovascular History: CHF Respiratory History: Reports: Other (See Below) Other Respiratory History: wears oxygen for comfort, mostly at night, pulmonary hypertension Gastrointestinal History: Reports: Diverticulosis Genitourinary History: Reports: Urinary Incontinence [employer]ED [employer]SE [employer]CTOR History: Reports: Musculoskeletal History: Reports: Arthritis, RA, Other (See Below) Other Musculoskeletal History: Right hip pinning Neurological History: Reports: Alzheimers Disease 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: Alzheimers Disease Endocrine/Metabolic History: Reports: Diabetes, Type II, Hyperthyroidism Hematologic History: Reports: Other (See Below) Other Hematologic History: hx of low magneium. Pernicious anemia. Thrombocytopenia. - Infectious Disease History Infectious Disease History: Reports: Chicken Pox, Measles, Mumps Other Infectious Disease History: son unsure and pt doesn't remember - Past Surgical History GI Surgical History: Reports: Cholecystectomy Female Surgical History: Reports: Hysterectomy Musculoskeletal Surgical History: Reports: Knee Replacement Social & Family History - Family History Family Medical History: No Pertinent Family History Oncologic: Reports: Other (See Below) - Caffeine Use Caffeine Use: Reports: Coffee Other Caffeine Use: Unknown ED ROS GENERAL - Review of Systems Review Of Systems: See Below Constitutional: Reports: No Symptoms Respiratory: Reports: No Symptoms Cardiovascular: Reports: No Symptoms Neurological: Reports: No Symptoms ED EXAM, GENERAL - Physical Exam Exam: See Below Exam Limited By: No Limitations General Appearance: Alert, Mild Distress Eye Exam: Bilateral Eye: PERRL (slight discrepancy noted in iris size but both are well reacting.) Ears: Normal External Exam, Normal Canal, Normal TMs Ear Exam: Bilateral Ear: TM normal Nose: Normal Inspection Throat/Mouth: Normal Inspection Head: Atraumatic, Normocephalic, Other Neck: Supple, Full Range of Motion, Other (there a 2 cm skin tear at right side of her neck. no soft tissue hematoma, cervical spine has full non tender range of motion. ) Respiratory/Chest: No Respiratory Distress, Lungs Clear Cardiovascular: Normal Peripheral Pulses, Regular Rate, Rhythm GI/Abdominal: Normal Bowel Sounds, Soft, Non-Tender Back Exam: Normal Inspection Extremities: Normal Inspection, Normal Range of Motion, Other (trndr sround lrft knee , no effusion or deformities , ROM is limited secondary to pain also tender with movement of left hip. no leg lenght discrepancy. ) Neurological: Alert, Oriented, CN II-XII Intact, No Motor/Sensory Deficits Skin Exam: Warm, Dry, Normal Color Course - Vital Signs Text/Narrative:: labs and imaging studies results were explained to pt and her son, no acute findings on xrays or CT. pt has UTI and possibly early urosepsis , was given cipro here and will be admitted to Dr Gutiérrez . Last Recorded V/S: Last Vital Signs Temp Pulse 90 04/03/21 10:57 Resp 16 04/03/21 10:57 BP 127/55 L 04/03/21 10:57 Pulse Ox 92 L 04/03/21 10:57 - Orders/Labs/Meds Labs: Laboratory Tests 04/03/21 04/03/21 04/03/21 Range/Units 11:55 12:03 12:03 WBC 4.5 (3.0-10.3) x10-3/uL RBC 3.91 (3.60-5.20) x10(6)uL Hgb 11.6 (11.4-15.5) g/dL Hct 36.3 (34.2-48.2) % MCV 92.8 (76.7-100.5) fL MCH 29.6 (23.9-33.9) pg MCHC 31.9 (31.9-34.8) g/dL RDW 13.1 (12.3-16.5) % Plt Count 104 L (151-488) x10(3)uL Sodium 145 (135-145) mmol/L Potassium 4.1 (3.5-5.3) mmol/L Chloride 103 (100-110) mmol/L Carbon Dioxide 33 H (21-32) mmol/L BUN 51 H D (7-18) mg/dL Creatinine 2.1 H* (0.55-1.02) mg/dL Est Cr Clr Drug Dosing TNP Estimated GFR (MDRD) 22 L (>60) BUN/Creatinine Ratio 24.3 H (9-20) Glucose 182 H D (80-116) mg/dL Calcium 9.1 (8.6-10.2) mg/dL Total Bilirubin 0.5 (0.1-1.3) mg/dL AST 10 D (5-25) IU/L ALT 15 (12-36) U/L Alkaline Phosphatase 57 (56-112) IU/L Total Protein 7.3 (6.0-8.0) g/dL Albumin 3.9 (3.2-4.6) g/dL Globulin 3.4 g/dL Albumin/Globulin Ratio 1.2 Urine Color Yellow (YELLOW) Urine Appearance Cloudy (CLEAR) Urine pH 5.0 (5.0-6.5) Ur Specific Warren 1.010 (1.010-1.025) Urine Protein Trace (NEGATIVE) mg/dL Urine Glucose (UA) Normal (NORMAL) mg/dL Urine Ketones Negative (NEGATIVE) mg/dL Urine Occult Blood Moderate H (NEGATIVE) Urine Nitrite Negative (NEGATIVE) Urine Bilirubin Negative (NEGATIVE) Urine Urobilinogen Normal (NEGATIVE) mg/dL Ur Leukocyte Esterase Large H (NEGATIVE) Urine RBC 0-5 (0-5) Urine WBC >100 H (0-5) Ur Squamous Epith Cells Occasional (NS,R,O) Urine Bacteria Many H (NS) Meds: Medications Discontinued Medications Generic Name Dose Route Start Last Admin Trade Name Freq PRN Reason Stop Dose Admin Acetaminophen 650 mg 04/03/21 11:48 04/03/21 11:57 Acetaminophen 325 Mg Tab PO 04/03/21 11:49 650 mg NOW ONE Administration Departure - Departure Time of Disposition: 13:45 Disposition: Admitted As Inpatient 68 Clinical Impression: UTI (urinary tract infection) Qualifiers: Urinary tract infection type: acute cystitis Hematuria presence: with hematuria Qualified Code(s): N30.01 - Acute cystitis with hematuria - Discharge Information Referrals: Fantasma Maxwell MD [Primary Care Provider] - Sepsis Event Note (ED) - Focused Exam Vital Signs: Vital Signs Pulse Resp BP Pulse Ox 04/03/21 10:57 90 16 127/55 L 92 L
[2021-04-03] MEDS ORDERED: Acetaminophen 325 MG Tab PO ONE (11:48)
--- NOTE | 2021-04-03 12:56 | CT ---
INDICATION: Head injury. CT HEAD WITHOUT CONTRAST: Spiral 3.75 mm axial sections were obtained through the brain without contrast with axial, sagittal and coronal reconstructions 04/03/21 and compared with 04/09/17. Total exam DLP was 1425.35 milligray-cm. The paranasal sinuses appeared well aerated except to note a moderate size retention cyst in a posterior left ethmoidal air cell. The mastoid air cells appear to be normally aerated on the left and mostly on the right with a few poorly aerated anteriorly located right mastoid air cells. This could represent a minimal or previous mastoiditis. It does appear to be a new finding compared with the previous study. Also the retention cyst mentioned above in the posterior left ethmoidal air cell is a new finding also. The orbits appear to be intact. For the most part, the cranium is intact except to note a trephining - postsurgical site in the left frontal area which was present on the previous examination. No shift of midline structures is noted. Ventricles are prominent compatible with central atrophy of moderate degree, and to some degree for the patient's age. Periventricular white matter changes are noted compatible with mild microvascular disease but should be correlated clinically as other cause of leukoencephalopathy cannot be excluded. There is again noted a lacunar infarct in the anterior limb of the left internal capsule and lacunar infarcts in the right thalamus and right basal ganglia. These are all unchanged although slightly better defined. These are all unchanged overall with slightly increased definition in the thalamic lacunar infarcts. No definite new acute intracranial abnormality could be identified - no bleeding site or hematoma was seen. Calcifications are noted in the vertebral and internal carotid arteries. IMPRESSION: 1. No acute intracranial abnormality. 2. White matter changes compatible with microvascular disease although other cause of leukoencephalopathy cannot be excluded. Calcifications are associated in the vertebral and internal carotid arteries. 3. Lacunar infarcts are noted as mentioned above. 4. Central atrophy at least partly compatible with the patient's age. 5. Postsurgical changes left frontal area cranium. No underlying abnormality identified. Report was called to Dr. Graf at 1234 hours 04/03/21. [facility]
--- NOTE | 2021-04-03 13:06 | CR ---
INDICATION: Knee pain. LEFT KNEE: Frontal and lateral views of the left knee reveal diminished bone density which is compatible with osteomalacia or osteoporosis - correlate clinically. Narrowing of the femorotibial joint spaces is suggested to a minimal degree especially medially. Hypertrophic degenerative changes are noted at the intercondylar spines and medially and laterally off the tibia and laterally off the femur as well as at the patellofemoral joint. There may be some narrowing at the patellofemoral joint also present. A definite acute fracture or dislocation was not identified however. IMPRESSION: 1. No definite acute fracture or dislocation. 2. Osteoarthritis with joint space narrowing and probable minimal chondrocalcinosis. 3. Demineralization likely on the basis of osteoporosis. 4. ASD with posterior arterial calcifications noted. MTDD
--- NOTE | 2021-04-03 13:11 | CR ---
INDICATION: Left lower extremity pain. PELVIS AND LEFT HIP: Frontal view of the pelvis with frontal and lateral views of the left hip were obtained 04/03/21 and compared with pelvis dated 09/26/18 and 02/20/19. Hip pinning is again noted on the right which appears to have healed since the previous study with endosteal sclerosis and closing of the fracture line intertrochanteric area. Diminished bone density is noted likely on the basis of osteoporosis - correlate clinically. The hip joints appear to be fairly intact especially for age without definite acute fracture or dislocation. Sacroiliac joints appeared normal for age with very minimal degenerative change present. Arterial calcifications are noted in the iliac and femoral arteries as well as the distal abdominal aorta visualized. Degenerative hypertrophic changes and disc disease are suggested at L4-L5. IMPRESSION: 1. No acute fracture or dislocation. 2. Healing of post hip pinning intertrochanteric fracture at the right proximal femur. 3. Demineralization. 4. Degenerative changes and disc disease L4-L5. Report was called to Dr. Graf at 1242 hours 04/03/21. [facility]
[2021-04-03] MEDS ORDERED: Ciprofloxacin in D5W 400 MG in Premix Bag 1 BAG IV ONE ×2 (13:43)
[2021-04-03] MEDS ORDERED: Magnesium Hydroxide 400 MG/5 ML Susp 30 ML Cup PO PRN (14:24)
[2021-04-03] MEDS ORDERED: Albuterol/Ipratropium 3.0-0.5 MG/3 ML Neb Soln NEB PRN (14:30)
--- NOTE | 2021-04-03 14:43 | PCM.HP.2 ---
H&P History of Present Illness - General Date of Service: 04/03/21 Admit Problem/Dx: Admission Diagnosis/Problem Admission Diagnosis/Problem UTI, Urinary tract infectious disease Source of Information: Family, Provider (ER) History Limitations: Reports: Altered Mental Status (Dementia) - History of Present Illness Initial Comments - Free Text/Narative: Angelique fell this morning digging in the bottom drawer of her fridge, fell and pushed her warning pendant, without loss of consciousness, unwitnessed fall, reported by [facility] staff to ER nurse, Angelique does not remember what she was doing or what she landed on. She was brought in by EMS for evaluation. Complaint of left knee pain, skin tear to right side of her neck, right chest wall pain and left arm pain. Also bruising to her right chest wall and left humerus, right knee. Denies any chest pain, shortness of breath, or cough. ER nurse noted when she was up to void that she had red stool present when she wiped her. She has chronic bruising of bilateral buttocks which was present on last admission in January. She has history of thrombocytopenia, dementia, heart failure and mobility dysfunction. Her son stated [facility] staff called him that they were sending her to ER but they didn't tell him why so he came straight here. She has easily bruising with her Aspirin, Prednisone and thrombocytopenia. ER course: WBC 4.5, Hgb 11.6, Plt 104(last admission 94), Cr 2.1, BUN 51; UA moderate blood, large Leukocyte esterase, WBC>100, occasional epithelial cell and many bacteria. had Pseudomonas UTI in January, sensitive to Ciprofloxacin which she tolerated well. Right hip & knee x-ray were negative for acute fracture. CT head was negative. - Related Data Allergies/Adverse Reactions: Allergies Allergy/AdvReac Type Severity Reaction Status Date / Time moxifloxacin HCl Allergy Cannot Verified 04/03/21 14:17 [From Avelox] Remember Penicillins Allergy Swelling Verified 04/03/21 14:17 Qdintkd-Gsr-Loo Reductase Allergy Cannot Verified 04/03/21 14:17 Inhibitor Remember sulfamethoxazole Allergy Swelling Verified 04/03/21 14:17 [From Bactrim] trimethoprim [From Bactrim] Allergy Swelling Verified 04/03/21 14:17 Home Medications: Home Meds Cholestyramine/Aspartame [Cholestyramine Light] 4 gm PO 1700 02/11/14 [History] Fluticasone Propionate [Flonase] 1 spray NASBOTH BID 04/20/18 [History] L.acidoph,Paracasei, B.lactis [Probiotic] 1 cap PO DAILY 04/20/18 [History] Mirtazapine [Remeron] 15 mg PO BEDTIME #30 tablet 04/25/18 [Rx] Furosemide 20 mg PO 1200 08/06/18 [History] Acetaminophen [Acetaminophen Extra Strength] 500 mg PO TID 03/17/20 [History] Aspirin [Halfprin] 81 mg PO DAILY 03/17/20 [History] Benzonatate [[place]] 100 mg PO TID PRN 03/17/20 [History] Carboxymethylcellulose Sodium [Refresh Plus 0.5%] 1 drop EYEBOTH BID 03/17/20 [History] Furosemide [Lasix] 40 mg PO DAILY 03/17/20 [History] Gabapentin [Neurontin] 100 mg PO BID 03/17/20 [History] Isosorbide Mononitrate [Isosorbide Mononitrate ER] 30 mg PO DAILY 03/17/20 [History] Magnesium Hydroxide [Milk of Magnesia] 30 ml PO DAILY PRN 03/17/20 [History] Potassium Chloride 20 meq PO BID 03/17/20 [History] Sodium Chloride [Saline Nasal [place]] 1 spray NASBOTH ASDIRECTED PRN 03/17/20 [History] Spironolactone [Aldactone] 25 mg PO DAILY 03/17/20 [History] carvediloL [Coreg] 6.25 mg PO BID 03/17/20 [History] lidocaine HCL [Aspercreme Lidocaine] 1 applic TOP BID 03/17/20 [History] Iron Polysaccharides Complex [Ferrex 150] 150 mg PO BID #0 cap 03/20/20 [Rx] Glimepiride [Amaryl] 2 mg PO DAILY 02/03/21 [History] metOLazone [Zaroxolyn] 2.5 mg PO MOFR@0800 02/03/21 [History] Albuterol/Ipratropium [DuoNeb 3.0-0.5 MG/3 ML] 3 ml INH Q6H PRN 04/03/21 [ History] predniSONE [Prednisone] 5 mg PO Q48H 04/03/21 [History] Past Medical History HEENT History: Reports: Hard of Hearing, Impaired Vision Other HEENT History: wears glasses Cardiovascular History: Reports: Afib, Heart Failure, Hypertension Other Cardiovascular History: CHF Respiratory History: Reports: Other (See Below) Other Respiratory History: wears oxygen for comfort, mostly at night, pulmonary hypertension Gastrointestinal History: Reports: Diverticulosis Genitourinary History: Reports: Urinary Incontinence 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 Pernicious anemia. Thrombocytopenia. - Infectious Disease History Infectious Disease History: Reports: Chicken Pox, Measles, Mumps Other Infectious Disease History: son unsure and pt doesn't remember - Past Surgical History GI Surgical History: Reports: Cholecystectomy Female Surgical History: Reports: Hysterectomy Musculoskeletal Surgical History: Reports: Knee Replacement Social & Family History - Family History Family Medical History: No Pertinent Family History Oncologic: Reports: Other (See Below) - Caffeine Use Caffeine Use: Reports: Coffee Other Caffeine Use: Unknown H&P Review of Systems - Review of Systems: Review Of Systems: Unable To Obtain Reason Not Obtained: limited due to patient's cognition, see HPI Exam - Exam Exam: See Below - Vital Signs Vital Signs: Last Vital Signs Temp Pulse 90 04/03/21 10:57 Resp 16 04/03/21 10:57 BP 127/55 L 04/03/21 10:57 Pulse Ox 92 L 04/03/21 10:57 - Exam General: Alert (person pleasantly confused), Cooperative HEENT: PERRLA, Conjunctiva Clear, EOMI, Mucosa Moist & [place], Glasses, Other (Skin tear with steri-strips on right neck with surrounding eccyhmosis). No: Hearing Intact Neck: Trachea Midline Lungs: Clear to Auscultation, Normal Respiratory Effort, Decreased Breath Sounds (bibasilar), Other (Linear ecchymosis over right 2nd rib/sternum, TTP, no step offs noted). No: Crackles, Wheezing Cardiovascular: Regular Rate, Irregular Rhythm GI/Abdominal Exam: Normal Bowel Sounds, Soft, Non-Tender, No Distention (Female) Exam: Deferred Rectal (Female) Exam: Other (No stool present, ecchymosis of bilateral buttocks minimal improvement from January exam by myself) Back Exam: Normal Inspection Extremities: Normal Capillary Refill, Pedal Edema (R>L, mild ecchymosis of dista l right knee) Peripheral Pulses: 2+: Radial (L), Radial (R), Dorsalis Pedis (L), Dorsalis Pedis (R) Skin: Ecchymosis (Right neck, right proximal chest wall, left proximal humerus, right distal knee, bilateral buttocks) Neurological: Cranial Nerves Intact, Normal Speech, Normal Tone Neuro Extensive - Mental Status: Disorientation to Place, Disorientation to Time, Memory Loss-Recent Events Psychiatric: No: Normal Affect - Patient Data Lab Results Last 24 hrs: Laboratory Results - last 24 hr 04/03/21 04/03/21 04/03/21 Range/Units 11:55 12:03 12:03 WBC 4.5 (3.0-10.3) x10-3/uL RBC 3.91 (3.60-5.20) x10(6)uL Hgb 11.6 (11.4-15.5) g/dL Hct 36.3 (34.2-48.2) % MCV 92.8 (76.7-100.5) fL MCH 29.6 (23.9-33.9) pg MCHC 31.9 (31.9-34.8) g/dL RDW 13.1 (12.3-16.5) % Plt Count 104 L (151-488) x10(3)uL Sodium 145 (135-145) mmol/L Potassium 4.1 (3.5-5.3) mmol/L Chloride 103 (100-110) mmol/L Carbon Dioxide 33 H (21-32) mmol/L BUN 51 H D (7-18) mg/dL Creatinine 2.1 H* (0.55-1.02) mg/dL Est Cr Clr Drug Dosing TNP Estimated GFR (MDRD) 22 L (>60) BUN/Creatinine Ratio 24.3 H (9-20) Glucose 182 H D (80-116) mg/dL Calcium 9.1 (8.6-10.2) mg/dL Total Bilirubin 0.5 (0.1-1.3) mg/dL AST 10 D (5-25) IU/L ALT 15 (12-36) U/L Alkaline Phosphatase 57 (56-112) IU/L Total Protein 7.3 (6.0-8.0) g/dL Albumin 3.9 (3.2-4.6) g/dL Globulin 3.4 g/dL Albumin/Globulin Ratio 1.2 Urine Color Yellow (YELLOW) Urine Appearance Cloudy (CLEAR) Urine pH 5.0 (5.0-6.5) Ur Specific [place] 1.010 (1.010-1.025) Urine Protein Trace (NEGATIVE) mg/dL Urine Glucose (UA) Normal (NORMAL) mg/dL Urine Ketones Negative (NEGATIVE) mg/dL Urine Occult Blood Moderate H (NEGATIVE) Urine Nitrite Negative (NEGATIVE) Urine Bilirubin Negative (NEGATIVE) Urine Urobilinogen Normal (NEGATIVE) mg/dL Ur Leukocyte Esterase Large H (NEGATIVE) Urine RBC 0-5 (0-5) Urine WBC >100 H (0-5) Ur Squamous Epith Cells Occasional (NS,R,O) Urine Bacteria Many H (NS) Result Diagrams: 04/03/21 12:03 04/03/21 12:03 Sepsis Event Note - Evaluation Sepsis Screening Result: No Definite Risk - Focused Exam Vital Signs: Vital Signs Pulse Resp BP Pulse Ox 04/03/21 10:57 90 16 127/55 L 92 L *Q Meaningful Use (ADM) - VTE *Q VTE Mechanical Contraindications *Q: At Risk for Falls VTE Pharmacological Contraindications *Q: Thrombocytopenia - VTE Risk Assess *Q Each Risk Factor Represents 1 Point: None Total Score 1 Point Risk Factors: 0 Each Risk Factor Represents 2 Points: None Total Score 2 Point Risk Factors: 0 Each Risk Factor Represents 3 Points: Age 75 Years or Greater Total Score 3 Point Risk Factors: 3 Each Risk Factor Represents 5 Points: None Total Score 5 Point Risk Factors: 0 Venous Thromboembolism Risk Factor Score *Q: 3 - Problem List (1) Fall SNOMED Code(s): 4330801, 759716102 ICD Code: W19.XXXA - UNSPECIFIED FALL, INITIAL ENCOUNTER Status: Acute Current Visit: Yes Qualifiers: Encounter type: initial encounter Qualified Code(s): W19.XXXA - Unspecified fall, initial encounter (2) UTI (urinary tract infection) SNOMED Code(s): 31009230 ICD Code: N39.0 - URINARY TRACT INFECTION, SITE NOT SPECIFIED Status: Acute Current Visit: Yes Problem Details: pseudomonas sensitive to Cipro Qualifiers: Urinary tract infection type: acute cystitis Hematuria presence: with hematuria Qualified Code(s): N30.01 - Acute cystitis with hematuria (3) Dehydration SNOMED Code(s): 93800589 ICD Code: E86.0 - DEHYDRATION Status: Acute Current Visit: No Problem Details: Mild, BUN/Cr ratio 24.3 (4) Weakness SNOMED Code(s): 44519596 ICD Code: R53.1 - WEAKNESS Status: Acute Current Visit: No (5) Acute on chronic renal insufficiency SNOMED Code(s): 135713490 ICD Code: N28.9 - DISORDER OF KIDNEY AND URETER, UNSPECIFIED; N18.9 - CHRONIC KIDNEY DISEASE, UNSPECIFIED Status: Acute Current Visit: No Problem Details: [facility] baseline range 1.8-2.1. (6) Cardiomegaly SNOMED Code(s): 0950054 ICD Code: I51.7 - CARDIOMEGALY Status: Chronic Current Visit: No (7) Atrial flutter SNOMED Code(s): 0501981 ICD Code: I48.92 - UNSPECIFIED ATRIAL FLUTTER Status: Chronic Current Visit: No (8) Afib SNOMED Code(s): 39796167 ICD Code: I48.91 - UNSPECIFIED ATRIAL FIBRILLATION Status: Chronic Current Visit: No Qualifiers: (9) CKD (chronic kidney disease) SNOMED Code(s): 551731905 ICD Code: N18.9 - CHRONIC KIDNEY DISEASE, UNSPECIFIED Status: Chronic Current Visit: No Problem Details: Cr 2.0, baseline in past year 2.0 Qualifiers: Chronic kidney disease stage: stage 3 (moderate) (10) Coronary artery disease SNOMED Code(s): 38851370 ICD Code: I25.10 - ATHSCL HEART DISEASE OF [place] CORONARY ARTERY W/O ANG PCTRS Status: Chronic Current Visit: No Qualifiers: Coronary Disease-Associated Artery/Lesion type: [place] artery [place] vs. transplanted heart: [place] heart Associated angina: with stable angina Qualified Code(s): I25.118 - Atherosclerotic heart disease of [place] coronary artery with other forms of angina pectoris (11) Dementia SNOMED Code(s): 26896790 ICD Code: F03.90 - UNSPECIFIED DEMENTIA WITHOUT BEHAVIORAL DISTURBANCE Status: Chronic Current Visit: No Qualifiers: Dementia type: Alzheimer's disease Alzheimer's disease onset: late-onset (12) Diabetes type 2, uncontrolled SNOMED Code(s): 009845218, 343917490 ICD Code: E11.65 - TYPE 2 DIABETES MELLITUS WITH HYPERGLYCEMIA Status: Chronic Current Visit: No (13) Hypertension SNOMED Code(s): 68719652 ICD Code: I10 - ESSENTIAL (PRIMARY) HYPERTENSION Status: Chronic Current Visit: No (14) Suspected chronic obstructive pulmonary disease based on initial evaluation SNOMED Code(s): 988176918 ICD Code: J44.9 - CHRONIC OBSTRUCTIVE PULMONARY DISEASE, UNSPECIFIED Status: Chronic Current Visit: No Problem Details: COPD based on history and chest x-ray findings. Shortness of breath & breathing improved with DuoNebs on last admission, dosing changed to as needed per current medication records. (15) Thrombocytopenia SNOMED Code(s): 539926582 ICD Code: D69.6 - THROMBOCYTOPENIA, UNSPECIFIED Status: Chronic Current Visit: No Problem Details: 104, stable. (16) Palliative care patient SNOMED Code(s): 867476845, 238046933 ICD Code: Z51.5 - ENCOUNTER FOR PALLIATIVE CARE Status: Chronic Current Visit: No (17) Bloody stool SNOMED Code(s): 827960155 ICD Code: K92.1 - MELENA Status: Acute Current Visit: Yes Problem List Initiated/Reviewed/Updated: Yes Orders Last 24hrs: Active Orders 24 hr Category Date Time Status Patient Status [ADT] Routine ADT 04/03/21 13:50 Active Oxygen Therapy [RC] PRN Care 04/03/21 13:50 Active RT Aerosol Therapy [RC] ASDIRECTED Care 04/03/21 14:27 Ordered Up With Assistance [RC] ASDIRECTED Care 04/03/21 13:50 Active Up to Chair [RC] ASDIRECTED Care 04/03/21 13:50 Active VTE/DVT Education [RC] Per Unit Routine Care 04/03/21 13:50 Active Vital Signs [RC] Q4H Care 04/03/21 13:50 Active OT Evaluation and Treatment [CONS] Routine Cons 04/03/21 14:30 Ordered PT Evaluation and Treatment [CONS] Routine Cons 04/03/21 14:29 Ordered Regular Diet [DIET] Diet 04/03/21 Dinner Active Humerus Lt [CR] Routine Exams 04/03/21 14:23 Ordered Ribs 2V wo Chest Rt [CR] Routine Exams 04/03/21 14:22 Ordered BASIC METABOLIC PANEL,BMP [CHEM] Routine Lab 04/04/21 06:00 Ordered CBC WITH AUTO DIFF [HEME] Routine Lab 04/04/21 06:00 Ordered CULTURE URINE [RM] Stat Lab 04/03/21 11:55 Received OCCULT BLOOD SCREEN [OP] Routine Lab 04/03/21 14:30 Ordered Acetaminophen [Tylenol Extra Strength] Med 04/03/21 21:00 Ordered 500 mg PO TID Albuterol/Ipratropium [DuoNeb 3.0-0.5 MG/3 ML] Med 04/03/21 14:30 Ordered 3 ml NEB Q6HR Carboxymethylcellulose Sodium [Refresh Plus 0.5%] Med 04/03/21 21:00 Ordered 1 drop EYEBOTH BID Cholestyramine/Aspartame [Cholestyramine Light] Med 04/03/21 17:00 Ordered 4 gm PO 1700 Ciprofloxacin in D5W [Cipro in D5W 400 MG/200 ML] 400 Med 04/03/21 13:43 Active mg Premix Bag 1 bag IV ONETIME Ciprofloxacin in D5W [Cipro in D5W 400 MG/200 ML] 400 Med 04/04/21 14:00 Active mg Premix Bag 1 bag IV Q24H Fluticasone Propionate [Flonase] Med 04/03/21 21:00 Ordered 1 spray NASBOTH BID Gabapentin [Neurontin] Med 04/03/21 21:00 Ordered 100 mg PO BID Glimepiride [Amaryl] Med 04/04/21 09:00 Ordered 2 mg PO DAILY Iron Polysaccharides Complex [Ferrex 150] Med 04/03/21 21:00 Ordered 150 mg PO BID Isosorbide Mononitrate [Imdur] Med 04/04/21 09:00 Ordered 30 mg PO DAILY L.acidoph,Paracasei, B.lactis [Probiotic] Med 04/04/21 09:00 Ordered 1 cap PO DAILY Magnesium Hydroxide [Milk of Magnesia] Med 04/03/21 14:24 Ordered 30 ml PO DAILY PRN Mirtazapine [Remeron] Med 04/03/21 21:00 Ordered 15 mg PO BEDTIME Potassium Chloride [Potassium Chloride] Med 04/03/21 21:00 Ordered 20 meq PO BID Sodium Chloride 0.65% [[place] Nasal [place]] Med 04/03/21 14:24 Ordered 1 spray NASBOTH ASDIRECTED PRN Sodium Chloride 0.9% [Normal Saline] 1,000 ml Med 04/03/21 14:00 Active IV ASDIRECTED Sodium Chloride 0.9% [Saline Flush] Med 04/03/21 13:50 Active 10 ml FLUSH ASDIRECTED PRN Spironolactone [Aldactone] Med 04/04/21 09:00 Ordered 25 mg PO DAILY carvediloL [Coreg] Med 04/03/21 21:00 Ordered 6.25 mg PO BID lidocaine HCL [Aspercreme Lidocaine] Med 04/03/21 21:00 Ordered 1 applic TOP BID metOLazone [Zaroxolyn] Med 04/06/21 08:00 Ordered 2.5 mg PO MOFR@0800 predniSONE Med 04/03/21 14:30 Ordered 5 mg PO Q48H Saline Lock Insert [OM.PC] Routine Oth 04/03/21 13:50 Ordered Resuscitation Status Routine Resus Stat 04/03/21 13:50 Ordered Medication Orders Acetaminophen (Acetaminophen 500 Mg Tab) 500 mg PO TID [place] Albuterol/Ipratropium (Albuterol/Ipratropium 3.0-0.5 Mg/3 Ml Neb Soln) 3 ml NEB Q6HR [place] Artificial Tears (Carboxymethylcellulose Sodium 0.5% Ophth Soln 0.4 Ml Ud Box Of 30) each EYEBOTH BID [place] Carvedilol (Carvedilol 6.25 Mg Tab) 6.25 mg PO BID [place] Fluticasone Propionate (Fluticasone Propionate Nasal [place] 16 Gm Bottle) gm NASBOTH BID [place] Gabapentin (Gabapentin 100 Mg Cap) 100 mg PO BID [place] Glimepiride (Glimepiride 2 Mg Tab) 2 mg PO DAILY [place] Ciprofloxacin/Dextrose 400 mg/ (Premix) 200 mls @ 200 mls/hr IV ONETIME ONE Stop: 04/03/21 14:42 Sodium Chloride (Normal Saline) 1,000 mls @ 75 mls/hr IV ASDIRECTED [place] Ciprofloxacin/Dextrose 400 mg/ (Premix) 200 mls @ 200 mls/hr IV Q24H [place] Isosorbide Mononitrate (Isosorbide Mononitrate 30 Mg Tab.Er) 30 mg PO DAILY [facility] Magnesium Hydroxide (Magnesium Hydroxide 400 Mg/5 Ml Susp 30 Ml Cup) 30 ml PO DAILY PRN PRN Reason: Constipation Metolazone (Metolazone 2.5 Mg Tab) 2.5 mg PO MOFR@0800 [place] Mirtazapine (Mirtazapine 15 Mg Tab) 15 mg PO BEDTIME [place] Non-Formulary Medication (Cholestyramine/Aspartame [Cholestyramine Light]) 4 gm PO 1700 [facility] Non-Formulary Medication (L.Acidoph,Paracasei, B.Lactis [Probiotic]) 1 cap PO DAILY [facility] Non-Formulary Medication (Lidocaine Hcl [Aspercreme Lidocaine]) 1 applic TOP BID [facility] Non-Formulary Medication (Potassium Chloride [Potassium Chloride]) 20 meq PO BID [place] Polysaccharide Iron Complex (Iron Polysaccharides Complex 150 Mg Cap) 150 mg PO BID [place] Prednisone (Prednisone 5 Mg Tab) 5 mg PO Q48H [facility] Sodium Chloride (Sodium Chloride 0.9% 10 Ml Syringe) 10 ml FLUSH ASDIRECTED PRN PRN Reason: Keep Vein Open Sodium Chloride (Sodium Chloride 0.65% Nasal [place] 45 Ml Bottle) ml NASBOTH ASDIRECTED PRN PRN Reason: Dryness Spironolactone (Spironolactone 25 Mg Tab) 25 mg PO DAILY [facility] Assessment/Plan Comment:: 1. Admit for inpatient treatment of UTI, Fall, weakness. 2. UTI: Ciprofloxacin 400 mg IV q24h, first dose given in ER. Urine culture pending. Repeat CBC & BMP tomorrow. 3. Mild dehydration: BUN/Cr ratio 24.5, at baseline Cr 2.1. NS at 75 ml/hr, will give 1 liter then reassess if needed. Monitor for fluid overload. 4. Fall: Right rib x-ray and Left humeral x-ray ordered. CT head negative. Right hip & knee x-ray negative for fracture. PT/OT evaluate & treat. 5. Thrombocytopenia: chronic, 104 up from January 2021 which was 97. 6. Red stool: ER nurse noted red stool when she cleaned her, no blood present on exam, will ordered occult screen. 7. Diet: Regular. 8. Activity: up to chair & with assistance. 9. DVT prophylaxis: Thrombocytopenia so anticoagulation contraindicated. TEDs hose BLE. SCDs contraindicated due to fall risk. Discontinue Aspirin 81 mg. 10. CODE STATUS: DNR/DNI. 11. Discharge planning: Anticipate stay over the weekend, urine culture with sensitivities should be back in 48 hours to adjust antibiotics as needed. Her son inquired if she can be discharged on Tuesday which is her birthday as they were planning on taking her to [facility] to celebrate. She would most likely be ready by Tuesday am as would have culture results and be able to switch to orals. - Mortality Measure Prognosis:: Poor
[2021-04-03] MEDS ORDERED: Sodium Chloride 0.65% Nasal Spray 45 ML Bottle NASBOTH PRN (14:53)
--- NOTE | 2021-04-03 15:31 | CR ---
INDICATION: Fall, bruising in TTP over left proximal humerus. LEFT HUMERUS: Frontal and lateral views of the left humerus revealed no definite fracture or dislocation. Diminished bone density is noted. Hypertrophic degenerative changes and periarticular calcification is noted at the AC joint with mild degenerative changes at the glenohumeral joint. At the greater tuberosity, there is some calcific density which may represent calcific tendinitis possibly on the basis of previous injury. This should be correlated clinically. IMPRESSION: 1. No definite acute fracture or dislocation. 2. Demineralization. 3. Osteoarthritis. 4. Possible calcific tendinitis. MTDD
--- NOTE | 2021-04-03 15:38 | CR ---
INDICATION: Fall, bruising, TTP over right second rib/sternum. RIGHT RIBS WITH CHEST: PA view of the chest with three views of the right ribs were obtained 04/03/21 and compared with chest from 02/04/21. The heart is enlarged similar to the previous study. The aorta is tortuous with calcification in the arch and descending portion. Pulmonary markings are similar to the previous study without a definite active infiltrate, effusion, contusion or pneumothorax. Demineralization is suggested compatible with osteoporosis but should be correlated clinically. Degenerative changes are noted at the shoulder joints visualized. Three views of the right ribs revealed no displaced rib fractures or other definite rib abnormalities of an acute nature. IMPRESSION: 1. No definite acute process - no displaced rib fracture is identified. 2. If occult fracture site is suspected clinically, reexamination in 10 to 14 days may be helpful. 3. ASHD with cardiomegaly. Mitral annular calcifications noted. 4. Demineralization compatible with osteoporosis - correlate clinically. MTDD
[2021-04-03] MEDS: Sodium Chloride 0.9% 1,000 ML IV SCH (15:47)
[2021-04-03] MEDS: Cholestyramine/Sucrose Powder 4 GM Packet PO SCH (18:46)
[2021-04-03] MEDS: Carboxymethylcellulose Sodium 0.5% Ophth Soln 0.4 ML UD Box of 30 EYEBOTH SCH (20:01)
[2021-04-03] MEDS: Sodium Chloride 0.65% Nasal Spray 45 ML Bottle NASBOTH SCH (20:01)
[2021-04-03] MEDS: Carvedilol 6.25 MG Tab PO SCH (20:02)
[2021-04-03] MEDS: Acetaminophen 500 MG Tab PO SCH (20:03)
[2021-04-03] MEDS: Potassium Chloride 20 MEQ Tab.ER PO SCH (20:03)
[2021-04-03] MEDS: Fluticasone Propionate Nasal Spray 16 GM Bottle NASBOTH SCH (20:03)
[2021-04-03] MEDS: Gabapentin 100 MG Cap PO SCH (20:03)
[2021-04-03] MEDS: Iron Polysaccharides Complex 150 MG Cap PO SCH (20:03)
[2021-04-03] MEDS: Mirtazapine 15 MG Tab PO SCH (20:03)
[2021-04-04] MEDS ORDERED: Acetaminophen 325 MG Tab PO PRN (01:29)
[2021-04-04] MEDS: Sodium Chloride 0.9% 1,000 ML IV SCH (05:30)
[2021-04-04] MEDS: Isosorbide Mononitrate 30 MG Tab.ER PO SCH ×2 (06:02→09:28)
[2021-04-04] MEDS: Carvedilol 6.25 MG Tab PO SCH ×3 (06:03→20:06)
[2021-04-04] MEDS: Spironolactone 25 MG Tab PO SCH ×2 (06:03→09:27)
[2021-04-04] MEDS ORDERED: Furosemide 20 MG/2 ML VIAL IVPUSH SCH (09:00)
--- NOTE | 2021-04-04 09:03 | PCM.PN ---
- General Info Date of Service: 04/04/21 Subjective Update: Angelique after about 500 ml of IV fluids she developed crackles in her bases and blood pressure went up so IV fluids were discontinued. She states she hasn't been using DuoNeb machine at [facility] but thinks Dr Maxwell changed her from what she was prescribed on discharge in January. She thought it helps. She slept all night, doesn't have any chest pain, cough, abdominal pain. Had good bowel movement. Little short of breath. - Patient Data Vitals - Most Recent: Last Vital Signs Temp 98.3 F 04/04/21 04:00 Pulse 108 H 04/04/21 06:03 Resp 18 04/04/21 05:50 BP 191/86 H 04/04/21 06:03 Pulse Ox 92 L 04/04/21 05:50 Weight - Most Recent: 170 lb 9 oz I&O - Last 24 Hours: Intake & Output 04/03/21 04/04/21 04/04/21 22:59 06:59 14:59 Intake Total 749 703 360 Balance 749 703 360 Lab Results Last 24 Hours: Laboratory Results - last 24 hr 04/03/21 04/03/21 04/03/21 Range/Units 11:55 12:03 12:03 WBC 4.5 (3.0-10.3) x10-3/uL RBC 3.91 (3.60-5.20) x10(6)uL Hgb 11.6 (11.4-15.5) g/dL Hct 36.3 (34.2-48.2) % MCV 92.8 (76.7-100.5) fL MCH 29.6 (23.9-33.9) pg MCHC 31.9 (31.9-34.8) g/dL RDW 13.1 (12.3-16.5) % Plt Count 104 L (151-488) x10(3)uL MPV (7.1-12.4) fL Neut % (Auto) (30.8-76.2) % Lymph % (Auto) (18.4-52.1) % [place] % (Auto) (4.4-15.7) % Eos % (Auto) (0.6-8.1) % Baso % (Auto) (0.2-1.5) % Neut # (Auto) (1.5-6.3) x10-3/uL Lymph # (Auto) (1.0-4.4) x10-3/uL [place] # (Auto) (0.3-1.0) x10-3/uL Eos # (Auto) (0.0-0.8) x10-3/uL Baso # (Auto) (0.0-0.1) x10-3/uL Sodium 145 (135-145) mmol/L Potassium 4.1 (3.5-5.3) mmol/L Chloride 103 (100-110) mmol/L Carbon Dioxide 33 H (21-32) mmol/L BUN 51 H D (7-18) mg/dL Creatinine 2.1 H* (0.55-1.02) mg/dL Est Cr Clr Drug Dosing TNP Estimated GFR (MDRD) 22 L (>60) BUN/Creatinine Ratio 24.3 H (9-20) Glucose 182 H D (80-116) mg/dL Calcium 9.1 (8.6-10.2) mg/dL Total Bilirubin 0.5 (0.1-1.3) mg/dL AST 10 D (5-25) IU/L ALT 15 (12-36) U/L Alkaline Phosphatase 57 (56-112) IU/L Total Protein 7.3 (6.0-8.0) g/dL Albumin 3.9 (3.2-4.6) g/dL Globulin 3.4 g/dL Albumin/Globulin Ratio 1.2 Urine Color Yellow (YELLOW) Urine Appearance Cloudy (CLEAR) Urine pH 5.0 (5.0-6.5) Ur Specific [place] 1.010 (1.010-1.025) Urine Protein Trace (NEGATIVE) mg/dL Urine Glucose (UA) Normal (NORMAL) mg/dL Urine Ketones Negative (NEGATIVE) mg/dL Urine Occult Blood Moderate H (NEGATIVE) Urine Nitrite Negative (NEGATIVE) Urine Bilirubin Negative (NEGATIVE) Urine Urobilinogen Normal (NEGATIVE) mg/dL Ur Leukocyte Esterase Large H (NEGATIVE) Urine RBC 0-5 (0-5) Urine WBC >100 H (0-5) Ur Squamous Epith Cells Occasional (NS,R,O) Urine Bacteria Many H (NS) 04/04/21 04/04/21 Range/Units 06:05 06:05 WBC 5.3 (3.0-10.3) x10-3/uL RBC 3.75 (3.60-5.20) x10(6)uL Hgb 11.3 L (11.4-15.5) g/dL Hct 34.3 (34.2-48.2) % MCV 91.5 (76.7-100.5) fL MCH 30.0 (23.9-33.9) pg MCHC 32.8 (31.9-34.8) g/dL RDW 12.7 (12.3-16.5) % Plt Count 106 L (151-488) x10(3)uL MPV 7.6 (7.1-12.4) fL Neut % (Auto) 67.6 (30.8-76.2) % Lymph % (Auto) 16.3 L (18.4-52.1) % [place] % (Auto) 13.0 (4.4-15.7) % Eos % (Auto) 2.4 (0.6-8.1) % Baso % (Auto) 0.7 (0.2-1.5) % Neut # (Auto) 3.6 (1.5-6.3) x10-3/uL Lymph # (Auto) 0.9 L (1.0-4.4) x10-3/uL [place] # (Auto) 0.7 (0.3-1.0) x10-3/uL Eos # (Auto) 0.1 (0.0-0.8) x10-3/uL Baso # (Auto) 0.0 (0.0-0.1) x10-3/uL Sodium 144 (135-145) mmol/L Potassium 4.1 (3.5-5.3) mmol/L Chloride 103 (100-110) mmol/L Carbon Dioxide 32 (21-32) mmol/L BUN 42 H (7-18) mg/dL Creatinine 1.8 H (0.55-1.02) mg/dL Est Cr Clr Drug Dosing 17.09 Estimated GFR (MDRD) 27 L (>60) BUN/Creatinine Ratio 23.3 H (9-20) Glucose 108 (80-116) mg/dL Calcium 8.5 L (8.6-10.2) mg/dL Total Bilirubin (0.1-1.3) mg/dL AST (5-25) IU/L ALT (12-36) U/L Alkaline Phosphatase (56-112) IU/L Total Protein (6.0-8.0) g/dL Albumin (3.2-4.6) g/dL Globulin g/dL Albumin/Globulin Ratio Urine Color (YELLOW) Urine Appearance (CLEAR) Urine pH (5.0-6.5) Ur Specific [place] (1.010-1.025) Urine Protein (NEGATIVE) mg/dL Urine Glucose (UA) (NORMAL) mg/dL Urine Ketones (NEGATIVE) mg/dL Urine Occult Blood (NEGATIVE) Urine Nitrite (NEGATIVE) Urine Bilirubin (NEGATIVE) Urine Urobilinogen (NEGATIVE) mg/dL Ur Leukocyte Esterase (NEGATIVE) Urine RBC (0-5) Urine WBC (0-5) Ur Squamous Epith Cells (NS,R,O) Urine Bacteria (NS) Andrzej Results Last 24 Hours: Microbiology 04/03/21 11:55 Urine Culture - Preliminary Urine, Voided Gram Negative Rods 04/03/21 17:00 Occult Blood - Preliminary Stool / Feces Med Orders - Current: Current Medications Acetaminophen (Acetaminophen 500 Mg Tab) 500 mg PO TID [facility] Last Admin: 04/03/21 20:03 Dose: 500 mg Documented by: Acetaminophen (Acetaminophen 325 Mg Tab) 650 mg PO Q4H PRN PRN Reason: Sleep Albuterol/Ipratropium (Albuterol/Ipratropium 3.0-0.5 Mg/3 Ml Neb Soln) 3 ml NEB Q6H PRN PRN Reason: SHORTNESS OF BREATH Artificial Tears (Carboxymethylcellulose Sodium 0.5% Ophth Soln 0.4 Ml Ud Box Of 30) 0 each EYEBOTH BID [facility] Last Admin: 04/03/21 20:01 Dose: 1 drop Documented by: Carvedilol (Carvedilol 6.25 Mg Tab) 6.25 mg PO BID [facility] Last Admin: 04/04/21 06:03 Dose: 6.25 mg Documented by: Cholestyramine Resin (Cholestyramine/Sucrose Powder 4 Gm Packet) 4 gm PO 1700 [facility] Last Admin: 04/03/21 18:46 Dose: 4 gm Documented by: Fluticasone Propionate (Fluticasone Propionate Nasal [place] 16 Gm Bottle) 0 gm NASBOTH BID [facility] Last Admin: 04/03/21 20:03 Dose: 1 spray Documented by: Furosemide (Furosemide 20 Mg/2 Ml Vial) 20 mg IVPUSH ONETIME ONE Stop: 04/04/21 10:01 Gabapentin (Gabapentin 100 Mg Cap) 100 mg PO BID [facility] Last Admin: 04/03/21 20:03 Dose: 100 mg Documented by: Glimepiride (Glimepiride 2 Mg Tab) 2 mg PO DAILY [facility] Ciprofloxacin/Dextrose 400 mg/ (Premix) 200 mls @ 200 mls/hr IV Q24H [facility] Isosorbide Mononitrate (Isosorbide Mononitrate 30 Mg Tab.Er) 30 mg PO DAILY [facility] Last Admin: 04/04/21 06:02 Dose: 30 mg Documented by: Lactobacillus Rhamnosus (Lactobacillus Rhamnosus Gg (Probiotic) Cap) 1 cap PO DAILY [facility] Magnesium Hydroxide (Magnesium Hydroxide 400 Mg/5 Ml Susp 30 Ml Cup) 30 ml PO DAILY PRN PRN Reason: Constipation Metolazone (Metolazone 2.5 Mg Tab) 2.5 mg PO MOFR@0800 [facility] Mirtazapine (Mirtazapine 15 Mg Tab) 15 mg PO BEDTIME [facility] Last Admin: 04/03/21 20:03 Dose: 15 mg Documented by: Non-Formulary Medication (Lidocaine Hcl [Aspercreme Lidocaine]) 1 applic TOP BID [facility] Polysaccharide Iron Complex (Iron Polysaccharides Complex 150 Mg Cap) 150 mg PO BID [facility] Last Admin: 04/03/21 20:03 Dose: 150 mg Documented by: Potassium Chloride (Potassium Chloride 20 Meq Tab.Er) 20 meq PO BID [facility] Last Admin: 04/03/21 20:03 Dose: 20 meq Documented by: Prednisone (Prednisone 5 Mg Tab) 5 mg PO Q48H [facility] Sodium Chloride (Sodium Chloride 0.9% 10 Ml Syringe) 10 ml FLUSH ASDIRECTED PRN PRN Reason: Keep Vein Open Sodium Chloride (Sodium Chloride 0.65% Nasal [place] 45 Ml Bottle) 0 ml NASBOTH BID [facility] Last Admin: 04/03/21 20:01 Dose: 1 spray Documented by: Sodium Chloride (Sodium Chloride 0.65% Nasal [place] 45 Ml Bottle) 0 ml NASBOTH DAILY PRN PRN Reason: DRYNESS Spironolactone (Spironolactone 25 Mg Tab) 25 mg PO DAILY [facility] Last Admin: 04/04/21 06:03 Dose: 25 mg Documented by: Discontinued Medications Acetaminophen (Acetaminophen 325 Mg Tab) 650 mg PO NOW ONE Stop: 04/03/21 11:49 Last Admin: 04/03/21 11:57 Dose: 650 mg Documented by: Furosemide (Furosemide 20 Mg/2 Ml Vial) 20 mg IVPUSH DAILY [facility] Ciprofloxacin/Dextrose 400 mg/ (Premix) 200 mls @ 200 mls/hr IV ONETIME ONE Stop: 04/03/21 14:42 Last Admin: 04/03/21 15:47 Dose: 200 mls/hr Documented by: Sodium Chloride (Normal Saline) 1,000 mls @ 75 mls/hr IV ASDIRECTED [facility] Last Admin: 04/04/21 05:30 Dose: 75 mls/hr Documented by: - Exam Quality Assessment: Supplemental Oxygen (1L) General: Alert, Oriented (person, place), Cooperative, No Acute Distress Lungs: Clear to Auscultation, Normal Respiratory Effort, Decreased Breath Sounds (bibasilar), Crackles (occasional bibasilar). No: Wheezing Cardiovascular: Regular Rate, Irregular Rhythm GI/Abdominal Exam: Normal Bowel Sounds, Soft, Non-Tender, No Distention Extremities: No Pedal Edema, Normal Capillary Refill Peripheral Pulses: 2+: Radial (L), Radial (R) Skin: Ecchymosis (right neck, right chest wall, left upper arm, right knee) - Patient Data Lab Results Last 24 hrs: Laboratory Results - last 24 hr 04/03/21 04/03/21 04/03/21 Range/Units 11:55 12:03 12:03 WBC 4.5 (3.0-10.3) x10-3/uL RBC 3.91 (3.60-5.20) x10(6)uL Hgb 11.6 (11.4-15.5) g/dL Hct 36.3 (34.2-48.2) % MCV 92.8 (76.7-100.5) fL MCH 29.6 (23.9-33.9) pg MCHC 31.9 (31.9-34.8) g/dL RDW 13.1 (12.3-16.5) % Plt Count 104 L (151-488) x10(3)uL MPV (7.1-12.4) fL Neut % (Auto) (30.8-76.2) % Lymph % (Auto) (18.4-52.1) % [place] % (Auto) (4.4-15.7) % Eos % (Auto) (0.6-8.1) % Baso % (Auto) (0.2-1.5) % Neut # (Auto) (1.5-6.3) x10-3/uL Lymph # (Auto) (1.0-4.4) x10-3/uL [place] # (Auto) (0.3-1.0) x10-3/uL Eos # (Auto) (0.0-0.8) x10-3/uL Baso # (Auto) (0.0-0.1) x10-3/uL Sodium 145 (135-145) mmol/L Potassium 4.1 (3.5-5.3) mmol/L Chloride 103 (100-110) mmol/L Carbon Dioxide 33 H (21-32) mmol/L BUN 51 H D (7-18) mg/dL Creatinine 2.1 H* (0.55-1.02) mg/dL Est Cr Clr Drug Dosing TNP Estimated GFR (MDRD) 22 L (>60) BUN/Creatinine Ratio 24.3 H (9-20) Glucose 182 H D (80-116) mg/dL Calcium 9.1 (8.6-10.2) mg/dL Total Bilirubin 0.5 (0.1-1.3) mg/dL AST 10 D (5-25) IU/L ALT 15 (12-36) U/L Alkaline Phosphatase 57 (56-112) IU/L Total Protein 7.3 (6.0-8.0) g/dL Albumin 3.9 (3.2-4.6) g/dL Globulin 3.4 g/dL Albumin/Globulin Ratio 1.2 Urine Color Yellow (YELLOW) Urine Appearance Cloudy (CLEAR) Urine pH 5.0 (5.0-6.5) Ur Specific [place] 1.010 (1.010-1.025) Urine Protein Trace (NEGATIVE) mg/dL Urine Glucose (UA) Normal (NORMAL) mg/dL Urine Ketones Negative (NEGATIVE) mg/dL Urine Occult Blood Moderate H (NEGATIVE) Urine Nitrite Negative (NEGATIVE) Urine Bilirubin Negative (NEGATIVE) Urine Urobilinogen Normal (NEGATIVE) mg/dL Ur Leukocyte Esterase Large H (NEGATIVE) Urine RBC 0-5 (0-5) Urine WBC >100 H (0-5) Ur Squamous Epith Cells Occasional (NS,R,O) Urine Bacteria Many H (NS) 04/04/21 04/04/21 Range/Units 06:05 06:05 WBC 5.3 (3.0-10.3) x10-3/uL RBC 3.75 (3.60-5.20) x10(6)uL Hgb 11.3 L (11.4-15.5) g/dL Hct 34.3 (34.2-48.2) % MCV 91.5 (76.7-100.5) fL MCH 30.0 (23.9-33.9) pg MCHC 32.8 (31.9-34.8) g/dL RDW 12.7 (12.3-16.5) % Plt Count 106 L (151-488) x10(3)uL MPV 7.6 (7.1-12.4) fL Neut % (Auto) 67.6 (30.8-76.2) % Lymph % (Auto) 16.3 L (18.4-52.1) % [place] % (Auto) 13.0 (4.4-15.7) % Eos % (Auto) 2.4 (0.6-8.1) % Baso % (Auto) 0.7 (0.2-1.5) % Neut # (Auto) 3.6 (1.5-6.3) x10-3/uL Lymph # (Auto) 0.9 L (1.0-4.4) x10-3/uL [place] # (Auto) 0.7 (0.3-1.0) x10-3/uL Eos # (Auto) 0.1 (0.0-0.8) x10-3/uL Baso # (Auto) 0.0 (0.0-0.1) x10-3/uL Sodium 144 (135-145) mmol/L Potassium 4.1 (3.5-5.3) mmol/L Chloride 103 (100-110) mmol/L Carbon Dioxide 32 (21-32) mmol/L BUN 42 H (7-18) mg/dL Creatinine 1.8 H (0.55-1.02) mg/dL Est Cr Clr Drug Dosing 17.09 Estimated GFR (MDRD) 27 L (>60) BUN/Creatinine Ratio 23.3 H (9-20) Glucose 108 (80-116) mg/dL Calcium 8.5 L (8.6-10.2) mg/dL Total Bilirubin (0.1-1.3) mg/dL AST (5-25) IU/L ALT (12-36) U/L Alkaline Phosphatase (56-112) IU/L Total Protein (6.0-8.0) g/dL Albumin (3.2-4.6) g/dL Globulin g/dL Albumin/Globulin Ratio Urine Color (YELLOW) Urine Appearance (CLEAR) Urine pH (5.0-6.5) Ur Specific [place] (1.010-1.025) Urine Protein (NEGATIVE) mg/dL Urine Glucose (UA) (NORMAL) mg/dL Urine Ketones (NEGATIVE) mg/dL Urine Occult Blood (NEGATIVE) Urine Nitrite (NEGATIVE) Urine Bilirubin (NEGATIVE) Urine Urobilinogen (NEGATIVE) mg/dL Ur Leukocyte Esterase (NEGATIVE) Urine RBC (0-5) Urine WBC (0-5) Ur Squamous Epith Cells (NS,R,O) Urine Bacteria (NS) Result Diagrams: 04/04/21 06:05 04/04/21 06:05 Andrzej Results Last 24 hrs: Microbiology 04/03/21 11:55 Urine Culture - Preliminary Urine, Voided Gram Negative Rods 04/03/21 17:00 Occult Blood - Preliminary Stool / Feces Sepsis Event Note - Evaluation Sepsis Screening Result: Possible Sepsis Risk - Focused Exam Vital Signs: Vital Signs Temp Pulse Resp BP BP Pulse Ox 04/04/21 06:03 108 H 191/86 H 04/04/21 06:02 191/86 H 04/04/21 05:50 18 191/89 H 92 L 04/04/21 04:00 98.3 F 18 177/84 H 93 L 04/04/21 00:00 98.2 F 18 135/84 93 L - Problem List & Annotations (1) Fall SNOMED Code(s): 3215714, 231870116 Code(s): W19.XXXA - UNSPECIFIED FALL, INITIAL ENCOUNTER Status: Acute Current Visit: Yes Qualifiers: Encounter type: initial encounter Qualified Code(s): W19.XXXA - Unspecified fall, initial encounter (2) UTI (urinary tract infection) SNOMED Code(s): 93570947 Code(s): N39.0 - URINARY TRACT INFECTION, SITE NOT SPECIFIED Status: Acute Current Visit: Yes Qualifiers: Urinary tract infection type: acute cystitis Hematuria presence: with hematuria Qualified Code(s): N30.01 - Acute cystitis with hematuria Annotation/Comment:: GNR, mucoid; suspected Kleibsella, will awaiting sensitivities in case there is some resistance. (3) Dehydration SNOMED Code(s): 23213451 Code(s): E86.0 - DEHYDRATION Status: Resolved Current Visit: No Annotation/Comment:: Cr 1.8 (4) Weakness SNOMED Code(s): 01320019 Code(s): R53.1 - WEAKNESS Status: Acute Current Visit: No (5) Acute on chronic renal insufficiency SNOMED Code(s): 492163569 Code(s): N28.9 - DISORDER OF KIDNEY AND URETER, UNSPECIFIED; N18.9 - CHRONIC KIDNEY DISEASE, UNSPECIFIED Status: Acute Current Visit: No Annotation/Comment:: [facility] baseline range 1.8-2.1. (6) Cardiomegaly SNOMED Code(s): 8884857 Code(s): I51.7 - CARDIOMEGALY Status: Chronic Current Visit: No (7) Atrial flutter SNOMED Code(s): 9414707 Code(s): I48.92 - UNSPECIFIED ATRIAL FLUTTER Status: Chronic Current Visit: No (8) Afib SNOMED Code(s): 11838216 Code(s): I48.91 - UNSPECIFIED ATRIAL FIBRILLATION Status: Chronic Current Visit: No Qualifiers: (9) CKD (chronic kidney disease) SNOMED Code(s): 395877416 Code(s): N18.9 - CHRONIC KIDNEY DISEASE, UNSPECIFIED Status: Chronic Current Visit: No Qualifiers: Chronic kidney disease stage: stage 3 (moderate) Annotation/Comment:: Cr 2.0, baseline in past year 2.0 (10) Coronary artery disease SNOMED Code(s): 58373374 Code(s): I25.10 - ATHSCL HEART DISEASE OF [place] CORONARY ARTERY W/O ANG PCTRS Status: Chronic Current Visit: No Qualifiers: Coronary Disease-Associated Artery/Lesion type: [place] artery [place] vs. transplanted heart: [place] heart Associated angina: with stable angina Qualified Code(s): I25.118 - Atherosclerotic heart disease of [place] coronary artery with other forms of angina pectoris (11) Dementia SNOMED Code(s): 94835017 Code(s): F03.90 - UNSPECIFIED DEMENTIA WITHOUT BEHAVIORAL DISTURBANCE Status: Chronic Current Visit: No Qualifiers: Dementia type: Alzheimer's disease Alzheimer's disease onset: late-onset (12) Diabetes type 2, uncontrolled SNOMED Code(s): 253879995, 647919591 Code(s): E11.65 - TYPE 2 DIABETES MELLITUS WITH HYPERGLYCEMIA Status: Chron ic Current Visit: No (13) Hypertension SNOMED Code(s): 11746365 Code(s): I10 - ESSENTIAL (PRIMARY) HYPERTENSION Status: Chronic Current Visit: No (14) Suspected chronic obstructive pulmonary disease based on initial evaluation SNOMED Code(s): 721438259 Code(s): J44.9 - CHRONIC OBSTRUCTIVE PULMONARY DISEASE, UNSPECIFIED Status: Chronic Current Visit: No Annotation/Comment:: COPD based on history and chest x-ray findings. Shortness of breath & breathing improved with DuoNebs on last admission, dosing changed to as needed per current medication records. Keep oxygen between 88-92%. (15) Thrombocytopenia SNOMED Code(s): 380972170 Code(s): D69.6 - THROMBOCYTOPENIA, UNSPECIFIED Status: Chronic Current Visit: No Annotation/Comment:: 104, stable. Will restart her aspirin, as she does have Afib. Stool occult was negative. (16) Palliative care patient SNOMED Code(s): 287156680, 695182607 Code(s): Z51.5 - ENCOUNTER FOR PALLIATIVE CARE Status: Chronic Current Visit: No (17) Bloody stool SNOMED Code(s): 960606670 Code(s): K92.1 - MELENA Status: Resolved Current Visit: Yes Annotati on/Comment:: Stool occult negative. Likely hemorrhoids. (18) Hemorrhoids SNOMED Code(s): 60786881 Code(s): K64.9 - UNSPECIFIED HEMORRHOIDS Status: Acute Current Visit: Yes Qualifiers: Hemorrhoid type: unspecified Qualified Code(s): K64.9 - Unspecified hemorrhoids - Problem List Review Problem List Initiated/Reviewed/Updated: Yes - My Orders Last 24 Hours: My Active Orders 04/03/21 11:55 CULTURE URINE [RM] Stat 04/03/21 13:50 Patient Status [ADT] Routine Oxygen Therapy [RC] .PRN Up With Assistance [RC] .PRN Up to Chair [RC] .PRN Vital Signs [RC] 04,08,12,16,20,00 Sodium Chloride 0.9% [Saline Flush] 10 ml FLUSH ASDIRECTED PRN Saline Lock Insert [OM.PC] Routine Resuscitation Status Routine 04/03/21 14:24 Magnesium Hydroxide [Milk of Magnesia] 30 ml PO DAILY PRN 04/03/21 14:27 RT Aerosol Therapy [RC] .PRN 04/03/21 14:29 PT Evaluation and Treatment [CONS] Routine 04/03/21 14:30 OT Evaluation and Treatment [CONS] Routine Albuterol/Ipratropium [DuoNeb 3.0-0.5 MG/3 ML] 3 ml NEB Q6H PRN 04/03/21 14:53 Sodium Chloride 0.65% [[place] Nasal [place]] 0 ml NASBOTH DAILY PRN 04/03/21 Dinner Regular Diet [DIET] 04/03/21 17:00 OCCULT BLOOD SCREEN [OP] Routine Cholestyramine/Sucrose [Cholestyramine Packet] 4 gm PO 1700 04/03/21 21:00 Acetaminophen [Tylenol Extra Strength] 500 mg PO TID Carboxymethylcellulose Sodium [Refresh Plus 0.5%] 0 each EYEBOTH BID Fluticasone Propionate [Flonase] 0 gm NASBOTH BID Gabapentin [Neurontin] 100 mg PO BID Iron Polysaccharides Complex [Ferrex 150] 150 mg PO BID Mirtazapine [Remeron] 15 mg PO BEDTIME Potassium Chloride [Klor-Con M20] 20 meq PO BID Sodium Chloride 0.65% [[place] Nasal [place]] 0 ml NASBOTH BID carvediloL [Coreg] 6.25 mg PO BID lidocaine HCL [Aspercreme Lidocaine] 1 applic TOP BID 04/04/21 01:29 Acetaminophen [TylenoL] 650 mg PO Q4H PRN 04/04/21 09:00 Glimepiride [Amaryl] 2 mg PO DAILY Isosorbide Mononitrate [Imdur] 30 mg PO DAILY Lactobacillus Rhamnosus GG [Culturelle] 1 cap PO DAILY Spironolactone [Aldactone] 25 mg PO DAILY predniSONE 5 mg PO Q48H 04/04/21 10:00 Furosemide [Lasix] 20 mg IVPUSH ONETIME ONE 04/04/21 14:00 Ciprofloxacin in D5W [Cipro in D5W 400 MG/200 ML] 400 mg Premix Bag 1 bag IV Q24H 04/06/21 08:00 metOLazone [Zaroxolyn] 2.5 mg PO MOFR@0800 - Plan Plan:: 1. UTI: Ciprofloxacin 400 mg IV q24h, first dose given in ER. Urine culture: Gram negative rods, mucoid suspected Klebsiella, await sensitivities before adjusting antibiotics. Repeat BMP tomorrow. 2. Shortness of breath/COPD: Continued DuoNebs q6h as needed. Lasix 20 mg IV x 1. Reassess later today. 3. Mild dehydration: Resolved. Cr 1.8. NS discontinued. Saline lock. 4. Fall: Right rib x-ray and Left humeral x-ray were negative for fractures. CT head negative. Right hip & knee x-ray negative for fracture. PT/OT evaluate & treat. 5. Thrombocytopenia: chronic, 106. 6. Red stool: occult screen: negative, suspected hemorrhoids. Anusol-HC after BM. 7. DVT prophylaxis: Thrombocytopenia so anticoagulation(Lovenox) contraindicated. TEDs hose BLE. SCDs contraindicated due to fall risk. Continue Aspirin 81 mg since her occult stool was negative to cover for stroke prevention 2/2 atrial fibrillation. 8. Discharge planning: anticipate discharge on Tuesday once switched to oral antibiotics.
[2021-04-04] MEDS ORDERED: Hydrocortisone 2.5% Crm 30 GM Tube TOP PRN (09:14)
[2021-04-04] MEDS: Potassium Chloride 20 MEQ Tab.ER PO SCH ×2 (09:31→20:07)
[2021-04-04] MEDS: Glimepiride 2 MG Tab PO SCH (09:31)
[2021-04-04] MEDS: Iron Polysaccharides Complex 150 MG Cap PO SCH ×2 (09:31→20:06)
[2021-04-04] MEDS: Sodium Chloride 0.65% Nasal Spray 45 ML Bottle NASBOTH SCH ×2 (09:32→20:07)
[2021-04-04] MEDS: Fluticasone Propionate Nasal Spray 16 GM Bottle NASBOTH SCH ×2 (09:32→20:07)
[2021-04-04] MEDS: predniSONE 5 MG Tab PO SCH (09:33)
[2021-04-04] MEDS: Lactobacillus Rhamnosus GG (Probiotic) Cap PO SCH (09:33)
[2021-04-04] MEDS: Carboxymethylcellulose Sodium 0.5% Ophth Soln 0.4 ML UD Box of 30 EYEBOTH SCH ×2 (09:34→20:08)
[2021-04-04] MEDS: Acetaminophen 500 MG Tab PO SCH ×3 (09:35→20:07)
[2021-04-04] MEDS: LIDOCAINE HCL TOP SCH ×3 (09:36→20:08)
[2021-04-04] MEDS: Gabapentin 100 MG Cap PO SCH ×2 (09:47→20:06)
[2021-04-04] MEDS: Aspirin 81 MG Tab.EC PO SCH (09:47)
[2021-04-04] MEDS: Sodium Chloride 0.9% 10 ML Syringe FLUSH PRN ×2 (09:52→13:30)
[2021-04-04] MEDS ORDERED: Furosemide 20 MG/2 ML VIAL IVPUSH ONE (10:00)
[2021-04-04] MEDS ORDERED: Ciprofloxacin in D5W 400 MG in Premix Bag 1 BAG IV SCH ×2 (14:00)
[2021-04-04] MEDS: Cholestyramine/Sucrose Powder 4 GM Packet PO SCH (18:38)
[2021-04-04] MEDS: Mirtazapine 15 MG Tab PO SCH (20:06)
[2021-04-05] MEDS: Spironolactone 25 MG Tab PO SCH (08:04)
[2021-04-05] MEDS: Carvedilol 6.25 MG Tab PO SCH ×2 (08:04→20:07)
[2021-04-05] MEDS: Iron Polysaccharides Complex 150 MG Cap PO SCH ×2 (08:05→20:01)
[2021-04-05] MEDS: Lactobacillus Rhamnosus GG (Probiotic) Cap PO SCH (08:05)
[2021-04-05] MEDS: Fluticasone Propionate Nasal Spray 16 GM Bottle NASBOTH SCH ×2 (08:06→20:00)
[2021-04-05] MEDS: Carboxymethylcellulose Sodium 0.5% Ophth Soln 0.4 ML UD Box of 30 EYEBOTH SCH ×2 (08:07→20:00)
[2021-04-05] MEDS: Potassium Chloride 20 MEQ Tab.ER PO SCH ×2 (08:07→10:59)
[2021-04-05] MEDS: Sodium Chloride 0.65% Nasal Spray 45 ML Bottle NASBOTH SCH ×2 (08:07→20:01)
[2021-04-05] MEDS: Acetaminophen 500 MG Tab PO SCH ×3 (08:08→20:01)
[2021-04-05] MEDS: LIDOCAINE HCL TOP SCH ×2 (08:08→20:02)
[2021-04-05] MEDS: Glimepiride 2 MG Tab PO SCH (08:11)
[2021-04-05] MEDS: Isosorbide Mononitrate 30 MG Tab.ER PO SCH (08:12)
[2021-04-05] MEDS: Aspirin 81 MG Tab.EC PO SCH (08:25)
[2021-04-05] MEDS: Gabapentin 100 MG Cap PO SCH ×2 (08:25→20:01)
[2021-04-05] MEDS ORDERED: Spironolactone 25 MG Tab PO SCH (09:00)
--- NOTE | 2021-04-05 10:24 | PCM.PN ---
- General Info Date of Service: 04/05/21 Subjective Update: Angelique weight is up 3 lbs, off oxygen but still complaining of shortness of breath and wheezing. Asked if she got any nebulizer treatments and she did not know she had to ask for them as they are ordered as needed. Family stated that is how they are ordered at [facility] care and they don't think she has been getting them because she doesn't remember to ask, they would like her to get them on more regular basis. She states she is catching her steri-strips on her blankets. No abdominal pain. Feels stronger. - Patient Data Vitals - Most Recent: Last Vital Signs Temp 98.2 F 04/05/21 04:00 Pulse 103 H 04/05/21 08:04 Resp 16 04/05/21 04:00 BP 172/82 H 04/05/21 08:12 Pulse Ox 93 L 04/05/21 04:00 Weight - Most Recent: 171 lb 1 oz I&O - Last 24 Hours: Intake & Output 04/04/21 04/05/21 04/05/21 22:59 06:59 14:59 Intake Total 360 Balance 360 Lab Results Last 24 Hours: Laboratory Results - last 24 hr 04/05/21 Range/Units 06:12 Sodium 140 (135-145) mmol/L Potassium 4.1 (3.5-5.3) mmol/L Chloride 101 (100-110) mmol/L Carbon Dioxide 30 (21-32) mmol/L BUN 39 H (7-18) mg/dL Creatinine 1.7 H (0.55-1.02) mg/dL Est Cr Clr Drug Dosing 18.09 mL/min Estimated GFR (MDRD) 28 L (>60) BUN/Creatinine Ratio 22.9 H (9-20) Glucose 135 H (80-116) mg/dL Calcium 9.1 (8.6-10.2) mg/dL Andrzej Results Last 24 Hours: Microbiology 04/03/21 11:55 Urine Culture - Final Urine, Voided Klebsiella Pneumoniae Med Orders - Current: Current Medications Acetaminophen (Acetaminophen 500 Mg Tab) 500 mg PO TID [facility] Last Admin: 04/05/21 08:08 Dose: 500 mg Documented by: Acetaminophen (Acetaminophen 325 Mg Tab) 650 mg PO Q4H PRN PRN Reason: Sleep Albuterol/Ipratropium (Albuterol/Ipratropium 3.0-0.5 Mg/3 Ml Neb Soln) 3 ml NEB TID [facility] Artificial Tears (Carboxymethylcellulose Sodium 0.5% Ophth Soln 0.4 Ml Ud Box Of 30) 0 each EYEBOTH BID [facility] Last Admin: 04/05/21 08:07 Dose: 1 drop Documented by: Aspirin (Aspirin 81 Mg Tab.Ec) 81 mg PO DAILY [facility] Last Admin: 04/05/21 08:25 Dose: 81 mg Documented by: Carvedilol (Carvedilol 6.25 Mg Tab) 6.25 mg PO BID [facility] Last Admin: 04/05/21 08:04 Dose: 6.25 mg Documented by: Cholestyramine Resin (Cholestyramine/Sucrose Powder 4 Gm Packet) 4 gm PO 1700 [facility] Last Admin: 04/04/21 18:38 Dose: 4 gm Documented by: Ciprofloxacin (Ciprofloxacin 250 Mg Tab) 250 mg PO BID [facility] Fluticasone Propionate (Fluticasone Propionate Nasal [place] 16 Gm Bottle) 0 gm NASBOTH BID [facility] Last Admin: 04/05/21 08:06 Dose: 1 spray Documented by: Gabapentin (Gabapentin 100 Mg Cap) 100 mg PO BID [facility] Last Admin: 04/05/21 08:25 Dose: 100 mg Documented by: Glimepiride (Glimepiride 2 Mg Tab) 2 mg PO DAILY [facility] Last Admin: 04/05/21 08:11 Dose: 2 mg Documented by: Hydrocortisone (Hydrocortisone 2.5% Crm 30 Gm Tube) 0 gm TOP QID PRN PRN Reason: Hemorrhoids Isosorbide Mononitrate (Isosorbide Mononitrate 30 Mg Tab.Er) 30 mg PO DAILY [facility] Last Admin: 04/05/21 08:12 Dose: 30 mg Documented by: Lactobacillus Rhamnosus (Lactobacillus Rhamnosus Gg (Probiotic) Cap) 1 cap PO DAILY [facility] Last Admin: 04/05/21 08:05 Dose: 1 cap Documented by: Magnesium Hydroxide (Magnesium Hydroxide 400 Mg/5 Ml Susp 30 Ml Cup) 30 ml PO DAILY PRN PRN Reason: Constipation Metolazone (Metolazone 2.5 Mg Tab) 2.5 mg PO MOFR@0800 [facility] Mirtazapine (Mirtazapine 15 Mg Tab) 15 mg PO BEDTIME [facility] Last Admin: 04/04/21 20:06 Dose: 15 mg Documented by: Lidocaine Hcl [ Aspercreme Lidocaine ] 76.5 Gm Cream Own Med 1 applic TOP BID [facility] Last Admin: 04/05/21 08:08 Dose: 1 applic Documented by: Polysaccharide Iron Complex (Iron Polysaccharides Complex 150 Mg Cap) 150 mg PO BID [facility] Last Admin: 04/05/21 08:05 Dose: 150 mg Documented by: Potassium Chloride (Potassium Chloride 20 Meq Tab.Er) 20 meq PO DAILY [facility] Prednisone (Prednisone 5 Mg Tab) 5 mg PO Q48H [facility] Last Admin: 04/04/21 09:33 Dose: 5 mg Documented by: Sodium Chloride (Sodium Chloride 0.9% 10 Ml Syringe) 10 ml FLUSH ASDIRECTED PRN PRN Reason: Keep Vein Open Last Admin: 04/04/21 13:30 Dose: 10 ml Documented by: Sodium Chloride (Sodium Chloride 0.65% Nasal [place] 45 Ml Bottle) 0 ml NASBOTH BID [facility] Last Admin: 04/05/21 08:07 Dose: 1 spray Documented by: Sodium Chloride (Sodium Chloride 0.65% Nasal [place] 45 Ml Bottle) 0 ml NASBOTH DAILY PRN PRN Reason: DRYNESS Spironolactone (Spironolactone 25 Mg Tab) 50 mg PO DAILY [facility] Discontinued Medications Acetaminophen (Acetaminophen 325 Mg Tab) 650 mg PO NOW ONE Stop: 04/03/21 11:49 Last Admin: 04/03/21 11:57 Dose: 650 mg Documented by: Albuterol/Ipratropium (Albuterol/Ipratropium 3.0-0.5 Mg/3 Ml Neb Soln) 3 ml NEB Q6H PRN PRN Reason: SHORTNESS OF BREATH Furosemide (Furosemide 20 Mg/2 Ml Vial) 20 mg IVPUSH DAILY [facility] Furosemide (Furosemide 20 Mg/2 Ml Vial) 20 mg IVPUSH ONETIME ONE Stop: 04/04/21 10:01 Last Admin: 04/04/21 09:52 Dose: 20 mg Documented by: Ciprofloxacin/Dextrose 400 mg/ (Premix) 200 mls @ 200 mls/hr IV ONETIME ONE Stop: 04/03/21 14:42 Last Admin: 04/03/21 15:47 Dose: 200 mls/hr Documented by: Sodium Chloride (Normal Saline) 1,000 mls @ 75 mls/hr IV ASDIRECTED [facility] Last Admin: 04/04/21 05:30 Dose: 75 mls/hr Documented by: Ciprofloxacin/Dextrose 400 mg/ (Premix) 200 mls @ 200 mls/hr IV Q24H [facility] Last Admin: 04/04/21 13:26 Dose: 200 mls/hr Documented by: Potassium Chloride (Potassium Chloride 20 Meq Tab.Er) 20 meq PO BID [facility] Last Admin: 04/05/21 08:07 Dose: 20 meq Documented by: Spironolactone (Spironolactone 25 Mg Tab) 25 mg PO DAILY [facility] Last Admin: 04/05/21 08:04 Dose: 25 mg Documented by: - Exam Quality Assessment: No: Supplemental Oxygen General: Alert, Oriented (person, place), Cooperative, No Acute Distress Lungs: Normal Respiratory Effort, Decreased Breath Sounds (throughout, decreased air exchange), Wheezing (throughout). No: Crackles Cardiovascular: Regular Rate, Irregular Rhythm GI/Abdominal Exam: Normal Bowel Sounds, Soft, Non-Tender, No Distention Extremities: No Pedal Edema Peripheral Pulses: 2+: Radial (L), Radial (R) - Patient Data Lab Results Last 24 hrs: Laboratory Results - last 24 hr 04/05/21 Range/Units 06:12 Sodium 140 (135-145) mmol/L Potassium 4.1 (3.5-5.3) mmol/L Chloride 101 (100-110) mmol/L Carbon Dioxide 30 (21-32) mmol/L BUN 39 H (7-18) mg/dL Creatinine 1.7 H (0.55-1.02) mg/dL Est Cr Clr Drug Dosing 18.09 mL/min Estimated GFR (MDRD) 28 L (>60) BUN/Creatinine Ratio 22.9 H (9-20) Glucose 135 H (80-116) mg/dL Calcium 9.1 (8.6-10.2) mg/dL Result Diagrams: 04/04/21 06:05 04/05/21 06:12 Andrzej Results Last 24 hrs: Microbiology 04/03/21 11:55 Urine Culture - Final Urine, Voided Klebsiella Pneumoniae Sepsis Event Note - Evaluation Sepsis Screening Result: No Definite Risk - Focused Exam Vital Signs: Vital Signs Temp Pulse Pulse Resp BP BP Pulse Ox 04/05/21 08:12 172/82 H 04/05/21 08:04 103 H 172/82 H 04/05/21 04:00 98.2 F 113 H 16 146/80 H 93 L 04/05/21 02:15 98.2 F 111 H 16 160/82 H 96 04/05/21 00:00 98.4 F 103 H 16 174/94 H 92 L - Problem List & Annotations (1) Fall SNOMED Code(s): 4344349, 871579260 Code(s): W19.XXXA - UNSPECIFIED FALL, INITIAL ENCOUNTER Status: Acute Current Visit: Yes Qualifiers: Encounter type: initial encounter Qualified Code(s): W19.XXXA - Unspecified fall, initial encounter (2) UTI (urinary tract infection) SNOMED Code(s): 09204251 Code(s): N39.0 - URINARY TRACT INFECTION, SITE NOT SPECIFIED Status: Acute Current Visit: Yes Qualifiers: Urinary tract infection type: acute cystitis Hematuria presence: with hematuria Qualified Code(s): N30.01 - Acute cystitis with hematuria Annotation/Comment:: GNR, mucoid; suspected Kleibsella, will awaiting sensitivities in case there is some resistance. (3) Weakness SNOMED Code(s): 20558497 Code(s): R53.1 - WEAKNESS Status: Acute Current Visit: No (4) Acute on chronic renal insufficiency SNOMED Code(s): 938566366 Code(s): N28.9 - DISORDER OF KIDNEY AND URETER, UNSPECIFIED; N18.9 - CHRONIC KIDNEY DISEASE, UNSPECIFIED Status: Acute Current Visit: No Annotation/Comment:: [facility] baseline range 1.8-2.1. (5) Cardiomegaly SNOMED Code(s): 4383006 Code(s): I51.7 - CARDIOMEGALY Status: Chronic Current Visit: No (6) Atrial flutter SNOMED Code(s): 1091487 Code(s): I48.92 - UNSPECIFIED ATRIAL FLUTTER Status: Chronic Current Visit: No (7) Afib SNOMED Code(s): 62990839 Code(s): I48.91 - UNSPECIFIED ATRIAL FIBRILLATION Status: Chronic Current Visit: No Qualifiers: (8) CKD (chronic kidney disease) SNOMED Code(s): 805281697 Code(s): N18.9 - CHRONIC KIDNEY DISEASE, UNSPECIFIED Status: Chronic Current Visit: No Qualifiers: Chronic kidney disease stage: stage 3 (moderate) Annotation/Comment:: Cr 2.0, baseline in past year 2.0 (9) Coronary artery disease SNOMED Code(s): 92119196 Code(s): I25.10 - ATHSCL HEART DISEASE OF [place] CORONARY ARTERY W/O ANG PCTRS Status: Chronic Current Visit: No Qualifiers: Coronary Disease-Associated Artery/Lesion type: [place] artery [place] vs. transplanted heart: [place] heart Associated angina: with stable angina Qualified Code(s): I25.118 - Atherosclerotic heart disease of [place] coronary artery with other forms of angina pectoris (10) Dementia SNOMED Code(s): 24177340 Code(s): F03.90 - UNSPECIFIED DEMENTIA WITHOUT BEHAVIORAL DISTURBANCE Statu s: Chronic Current Visit: No Qualifiers: Dementia type: Alzheimer's disease Alzheimer's disease onset: late-onset (11) Diabetes type 2, uncontrolled SNOMED Code(s): 493173983, 270813317 Code(s): E11.65 - TYPE 2 DIABETES MELLITUS WITH HYPERGLYCEMIA Status: Chronic Current Visit: No (12) Hypertension SNOMED Code(s): 19015896 Code(s): I10 - ESSENTIAL (PRIMARY) HYPERTENSION Status: Chronic Current Visit: No (13) Suspected chronic obstructive pulmonary disease based on initial evaluation SNOMED Code(s): 541413395 Code(s): J44.9 - CHRONIC OBSTRUCTIVE PULMONARY DISEASE, UNSPECIFIED Status: Chronic Current Visit: No Annotation/Comment:: COPD based on history and chest x-ray findings. Shortness of breath & breathing improved with DuoNebs on last admission, dosing changed to as needed per current medication records. Keep oxygen between 88-92%. (14) Thrombocytopenia SNOMED Code(s): 897167927 Code(s): D69.6 - THROMBOCYTOPENIA, UNSPECIFIED Status: Chronic Current Visit: No Annotation/Comment:: 104, stable. Will restart her aspirin, as she does have Afib. Stool occult was negative. (15) Palliative care patient SNOMED Code(s): 239748612, 032581501 Code(s): Z51.5 - ENCOUNTER FOR PALLIATIVE CARE Status: Chronic Current Visit: No (16) Bloody stool SNOMED Code(s): 203548943 Code(s): K92.1 - MELENA Status: Resolved Current Visit: Yes Annotation/Comment:: Stool occult negative. Likely hemorrhoids. (17) Hemorrhoids SNOMED Code(s): 39258197 Code(s): K64.9 - UNSPECIFIED HEMORRHOIDS Status: Acute Current Visit: Yes Qualifiers: Hemorrhoid type: unspecified Qualified Code(s): K64.9 - Unspecified hemorrhoids (18) Dehydration SNOMED Code(s): 39472674 Code(s): E86.0 - DEHYDRATION Status: Resolved Current Visit: No Annotation/Comment:: Cr 1.8 - Problem List Review Problem List Initiated/Reviewed/Updated: Yes - My Orders Last 24 Hours: My Active Orders 04/05/21 09:00 Ciprofloxacin [Ciprofloxacin HCl] 250 mg PO BID Potassium Chloride [Klor-Con M20] 20 meq PO DAILY Spironolactone [Aldactone] 50 mg PO DAILY 04/05/21 09:30 Albuterol/Ipratropium [DuoNeb 3.0-0.5 MG/3 ML] 3 ml NEB TID 04/06/21 06:00 BASIC METABOLIC PANEL,BMP [CHEM] Routine 04/06/21 08:00 metOLazone [Zaroxolyn] 2.5 mg PO MOFR@0800 - Plan Plan:: 1. UTI: Ciprofloxacin day 3, switch to oral form today 250 mg bid. Urine culture: Klebsiella, sensitive to ciprofloxacin which she has tolerated this hospital stay and was on full course in January. Repeat BMP tomorrow. 2. Shortness of breath/COPD: Change DuoNebs tid scheduled. 3. HTN: Increase her Spironolactone to 50 mg daily, decrease her potassium to 20 mEQ daily from bid to avoid hyperkalemia. Adjust as needed. 4. Fall: Right rib x-ray and Left humeral x-ray were negative for fractures. CT head negative. Right hip & knee x-ray negative for fracture. PT/OT evaluate & treat. 5. Thrombocytopenia: chronic, 106. 7. DVT prophylaxis: Thrombocytopenia so anticoagulation(Lovenox) con traindicated. TEDs hose BLE. SCDs contraindicated due to fall risk. Continue Aspirin 81 mg since her occult stool was negative to cover for stroke prevention 2/2 atrial fibrillation. 8. Discharge planning: anticipate discharge on Tuesday.
[2021-04-05] MEDS: Albuterol/Ipratropium 3.0-0.5 MG/3 ML Neb Soln NEB SCH ×3 (10:37→20:13)
[2021-04-05] MEDS ORDERED: Spironolactone 25 MG Tab PO ONE (10:46)
[2021-04-05] MEDS: Ciprofloxacin 250 MG Tab PO SCH ×2 (10:53→20:01)
[2021-04-05] MEDS: Cholestyramine/Sucrose Powder 4 GM Packet PO SCH (16:59)
[2021-04-05] MEDS: Mirtazapine 15 MG Tab PO SCH (20:01)
[2021-04-06] MEDS ORDERED: Metolazone 2.5 MG Tab PO SCH (08:00)
[2021-04-06] MEDS ORDERED: Spironolactone 25 MG Tab PO SCH ×2 (09:00)
[2021-04-06] MEDS ORDERED: Albuterol/Ipratropium 3.0-0.5 MG/3 ML Neb Soln NEB SCH (09:00)
[2021-04-06] MEDS: Aspirin 81 MG Tab.EC PO SCH (09:21)
[2021-04-06] MEDS: Potassium Chloride 20 MEQ Tab.ER PO SCH (09:21)
[2021-04-06] MEDS: Ciprofloxacin 250 MG Tab PO SCH (09:21)
[2021-04-06] MEDS: Gabapentin 100 MG Cap PO SCH (09:21)
[2021-04-06] MEDS: Carvedilol 6.25 MG Tab PO SCH (09:22)
[2021-04-06] MEDS: Lactobacillus Rhamnosus GG (Probiotic) Cap PO SCH (09:22)
[2021-04-06] MEDS: Fluticasone Propionate Nasal Spray 16 GM Bottle NASBOTH SCH (09:23)
[2021-04-06] MEDS: Iron Polysaccharides Complex 150 MG Cap PO SCH (09:23)
[2021-04-06] MEDS: Glimepiride 2 MG Tab PO SCH (09:23)
[2021-04-06] MEDS: predniSONE 5 MG Tab PO SCH (09:24)
[2021-04-06] MEDS: Carboxymethylcellulose Sodium 0.5% Ophth Soln 0.4 ML UD Box of 30 EYEBOTH SCH (09:24)
[2021-04-06] MEDS: Isosorbide Mononitrate 30 MG Tab.ER PO SCH (09:24)
[2021-04-06] MEDS: Sodium Chloride 0.65% Nasal Spray 45 ML Bottle NASBOTH SCH (09:24)
[2021-04-06] MEDS: Acetaminophen 500 MG Tab PO SCH (09:24)
[2021-04-06] MEDS: LIDOCAINE HCL TOP SCH (09:24)
[2021-04-06 09:25] VITALS: BP 135/60
[2021-04-06 10:48] VITALS: PULSE 108
--- NOTE | 2021-04-06 11:50 | PCM.DCSUM1 ---
Discharge Summary - Hospital Course HPI Initial Comments: Angelique fell this morning digging in the bottom drawer of her fridge, fell and pushed her warning pendant, without loss of consciousness, unwitnessed fall, reported by [facility] staff to ER nurse, Angelique does not remember what she was doing or what she landed on. She was brought in by EMS for evaluation. Complaint of left knee pain, skin tear to right side of her neck, right chest wall pain and left arm pain. Also bruising to her right chest wall and left humerus, right knee. Denies any chest pain, shortness of breath, or cough. ER nurse noted when she was up to void that she had red stool present when she wiped her. She has chronic bruising of bilateral buttocks which was present on last admission in January. She has history of thrombocytopenia, dementia, heart failure and mobility dysfunction. Her son stated [facility] staff called him that they were sending her to ER but they didn't tell him why so he came straight here. She has easily bruising with her Aspirin, Prednisone and thrombocytopenia. ER course: WBC 4.5, Hgb 11.6, Plt 104(last admission 94), Cr 2.1, BUN 51; UA moderate blood, large Leukocyte esterase, WBC>100, occasional epithelial cell and many bacteria. had Pseudomonas UTI in January, sensitive to Ciprofloxacin which she tolerated well. Right hip & knee x-ray were negative for acute fracture. CT head was negative. [facility] had sent an UA in on that was abnormal. Dr Maxwell sent prescription for Cipro bid x 7 days on Tuesday but she was already in ER and never took any of the antibiotics. Diagnosis: Stroke: No - Discharge Data Discharge Date: 04/06/21 Discharge Disposition: Home, W Home Health Agency 06 Condition: Good - Referral to Home Health Date of Face to Face Encounter: 04/06/21 Reason for Homebound Status: [facility] care Primary Care Physician: Fantasma Maxwell MD Skilled Need: care home for medications, PT/OT after fall - Discharge Diagnosis/Problem(s) (1) Fall SNOMED Code(s): 7341179, 614804285 ICD Code: W19.XXXA - UNSPECIFIED FALL, INITIAL ENCOUNTER Status: Acute Current Visit: Yes Qualifiers: Encounter type: initial encounter Qualified Code(s): W19.XXXA - Unspecified fall, initial encounter (2) UTI (urinary tract infection) SNOMED Code(s): 08910512 ICD Code: N39.0 - URINARY TRACT INFECTION, SITE NOT SPECIFIED Status: Acute Current Visit: Yes Problem Details: Klebsiella, sensitive to ciprofloxacin. Qualifiers: Urinary tract infection type: acute cystitis Hematuria presence: with hematuria Qualified Code(s): N30.01 - Acute cystitis with hematuria (3) Weakness SNOMED Code(s): 44868794 ICD Code: R53.1 - WEAKNESS Status: Acute Current Visit: No (4) Acute on chronic renal insufficiency SNOMED Code(s): 351996223 ICD Code: N28.9 - DISORDER OF KIDNEY AND URETER, UNSPECIFIED; N18.9 - CHRONIC KIDNEY DISEASE, UNSPECIFIED Status: Acute Current Visit: No Problem Details: At 1.7 today. [facility] baseline range 1.8-2.1. (5) Cardiomegaly SNOMED Code(s): 8321777 ICD Code: I51.7 - CARDIOMEGALY Status: Chronic Current Visit: No (6) CKD (chronic kidney disease) SNOMED Code(s): 309513153 ICD Code: N18.9 - CHRONIC KIDNEY DISEASE, UNSPECIFIED Status: Chronic Current Visit: No Problem Details: Cr 1.7, baseline in past year 2.0 Qualifiers: Chronic kidney disease stage: stage 3 (moderate) (7) Suspected chronic obstructive pulmonary disease based on initial evaluation SNOMED Code(s): 205210322 ICD Code: J44.9 - CHRONIC OBSTRUCTIVE PULMONARY DISEASE, UNSPECIFIED Status: Chronic Current Visit: No Problem Details: COPD based on history and chest x-ray findings. wheezing audibly, but has not been asking for neb treatments so changed to TID, was more agitated after scheduled so changed to bid. Keep oxygen between 88-92%. (8) Thrombocytopenia SNOMED Code(s): 881346229 ICD Code: D69.6 - THROMBOCYTOPENIA, UNSPECIFIED Status: Chronic Current Visit: No Problem Details: 104, stable. Will restart her aspirin, as she does have Afib. Stool occult was negative. (9) Bloody stool SNOMED Code(s): 570505746 ICD Code: K92.1 - MELENA Status: Resolved Current Visit: Yes Problem Details: Stool occult negative. Likely hemorrhoids. (10) Hemorrhoids SNOMED Code(s): 93790230 ICD Code: K64.9 - UNSPECIFIED HEMORRHOIDS Status: Acute Current Visit: Yes Qualifiers: Hemorrhoid type: unspecified Qualified Code(s): K64.9 - Unspecified hemorrhoids (11) Dehydration SNOMED Code(s): 89183722 ICD Code: E86.0 - DEHYDRATION Status: Resolved Current Visit: No Problem Details: Cr 1.7 (12) Diabetes type 2, uncontrolled SNOMED Code(s): 507632279, 422217134 ICD Code: E11.65 - TYPE 2 DIABETES MELLITUS WITH HYPERGLYCEMIA Status: Chronic Current Visit: No (13) Palliative care patient SNOMED Code(s): 198957023, 230375230 ICD Code: Z51.5 - ENCOUNTER FOR PALLIATIVE CARE Status: Chronic Current Visit: No (14) Hypertension SNOMED Code(s): 59270882 ICD Code: I10 - ESSENTIAL (PRIMARY) HYPERTENSION Status: Chronic Current Visit: No Qualifiers: Hypertension type: primary hypertension Qualified Code(s): I10 - Essential (primary) hypertension (15) Coronary artery disease SNOMED Code(s): 66746660 ICD Code: I25.10 - ATHSCL HEART DISEASE OF [place] CORONARY ARTERY W/O ANG PCTRS Status: Chronic Current Visit: No Qualifiers: Coronary Disease-Associated Artery/Lesion type: [place] artery [place] vs. transplanted heart: [place] heart Associated angina: with stable angina Qualified Code(s): I25.118 - Atherosclerotic heart disease of [place] coronary artery with other forms of angina pectoris (16) Dementia SNOMED Code(s): 11615009 ICD Code: F03.90 - UNSPECIFIED DEMENTIA WITHOUT BEHAVIORAL DISTURBANCE Status: Chronic Current Visit: No Qualifiers: Dementia type: Alzheimer's disease Alzheimer's disease onset: late-onset (17) Afib SNOMED Code(s): 03942440 ICD Code: I48.91 - UNSPECIFIED ATRIAL FIBRILLATION Status: Chronic Current Visit: No Qualifiers: (18) Atrial flutter SNOMED Code(s): 0258940 ICD Code: I48.92 - UNSPECIFIED ATRIAL FLUTTER Status: Chronic Current Visit: No - Patient Summary/Data Consults: Consultations 04/03/21 14:29 PT Evaluation and Treatment [CONS] Routine Please Evaluate and Treat. PT Reason for Consult: Ambulation Special Instructions: Fall This query below is only for informational purposes and is not editable. Admission Diagnosis/Problem: UTI, Urinary tract infectious disease 04/03/21 14:30 OT Evaluation and Treatment [CONS] Routine Please Evaluate and Treat. OT Reason for Consult: ADL's Special Instructions: Fall This query below is only for informational purposes and is not editable. Admission Diagnosis/Problem: UTI, Urinary tract infectious disease Hospital Course: Angelique had CT head, rib, humeral, hip and knee x-ray done which showed no acute fractures. UA was positive for infection, culture grew Klebsiella sensitive to ciprofloxacin. She had Ciprofloxacin 400 mg IV q24h, had 2 doses then switched to oral ciprofloxacin 250 mg bid on Tuesday. She had IV fluids on Tuesday, received about 500 ml then started having crackles on exam so was discontinued. Resumed her Spironolactone 25 mg daily, and Lasix IV on Tuesday. Spironolactone 50 mg on Tuesday. Her Cr improved to 1.7 today. Her Lasix, Metolazone and Spironolactone resumed today at her home doses. She was wheezing over the weekend but was not asking for her nebs as they were PRN(home dose at [facility]), changed to tid then bid today. She started being more active yesterday even with chair alarm, was found in the [place]. Seemed more agitated yesterday, not sure if it was DuoNebs or being in the hospital. Seems more confused today but clinically improved. She worked with OT on Tuesday but refused PT today. Will go home with Ciprofloxacin 250 mg bid for 1.5 more days, can use antibiotics that were sent from [facility] on Tuesday. Home Health with care home, PT/OT ordered. Follow up IN CLINIC on for repeat UA and chemistry, review medications as she is on 3 diuretics and adjust DuoNebs if needed. - Patient Instructions Diet: Usual Diet as Tolerated Activity: As Tolerated Driving: Do Not Drive Showering/Bathing: May Shower Notify Provider of: Fever, Increased Pain, Swelling and Redness, Nausea and/or Vomiting Other/Special Instructions: Follow up with Dr Maxwell or Bill Hilliard PA-C in clinic for repeat chemistry and UA, review medications. Changed DuoNebs to bid since not remembering to ask. Ciprofloxacin for urinary infection, take tonight and tomorrow am & pm then stop, may use prescription that Dr Maxwell sent over on Tuesday. - Discharge Plan *PRESCRIPTION DRUG MONITORING PROGRAM REVIEWED*: Not Applicable *COPY OF PRESCRIPTION DRUG MONITORING REPORT IN PATIENT HANK: Not Applicable Prescriptions/Med Rec: Ciprofloxacin [Ciprofloxacin HCl] 250 mg PO BID #3 tablet Home Medications: Home Meds Cholestyramine/Aspartame [Cholestyramine Light] 4 gm PO 1700 02/11/14 [History] Fluticasone Propionate [Flonase] 1 spray NASBOTH BID 04/20/18 [History] L.acidoph,Paracasei, B.lactis [Probiotic] 1 cap PO DAILY 04/20/18 [History] Mirtazapine [Remeron] 15 mg PO BEDTIME #30 tablet 04/25/18 [Rx] Furosemide 20 mg PO 1200 08/06/18 [History] Acetaminophen [Acetaminophen Extra Strength] 500 mg PO TID 03/17/20 [History] Aspirin [Halfprin] 81 mg PO DAILY 03/17/20 [History] Benzonatate [Tessalon Perle] 100 mg PO TID PRN 03/17/20 [History] Carboxymethylcellulose Sodium [Refresh Plus 0.5%] 1 drop EYEBOTH BID 03/17/20 [History] Furosemide [Lasix] 40 mg PO DAILY 03/17/20 [History] Gabapentin [Neurontin] 100 mg PO BID 03/17/20 [History] Isosorbide Mononitrate [Isosorbide Mononitrate ER] 30 mg PO DAILY 03/17/20 [History] Magnesium Hydroxide [Milk of Magnesia] 30 ml PO DAILY PRN 03/17/20 [History] Potassium Chloride 20 meq PO BID 03/17/20 [History] Sodium Chloride [Saline Nasal [place]] 1 spray NASBOTH ASDIRECTED PRN 03/17/20 [History] Spironolactone [Aldactone] 25 mg PO DAILY 03/17/20 [History] carvediloL [Coreg] 6.25 mg PO BID 03/17/20 [History] lidocaine HCL [Aspercreme Lidocaine] 1 applic TOP BID 03/17/20 [History] Iron Polysaccharides Complex [Ferrex 150] 150 mg PO BID #0 cap 03/20/20 [Rx] Glimepiride [Amaryl] 2 mg PO DAILY 02/03/21 [History] metOLazone [Zaroxolyn] 2.5 mg PO MOFR@0800 02/03/21 [History] predniSONE [Prednisone] 5 mg PO Q48H 04/03/21 [History] Albuterol/Ipratropium [DuoNeb 3.0-0.5 MG/3 ML] 3 ml NEB BID neb 04/06/21 [Rx] Ciprofloxacin [Ciprofloxacin HCl] 250 mg PO BID #3 tablet 04/06/21 [Rx] Hydrocortisone [Proctozone-HC 2.5% Crm] 0 gm TOP QID PRN #1 tube 04/06/21 [Rx] Oxygen Therapy Mode: Room Air Patient Handouts: Hemorrhoids, [id number], Urinary Tract Infection, Adult, [id number] Forms: ED Department Discharge Referrals: Fantasma Maxwell MD [Primary Care Provider] - - Discharge Summary/Plan Comment DC Time >30 min.: No Total # of Minutes for Discharge Time: 25 min - General Info Date of Service: 04/06/21 - Patient Data Vitals - Most Recent: Last Vital Signs Temp 98.1 F 04/06/21 03:35 Pulse 117 H 04/06/21 09:22 Resp 18 04/06/21 08:00 BP 135/60 04/06/21 09:24 Pulse Ox 95 04/06/21 08:00 Weight - Most Recent: 172 lb 4 oz I&O - Last 24 hours: Intake & Output 04/05/21 04/06/21 04/06/21 22:59 06:59 14:59 Intake Total 480 Balance 480 Lab Results - Last 24 hrs: Laboratory Results - last 24 hr 04/06/21 04/06/21 Range/Units 03:25 06:25 Sodium 142 (135-145) mmol/L Potassium 5.2 D (3.5-5.3) mmol/L Chloride 104 (100-110) mmol/L Carbon Dioxide 30 (21-32) mmol/L BUN 38 H (7-18) mg/dL Creatinine 1.7 H (0.55-1.02) mg/dL Est Cr Clr Drug Dosing 17.74 mL/min Estimated GFR (MDRD) 28 L (>60) BUN/Creatinine Ratio 22.4 H (9-20) Glucose 97 (80-116) mg/dL Calcium 8.7 (8.6-10.2) mg/dL SARS-CoV-2 RNA (STIVEN) Negative (NEGATIVE) [place]ISETTE Results - Last 24 hrs: Microbiology 04/03/21 11:55 Urine Culture - Final Urine, Voided Klebsiella Pneumoniae Med Orders - Current: Current Medications Acetaminophen (Acetaminophen 500 Mg Tab) 500 mg PO TID [facility] Last Admin: 04/06/21 09:24 Dose: 500 mg Documented by: Acetaminophen (Acetaminophen 325 Mg Tab) 650 mg PO Q4H PRN PRN Reason: Sleep Albuterol/Ipratropium (Albuterol/Ipratropium 3.0-0.5 Mg/3 Ml Neb Soln) 3 ml NEB BID [facility] Last Admin: 04/06/21 09:22 Dose: 3 ml Documented by: Artificial Tears (Carboxymethylcellulose Sodium 0.5% Ophth Soln 0.4 Ml Ud Box Of 30) 0 each EYEBOTH BID [facility] Last Admin: 04/06/21 09:24 Dose: 1 drop Documented by: Aspirin (Aspirin 81 Mg Tab.Ec) 81 mg PO DAILY [facility] Last Admin: 04/06/21 09:21 Dose: 81 mg Documented by: Carvedilol (Carvedilol 6.25 Mg Tab) 6.25 mg PO BID [facility] Last Admin: 04/06/21 09:22 Dose: 6.25 mg Documented by: Cholestyramine Resin (Cholestyramine/Sucrose Powder 4 Gm Packet) 4 gm PO 1700 [facility] Last Admin: 04/05/21 16:59 Dose: 4 gm Documented by: Ciprofloxacin (Ciprofloxacin 250 Mg Tab) 250 mg PO BID [facility] Last Admin: 04/06/21 09:21 Dose: 250 mg Documented by: Fluticasone Propionate (Fluticasone Propionate Nasal [place] 16 Gm Bottle) 0 gm NASBOTH BID [facility] Last Admin: 04/06/21 09:23 Dose: 1 spray Documented by: Gabapentin (Gabapentin 100 Mg Cap) 100 mg PO BID [facility] Last Admin: 04/06/21 09:21 Dose: 100 mg Documented by: Glimepiride (Glimepiride 2 Mg Tab) 2 mg PO DAILY [facility] Last Admin: 04/06/21 09:23 Dose: 2 mg Documented by: Hydrocortisone (Hydrocortisone 2.5% Crm 30 Gm Tube) 0 gm TOP QID PRN PRN Reason: Hemorrhoids Isosorbide Mononitrate (Isosorbide Mononitrate 30 Mg Tab.Er) 30 mg PO DAILY [facility] Last Admin: 04/06/21 09:24 Dose: 30 mg Documented by: Lactobacillus Rhamnosus (Lactobacillus Rhamnosus Gg (Probiotic) Cap) 1 cap PO DAILY [facility] Last Admin: 04/06/21 09:22 Dose: 1 cap Documented by: Magnesium Hydroxide (Magnesium Hydroxide 400 Mg/5 Ml Susp 30 Ml Cup) 30 ml PO DAILY PRN PRN Reason: Constipation Metolazone (Metolazone 2.5 Mg Tab) 2.5 mg PO MOFR@0800 [facility] Last Admin: 04/06/21 09:23 Dose: 2.5 mg Documented by: Mirtazapine (Mirtazapine 15 Mg Tab) 15 mg PO BEDTIME [facility] Last Admin: 04/05/21 20:01 Dose: 15 mg Documented by: Lidocaine Hcl [ Aspercreme Lidocaine ] 76.5 Gm Cream Own Med 1 applic TOP BID [facility] Last Admin: 04/06/21 09:24 Dose: 1 applic Documented by: Polysaccharide Iron Complex (Iron Polysaccharides Complex 150 Mg Cap) 150 mg PO BID [facility] Last Admin: 04/06/21 09:23 Dose: 150 mg Documented by: Potassium Chloride (Potassium Chloride 20 Meq Tab.Er) 20 meq PO DAILY [facility] Last Admin: 04/06/21 09:21 Dose: 20 meq Documented by: Prednisone (Prednisone 5 Mg Tab) 5 mg PO Q48H [facility] Last Admin: 04/06/21 09:24 Dose: 5 mg Documented by: Sodium Chloride (Sodium Chloride 0.9% 10 Ml Syringe) 10 ml FLUSH ASDIRECTED PRN PRN Reason: Keep Vein Open Last Admin: 04/04/21 13:30 Dose: 10 ml Documented by: Sodium Chloride (Sodium Chloride 0.65% Nasal [place] 45 Ml Bottle) 0 ml NASBOTH BID [facility] Last Admin: 04/06/21 09:24 Dose: 1 spray Documented by: Sodium Chloride (Sodium Chloride 0.65% Nasal [place] 45 Ml Bottle) 0 ml NASBOTH DAILY PRN PRN Reason: DRYNESS Spironolactone (Spironolactone 25 Mg Tab) 25 mg PO DAILY [facility] Last Admin: 04/06/21 09:21 Dose: 25 mg Documented by: Discontinued Medications Acetaminophen (Acetaminophen 325 Mg Tab) 650 mg PO NOW ONE Stop: 04/03/21 11:49 Last Admin: 04/03/21 11:57 Dose: 650 mg Documented by: Albuterol/Ipratropium (Albuterol/Ipratropium 3.0-0.5 Mg/3 Ml Neb Soln) 3 ml NEB Q6H PRN PRN Reason: SHORTNESS OF BREATH Albuterol/Ipratropium (Albuterol/Ipratropium 3.0-0.5 Mg/3 Ml Neb Soln) 3 ml NEB TID [facility] Last Admin: 04/05/21 20:13 Dose: 3 ml Documented by: Furosemide (Furosemide 20 Mg/2 Ml Vial) 20 mg IVPUSH DAILY [facility] Furosemide (Furosemide 20 Mg/2 Ml Vial) 20 mg IVPUSH ONETIME ONE Stop: 04/04/21 10:01 Last Admin: 04/04/21 09:52 Dose: 20 mg Documented by: Ciprofloxacin/Dextrose 400 mg/ (Premix) 200 mls @ 200 mls/hr IV ONETIME ONE Stop: 04/03/21 14:42 Last Admin: 04/03/21 15:47 Dose: 200 mls/hr Documented by: Sodium Chloride (Normal Saline) 1,000 mls @ 75 mls/hr IV ASDIRECTED [facility] Last Admin: 04/04/21 05:30 Dose: 75 mls/hr Documented by: Ciprofloxacin/Dextrose 400 mg/ (Premix) 200 mls @ 200 mls/hr IV Q24H [facility] Last Admin: 04/04/21 13:26 Dose: 200 mls/hr Documented by: Potassium Chloride (Potassium Chloride 20 Meq Tab.Er) 20 meq PO BID [facility] Last Admin: 04/05/21 08:07 Dose: 20 meq Documented by: Spironolactone (Spironolactone 25 Mg Tab) 25 mg PO DAILY [facility] Last Admin: 04/05/21 08:04 Dose: 25 mg Documented by: Spironolactone (Spironolactone 25 Mg Tab) 50 mg PO DAILY [facility] Last Admin: 04/06/21 09:28 Dose: Not Given Documented by: Spironolactone (Spironolactone 25 Mg Tab) 50 mg PO DAILY [facility] Spironolactone (Spironolactone 25 Mg Tab) 25 mg PO ONETIME ONE Stop: 04/05/21 10:47 Last Admin: 04/05/21 10:59 Dose: 25 mg Documented by: *Q Meaningful Use (DIS) - VTE *Q VTE Mechanical Contraindications *Q: At Risk for Falls VTE Pharmacological Contraindications *Q: Thrombocytopenia
== END 2021-04-06 12:30 | disposition home health service (06) | DRG 690 ==
LOC: FB.ED 10:52 → UNDOADMIN 13:48 → FB.MS 13:48
PROVIDERS: ADMIT Family Medicine; ATTEND Family Medicine
DX: N30.01 Acute cystitis with hematuria (principal); S11.90XA Unspecified open wound of unspecified part of neck, initial encounter; M25.562 Pain in left knee; W18.30XA Fall on same level, unspecified, initial encounter; K92.1 Melena; I48.20 Chronic atrial fibrillation, unspecified; I48.91 Unspecified atrial fibrillation; I48.92 Unspecified atrial flutter; I11.0 Hypertensive heart disease with heart failure; I13.0 Hypertensive heart and chronic kidney disease with heart failure and stage 1 through stage 4 chronic kidney disease, or unspecified chronic kidney disease; W19.XXXA Unspecified fall, initial encounter; Z51.5 Encounter for palliative care; Z66 Do not resuscitate; N18.30 Chronic kidney disease, stage 3 unspecified; J44.9 Chronic obstructive pulmonary disease, unspecified; D69.6 Thrombocytopenia, unspecified; E11.9 Type 2 diabetes mellitus without complications; E03.9 Hypothyroidism, unspecified; K64.9 Unspecified hemorrhoids; E86.0 Dehydration; E11.65 Type 2 diabetes mellitus with hyperglycemia; I25.118 Atherosclerotic heart disease of native coronary artery with other forms of angina pectoris; G30.1 Alzheimer's disease with late onset; F02.80 Dementia in other diseases classified elsewhere, unspecified severity, without behavioral disturbance, psychotic disturbance, mood disturbance, and anxiety; B96.1 Klebsiella pneumoniae [K. pneumoniae] as the cause of diseases classified elsewhere; Z20.822 Contact with and (suspected) exposure to COVID-19; Z79.82 Long term (current) use of aspirin; Z79.899 Other long term (current) drug therapy; Z79.52 Long term (current) use of systemic steroids; Z88.1 Allergy status to other antibiotic agents; Z88.0 Allergy status to penicillin; Z88.2 Allergy status to sulfonamides; Z88.8 Allergy status to other drugs, medicaments and biological substances; H91.90 Unspecified hearing loss, unspecified ear; H54.7 Unspecified visual loss; I50.9 Heart failure, unspecified; I27.20 Pulmonary hypertension, unspecified; R32 Unspecified urinary incontinence; K57.90 Diverticulosis of intestine, part unspecified, without perforation or abscess without bleeding; M19.90 Unspecified osteoarthritis, unspecified site; M06.9 Rheumatoid arthritis, unspecified; G30.9 Alzheimer's disease, unspecified; E11.22 Type 2 diabetes mellitus with diabetic chronic kidney disease; E05.90 Thyrotoxicosis, unspecified without thyrotoxic crisis or storm; Z90.49 Acquired absence of other specified parts of digestive tract; Z90.710 Acquired absence of both cervix and uterus; Z96.659 Presence of unspecified artificial knee joint
CPT/HCPCS: 36415; 70450; 73502; 73560; 80053; 81001; 85027; 87086; 87186; 99285; A9270; 71101-RT; 73060-LT; 80048; 82270; 85025; 87088; 94640; 97161-GP; 97165-GO; J0744; J1940; J7030; J7512; J7620-GY; U0002